=== PATIENT | female | born 1950 | race Caucasian/White ===

== ENCOUNTER → 2018-01-30 12:50 | Outpatient (CLI) | payer MEDICARE, SELFPAY ==
--- NOTE | 2018-02-04 18:29 | LEAS ---
Arterial Study - Arterial Study Arterial Study: This is a 67-year-old female with history of diabetes mellitus and hyperlipidemia. Suspecting the presence of atherosclerotic peripheral arterial occlusive disease, the patient was brought to the noninvasive vascular laboratory at this time for the purpose of bilateral noninvasive lower extremity arterial assessment. Doppler signal assessment was used to evaluate the pulses at ankle level bilaterally. The posterior tibial and dorsalis pedis pulses were triphasic bilaterally. Segmental limb pressures were obtained bilaterally. The right ankle pressure, as determined by posterior tibial pulse, was measured at 150 mmHg. The right ankle pressure, as determined by dorsalis pedis pulse, was measured at 137 mmHg. The right digital pressure was measured at 118 mmHg. The left ankle pressure, as determined by posterior tibial pulse, was measured at 173 mmHg. The left ankle pressure, as determined by dorsalis pedis pulse, was measured at 245 mmHg. The left digital pressure was measured at 106 mmHg. Pulse-volume recordings were obtained bilaterally and segmentally. Waveform amplitudes appeared to be satisfactory at all levels bilaterally, including low thigh, calf, ankle, and digital levels. Resting ankle-brachial indices were calculated bilaterally. The resting right ankle-brachial index was calculated to be 1.11. The resting left ankle-brachial index was calculated to be 1.81. Digital-brachial indices were calculated bilaterally. The right digital-brachial index was calculated to be 0.87. The left digital-brachial index was calculated to be 0.79. Impression: Based upon the findings of this resting noninvasive lower extremity arterial study, there is no evidence of significant atherosclerotic peripheral arterial occlusive disease in the lower extremities bilaterally. Triphasic waveforms were noted at ankle level bilaterally. The resting right ankle-brachial index was normal. The resting left ankle-brachial index was supra-normal. This may be related to arterial calcification in the left lower extremity, for which clinical correlation is advised. Digital-brachial indices were bilaterally normal.
== END ==
PROVIDERS: Family Provider Family Medicine; PCP Family Medicine; Visit Provider Podiatrist
DX: I73.9 Peripheral vascular disease, unspecified (principal); I87.2 Venous insufficiency (chronic) (peripheral); R60.0 Localized edema
CPT/HCPCS: 93923; 93970

== ENCOUNTER 2020-04-25 11:32 | Inpatient (IN) | payer MEDICARE, SELFPAY ==
[2020-04-25] VITALS (10 sets, daily range): BP systolic 98–134; BP diastolic 44–82; PULSE 93–106; RESP 13–22; TEMP 36.8–37.7; O2SAT 95–99; BMI 43.9; BMI 38.2; BMI 38.3
--- NOTE | 2020-04-25 11:55 | CT_ITS ---
STUDY: CT BRAIN WITHOUT CONTRAST REASON FOR EXAM: Female, 69 years old. FALL-HAS BEEN LAYING ON FLOOR X 2 DAYS, IK=116 RADIATION DOSAGE (If Supplied By Facility): CTDIvol = ( 44.99 ) mGy, DLP = ( 779.24 ) mGycm TECHNIQUE: Transaxial CT imaging of the brain was performed without administration of intravenous contrast material. Individualized dose optimization techniques were used for this CT. COMPARISON: No relevant priors. FINDINGS: Normal soft tissue structures. Normal calvarium. There is mild cerebral atrophy with widening of the extra-axial spaces and ventricular dilatation. There are areas of decreased attenuation within the white matter tracts of the supratentorial brain, consistent with microvascular disease changes. Normal basal ganglia and thalami. Normal brainstem. Normal cerebellum. There is no intracranial hemorrhage. There are no findings of an acute ischemic infarction. Normal visualized paranasal sinuses. CT/Brain/Head without Contrast IMPRESSION: Chronic involutional changes of the brain. Electronically Signed: Benitez Sanchez DO at 12:53 EST Tel , Service support ,
--- NOTE | 2020-04-25 11:56 | EKG12_ITS ---
Test Reason : FALL Blood Pressure : / mmHG Vent. Rate : 104 BPM Atrial Rate : 104 BPM P-R Int : 136 ms QRS Dur : 074 ms QT Int : 386 ms P-R-T Axes : 053 017 -07 degrees QTc Int : 507 ms Sinus tachycardia Possible Left atrial enlargement Borderline ECG Confirmed by ANETTE QUIJANO, LLOYD ([id number]), art editor RUTHANN GASTON ([id number]) on 04/28/2020 10:34:47 AM Referred By: VERONIKA Confirmed By:LLOYD CHEEMA MD
--- NOTE | 2020-04-25 11:57 | RAD_ITS ---
STUDY: X-RAY - PELVIS AND LEFT HIP REASON FOR EXAM: Female, 69 years old. PT FELL, POSSIBLY BEEN LAYING ON THE FLOOR FOR A COUPLE OF DAYS. LT HIP PAIN. FRIENDS THAT FOUND HER HAVE NOT SEEN HER IN A COUPLE OF WEEKS AND TOLD EMS THAT HER SPEECH DOES NOT NORMALLY SOUND SLURRED. BGL 302 TECHNIQUE: 3 views of the pelvis and hip. COMPARISON: None. FINDINGS: There is a non-specific bowel gas pattern. Normal visualized soft tissue structures. Normal bilateral iliac wings, sacroiliac joints and visualized sacrum. Normal bilateral superior and inferior pubic rami. Normal pubic symphysis. Normal bilateral ischial tuberosities. There are osteoarthritic changes of the femoral head with marginal osteophyte formation. Normal acetabulum. There is mild articular joint space narrowing of the hip. RAD/HIP, UNI W/ Pelvis 2-3 Views IMPRESSION: No acute traumatic findings Electronically Signed: Benitez Sanchez DO at 12:54 EST Tel , Service support ,
--- NOTE | 2020-04-25 12:11 | ED.DCSUM_ITS ---
- ER Visit Summary Date of Service: 04/25/20 Chief Complaint: Fall History of Present Illness: The patient is a 69 F who presents after a fall that occurred yesterday. Patient states she fell and was unable to get up. Friends found the patient laying on the floor today. Patient states she was unable to g et up and laid on the floor since yesterday. Patient states she has pain in her left hip. Patient states this is worse with any movement. Patient describes as a dull soreness. Patient denies any head injury or loss of consciousness. Patient states her left upper extremity has some mild soreness but she thinks that is because she laid on that arm. Physical Examination: Vital signs are stable except for mild tachycardia of 106. Patient is afebrile. Patient is in no acute distress. Oral mucosa is pink and dry. Neck is supple. Trachea is midline. There is no JVD. Heart was regular and tachycardic. Lungs are clear and equal bilaterally. Abdomen is soft. Bowel sounds are normal. There is no tenderness. Extremities are intact. There is tenderness over the left hip area. There is pain with internal and external rotation. There is no shortening noted. Cranial nerves II through XII are intact. Strength is 5/5 bilateral in the upper and lower extremities. There are no sensory deficits. Test Results: EKG was obtained. On my interpretation it showed sinus tachycardia with a rate of 104. There are no acute ST or T wave changes. CBC shows a leukocytosis of 17.6. Comprehensive metabolic profile shows slightly elevated glucose of 262 but was otherwise within normal limits. PT with INR and PTT were normal. Total CK was elevated at 1894. Troponin was slightly elevated at 0.161. CT scan of the brain was obtained. There is no acute intracranial abnormality. This was interpreted by the radiologist and reviewed by myself. X-rays of the left hip were obtained and were 3 views. There is no acute fracture or dislocation on my interpretation. Radiologist also interpreted the x-rays and agrees. Portable 1 view chest x-ray was obtained. On my interpretation, lung triana are clear. There is normal cardiac silhouette. Bony thorax is normal. There is no acute process noted. Radiologist also interpreted the x-ray and agrees. Emergency Department Course and Treatment: Patient was given 2 L of normal saline initially. Patient was started on bicarb drip. Case was discussed with the hospitalist. He will admit the patient to his service. Patient understood and was agreeable with the plan. All questions were answered. Disposition: Admit to hospital Impression: 1. Rhabdomyolysis 2. Elevated troponin This note was generated with [employer] dictation software. It may contain incorrect words, spelling, and punctuation that were not noted in review of the chart prior to signing ED Disposition - Plan for ED Patient: Disposition: Acute Care Hospital [facility] Diagnosis: Rhabdomyolysis, Elevated troponin Referrals: Geoffrey Garber DO [Primary Care Provider] -
[2020-04-25] MEDS: 0.9% Normal Saline 1,000 ML 1000 ML IV (12:21)
[2020-04-25 12:22] LABS: Absolute Lymphocyte Count 0.85 X10^3/uL (0.83-4.51); Absolute Neutrophil Count 15.3 X10^3/uL (2.0-7.7); Basophil# 0.06 X10^3/uL; Basophil% 0.3 % (0-1); Eosinophil# 0.02 X10^3/uL; Eosinophils% 0.1 % (0-5); Hematocrit 43.6 % (37-47); Hemoglobin 14.6 g/dL (12.0-15.0); Lymphocyte # 0.85 X10^3/ul (4.0); Lymphocyte % 4.8 % (19-41); Mean Corp Hgb Conc 33.5 g/dL (32-36); Mean Corpuscular Hgb 28.9 pg (27.0-32.0); Mean Corpuscular Volume 86.2 fL (81-99); Mean Platelet Vol. 9.8 fl (6.2-12.0); Monocyte# 1.27 X10^3/uL; Monocyte% 7.2 % (0-10); NRBC Flagged by Analyzer 0 % (0-5); Neutrophil # 15.33 X10^3/uL (2.7-7.7); Neutrophil % 87.1 % (47-70); Platelet Count 311 K/mm3 (150-450); RBC Distribution Width CV 13.2 % (11.6-14.6); RBC Distribution Width SD 41.6 fl (35.1-43.9); Red Blood Count 5.06 M/mm3 (4.2-5.4); White Blood Count 17.6 K/mm3 (4.4-11.0)
--- NOTE | 2020-04-25 12:30 | RAD_ITS ---
STUDY: X-RAY CHEST REASON FOR EXAM: Female, 69 years old. PT FELL, POSSIBLY BEEN LAYING ON THE FLOOR FOR A COUPLE OF DAYS. LT HIP PAIN. FRIENDS THAT FOUND HER HAVE NOT SEEN HER IN A COUPLE OF WEEKS AND TOLD EMS THAT HER SPEECH DOES NOT NORMALLY SOUND SLURRED. BGL 302 TECHNIQUE: Single AP portable view of the chest. COMPARISON: None. FINDINGS: The lungs are clear and expanded. There is no demonstrated pleural abnormality. Normal size heart. Normal mediastinum and nas. Normal visualized pulmonary arteries. Normal visualized aortic arch and descending thoracic aorta. Normal visualized thoracic spine. Normal visualized ribs, clavicles, and shoulders. There is no demonstrated abnormality of the visualized soft tissue structures of the upper abdomen. RAD/Chest 1 View (Portable) IMPRESSION: Normal x-ray examination of the chest. Electronically Signed: Benitez Sanchez DO at 12:54 EST Tel , Service support ,
[2020-04-25 12:36] LABS: ALB/GLOB Ratio 0.9 RATIO (0.9-2.4); AST(SGOT) 75 U/L (15-37); Alanine Aminotransfer ALT/SGPT 25 U/L (13-56); Albumin, Serum 3.3 g/dL (3.2-5.0); Alkaline Phosphatase 86 U/L (45-117); Anion Gap 9 (5-15); BUN 16 mg/dL (7-18); Calcium,Total 8.9 mg/dL (8.5-10.1); Chloride 104 mmol/L (98-107); EST Glomerular Filtration Rate 58 mL/min (>60); Est Glom Filt Rate - Afr Amer 70 mL/min (>60); Estimated Creatinine Clearance 40.81 ml/min; Globulin 3.7 g/dL (2.2-4.2); Glucose 262 mg/dL (74-106); Potassium 4.2 mmol/L (3.5-5.1); Sodium Level 138 mmol/L (136-145)
[2020-04-25 12:38] LABS: Lactic Acid 1.9 mmol/L (0.4-1.9)
[2020-04-25 13:05] LABS: International Normalized Ratio 1.1; Prothrombin Time (Protime)PT. 13.3 SECONDS (11.7-14.9)
[2020-04-25 13:06] LABS: Partial Thromboplast Time 29.4 Seconds (24.1-36.2)
[2020-04-25 13:26] LABS: Bacteria 0 SEEN /hpf (None Seen); Mucous, Urine 0 SEEN /hpf (<or=2+); Red Blood Cells-Urine 0 SEEN /hpf (0-5); Squamous Epithelial Cells - UA 0 SEEN /hpf (5-10)
[2020-04-25 13:29] LABS: CPK Total, Creatine Kinase 1891 U/L (26-192)
[2020-04-25 13:29] LABS: Color, Urine Yellow (Yellow); Glucose, Dipstick 1000 mg/dl (Normal); Ketone-Dipstick 50 mg/dl (Negative); Leukocyte Esterase-Dipstick 100 /ul (Negative); Nitrite-Dipstick Negative (Negative); Occult Blood-Urine 10 /ul (Negative); Protein-Dipstick 30 mg/dl (Negative); Urine Bilirubin Dipstick Negative (Negative); Urine Clarity Clear (Clear); Urine Urobilinogen Normal (Normal)
[2020-04-25 13:36] LABS: Bedside Glucose 266 mg/dL (70-110)
[2020-04-25 13:53] LABS: White Blood Cells 0-5 SEEN /hpf (0-5)
[2020-04-25] MEDS: 0.9% Normal Saline 1,000 ML 999 ML IV (13:54)
--- NOTE | 2020-04-25 14:22 | RAD_ITS ---
STUDY: X-RAY - LEFT SHOULDER REASON FOR EXAM: Female, 69 years old. FALL, PAIN TECHNIQUE: 3 view(s) of the shoulder. COMPARISON: None. FINDINGS: Normal glenohumeral articulation. There is hypertrophic osteoarthrosis of the acromioclavicular joint with inferior osseous spur formation. Normal acromion. Normal humeral head and visualized proximal humerus. The soft tissue structures are unremarkable. Normal visualized pulmonary apex. RAD/Shoulder min 2 Views IMPRESSION: Degenerative changes. No fracture or malalignment. Electronically Signed: Mello Mendes MD ([place]) at 14:46 EST , Service support ,
--- NOTE | 2020-04-25 14:35 | PCM.HP.STD ---
Problem List (1) Acute rhabdomyolysis Status: Acute (2) Hypertension Status: Chronic (3) Diabetes mellitus type 2 in obese Status: Chronic (4) Fall Status: Acute (5) Elevated troponin Status: Acute History of Present Illness Date of Admission: 04/25/20 Chief Complaint: Fall with laying on the floor. The patient is a 69 year old F with history of hypertension, diabetes mellitus type 2 was brought by EMS for laying on the floor for about 1 day. As per the patient, she fell down on Sunday evening or night while she was trying to go to bathroom. She felt her knees gave out. As per EMS, blood sugar was 302. Her speech was mild slow, slurring and difficult to understand but was attributed to dry mouth and probably anxious. She complained of left knee pain. In ED, vital signs shows mild tachycardia, heart rate 106, blood pressure was 98/82 which responded well to the IV fluid normal saline. No hypoxia. Mild leukocytosis. CK 1891. Glucose 262 in BMP. She denies dysuria, increased frequency or urgency. UA LE 100 but negative nitrite or WBC. RBC 0. Twelve-lead EKG shows sinus tachycardia at 104 bpm. QTC 507 ms. First troponin elevated 0.161. Patient denies any chest pain or history of coronary artery disease/MA or cardiac stent. Patient was given D5 with bicarb in ED. Past Medical History Past Medical History (Chronic Problems): Chronic Problems Hypertension (Chronic) Diabetes mellitus type 2 in obese (Chronic) Allergies No Known Allergies Allergy (Verified 04/25/20 11:34) Home Medications: Ambulatory Orders Medication Instructions Recorded NK 04/25/20 Smoking Status: Former smoker - Quit about 20 years ago. Started in teenage Tobacco Use: Cigarettes Alcohol: None Drugs: None - *Family History Maternal History Items: Stroke Review of Systems Constitutional: Denies: Chills, Fever, Weight Change HEENT: Denies: Head Aches, Sinus Congestion, Sinus Drainage Cardiovascular: Denies: Chest Pain, Palpitations Respiratory: Denies: Cough, Shortness of breath at rest, Sputum production Gastrointestinal: Denies: Abdominal Pain, Nausea, Vomiting Genitourinary: Denies: Dysuria Musculoskeletal: Reports: Joint Pain - Left knee pain, Joint stiffness, Shoulder Pain - Left shoulder. Denies: Joint Tenderness Skin: Denies: Rash, Wounds Neurological: Reports: Balance problems, Incoordination. Denies: Focal weakness, Numbness, Tingling Psychiatric: Reports: Anxiety. Denies: Depression, Homicidal Ideations, Suicidal Ideations Hematologic/ Lymphatic: Denies: Easy Bruising, Easy Bleeding VTE Information - Inpt Only VTE Present on Admission: No VTE Mechan Device Prophylaxis: None VTE Pharm Prophylaxis ordered?: Yes Patient Problems: Active and Suspected Problems Elevated troponin (Acute) - Physical Exam Vitals/I&O's: Vital Signs Temp Pulse Resp BP Pulse Ox 98.2 F 103 H 13 124/56 H 99 04/25/20 14:22 04/25/20 14:22 04/25/20 14:22 04/25/20 14:22 04/25/20 14:22 Oxygen Delivery Method Room Air Weight: 240 lb 4.862 oz Body Mass Index (BMI) 43.9 Intake and Output for Last 24 Hours 04/23/20 04/24/20 04/25/20 23:59 23:59 23:59 Intake Total 1000 / 1000 Balance 1000 / 1000 General: Alert, Oriented x3, Cooperative HEENT: Atraumatic, PERRLA, EOMI, Normocephalic Oral: Dry Mucosa, - - Mucosal growth, firm to hard on palpation, nonbleeding lesion found on the hard palate Neck: Supple, No JVD, Negative Carotid Bruits Lungs: No rhonchi, No wheeze, No rales, Diminished - Air entry diminished bilaterally Cardiovascular: Regular rate, Regular Rhythm, Normal S1, Normal S2, No murmurs Abdomen: Bowel Sounds Present, Soft, Non Tender, Non-Distended Extremities: Capillary Refill Less than 3 Seconds, Edema - Mild bilateral ankle edema Skin: No rashes, No breakdown Musculoskeletal: Arthritic Changes, Tenderness - Mild tenderness in left knee. Mild tenderness in left shoulder joint. Neurological: Cranial nerves II-XII grossly intact, Deep Tendon Reflexes 2+/4 and Symmetrical, Neuro grossly intact, - - Mild weakness at the left knee joint, chronic possible secondary to DJD Resting strength 5/5 at major joints Psych/Mental Status: Normal Affect, Appropriate Laboratory Results 04/25/20 12:00: WBC 17.6 H, RBC 5.06, Hgb 14.6, Hct 43.6, MCV 86.2, MCH 28.9, MCHC 33.5, RDW Std Deviation 41.6, RDW Coeff of Venancio 13.2, Plt Count 311, MPV 9.8, Immature Gran % (Auto) 0.500, Neut % (Auto) 87.1 H, Lymph % (Auto) 4.8 L, Hickman % (Auto) 7.2, Eos % (Auto) 0.1, Baso % (Auto) 0.3, Absolute Neuts (auto) 15.3 H, Absolute Lymphs (auto) 0.85, Nucleated RBC % 0 04/25/20 12:00: Sodium 138, Potassium 4.2, Chloride 104, Carbon Dioxide 25.0, Anion Gap 9, BUN 16, Creatinine 1.00, Estim Creat Clear Calc 40.81, Est GFR (MDRD) Af Amer 70, Est GFR (MDRD) Non-Af 58 L, BUN/Creatinine Ratio 16.0, Glucose 262 H, Calcium 8.9, Total Bilirubin 0.90, AST 75 H, ALT 25, Alkaline Phosphatase 86, Troponin I 0.161 H, Total Protein 7.0, Albumin 3.3, Globulin 3.7, Albumin/Globulin Ratio 0.9 04/25/20 12:00: Lactic Acid 1.9 04/25/20 12:00: Total Creatine Kinase 1891 H 04/25/20 12:47: PT 13.3, INR 1.1, APTT 29.4 04/25/20 13:00: POC Glucose 266 H 04/25/20 13:20: Urine Color Yellow, Urine Clarity Clear, Urine pH 5.0, Ur Specific [place] 1.020, Urine Protein 30 H, Urine Glucose (UA) 1000 H, Urine Ketones 50 H, Urine Occult Blood 10 H, Urine Nitrite Negative, Urine Bilirubin Negative, Urine Urobilinogen Normal, Ur Leukocyte Esterase 100 H, Urine RBC 0 SEEN, Urine WBC 0-5 SEEN, Ur Squamous Epith Cells 0 SEEN, Urine Bacteria 0 SEEN, Urine Mucus 0 SEEN Current Medications Sodium Bicarbonate 100 meq/ (Dextrose) 1,100 mls @ 150 mls/hr IV .[id number] [facility] Last Admin: 04/25/20 14:14 Dose: 150 mls/hr Documented by: Assessment/Plan All Active Problems Elevated troponin (Acute) Acute rhabdomyolysis (Acute) Fall (Acute) The patient is a 69 year old F with history of hypertension, diabetes mellitus type 2 was brought by EMS for laying on the floor for about 1 day and level elevations show CK elevated consistent with acute rhabdomyolysis after fall. 1. Fall with consequent rhabdomyolysis, fall most likely secondary to degenerative joint disease: Patient denies head injury or loss of consciousness. Left hip x-ray shows degenerative changes at the hip joint. No acute fracture or dislocation. Patient being admitted in PCU. Serum magnesium. IV fluid normal saline at 150 mill per hour. Monitor intake and output, serum electrolytes and kidney function. BUN/creatinine [address] head does not show acute change. Chest x-ray reported normal. Arterial vascular study in February 2018 right JARVIS 1.11, left JARVIS 1.81, triphasic pulse. Lower extremity arterial study shows no evidence of significant atherosclerotic peripheral arterial occlusive disease in the lower extremities bilaterally. Triphasic waves forms noted at ankle level. Left JARVIS supranormal possible arterial calcification. Toe brachial indices normal bilaterally. Venous Doppler was also negative for DVT at that time PT and OT ordered. 2. Mildly elevated troponin probably secondary to rhabdomyolysis: Repeat troponin. Twelve-lead EKG shows QTC 507 ms with sinus tachycardia. Serum magnesium ordered. 3. Diabetes mellitus type 2: Uncontrolled: Decreasing this, with Humalog sliding scale. A1c tomorrow a.m. 4. Hypertension: Blood pressure was low in ED. Within normal with IV fluid. 5. 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 It is nonbleeding and patient is not aware. VTE prophylaxis: On Lovenox 40 mg subcu daily. Clinical Impression(s) from Imaging Studies Brain CT 04/25/20 11:55 IMPRESSION: Chronic involutional changes of the brain. Electronically Signed: Benitez Sanchez DO at 12:53 EST Tel , Service support , Hip/Pelvis X-Ray 04/25/20 11:57 IMPRESSION: No acute traumatic findings Electronically Signed: Benitez Sanchez DO at 12:54 EST Tel , Service support , Chest X-Ray 04/25/20 12:30 IMPRESSION: Normal x-ray examination of the chest. Electronically Signed: Benitez Sanchez DO at 12:54 EST Tel , Service support , Inpatient E&M: [id number] In Hosp L3
[2020-04-25 15:23] LABS: Magnesium 1.8 mg/dL (1.6-2.6)
[2020-04-25] MEDS: 0.9% Normal Saline 1,000 ML 150 ML IV ×2 (16:08→22:31)
[2020-04-25] MEDS: Aspirin 300 MG Suppository RECTAL (17:34)
[2020-04-25] MEDS: Enoxaparin 40 MG/0.4 ML Syringe SC (17:40)
[2020-04-25 17:51] LABS: Bedside Glucose 248 mg/dL (70-110)
[2020-04-26] VITALS (15 sets, daily range): BP systolic 136–151; BP diastolic 42–62; PULSE 86–110; RESP 18–32; TEMP 36.7–38.2; O2SAT 92–97; BMI 38.2
[2020-04-26 05:33] LABS: Absolute Lymphocyte Count 1.18 X10^3/uL (0.83-4.51); Absolute Neutrophil Count 10.7 X10^3/uL (2.0-7.7); Basophil# 0.07 X10^3/uL; Basophil% 0.5 % (0-1); Eosinophil# 0.11 X10^3/uL; Eosinophils% 0.8 % (0-5); Hematocrit 39.7 % (37-47); Hemoglobin 12.6 g/dL (12.0-15.0); Lymphocyte # 1.18 X10^3/ul (4.0); Mean Corp Hgb Conc 31.7 g/dL (32-36); Mean Corpuscular Hgb 28.3 pg (27.0-32.0); Mean Platelet Vol. 9.9 fl (6.2-12.0); Monocyte# 1.08 X10^3/uL; Monocyte% 8.2 % (0-10); NRBC Flagged by Analyzer 0 % (0-5); Neutrophil # 10.65 X10^3/uL (2.7-7.7); Neutrophil % 81.1 % (47-70); Platelet Count 264 K/mm3 (150-450); RBC Distribution Width CV 13.4 % (11.6-14.6); RBC Distribution Width SD 43.9 fl (35.1-43.9); Red Blood Count 4.46 M/mm3 (4.2-5.4); White Blood Count 13.1 K/mm3 (4.4-11.0)
[2020-04-26 05:54] LABS: Anion Gap 6 (5-15); BUN 12 mg/dL (7-18); BUN/Creat Ratio 15.6 RATIO (10-20); Calcium,Total 8.2 mg/dL (8.5-10.1); Chloride 108 mmol/L (98-107); Cholesterol 134 mg/dL (200); Creatinine, Serum 0.77 mg/dL (0.55-1.02); EST Glomerular Filtration Rate 79 mL/min (>60); Est Glom Filt Rate - Afr Amer 95 mL/min (>60); Estimated Creatinine Clearance 38.94 ml/min; Glucose 189 mg/dL (74-106); High Density Lipoprotein 53 mg/dL; Magnesium 1.8 mg/dL (1.6-2.6); Potassium 3.5 mmol/L (3.5-5.1); Sodium Level 138 mmol/L (136-145); Triglycerides 118 mg/dL; Very Low Density Lipoprotein 24 mg/dL (5-40)
[2020-04-26 06:30] LABS: Bedside Glucose 185 mg/dL (70-110)
[2020-04-26 07:16] LABS: Bedside Glucose 220 mg/dL (70-110)
[2020-04-26 07:48] LABS: Hemoglobin A1c 6.3 % (3.8-5.6)
--- NOTE | 2020-04-26 07:48 | ECHOCS_ITS ---
Reason For Study: TIA/CVA Procedure This was a 2D Doppler, Color Flow transthoracic echocardiogram. Exam performed portable in patient room. Left Ventricle Normal LV size. Left ventricular systolic function is normal. The estimated ejection fraction is 65 %. No regional wall motion abnormalities noted. Right Ventricle Normal RV size. Normal systolic function. Atria The left atrium is mildly enlarged. Normal right atrium. Mitral Valve There is moderate to severe mitral annular calcification. Mild (1+) eccentric mitral valve insufficiency. Tricuspid Valve Normal tricuspid valve. Mild to moderate (1-2+) tricuspid valve insufficiency. Pulmonary artery systolic pressure is 46 mmHg. Aortic Valve Trisinus/trileaflet aortic valve. Mild focal aortic valve calcification. Mild (1+) aortic valve insufficiency. Pulmonic Valve Normal pulmonic valve. Great Vessels Normal aortic root. The pulmonary artery is normal size. Normal inferior vena cava. Pericardium/Pleural No pericardial effusion. Medication Performed a rapid injection of agitated mix of 9 cc saline and 1cc air to assess for atrial septal defect. Diluted definity 3ml given slow IV push to enhance endocardial definition. MMode/2D Measurements & Calculations LVIDd: 4.0 cm IVSd: 1.0 cm LVOT diam: 2.0 cm LVIDs: 2.7 cm LVPWd: 0.98 cm RVDd: 3.7 cm FS: 31.2 % LVOT area: 3.1 cm2 Ao root diam: 3.0 cm LAV(MOD-bp): 53.0 ml LVAd ap4: 24.5 cm2 LAV(MOD-bp) Indexed: 27.4 ml/m2 EDV(MOD-sp4): 70.2 ml LAV(MOD-sp2): 43.6 ml EDV(sp4-el): 73.9 ml LAV(MOD-sp4): 59.3 ml LVAs ap4: 13.1 cm2 ESV(MOD-sp4): 24.5 ml ESV(sp4-el): 25.6 ml EF(MOD-sp4): 65.1 % EF(sp4-el): 65.3 % SV(MOD-sp4): 45.7 ml SV(sp4-el): 48.3 ml LA A4 area: 21.5 cm2 LA dimension(2D): 3.5 cm RA A4 area: 18.4 cm2 Time Measurements MV dec time: 0.33 sec Doppler Measurements & Calculations MV E max mark anthony: 116.7 cm/sec Lat Peak E' [place]: 6.2 cm/sec Med Peak E' [place]: 6.2 cm/sec MV A max mark anthony: 194.1 cm/sec E/E' lat: 18.7 E/E' med: 18.7 MV E/A: 0.60 MV V2 max: 220.2 cm/sec MV P1/2t max mark anthony: 178.4 cm/sec Ao V2 max: 352.1 cm/sec MV max P.4 mmHg MV P1/2t: 90.1 msec Ao max P.6 mmHg MV V2 mean: 129.3 cm/sec MV dec slope: 580.1 cm/sec2 Ao V2 mean: 264.0 cm/sec MV mean P.6 mmHg MVA(P1/2t): 2.4 cm2 Ao mean P.7 mmHg MV V2 VTI: 46.4 cm Ao V2 VTI: 69.5 cm MVA(VTI): 1.9 cm2 GORDY(I,D): 1.2 cm2 GORDY(V,D): 1.2 cm2 AI max mark anthony: 374.7 cm/sec LV V1 max: 137.9 cm/sec SV(LVOT): 86.2 ml AI max P.2 mmHg LV V1 max P.6 mmHg LV V1 mean P.9 mmHg AI dec slope: 308.5 cm/sec2 LV V1 mean: 91.0 cm/sec AI P1/2t: 355.8 msec LV V1 VTI: 27.7 cm PA V2 max: 132.4 cm/sec TR max mark anthony: 325.5 cm/sec MV P1/2t-pr_phl: 83.3 msec TR max P.4 mmHg Interpretation Summary Pulmonary artery systolic pressure is 46 mmHg. Normal LV size. Left ventricular systolic function is normal. The estimated ejection fraction is 65 %. There is moderate to severe mitral annular calcification. Mild (1+) eccentric mitral valve insufficiency. Mild focal aortic valve calcification. Contrast injection was performed. Ordering Physician: Mikhail Mcdonald Referring Physician: CHLOÉ PERDOMO Performed By: Desire So RDCS
--- NOTE | 2020-04-26 09:00 | MRI_ITS ---
STUDY: MRA NECK WITHOUT CONTRAST REASON FOR EXAM: Female, 69 years old. cva, recent fall, lt sided weakness TECHNIQUE: Source images were obtained, MIPs were performed. The study was performed unenhanced. COMPARISON: Recent MRI of the head obtained on 04/26/2020 and MRA of the head obtained on 04/26/2020 FINDINGS: RIGHT CAROTID ARTERIES: Normal right common carotid artery (CCA). Normal right common carotid bulb. Normal origin of the right internal carotid (ICA) artery without a hemodynamically significant stenosis. Normal visualized cervical portion of the right internal carotid artery. Normal origin of the right external carotid artery (ECA). LEFT CAROTID ARTERIES: Normal left common carotid artery (CCA). Normal left common carotid bulb. Normal origin of the left internal carotid (ICA) artery without a hemodynamically significant stenosis. Normal visualized cervical portion of the left internal carotid artery. Normal origin of the left external carotid artery (ECA). VERTEBRAL ARTERIES: The right vertebral artery appears to be normal. 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 MRI/MRA Neck without Contrast IMPRESSION: Normal bilateral cervical carotid and right vertebral artery. 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 Electronically Signed: Brock Peng, at 12:11 EST Tel , Service support ,
--- NOTE | 2020-04-26 09:00 | MRI_ITS ---
STUDY: MRI BRAIN WITHOUT CONTRAST REASON FOR EXAM: Female, 69 years old. cva, slurred speech, recent fall TECHNIQUE: Standardized multiplanar fat and water weighted pulse sequences were obtained. COMPARISON: Previous CT scan obtained on 04/25/2020 TECHNIQUE: An MRI was performed utilizing axial diffusion and ADC map images followed by axial T2 and FLAIR and gradient echo images followed by sagittal and axial T1 weighted images. Coronal T2-weighted images were also obtained. FINDINGS: The diffusion weighted axial images and ADC map images of the head show a large area restricted diffusion involving the right temporal lobe extending up to the inferior right frontal lobe. The tess, medulla and midbrain and cerebellum appear to be normal. The ventricles and sulci are normal in size and shape. The cerebral hemispheres show an acute infarct involving the right temporal/frontal lobes.The basal ganglia appear to be normal. No enhancing masses or lesions are seen. The gradient echo axial images are normal. No evidence of a Chiari I malformation is identified. The V4 segments of the vertebral artery, the basilar artery, the posterior cerebral arteries, the cavernous and supraclinoid carotid arteries, and the M1 segments of the middle cerebral arteries are all normal The orbits including the optic nerves and optic chiasm appear normal. The pituitary and pituitary infundibulum appear to be normal. fThe inner and outer tables of the skull are normal The frontal, ethmoid, maxillary, and sphenoid sinuses are normal. The mastoid air cells are normal. 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
--- NOTE | 2020-04-26 09:00 | MRI_ITS ---
STUDY: MRA OF THE HEAD WITHOUT CONTRAST REASON FOR EXAM: Female, 69 years old. cva, slurred speech, recent fall TECHNIQUE: 3-D [id number] (TOF) imaging was performed with MIPs. The study was performed unenhanced. FINDINGS: EXAM DESCRIPTION: MRA of the head CLINICAL HISTORY: 69 years Female, cva, slurred speech, recent fall COMPARISON: Recent MRI of the head obtained on 04/26/2020 FINDINGS: Posterior cerebral circulation: The V4 segments of the right vertebral artery is normal. The V4 segment of the left vertebral artery is occluded.. The basilar artery is normal. The origin of the anterior inferior cerebellar artery is seen and appears to be normal. The anterior superior cerebellar arteries are seen at their origins bilaterally. The P1 and P2 segments of left posterior cerebral artery is visualized and appears to be normal. The origin of the right posterior cerebral artery is not visualized but the V2 V3 segments of this artery are seen presumably due to a origin to the right posterior cerebral artery which is a normal vascular variation. Anterior cerebral circulation: The petrous, cavernous, and supraclinoid portions of the internal carotid arteries appear to be normal. The A1 segments of the anterior cerebral arteries and the pericallosal arteries appear to be normal. The anterior communicating artery is normal. The M1 segments of the middle cerebral arteries appear to be normal. The bifurcation of the left middle cerebral artery is normal. There appears to be total occlusion of the temporal branch of the right middle cerebral artery. This corresponds to the acute ischemic CVA noted on the most recent MRI. No abnormal areas of spasm or peripheral dilatation of peripheral arteries is seen. No rodriguez aneurysms are identified. MRI/MRA Head ONLY without Contrast IMPRESSION: 1. 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 2. Total occlusion of a temporal branch of the right middle cerebral artery accounting for the patient''s acute CVA. Electronically Signed: Brock Peng, at 11:59 EST Tel , Service support ,
--- NOTE | 2020-04-26 09:23 | NURSING ---
PT TOLERATING MRI WELL. REMAINING STILL WITHOUT COMPLAINTS.
--- NOTE | 2020-04-26 10:58 | TELEMED_ITS ---
[facility] Telemed has confirmed receipt of a request for visit. This document confirms receipt of the order initiating the consult. To find the results of the consultation, please view the patient's reports for the scanned Telemed Consult.
[2020-04-26] MEDS: Menthol/Lanolin/Calamine/Znox 113 GM Tube 1 APPLIC TOPICAL ×2 (11:21→20:36)
[2020-04-26] MEDS: Enoxaparin 40 MG/0.4 ML Syringe SC (11:26)
[2020-04-26 11:30] LABS: Bedside Glucose 203 mg/dL (70-110)
[2020-04-26 11:35] LABS: CPK Total, Creatine Kinase 1299 U/L (26-192); LDH 225 U/L (84-246)
--- NOTE | 2020-04-26 11:35 | CASEMGMT ---
[facility] See reports to currently have an open case with patient and is requesting for update on patient disposition. Social Work to continue to follow. Win CLARKE, BETTY
[2020-04-26] MEDS: Aspirin 300 MG Suppository RECTAL (11:53)
--- NOTE | 2020-04-26 13:06 | CASEMGMT ---
Assessment- SW met with patient. She was lying in bed with her eyes closed. SW asked her if it is ok if SW asks her some questions. She was fine with this. Patient kept her eyes closed the whole time. Per RN patient has done the same with her. She is hard to understand as she mumbles. Living situation- Patient lives alone in a 1 story apartment. She said there are a couple of entry steps. PCP: Dr Garber. However, patient said she tried to call and get an appt and she said they told her she is no longer a patient. Specialists: None Pharmacy: [facility] DME: cane ADL's/IADL's: Patient does not bathe in the shower as she is afraid she will fall. She uses her cane to get around. She dresses, bathes, and toilets herself. She manages her own medications and bills. She drives. Past SNF/rehab: None Past HH: None LW: No POA: Not anymore. SW could not understand her completely, but it sounded like she said not anymore since her brother ? Plan: SW asked patient if she would be open to going to a SNF if this is recommended. She said yes. SW asked if she wanted to list anyone on her demographics as we have no contacts for her. She said she has no one. She would probably list her landlord. She asked for her purse and SW gave it to her. However, she could only use one hand and did not open her eyes. SW told her SW will come back another time for this information. SW told her SW will follow along and help her with a d/c plan. Yumiko PETIT MSW
--- NOTE | 2020-04-26 13:18 | CASEMGMT ---
SW attempted to do a PHQ 9 with patient as she had a Stroke. However, she mumbles and SW could not understand her. SW will try again later. Yumiko PETIT MSW
--- NOTE | 2020-04-26 14:10 | CASEMGMT ---
GENNA called See at [facility]. She is not familiar with patient yet. She said she recently received a referral as patient's home is a mess. She had bowel movements and urine in tupperware containers and she won't let anyone into her apartment. She said per her landlord patient has no one. The landlord's name is Christina Carlisle [phone]. GENNA told her SW will let her know about a d/c plan when SW has one. SW did let her know patient said she would go to a longterm if this is recommended. Yumiko PETIT KEYBOARD INSTRUMENT TUNER
--- NOTE | 2020-04-26 16:13 | PCM.PN.HOSP ---
Patient Problems: Active and Suspected Problems Elevated troponin (Acute) Acute rhabdomyolysis (Acute) Fall (Acute) Rhabdomyolysis (Acute) Objective: Seen and examined. Patient still very drowsy and lethargic but mental status and speech better than yesterday. She has low-volume speech, slurring and able to read sentences therefore mild to moderate language deficit/aphasia. Difficulty in swallowing therefore n.p.o. MRI brain was done. Left-sided weakness quality assurance monitor chassis shows 6 beats of NSVT sinus tachycardia at last night 116 bpm. Currently sinus rhythm with PVCs. She also has remote history of smoking probably 3 to 5 years and quit 30 years ago. Mild wheezing. Physical exam General: Oriented x3, Cooperative but dull and lethargic HEENT: Atraumatic, PERRLA, EOMI, Normocephalic Oral: Firm to hard lesion on the hard palate, chronic in nature. Nonbleeding. Neck: Supple, No JVD, Negative Carotid Bruits Lungs: Air entry diminished in bilateral lung bases. Mild bilateral wheezing. No hypoxia. Cardiovascular: sinus rhythm with n PVCs ormal S1, Normal S2, No murmurs Abdomen: Bowel Sounds Present, Soft, Non Tender, Non-Distended : No renal angle tenderness. No suprapubic tenderness. Extremities: Mild bilateral ankle edema, Capillary Refill Less than 3 Seconds Skin: No rashes, No breakdown Musculoskeletal: No Tenderness to Palpation of Joints or Extremities Neurological: Left-sided flaccid weakness. Mild drooping of face on left side. No visual loss of field. No extraocular muscles palsy. Mild to moderate with slurring WITH dysarthria. Dysphagia. Calculated NIH stroke scale 16. Psych/Mental Status: Lethargic. Vitals/I&O's: Vital Signs Temp Pulse Resp BP Pulse Ox 98.1 F 89 18 136/44 H 97 04/26/20 14:55 04/26/20 14:55 04/26/20 14:55 04/26/20 14:55 04/26/20 14:55 Oxygen Delivery Method Room Air Weight: 212 lb 4.882 oz Body Mass Index (BMI) 38.2 Intake and Output for Last 24 Hours 04/24/20 04/25/20 04/26/20 23:59 23:59 23:59 Intake Total 3225.0 / 3225.0 1000 / 1000 Output Total 250 / 675 900 / 900 Balance 2975.0 / 2550.0 100 / 100 Laboratory Results 04/25/20 16:07: Troponin I 0.144 H 04/25/20 17:46: POC Glucose 248 H 04/25/20 19:33: Troponin I 0.137 H, TSH 3.30 04/25/20 23:26: POC Glucose 220 H 04/26/20 04:45: WBC 13.1 H, RBC 4.46, Hgb 12.6, Hct 39.7, MCV 89.0, MCH 28.3, MCHC 31.7 L D, RDW Std Deviation 43.9, RDW Coeff of Venancio 13.4, Plt Count 264, MPV 9.9, Immature Gran % (Auto) 0.400, Neut % (Auto) 81.1 H, Lymph % (Auto) 9.0 L, [place] % (Auto) 8.2, Eos % (Auto) 0.8, Baso % (Auto) 0.5, Absolute Neuts (auto) 10.7 H, Absolute Lymphs (auto) 1.18, Nucleated RBC % 0 04/26/20 04:45: Sodium 138, Potassium 3.5, Chloride 108 H, Carbon Dioxide 24.0, Anion Gap 6, BUN 12, Creatinine 0.77, Estim Creat Clear Calc 38.94, Est GFR (MDRD) Af Amer 95, Est GFR (MDRD) Non-Af 79, BUN/Creatinine Ratio 15.6, Glucose 189 H, Calcium 8.2 L, Magnesium 1.8, Triglycerides 118, Cholesterol 134, LDL Cholesterol 57, VLDL Cholesterol 24, HDL Cholesterol 53 04/26/20 04:45: Hemoglobin A1c 6.3 H 04/26/20 04:45: Lactate Dehydrogenase 225, Total Creatine Kinase 1299 H 04/26/20 05:56: POC Glucose 185 H 04/26/20 11:18: POC Glucose 203 H Current Medications Acetaminophen (Acetaminophen 325 Mg Tablet) 650 mg PO Q6H PRN PRN PRN Reason: Pain Score 1-10/Temp > 100.7 F Aspirin (Aspirin E.C. 325 Mg Tablet) 325 mg PO DAILY@0800 [facility] Atorvastatin Calcium (Atorvastatin Calcium 40 Mg Tablet) 40 mg PO QHS [facility] Calamine/Phenol (Menthol/Lanolin/Calamine/Znox 113 Gm Tube) 1 applic TOPICAL BID [facility]; Protocol Last Admin: 04/26/20 11:21 Dose: 1 applic Documented by: Clopidogrel Bisulfate (Clopidogrel Bisulfate 75 Mg Tablet) 75 mg PO DAILY [facility] Last Admin: 04/26/20 11:23 Dose: Not Given Documented by: Enoxaparin Sodium (Enoxaparin 40 Mg/0.4 Ml Syringe) 40 mg SC DAILY [facility] Last Admin: 04/26/20 11:26 Dose: 40 mg Documented by: Famotidine (Famotidine 20 Mg Tablet) 20 mg PO BID [facility] Last Admin: 04/26/20 11:23 Dose: Not Given Documented by: Hydralazine HCl (Hydralazine 20 Mg/Ml Vial) 5 mg IV Q30M PRN PRN Reason: to maintain BP goals Labetalol HCl (Labetalol (Prefilled) 20 Mg/4 Ml) 10 - 20 mg IV Q10M PRN PRN PRN Reason: to Maintain BP Goals Morphine Sulfate (Morphine 2 Mg/Ml Syringe) 2 mg IV Q3H PRN PRN PRN Reason: Pain Score 6-10 Oxycodone HCl (Oxycodone 5 Mg Tablet) 5 mg PO Q4H PRN PRN PRN Reason: Pain Score 4-5 Prochlorperazine Edisylate (Prochlorperazine 10 Mg/2 Ml Vial) 5 mg IV Q4H PRN PRN PRN Reason: Breakthrough Nausea/Vomiting Psyllium Hydrophilic Mucilloid (Psyllium 1 Packet) 1 packet PO DAILY [facility] Last Admin: 04/26/20 11:23 Dose: Not Given Documented by: Senna/Docusate Sodium (Senna/Docusate Sodium 1 Tablet) 2 tablet PO BID PRN PRN PRN Reason: Constipation Sodium Chloride (0.9% Saline Lock 10 Ml Syringe) 10 - 40 ml IV UD PRN PRN Reason: SALINE FLUSH STROKE Vital Signs/Narrative: Vital Signs Temp Pulse Resp BP Pulse Ox 04/26/20 14:55 98.1 F 89 18 136/44 H 97 Medical Necessity - Tobacco Use Smoking Status: Former smoker Tobacco Use: Cigarettes Assessment/Plan All Active Problems Elevated troponin (Acute) Acute rhabdomyolysis (Acute) Fall (Acute) Rhabdomyolysis (Acute) The patient is a 69 year old F with history of hypertension, diabetes mellitus type 2 was brought by EMS for laying on the floor for about 1 day and level elevations show CK elevated consistent with acute rhabdomyolysis after fall. 1. 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 MRI head shows total occlusion of left V4 segment and total occlusion of temporal branch of right MCA accounting for acute ischemic infarct. Neck MRA shows normal bilateral cervical carotid and right vertebral artery with total occlusion of distal left vertebral artery. Discussed with the neurologist Dr. Peterson. He thinks that she is not a candidate for neurovascular intervention at this point of time. Patient has extinction of left side because of infarct. N.p.o. until swallow screen. BP and glucose as per stroke guidelines. 2D echo He also suggested KYLIE as it seems embolic stroke in MRI brain. This was discussed with Dr. Vu and he will follow it but patient is lethargic and not stable for any procedure KYLIE. Start Plavix and statin when patient passes swallow screen. PT OT speech and swallow evaluation. Fasting profile LDL 57, HDL 53. TSH 3.3. 2. Fall with consequent rhabdomyolysis, fall most likely secondary to degenerative joint disease: Patient denies head injury or loss of consciousness. Left hip x-ray shows degenerative changes at the hip joint. No acute fracture or dislocation. BUN/creatinine [address] head does not show acute change. Chest x-ray reported normal. Arterial vascular study in February 2018 right JARVIS 1.11, left JARVIS 1.81, triphasic pulse. Lower extremity arterial study shows no evidence of significant atherosclerotic peripheral arterial occlusive disease in the lower extremities bilaterally. Triphasic waves forms noted at ankle level. Left JARVIS supranormal possible arterial calcification. Toe brachial indices normal bilaterally. Venous Doppler was also negative for DVT at that time 04/26: Continue IV fluid normal saline with 40 M EQ KCl at 100 mL/h. K3.5. A1c 6.3 magnesium 1.8. 2. Mildly elevated troponin probably secondary to rhabdomyolysis: Repeat troponin. Twelve-lead EKG shows QTC 507 ms with sinus tachycardia. Serum magnesium normal. Serial troponin mildly elevated 0.16, 0144 and 0.137. 3. Diabetes mellitus type 2: Uncontrolled: Decreasing this, with Humalog sliding scale. A1c 6.3. 4. Hypertension: Blood pressure was low in ED. Within normal with IV fluid. 5. 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 It is nonbleeding and patient is not aware. VTE prophylaxis: On Lovenox 40 mg subcu daily. Total time of the visit including total time spent in counseling or coordination of care, (more than 50% of the total time, spent in obtaining medical information from nurses and other ancillary care providers,explaining to the patient about labs, imaging, diagnosis and management), discussion with the neurologist and the peoplesoft hcm developer, review of labs and imaging is 35 minutes. Clinical Impression(s) from Imaging Studies Brain CT 04/25/20 11:55 IMPRESSION: Chronic involutional changes of the brain. Electronically Signed: Benitez Sanchez DO at 12:53 EST Tel , Service support , Hip/Pelvis X-Ray 04/25/20 11:57 IMPRESSION: No acute traumatic findings Electronically Signed: Benitez Sanchez DO at 12:54 EST Tel , Service support , Chest X-Ray 04/25/20 12:30 IMPRESSION: Normal x-ray examination of the chest. Electronically Signed: Benitez Sanchez DO at 12:54 EST Tel , Service support , Shoulder X-Ray 04/25/20 14:22 IMPRESSION: Degenerative changes. No fracture or malalignment. Electronically Signed: Mello Mendes MD ([place]) at 14:46 EST , Service support , Brain MRI 04/26/20 09:00 IMPRESSION: Acute ischemic infarct involving the right temporal and frontal lobes Electronically Signed: Brock Peng at 10:33 EST Tel , Service support , Head MRA 04/26/20 09:00 IMPRESSION: 1. 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 2. Total occlusion of a temporal branch of the right middle cerebral artery accounting for the patient''s acute CVA. Electronically Signed: Brock Peng, at 11:59 EST Tel , Service support , Neck MRA 04/26/20 09:00 IMPRESSION: Normal bilateral cervical carotid and right vertebral artery. 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 Electronically Signed: Brock Peng, at 12:11 EST Tel , Service support , Inpatient E&M: [id number] [facility] Hosp L3
[2020-04-26 16:56] LABS: Bedside Glucose 186 mg/dL (70-110)
[2020-04-26] MEDS: Potassium Chloride 40 MEQ in 0.9% Normal Saline 1,000 ML 100 MEQ IV (18:07)
[2020-04-26] MEDS: Morphine 2 MG/ML Syringe IV (20:36)
[2020-04-26] MEDS: 0.9% Saline Lock 10 ML Syringe IV (20:37)
--- NOTE | 2020-04-26 23:00 | RAD_ITS ---
STUDY: X-RAY CHEST REASON FOR EXAM: Female, 69 years old. POSSIBLE INFECTION TECHNIQUE: Single AP portable view of the chest. COMPARISON: 04/25/2020 FINDINGS: Lungs are mildly hypoinflated. Subtle patchy airspace disease bilaterally could represent infection. There appears to be a right PICC with its tip in the right axillary region. No pneumothorax. Normal size heart. Normal mediastinum and nas. Normal visualized pulmonary arteries. Normal visualized aortic arch and descending thoracic aorta. Normal visualized thoracic spine. Normal visualized ribs, clavicles, and shoulders. There is no demonstrated abnormality of the visualized soft tissue structures of the upper abdomen. RAD/Chest 1 View IMPRESSION: Subtle patchy airspace disease bilaterally. Right PICC with the tip in the right axillary region. Electronically Signed: Benitez Sanchez DO at 0:18 EST Tel , Service support ,
[2020-04-26] MEDS: Acetaminophen 650 MG Suppository RECTAL (23:02)
[2020-04-27] VITALS (15 sets, daily range): BP systolic 133–155; BP diastolic 57–81; PULSE 87–101; RESP 18–29; TEMP 36.6–37.9; O2SAT 94–98
[2020-04-27] MEDS: Insulin Lispro 100 UNIT/ML INSULN.PEN SC ×5 (00:14→23:18)
[2020-04-27] MEDS: Morphine 2 MG/ML Syringe IV ×4 (00:28→22:45)
[2020-04-27] MEDS: 0.9% Saline Lock 10 ML Syringe IV ×5 (00:29→22:45)
[2020-04-27 01:30] LABS: Bedside Glucose 195 mg/dL (70-110)
[2020-04-27 01:42] LABS: Mucous, Urine 0 SEEN /hpf (<or=2+); Squamous Epithelial Cells - UA 0 SEEN /hpf (5-10)
[2020-04-27 01:44] LABS: Color, Urine Yellow (Yellow); Glucose, Dipstick 250 mg/dl (Normal); Leukocyte Esterase-Dipstick 25 /ul (Negative); Nitrite-Dipstick Positive (Negative); Occult Blood-Urine 25 /ul (Negative); Protein-Dipstick 15 mg/dl (Negative); Urine Bilirubin Dipstick Negative (Negative); Urine Clarity Clear (Clear); Urine Urobilinogen Normal (Normal)
[2020-04-27 01:45] LABS: Ketone-Dipstick 150 mg/dl (Negative)
[2020-04-27 01:49] LABS: Bacteria 1+ /hpf (None Seen); Red Blood Cells-Urine 0-5 SEEN /hpf (0-5); White Blood Cells 0-5 SEEN /hpf (0-5)
--- NOTE | 2020-04-27 02:21 | PCM.PN.BLA ---
Progress Note Probable bacterial pneumonia/UTI. Patient with temperature of 100.7F resolved with Tylenol. Comprehensive respiratory pathogen panel and Covid negative. Chest x-ray with subtle bilateral infiltrates. Urinalysis abnormal. Blood cultures were ordered; results are pending. Start patient on ceftriaxone and azithromycin. Check MRSA nasal swab. STROKE Vital Signs/Narrative: Vital Signs Temp Pulse Resp BP Pulse Ox 04/27/20 02:00 98.3 F 101 H 29 H 136/80 H 95 04/27/20 00:00 100.3 F H 99 28 H 151/57 H 94 04/26/20 23:00 105 H
[2020-04-27] MEDS: Ceftriaxone 1 GM/50 ML BAG IV (03:08)
[2020-04-27] MEDS: Potassium Chloride 40 MEQ in 0.9% Normal Saline 1,000 ML 100 MEQ IV ×2 (04:18→14:33)
[2020-04-27 05:22] LABS: M R Staph aureus DNA By PCR Negative (Negative); Probe Check PASS; Specimen Processing Control PASS
[2020-04-27 06:25] LABS: Bedside Glucose 199 mg/dL (70-110)
[2020-04-27] MEDS: Enoxaparin 40 MG/0.4 ML Syringe SC (08:15)
[2020-04-27] MEDS: Menthol/Lanolin/Calamine/Znox 113 GM Tube 1 APPLIC TOPICAL ×2 (08:15→21:20)
[2020-04-27 08:49] LABS: Absolute Lymphocyte Count 0.79 X10^3/uL (0.83-4.51); Absolute Neutrophil Count 10.8 X10^3/uL (2.0-7.7); Basophil# 0.06 X10^3/uL; Basophil% 0.5 % (0-1); Eosinophil# 0.08 X10^3/uL; Eosinophils% 0.6 % (0-5); Hematocrit 38.2 % (37-47); Hemoglobin 12.6 g/dL (12.0-15.0); Lymphocyte # 0.79 X10^3/ul (4.0); Lymphocyte % 6.1 % (19-41); Mean Corpuscular Hgb 29.4 pg (27.0-32.0); Mean Corpuscular Volume 89.3 fL (81-99); Mean Platelet Vol. 9.8 fl (6.2-12.0); Monocyte# 1.09 X10^3/uL; Monocyte% 8.5 % (0-10); NRBC Flagged by Analyzer 0 % (0-5); Neutrophil # 10.75 X10^3/uL (2.7-7.7); Neutrophil % 83.6 % (47-70); Platelet Count 241 K/mm3 (150-450); RBC Distribution Width CV 13.4 % (11.6-14.6); RBC Distribution Width SD 43.6 fl (35.1-43.9); Red Blood Count 4.28 M/mm3 (4.2-5.4); White Blood Count 12.9 K/mm3 (4.4-11.0)
[2020-04-27 09:29] LABS: ALB/GLOB Ratio 0.6 RATIO (0.9-2.4); AST(SGOT) 36 U/L (15-37); Alanine Aminotransfer ALT/SGPT 20 U/L (13-56); Albumin, Serum 2.5 g/dL (3.2-5.0); Alkaline Phosphatase 71 U/L (45-117); Anion Gap 5 (5-15); BUN 9 mg/dL (7-18); BUN/Creat Ratio 13.1 RATIO (10-20); CPK Total, Creatine Kinase 538 U/L (26-192); Calcium,Total 8.4 mg/dL (8.5-10.1); Chloride 108 mmol/L (98-107); Creatinine, Serum 0.69 mg/dL (0.55-1.02); EST Glomerular Filtration Rate 89 mL/min (>60); Est Glom Filt Rate - Afr Amer 108 mL/min (>60); Estimated Creatinine Clearance 40.81 ml/min; Globulin 3.9 g/dL (2.2-4.2); Glucose 200 mg/dL (74-106); Potassium 4.1 mmol/L (3.5-5.1); Protein, Total 6.4 g/dL (6.4-8.2); Sodium Level 138 mmol/L (136-145)
--- NOTE | 2020-04-27 10:10 | PCM.PN.HOSP ---
Patient Problems: Active and Suspected Problems Elevated troponin (Acute) Acute rhabdomyolysis (Acute) Fall (Acute) Rhabdomyolysis (Acute) Reason for Visit: Follow-up for right temporal and frontal ischemic stroke Objective: Patient still drowsy and lethargic. Her neck is turned left side and states she has pain on the neck. Patient was evaluated by speech therapist and currently not following command and kept n.p.o. Blood pressure in permissive hypertension range. Physical exam General: Oriented x3, Cooperative BUT lethargic HEENT: Atraumatic, PERRLA, EOMI, Normocephalic Oral: Firm to hard lesion on the hard palate, chronic in nature. Nonbleeding. Neck: Supple, No JVD, Negative Carotid Bruits. Mild tenderness on right side of neck muscle. Her head is turned on left side Lungs: Air entry diminished in bilateral lung bases. No hypoxia. Cardiovascular: sinus rhythm with n PVCs ormal S1, Normal S2, No murmurs Abdomen: Bowel Sounds Present, Soft, Non Tender, Non-Distended : No renal angle tenderness. No suprapubic tenderness. Extremities: Mild bilateral ankle edema, Capillary Refill Less than 3 Seconds Skin: No rashes, No breakdown Musculoskeletal: No Tenderness to Palpation of Joints or Extremities Neurological: Left-sided flaccid weakness. Mild drooping of face on left side. No visual loss of field. No extraocular muscles palsy. Slurring of his speech. Dysphagia. Psych/Mental Status: Lethargic. Vitals/I&O's: Vital Signs Temp Pulse Resp BP Pulse Ox 99 F 97 18 142/61 H 98 04/27/20 08:05 04/27/20 08:05 04/27/20 08:05 04/27/20 08:05 04/27/20 08:05 Oxygen Delivery Method Room Air Weight: 212 lb 4.882 oz Body Mass Index (BMI) 38.2 Intake and Output for Last 24 Hours 04/25/20 04/26/20 04/27/20 23:59 23:59 23:59 Intake Total 3225.0 / 3225.0 1000 / 1000 1323.33 / 1323.33 Output Total 250 / 675 900 / 900 Balance 2975.0 / 2550.0 100 / 100 1323.33 / 1323.33 Microbiology Past 72 Hours 04/26/20 23:38 Mucosa - Nose Respiratory Panel (PCR) - Final 04/27/20 00:25 Mucosa - Nose SARS-CoV-2 Antigen (Rapid) - Final Laboratory Results 04/26/20 04:45: Lactate Dehydrogenase 225, Total Creatine Kinase 1299 H 04/26/20 11:18: POC Glucose 203 H 04/26/20 16:50: POC Glucose 186 H 04/27/20 00:06: POC Glucose 195 H 04/27/20 01:35: Urine Color Yellow, Urine Clarity Clear, Urine pH 5.0, Ur Specific [place] 1.020, Urine Protein 15 H, Urine Glucose (UA) 250 H, Urine Ketones 150 H, Urine Occult Blood 25 H, Urine Nitrite Positive H, Urine Bilirubin Negative, Urine Urobilinogen Normal, Ur Leukocyte Esterase 25 H, Urine RBC 0-5 SEEN, Urine WBC 0-5 SEEN, Ur Squamous Epith Cells 0 SEEN, Urine Bacteria 1+, Urine Mucus 0 SEEN 04/27/20 03:45: MRSA (PCR) Negative 04/27/20 05:54: POC Glucose 199 H 04/27/20 08:38: WBC 12.9 H, RBC 4.28, Hgb 12.6, Hct 38.2, MCV 89.3, MCH 29.4, MCHC 33.0, RDW Std Deviation 43.6, RDW Coeff of Venancio 13.4, Plt Count 241, MPV 9.8, Immature Gran % (Auto) 0.700, Neut % (Auto) 83.6 H, Lymph % (Auto) 6.1 L, [place] % (Auto) 8.5, Eos % (Auto) 0.6, Baso % (Auto) 0.5, Absolute Neuts (auto) 10.8 H, Absolute Lymphs (auto) 0.79 L, Nucleated RBC % 0 04/27/20 08:38: Sodium 138, Potassium 4.1, Chloride 108 H, Carbon Dioxide 25.0, Anion Gap 5, BUN 9, Creatinine 0.69, Estim Creat Clear Calc 40.81, Est GFR (MDRD) Af Amer 108, Est GFR (MDRD) Non-Af 89, BUN/Creatinine Ratio 13.1, Glucose 200 H, Calcium 8.4 L, Total Bilirubin 0.50, AST 36, ALT 20, Alkaline Phosphatase 71, Total Creatine Kinase 538 H, Total Protein 6.4, Albumin 2.5 L, Globulin 3.9, Albumin/Globulin Ratio 0.6 L Current Medications Acetaminophen (Acetaminophen 325 Mg Tablet) 650 mg PO Q6H PRN PRN PRN Reason: Pain Score 1-10/Temp > 100.7 F Acetaminophen (Acetaminophen 650 Mg Suppository) 650 mg RECTAL Q6H PRN PRN PRN Reason: Temp > 100.4 Last Admin: 04/26/20 23:02 Dose: 650 mg Documented by: Aspirin (Aspirin E.C. 325 Mg Tablet) 325 mg PO DAILY@0800 [facility], [facility]1983 Atorvastatin Calcium (Atorvastatin Calcium 40 Mg Tablet) 40 mg PO QHS [facility], [facility]1983 Last Admin: 04/26/20 20:27 Dose: Not Given Documented by: Calamine/Phenol (Menthol/Lanolin/Calamine/Znox 113 Gm Tube) 1 applic TOPICAL BID [facility], [facility]–1983; Protocol Last Admin: 04/27/20 08:15 Dose: 1 applic Documented by: Clopidogrel Bisulfate (Clopidogrel Bisulfate 75 Mg Tablet) 75 mg PO DAILY [facility]1983 Last Admin: 04/26/20 11:23 Dose: Not Given Documented by: Dextrose (Dextrose 50%-Water 25 Gm/50 Ml Disp.Syrin) 0 gm IV X1 PRN; Protocol PRN Reason: Hypoglycemia Enoxaparin Sodium (Enoxaparin 40 Mg/0.4 Ml Syringe) 40 mg SC DAILY [facility], [facility]1983 Last Admin: 04/27/20 08:15 Dose: 40 mg Documented by: Famotidine (Famotidine 20 Mg Tablet) 20 mg PO BID [facility]1983 Last Admin: 04/26/20 20:27 Dose: Not Given Documented by: Glucagon (Glucagon 1 Mg/Ml Syringe) 1 mg IM .X1 PRN PRN Reason: Hypoglycemia Hydralazine HCl (Hydralazine 20 Mg/Ml Vial) 5 mg IV Q30M PRN PRN Reason: to maintain BP goals Potassium Chloride 40 meq/ (Sodium Chloride) 1,020 mls @ 100 mls/hr IV .[id number] [facility] Last Admin: 04/27/20 04:18 Dose: 100 mls/hr Documented by: Azithromycin 500 mg/ Dextrose 255 mls @ 250 mls/hr IV QHS [facility] Last Infusion: 04/27/20 05:20 Dose: Infused Documented by: Ceftriaxone Sodium (Rocephin) 1 gm in 50 mls @ 100 mls/hr IV QHS [facility] Last Infusion: 04/27/20 03:41 Dose: Infused Documented by: Insulin Human Lispro (Insulin Lispro 100 Unit/Ml Insuln.Pen) 0 unit SC Q6 [facility]; Protocol Last Admin: 04/27/20 06:04 Dose: 2 units Documented by: Labetalol HCl (Labetalol (Prefilled) 20 Mg/4 Ml) 10 - 20 mg IV Q10M PRN PRN PRN Reason: to Maintain BP Goals Morphine Sulfate (Morphine 2 Mg/Ml Syringe) 2 mg IV Q3H PRN PRN PRN Reason: Pain Score 6-10 Last Admin: 04/27/20 08:19 Dose: 2 mg Documented by: Oxycodone HCl (Oxycodone 5 Mg Tablet) 5 mg PO Q4H PRN PRN PRN Reason: Pain Score 4-5 Prochlorperazine Edisylate (Prochlorperazine 10 Mg/2 Ml Vial) 5 mg IV Q4H PRN PRN PRN Reason: Breakthrough Nausea/Vomiting Psyllium Hydrophilic Mucilloid (Psyllium 1 Packet) 1 packet PO DAILY [facility]1983 Last Admin: 04/26/20 11:23 Dose: Not Given Documented by: Senna/Docusate Sodium (Senna/Docusate Sodium 1 Tablet) 2 tablet PO BID PRN PRN PRN Reason: Constipation Sodium Chloride (0.9% Saline Lock 10 Ml Syringe) 10 - 40 ml IV UD PRN PRN Reason: SALINE FLUSH Last Admin: 04/27/20 08:18 Dose: 10 ml Documented by: STROKE Vital Signs/Narrative: Vital Signs Temp Pulse Resp BP Pulse Ox 04/27/20 08:05 99 F 97 18 142/61 H 98 04/27/20 07:21 96 04/27/20 07:04 88 Medical Necessity - Tobacco Use Smoking Status: Former smoker Tobacco Use: Cigarettes Assessment/Plan All Active Problems Elevated troponin (Acute) Acute rhabdomyolysis (Acute) Fall (Acute) Rhabdomyolysis (Acute) The patient is a 69 year old F with history of hypertension, diabetes mellitus type 2 was brought by EMS for laying on the floor for about 1 day and level elevations show CK elevated consistent with acute rhabdomyolysis after fall. 1. 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 MRI head shows total occlusion of left V4 segment and total occlusion of temporal branch of right MCA accounting for acute ischemic infarct. Neck MRA shows normal bilateral cervical carotid and right vertebral artery with total occlusion of distal left vertebral artery. Discussed with the neurologist Dr. Peterson. He thinks that she is not a candidate for neurovascular intervention at this point of time. Patient has extinction of left side because of infarct. N.p.o. until swallow screen. BP and glucose as per stroke guidelines. 2D echo He also suggested KYLIE as it seems embolic stroke in MRI brain. This was discussed with Dr. Vu and he will follow it but patient is lethargic and not stable for any procedure KYLIE. Start Plavix and statin when patient passes swallow screen. PT OT speech and swallow evaluation. Fasting profile LDL 57, HDL 53. TSH 3.3. 04/27: Blood pressure is controlled has been hold for SBP less than 120 mmHg. 2D echo reported as LA mildly enlarged. EF 65%. Mild eccentric MR. PT and OT speech swallow evaluation. I called patient's for central notify, Christina [phone] and clinical update were given regarding the stroke, MRI and MRA findings. She wanted to notify for clinical decision and discharged to SNF. 2. Fall with consequent rhabdomyolysis, fall most likely secondary to degenerative joint disease: Patient denies head injury or loss of consciousness. Left hip x-ray shows degenerative changes at the hip joint. No acute fracture or dislocation. BUN/creatinine [address] head does not show acute change. Chest x-ray reported normal. Arterial vascular study in February 2018 right JARVIS 1.11, left JARVIS 1.81, triphasic pulse. Lower extremity arterial study shows no evidence of significant atherosclerotic peripheral arterial occlusive disease in the lower extremities bilaterally. Triphasic waves forms noted at ankle level. Left JARVIS supranormal possible arterial calcification. Toe brachial indices normal bilaterally. Venous Doppler was also negative for DVT at that time 04/26: Continue IV fluid normal saline with 40 M EQ KCl at 100 mL/h. K3.5. A1c 6.3 magnesium 1.8. 04/27: Blood sugar controlled. Total CK 538. 3. Possible bacterial pneumonia/UTI: Patient had temperature 100.7 ?F. COVID-19 PCR negative. Chest x-ray shows subtle bilateral infiltrates. Patient was started on Rocephin and Zithromax and nighttime hospitalist. Cultures x2 and urine culture pending. Respiratory panel negative. Mildly elevated troponin probably secondary to rhabdomyolysis: Repeat troponin. Twelve-lead EKG shows QTC 507 ms with sinus tachycardia. Serum magnesium normal. Serial troponin mildly elevated 0.16, 0144 and 0.137. 3. Diabetes mellitus type 2: Uncontrolled: Decreasing this, with Humalog sliding scale. A1c 6.3. 4. Hypertension: Blood pressure was low in ED. Within normal with IV fluid. 5. 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 It is nonbleeding and patient is not aware. VTE prophylaxis: On Lovenox 40 mg subcu daily. Total time of the visit including total time spent in counseling or coordination of care, (more than 50% of the total time, spent in obtaining medical information from nurses and other ancillary care providers,explaining to the patient about labs, imaging, diagnosis and management), discussion with the neurologist and the social media director, review of labs and imaging is 35 minutes. Interpretation Summary Pulmonary artery systolic pressure is 46 mmHg. Normal LV size. Left ventricular systolic function is normal. The estimated ejection fraction is 65 %. There is moderate to severe mitral annular calcification. Mild (1+) eccentric mitral valve insufficiency. Mild focal aortic valve calcification. Contrast injection was performed. Clinical Impression(s) from Imaging Studies Brain CT 04/25/20 11:55 IMPRESSION: Chronic involutional changes of the brain. Electronically Signed: Benitez Sanchez DO at 12:53 EST Tel , Service support , Hip/Pelvis X-Ray 04/25/20 11:57 IMPRESSION: No acute traumatic findings Electronically Signed: Benitez Sanchez DO at 12:54 EST Tel , Service support , Chest X-Ray 04/25/20 12:30 IMPRESSION: Normal x-ray examination of the chest. Electronically Signed: Benitez Sanchez DO at 12:54 EST Tel , Service support , Shoulder X-Ray 04/25/20 14:22 IMPRESSION: Degenerative changes. No fracture or malalignment. Electronically Signed: Mello Mendes MD (Brooks) at 14:46 EST , Service support , Brain MRI 04/26/20 09:00 IMPRESSION: Acute ischemic infarct involving the right temporal and frontal lobes Electronically Signed: Brock Peng at 10:33 EST Tel , Service support , Head MRA 04/26/20 09:00 IMPRESSION: 1. 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 2. Total occlusion of a temporal branch of the right middle cerebral artery accounting for the patient''s acute CVA. Electronically Signed: Brock Peng at 11:59 EST Tel , Service support , Neck MRA 04/26/20 09:00 IMPRESSION: Normal bilateral cervical carotid and right vertebral artery. 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 Electronically Signed: Brock Peng at 12:11 EST Tel , Service support , Inpatient E&M: 16252 Subs Hosp L2
[2020-04-27 12:00] LABS: Bedside Glucose 177 mg/dL (70-110)
--- NOTE | 2020-04-27 15:10 | CASEMGMT ---
Per RN patient's landlord said she would be willing to be patient's Healthcare POA as she has helped care for her for 4 years. SW went to patient's room. She was sleeping, but SW did get her to respond. SW asked her if she would be willing to do a Healthcare Power of [employer] so she can name someone to make medical decisions for her if she could not. She said she would be willing to do this. GENNA asked her if she would want her landlord, Tosin Carlisle, to be her POA. She said yes as she doesn't have anyone else. GENNA told her SW will talk with her tomorrow. Yumiko PETIT MSW
[2020-04-27 18:35] LABS: Bedside Glucose 198 mg/dL (70-110)
[2020-04-27] MEDS: Aspirin 300 MG Suppository RECTAL (21:03)
[2020-04-27] MEDS: Lactated Ringers 1,000 ML 75 ML IV (22:40)
[2020-04-27 23:31] LABS: Bedside Glucose 187 mg/dL (70-110)
[2020-04-28] VITALS (12 sets, daily range): BP systolic 111–190; BP diastolic 42–93; PULSE 87–98; RESP 18; TEMP 37.2–37.9; O2SAT 93–97
[2020-04-28 05:34] LABS: Absolute Lymphocyte Count 0.89 X10^3/uL (0.83-4.51); Absolute Neutrophil Count 10.5 X10^3/uL (2.0-7.7); Basophil# 0.06 X10^3/uL; Basophil% 0.5 % (0-1); Eosinophil# 0.18 X10^3/uL; Eosinophils% 1.4 % (0-5); Hematocrit 38.2 % (37-47); Hemoglobin 12.3 g/dL (12.0-15.0); Lymphocyte # 0.89 X10^3/ul (4.0); Mean Corp Hgb Conc 32.2 g/dL (32-36); Mean Corpuscular Hgb 28.7 pg (27.0-32.0); Mean Corpuscular Volume 89.3 fL (81-99); Mean Platelet Vol. 9.9 fl (6.2-12.0); Monocyte# 1.04 X10^3/uL; Monocyte% 8.1 % (0-10); NRBC Flagged by Analyzer 0 % (0-5); Neutrophil # 10.54 X10^3/uL (2.7-7.7); Neutrophil % 82.5 % (47-70); Platelet Count 260 K/mm3 (150-450); RBC Distribution Width SD 42.5 fl (35.1-43.9); Red Blood Count 4.28 M/mm3 (4.2-5.4); White Blood Count 12.8 K/mm3 (4.4-11.0)
[2020-04-28] MEDS: Insulin Lispro 100 UNIT/ML INSULN.PEN SC ×4 (05:35→23:30)
[2020-04-28 05:51] LABS: Bedside Glucose 165 mg/dL (70-110)
[2020-04-28 05:55] LABS: ALB/GLOB Ratio 0.6 RATIO (0.9-2.4); AST(SGOT) 20 U/L (15-37); Alanine Aminotransfer ALT/SGPT 19 U/L (13-56); Albumin, Serum 2.3 g/dL (3.2-5.0); Alkaline Phosphatase 66 U/L (45-117); Anion Gap 7 (5-15); BUN 9 mg/dL (7-18); BUN/Creat Ratio 14.8 RATIO (10-20); CPK Total, Creatine Kinase 198 U/L (26-192); Calcium,Total 8.4 mg/dL (8.5-10.1); Chloride 105 mmol/L (98-107); Creatinine, Serum 0.61 mg/dL (0.55-1.02); EST Glomerular Filtration Rate 103 mL/min (>60); Est Glom Filt Rate - Afr Amer 124 mL/min (>60); Estimated Creatinine Clearance 40.81 ml/min; Globulin 3.9 g/dL (2.2-4.2); Glucose 160 mg/dL (74-106); Potassium 3.9 mmol/L (3.5-5.1); Protein, Total 6.2 g/dL (6.4-8.2); Sodium Level 136 mmol/L (136-145)
--- NOTE | 2020-04-28 09:16 | CT_ITS ---
INDICATION: Right temporofrontal ischemic stroke, neck pain, drowsy and lethargic, diabetic, hypertension. EXAMINATION: CT BRAIN - CT Head or Brain W/O Contrast Injection TECHNIQUE: Multiple axial images were obtained of the head without intravenous contrast. A radiation dose optimization technique was used for this scan. IV Contrast dosage and agent: None. COMPARISON: Previous CT scan obtained on 04/25/2020 FINDINGS: The tess medulla and cerebellum appear to be normal. In the cerebral hemispheres there is a large acute ischemic infarct involving the posterior right chung radiata extending up into the right frontal lobe and right temporal lobe. This acute infarct has evolved since the previous CT scan obtained on 04/25/2020 and was seen on the previous MRI of the head obtained on 04/25/2020. Now noted is some mild edema surrounding this ischemic infarct which is compressing the right lateral ventricle and a less extent the right lateral aspect of the third ventricle. At this time very minimal dilatation of the lateral ventricles is seen. No midline shift is identified. Bone scanning windows through the inner and outer tables of the skull show no evidence of fracture. CT/Brain/Head without Contrast IMPRESSION: Acute ischemic infarct involving the posterior right chung radiata with extension into the right frontal and temporal lobes. This acute infarct is unchanged in size when compared with the previous MRI but there is some mild surrounding edema, as described above. Electronically Signed: Brock Peng, at 17:08 EST Tel , Service support ,
--- NOTE | 2020-04-28 09:16 | CT_ITS ---
STUDY: CT CERVICAL SPINE WITHOUT CONTRAST REASON FOR EXAM: Female, 69 years old. Right temporofrontal ischemic stroke, neck pain, drowsy and lethargic, diabetic, hypertension. RADIATION DOSAGE (If Supplied By Facility): CTDIvol = ( 27.03 ) mGy, DLP = ( 484.23 ) mGycm TECHNIQUE: High resolution transaxial imaging was performed without contrast material. Sagittal and coronal images were reconstructed. Individualized dose optimization techniques were used for this CT. COMPARISON: None FINDINGS: Normal craniovertebral junction. Normal anterior atlantoaxial articulation. Normal odontoid process. Normal cervical lordosis. Normal vertebral bodies and posterior osseous elements. C2-3: Normal endplates. Normal disc height and morphology. Normal central canal and intervertebral neuroforamina. C3-4: Grade 1 spondylolisthesis. Normal endplates. Normal disc height and morphology. Normal central canal and intervertebral neuroforamina. C4-5: Normal endplates. Normal disc height and morphology. Normal central canal. Mild to moderate right neuroforaminal stenosis secondary to bony hypertrophy C5-6: Narrowed disc space and endplate spurring. Mild narrowing of the central canal. Moderate left neuroforaminal stenosis and severe narrowing on the right secondary to bony hypertrophy. C6-7: Mild endplate spurring.. Normal disc height and morphology. Normal central canal and intervertebral neuroforamina. C7-T1: Normal endplates. Normal disc height and morphology. Normal central canal and intervertebral neuroforamina. Normal visualized soft tissue structures. CT/Spine Cervical without Contras IMPRESSION: No evidence for acute fracture or subluxation. Mild spondylosis most severe at C4-5 and C5-6 Electronically Signed: Vish Adame MD at 18:39 EST , Service support ,
--- NOTE | 2020-04-28 10:17 | CASEMGMT ---
GENNA met with patient today. SW asked her if she would like to do her Healthcare Power of Clinical Laboratory Medical Director. She confirmed she would try. GENNA had patient's RN Brock in the room to witness her sign. GENNA confirmed she wants Tosin Carlisle her landlord to make medical decisions for her and she said yes as she is all she has. Patient attempted to sign, however it was too difficult with her current condition. She did not open her eyes and she cannot move her head towards the paper. SW did not push her to sign as she was having too much difficulty. At this time patient has verbally said she would like her landlord Tosin Carlisle to be her Healthcare Power of Clinical Laboratory Medical Director. Patient is physically not able to sign paper right now. Yumiko PETIT MSW
--- NOTE | 2020-04-28 10:22 | CASEMGMT ---
SW has not completed a PHQ 9 with patient as she is not able to communicate answers clearly enough due to her slurred, quiet, and mumbled speech. Yumiko PETIT CELL STRIPPER FINAL
[2020-04-28] MEDS: Morphine 2 MG/ML Syringe IV ×3 (10:34→23:30)
[2020-04-28] MEDS: Aspirin 300 MG Suppository RECTAL (10:43)
[2020-04-28] MEDS: Menthol/Lanolin/Calamine/Znox 113 GM Tube 1 APPLIC TOPICAL ×2 (10:49→21:53)
[2020-04-28] MEDS: Enoxaparin 40 MG/0.4 ML Syringe SC (10:59)
[2020-04-28 12:25] LABS: Bedside Glucose 175 mg/dL (70-110)
--- NOTE | 2020-04-28 14:01 | RAD_ITS ---
STUDY: X-RAY CHEST REASON FOR EXAM: Female, 69 years old. Shortness of breath. TECHNIQUE: AP portable chest. COMPARISON: April 26, 2020. April 25, 2020. FINDINGS: Right PICC line has been removed. Minimal subsegmental atelectasis right lung base. No focal infiltrates or effusions. No pneumothorax. Normal size heart. Normal mediastinum and nas. Normal visualized pulmonary arteries. Normal visualized aortic arch and descending thoracic aorta. Normal visualized thoracic spine. Normal visualized ribs, clavicles, and shoulders. There is no demonstrated abnormality of the visualized soft tissue structures of the upper abdomen. RAD/Chest 1 View IMPRESSION: No acute cardiopulmonary disease. Electronically Signed: Prasad Stevens MD at 23:05 EST , Service support ,
--- NOTE | 2020-04-28 14:01 | RAD_ITS ---
STUDY: X-RAY - RIGHT SHOULDER REASON FOR EXAM: Female, 69 years old. Shoulder pain and tenderness. TECHNIQUE: 2 view(s) of the shoulder at 2:05 PM. COMPARISON: Chest x-ray April 28, 2020 2:03 PM. FINDINGS: Normal glenohumeral articulation. Normal acromioclavicular joint. Normal acromion. Mild degenerative changes of the humeral head. The soft tissue structures are unremarkable. Probable skinfold right hemithorax and not a pneumothorax. RAD/Shoulder min 2 Views IMPRESSION: Mild degenerative changes of the right shoulder. Electronically Signed: Prasad Stevens MD at 23:17 EST , Service support ,
--- NOTE | 2020-04-28 14:23 | PCM.PN.HOSP ---
Patient Problems: Active and Suspected Problems Elevated troponin (Acute) Acute rhabdomyolysis (Acute) Fall (Acute) Rhabdomyolysis (Acute) Reason for Visit: Follow-up for large frontal and temporal acute ischemic infarct. Objective: Patient was seen and examined in the morning and in noontime. Seen and examined. The patient is awake but is still lethargic. Her speech is low volume and difficult to understand. Patient still has neglect of the left side. Complain of pain over the right neck and right shoulder. Low-grade temperature 99.5. On IV Rocephin. Still cannot swallow and n.p.o. Repeat CT head, C-spine, chest x-ray and right shoulder x-ray are ordered. Patient is still n.p.o. Physical exam General: Oriented x3, Cooperative BUT lethargic with neglect to the left side HEENT: Atraumatic, PERRLA, EOMI, Normocephalic Oral: Firm to hard lesion on the hard palate, chronic in nature. Nonbleeding. Neck: Supple, No JVD, Negative Carotid Bruits. Mild tenderness on right side of neck muscle. head is turned on left side Lungs: Air entry diminished in bilateral lung bases. No hypoxia. Cardiovascular: sinus rhythm with n PVCs ormal S1, Normal S2, No murmurs Abdomen: Bowel Sounds Present, Soft, Non Tender, Non-Distended : No renal angle tenderness. No suprapubic tenderness. Extremities: Mild tenderness over right shoulder. Mild bilateral ankle edema, Capillary Refill Less than 3 Seconds Skin: No rashes, No breakdown Musculoskeletal: No Tenderness to Palpation of Joints or Extremities Neurological: GCS 13-15. Left-sided flaccid weakness. Mild drooping of face on left side. No visual loss of field. No extraocular muscles palsy. Slurring of his speech. Dysphagia. Psych/Mental Status: Lethargic. Vitals/I&O's: Vital Signs Temp Pulse Resp BP Pulse Ox 99.0 F 98 18 171/78 H 93 04/28/20 09:30 04/28/20 09:30 04/28/20 09:30 04/28/20 09:30 04/28/20 09:30 Oxygen Delivery Method Room Air Weight: 212 lb 4.882 oz Body Mass Index (BMI) 38.2 Intake and Output for Last 24 Hours 04/26/20 04/27/2004/28/20 23:59 23:59 23:59 Intake Total 1000 / 1000 3083.33 / 3083.33 642 / 642 Output Total 900 / 900 850 / 850 225 / 225 Balance 100 / 100 2233.33 / 2233.33 417 / 417 Microbiology Past 72 Hours 04/26/20 23:38 Mucosa - Nose Respiratory Panel (PCR) - Final 04/27/20 00:25 Mucosa - Nose SARS-CoV-2 Antigen (Rapid) - Final Laboratory Results 04/27/20 11:56: POC Glucose 177 H 04/27/20 18:23: POC Glucose 198 H 04/27/20 23:16: POC Glucose 187 H 04/28/20 05:20: WBC 12.8 H, RBC 4.28, Hgb 12.3, Hct 38.2, MCV 89.3, MCH 28.7, MCHC 32.2, RDW Std Deviation 42.5, RDW Coeff of Venancio 13.0, Plt Count 260, MPV 9.9, Immature Gran % (Auto) 0.500, Neut % (Auto) 82.5 H, Lymph % (Auto) 7.0 L, [place] % (Auto) 8.1, Eos % (Auto) 1.4, Baso % (Auto) 0.5, Absolute Neuts (auto) 10.5 H, Absolute Lymphs (auto) 0.89, Nucleated RBC % 0 04/28/20 05:20: Sodium 136, Potassium 3.9, Chloride 105, Carbon Dioxide 24.0, Anion Gap 7, BUN 9, Creatinine 0.61, Estim Creat Clear Calc 40.81, Est GFR (MDRD) Af Amer 124, Est GFR (MDRD) Non-Af 103, BUN/Creatinine Ratio 14.8, Glucose 160 H, Calcium 8.4 L, Total Bilirubin 0.60, AST 20, ALT 19, Alkaline Phosphatase 66, Total Creatine Kinase 198 H, Total Protein 6.2 L, Albumin 2.3 L, Globulin 3.9, Albumin/Globulin Ratio 0.6 L 04/28/20 05:34: POC Glucose 165 H Current Medications Acetaminophen (Acetaminophen 325 Mg Tablet) 650 mg PO Q6H PRN PRN PRN Reason: Pain Score 1-10/Temp > 100.7 F Acetaminophen (Acetaminophen 650 Mg Suppository) 650 mg RECTAL Q6H PRN PRN PRN Reason: Temp > 100.4 Last Admin: 04/26/20 23:02 Dose: 650 mg Documented by: Aspirin (Aspirin 300 Mg Suppository) 300 mg RECTAL DAILY [facility] Last Admin: 04/28/20 10:43 Dose: 300 mg Documented by: Atorvastatin Calcium (Atorvastatin Calcium 40 Mg Tablet) 40 mg PO QHS [facility] Last Admin: 04/27/20 21:20 Dose: Not Given Documented by: Calamine/Phenol (Menthol/Lanolin/Calamine/Znox 113 Gm Tube) 1 applic TOPICAL BID [facility]; Protocol Last Admin: 04/28/20 10:49 Dose: 1 applic Documented by: Clopidogrel Bisulfate (Clopidogrel Bisulfate 75 Mg Tablet) 75 mg PO DAILY [facility] Last Admin: 04/27/20 11:43 Dose: Not Given Documented by: Dextrose (Dextrose 50%-Water 25 Gm/50 Ml Disp.Syrin) 0 gm IV X1 PRN; Protocol PRN Reason: Hypoglycemia Enoxaparin Sodium (Enoxaparin 40 Mg/0.4 Ml Syringe) 40 mg SC DAILY [facility] Last Admin: 04/28/20 10:59 Dose: 40 mg Documented by: Famotidine (Famotidine 20 Mg Tablet) 20 mg PO BID [facility] Last Admin: 04/27/20 21:20 Dose: Not Given Documented by: Glucagon (Glucagon 1 Mg/Ml Syringe) 1 mg IM .X1 PRN PRN Reason: Hypoglycemia Hydralazine HCl (Hydralazine 20 Mg/Ml Vial) 5 mg IV Q30M PRN PRN Reason: to maintain BP goals Ampicillin Sodium/Sulbactam (Sodium 3 gm/ Sodium Chloride) 112 mls @ 150 mls/hr IV Q8 [facility] Last Infusion: 04/28/20 06:12 Dose: Infused Documented by: Lactated Ringer's () 1,000 mls @ 75 mls/hr IV .[id number] [facility] Last Infusion: 04/28/20 06:12 Dose: 75 mls/hr Documented by: Insulin Human Lispro (Insulin Lispro 100 Unit/Ml Insuln.Pen) 0 unit SC Q6 [facility]; Protocol Last Admin: 04/28/20 05:35 Dose: 2 units Documented by: Labetalol HCl (Labetalol (Prefilled) 20 Mg/4 Ml) 10 - 20 mg IV Q10M PRN PRN PRN Reason: to Maintain BP Goals Morphine Sulfate (Morphine 2 Mg/Ml Syringe) 2 mg IV Q3H PRN PRN PRN Reason: Pain Score 6-10 Last Admin: 04/28/20 10:34 Dose: 2 mg Documented by: Oxycodone HCl (Oxycodone 5 Mg Tablet) 5 mg PO Q4H PRN PRN PRN Reason: Pain Score 4-5 Prochlorperazine Edisylate (Prochlorperazine 10 Mg/2 Ml Vial) 5 mg IV Q4H PRN PRN PRN Reason: Breakthrough Nausea/Vomiting Psyllium Hydrophilic Mucilloid (Psyllium 1 Packet) 1 packet PO DAILY [facility] Last Admin: 04/27/20 10:35 Dose: Not Given Documented by: Senna/Docusate Sodium (Senna/Docusate Sodium 1 Tablet) 2 tablet PO BID PRN PRN PRN Reason: Constipation Sodium Chloride (0.9% Saline Lock 10 Ml Syringe) 10 - 40 ml IV UD PRN PRN Reason: SALINE FLUSH Last Admin: 04/27/20 22:45 Dose: 10 ml Documented by: STROKE Vital Signs/Narrative: Vital Signs Temp Pulse Resp BP Pulse Ox 04/28/20 09:30 99.0 F 98 18 171/78 H 93 Medical Necessity - Tobacco Use Smoking Status: Former smoker Tobacco Use: Cigarettes Assessment/Plan All Active Problems Elevated troponin (Acute) Acute rhabdomyolysis (Acute) Fall (Acute) Rhabdomyolysis (Acute) The patient is a 69 year old F with history of hypertension, diabetes mellitus type 2 was brought by EMS for laying on the floor for about 1 day and level elevations show CK elevated consistent with acute rhabdomyolysis after fall. 1. 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 MRI head shows total occlusion of left V4 segment and total occlusion of temporal branch of right MCA accounting for acute ischemic infarct. Neck MRA shows normal bilateral cervical carotid and right vertebral artery with total occlusion of distal left vertebral artery. Discussed with the neurologist Dr. Peterson. He thinks that she is not a candidate for neurovascular intervention at this point of time. Patient has extinction of left side because of infarct. N.p.o. until swallow screen. BP and glucose as per stroke guidelines. 2D echo He also suggested KYLIE as it seems embolic stroke in MRI brain. This was discussed with Dr. Vu and he will follow it but patient is lethargic and not stable for any procedure KYLIE. Start Plavix and statin when patient passes swallow screen. PT OT speech and swallow evaluation. Fasting profile LDL 57, HDL 53. TSH 3.3. 2D echo EF 65% with LA mildly enlarged. 04/28: Blood pressure is in permissive hypertensive range. Repeat CT head and C-spine ordered and then follow-up [facility] neurologist consult. Seen by speech therapist and recommended dysphagia diet on supervision. I talked to the SOC neurologist Dr. Clarence Lei. He saw the patient exam was consistent with temporal lobe stroke. He said an MRI of C-spine looking for infection as patient has low-grade fever is low yield in presence of possible UTI with presumptive E. coli more than 100,000 colonies in urine culture and chest x-ray subtle bilateral infiltrates. I called patient's next of kin friend, Tosin [phone], 2 times to give clinical update and address CODE STATUS and left a message to call back. I confirmed with the patient that Tosin Mendez is the decision maker on behalf of the patient in the presence of nurse, Brock. IV fluid D5 half NS at 50 mill per hour for nutritional purposes. 2. Fall with consequent rhabdomyolysis, fall most likely secondary to degenerative joint disease: Patient denies head injury or loss of consciousness. Left hip x-ray shows degenerative changes at the hip joint. No acute fracture or dislocation. BUN/creatinine [address] head does not show acute change. Chest x-ray reported normal. Arterial vascular study in February 2018 right JARVIS 1.11, left JARVIS 1.81, triphasic pulse. Lower extremity arterial study shows no evidence of significant atherosclerotic peripheral arterial occlusive disease in the lower extremities bilaterally. Triphasic waves forms noted at ankle level. Left JARVIS supranormal possible arterial calcification. Toe brachial indices normal bilaterally. Venous Doppler was also negative for DVT at that time. K3.5. A1c 6.3 magnesium 1.8. CK subsequently decreased from 538-198. IV fluid Ringer lactate discontinued. 3. Possible bacterial pneumonia/UTI: Patient had temperature 100.7 ?F. COVID-19 PCR negative. Chest x-ray shows subtle bilateral infiltrates. Patient was started on Rocephin and Zithromax and nighttime hospitalist. Cultures x2 and urine culture pending. Respiratory panel negative. 04/28: Repeat chest x-ray shows poor inspiratory effort with bibasilar and subtle bilateral upper lobe infiltrates. Patient is more awake, deep incentive spirometry. Mildly elevated troponin probably secondary to rhabdomyolysis: Repeat troponin. Twelve-lead EKG shows QTC 507 ms with sinus tachycardia. Serum magnesium normal. Serial troponin mildly elevated 0.16, 0144 and 0.137. 3. Diabetes mellitus type 2: Uncontrolled: Decreasing this, with Humalog sliding scale. A1c 6.3. 4. Hypertension: Blood pressure was low in ED. Within normal with IV fluid. 5. 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 It is nonbleeding and patient is not aware. VTE prophylaxis: On Lovenox 40 mg subcu daily. Total time of the visit including total time spent in counseling or coordination of care, (more than 50% of the total time, spent in obtaining medical information from nurses and other ancillary care providers,explaining to the patient about labs, imaging, diagnosis and management), discussion with the neurologist and the mop machine operator, case management social worker and dialysis social worker review of labs and imaging is 35 minutes. Interpretation Summary Pulmonary artery systolic pressure is 46 mmHg. Normal LV size. Left ventricular systolic function is normal. The estimated ejection fraction is 65 %. There is moderate to severe mitral annular calcification. Mild (1+) eccentric mitral valve insufficiency. Mild focal aortic valve calcification. Contrast injection was performed. Clinical Impression(s) from Imaging Studies Brain CT 04/25/20 11:55 IMPRESSION: Chronic involutional changes of the brain. Electronically Signed: Benitez Sanchez DO at 12:53 EST Tel , Service support , Hip/Pelvis X-Ray 04/25/20 11:57 IMPRESSION: No acute traumatic findings Electronically Signed: Benitez Sanchez DO at 12:54 EST Tel , Service support , Chest X-Ray 04/25/20 12:30 IMPRESSION: Normal x-ray examination of the chest. Electronically Signed: Benitez Sanchez DO at 12:54 EST Tel , Service support , Shoulder X-Ray 04/25/20 14:22 IMPRESSION: Degenerative changes. No fracture or malalignment. Electronically Signed: Mello Mendes MD (Brooks) at 14:46 EST , Service support , Brain MRI 04/26/20 09:00 IMPRESSION: Acute ischemic infarct involving the right temporal and frontal lobes Electronically Signed: Borck Peng at 10:33 EST Tel , Service support , Head MRA 04/26/20 09:00 IMPRESSION: 1. 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 2. Total occlusion of a temporal branch of the right middle cerebral artery accounting for the patient''s acute CVA. Electronically Signed: Brock Peng at 11:59 EST Tel , Service support , Neck MRA 04/26/20 09:00 IMPRESSION: Normal bilateral cervical carotid and right vertebral artery. 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 Electronically Signed: Brock Peng at 12:11 EST Tel , Service support , Inpatient E&M: [id number] Subs Hosp L3
--- NOTE | 2020-04-28 14:29 | CASEMGMT ---
GENNA went back into patient's room as she was asking someone when her landlord was coming in to sign papers. GENNA told patient that she has to sign the Healthcare [employer] papers and not her friend. Her eyes were open so SW asked her if she would like to try signing again. She said she would like to try. GENNA had discharge specialist, Iris accompany SW to room. She put patient's bed up so patient was more upright and asked patient to open her eyes. She did and did the best she could with signing the paper. GENNA made copies and gave them to patient along with originals and a copy was also placed in her chart. GENNA then talked with patient about her d/c plan. She said she wants to stay local. She said she wants to stay at [facility]. GENNA told her SW will put her name on the TCU list. GENNA called Fabi on [facility] post acute referral line and she put patient's name on the list. Yumiko PETIT MSW
[2020-04-28 17:26] LABS: Bedside Glucose 193 mg/dL (70-110)
[2020-04-28] MEDS: 0.9% Saline Lock 10 ML Syringe IV (23:30)
[2020-04-28 23:40] LABS: Bedside Glucose 269 mg/dL (70-110)
[2020-04-29] VITALS (10 sets, daily range): BP systolic 144–159; BP diastolic 51–80; PULSE 80–102; RESP 14–18; TEMP 37–37.8; O2SAT 93–97
[2020-04-29] MEDS: Insulin Lispro 100 UNIT/ML INSULN.PEN SC ×4 (05:28→23:42)
[2020-04-29 05:36] LABS: Bedside Glucose 233 mg/dL (70-110)
[2020-04-29 05:38] LABS: Absolute Lymphocyte Count 1.03 X10^3/uL (0.83-4.51); Absolute Neutrophil Count 10.7 X10^3/uL (2.0-7.7); Basophil# 0.04 X10^3/uL; Basophil% 0.3 % (0-1); Eosinophil# 0.13 X10^3/uL; Hematocrit 39.1 % (37-47); Hemoglobin 13.2 g/dL (12.0-15.0); Lymphocyte # 1.03 X10^3/ul (4.0); Lymphocyte % 7.6 % (19-41); Mean Corp Hgb Conc 33.8 g/dL (32-36); Mean Corpuscular Hgb 29.6 pg (27.0-32.0); Mean Corpuscular Volume 87.7 fL (81-99); Mean Platelet Vol. 10.2 fl (6.2-12.0); Monocyte% 11.1 % (0-10); NRBC Flagged by Analyzer 0 % (0-5); Neutrophil # 10.65 X10^3/uL (2.7-7.7); Platelet Count 320 K/mm3 (150-450); RBC Distribution Width CV 12.9 % (11.6-14.6); RBC Distribution Width SD 40.9 fl (35.1-43.9); Red Blood Count 4.46 M/mm3 (4.2-5.4); White Blood Count 13.5 K/mm3 (4.4-11.0)
[2020-04-29 06:01] LABS: Anion Gap 8 (5-15); BUN 11 mg/dL (7-18); BUN/Creat Ratio 14.8 RATIO (10-20); Calcium,Total 8.6 mg/dL (8.5-10.1); Chloride 101 mmol/L (98-107); Creatinine, Serum 0.74 mg/dL (0.55-1.02); EST Glomerular Filtration Rate 82 mL/min (>60); Est Glom Filt Rate - Afr Amer 99 mL/min (>60); Estimated Creatinine Clearance 40.81 ml/min; Glucose 233 mg/dL (74-106); Potassium 3.8 mmol/L (3.5-5.1); Sodium Level 134 mmol/L (136-145)
[2020-04-29] MEDS: Morphine 2 MG/ML Syringe IV ×3 (09:12→23:34)
[2020-04-29] MEDS: Enoxaparin 40 MG/0.4 ML Syringe SC (09:17)
[2020-04-29] MEDS: Menthol/Lanolin/Calamine/Znox 113 GM Tube 1 APPLIC TOPICAL ×2 (09:18→21:46)
[2020-04-29] MEDS: Aspirin 300 MG Suppository RECTAL (09:52)
[2020-04-29 12:00] LABS: Bedside Glucose 251 mg/dL (70-110)
[2020-04-29] MEDS: Clopidogrel Bisulfate 75 MG Tablet PO (12:44)
--- NOTE | 2020-04-29 13:19 | PCM.PN.HOSP ---
Patient Problems: Active and Suspected Problems Elevated troponin (Acute) Acute rhabdomyolysis (Acute) Fall (Acute) Rhabdomyolysis (Acute) Subjective: Patient seen and examined. She was weak and frail, and complained of pain on the right side of her neck. She denied any nausea, vomiting, sore throat, diarrhea or vomiting. She is lethargic. She remains febrile, with temperature of 100F today. wbc is up to 13.5. Vitals/I&O's: Vital Signs Temp Pulse Resp BP Pulse Ox 100.0 F H 93 14 156/75 H 94 04/29/20 09:21 04/29/20 09:21 04/29/20 09:21 04/29/20 09:21 04/29/20 09:21 Oxygen Delivery Method Room Air Weight: 212 lb 4.882 oz Body Mass Index (BMI) 38.2 Intake and Output for Last 24 Hours 04/27/20 04/28/20 04/29/20 23:59 23:59 23:59 Intake Total 3083.33 / 3083.33 1761.83 / 1761.83 658.67 / 658.67 Output Total 850 / 850 925 / 1705 1180 / 1180 Balance 2233.33 / 2233.33 836.83 / 56.83 -521.33 / -521.33 General: Alert, Lethargic, - - moaning in pain HEENT: Atraumatic, PERRLA, EOMI, Normocephalic Oral: Dry Mucosa Neck: - - marked tenderness with palpation over right side of her neck. No palpable swelling; has tenderness with any attempted movement of her neck Lungs: Clear to auscultation, Normal air movement, No rhonchi, No wheeze Cardiovascular: Regular rate, Regular Rhythm, Normal S1, Normal S2, No murmurs Abdomen: Bowel Sounds Present, Soft, Non Tender, Non-Distended, No Hepato-splenomegaly Extremities: No clubbing, No cyanosis, No edema, Capillary Refill Less than 3 Seconds Skin: No rashes, No breakdown Musculoskeletal: - - tenderness over right side of her neck. Neurological: Cranial nerves II-XII grossly intact, - - right sided paralysis from stroke Psych/Mental Status: Anxious Microbiology Past 72 Hours 04/27/20 01:35 Interface Orders Urine Culture - Final Presumptive E. coli 04/27/20 08:38 Blood Culture (Wb) - Right Hand Blood Culture - Preliminary No growth in 48 hours. 04/26/20 23:36 Blood Culture (Wb) - Right Wrist Blood Culture - Preliminary No growth in 48 hours. 04/28/20 12:00 Urine, Random Streptococcus pneumoniae Antigen (M - Final 04/28/20 12:00 Urine, Random Legionella Antigen - Final 04/26/20 23:38 Mucosa - Nose Respiratory Panel (PCR) - Final 04/27/20 00:25 Mucosa - Nose SARS-CoV-2 Antigen (Rapid) - Final Laboratory Results 04/28/20 17:01: POC Glucose 193 H 04/28/20 23:28: POC Glucose 269 H 04/29/20 04:38: Sodium 134 L, Potassium 3.8, Chloride 101, Carbon Dioxide 25.0, Anion Gap 8, BUN 11, Creatinine 0.74, Estim Creat Clear Calc 40.81, Est GFR (MDRD) Af Amer 99, Est GFR (MDRD) Non-Af 82, BUN/Creatinine Ratio 14.8, Glucose 233 H, Calcium 8.6 04/29/20 04:38: WBC 13.5 H, RBC 4.46, Hgb 13.2, Hct 39.1, MCV 87.7, MCH 29.6, MCHC 33.8, RDW Std Deviation 40.9, RDW Coeff of Venancio 12.9, Plt Count 320, MPV 10.2, Immature Gran % (Auto) 1.000 H, Neut % (Auto) 79.0 H, Lymph % (Auto) 7.6 L, [place] % (Auto) 11.1 H, Eos % (Auto) 1.0, Baso % (Auto) 0.3, Absolute Neuts (auto) 10.7 H, Absolute Lymphs (auto) 1.03, Nucleated RBC % 0 04/29/20 05:27: POC Glucose 233 H 04/29/20 11:53: POC Glucose 251 H Diagnostic Data Hip/Pelvis X-Ray 04/25/20 11:57 IMPRESSION: No acute traumatic findings Electronically Signed: Benitez Sanchez DO at 12:54 EST Tel , Service support , Brain MRI 04/26/20 09:00 IMPRESSION: Acute ischemic infarct involving the right temporal and frontal lobes Electronically Signed: Brock Peng at 10:33 EST Tel , Service support , Head MRA 04/26/20 09:00 IMPRESSION: 1. 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 2. Total occlusion of a temporal branch of the right middle cerebral artery accounting for the patient''s acute CVA. Electronically Signed: Brock Peng at 11:59 EST Tel , Service support , Neck MRA 04/26/20 09:00 IMPRESSION: Normal bilateral cervical carotid and right vertebral artery. 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 Electronically Signed: Brock Peng at 12:11 EST Tel , Service support , Brain CT 04/28/20 09:16 IMPRESSION: Acute ischemic infarct involving the posterior right chung radiata with extension into the right frontal and temporal lobes. This acute infarct is unchanged in size when compared with the previous MRI but there is some mild surrounding edema, as described above. Electronically Signed: Brock Danish at 17:08 EST Tel , Service support , Cervical Spine CT 04/28/20 09:16 IMPRESSION: No evidence for acute fracture or subluxation. Mild spondylosis most severe at C4-5 and C5-6 Electronically Signed: Vish Adame MD at 18:39 EST , Service support , Chest X-Ray 04/28/20 14:01 IMPRESSION: No acute cardiopulmonary disease. Electronically Signed: Prasad Stevens MD at 23:05 EST , Service support , Shoulder X-Ray 04/28/20 14:01 IMPRESSION: Mild degenerative changes of the right shoulder. Electronically Signed: Prasad Stevens MD at 23:17 EST , Service support , Current Medications Acetaminophen (Acetaminophen 325 Mg Tablet) 650 mg PO Q6H PRN PRN PRN Reason: Pain Score 1-10/Temp > 100.7 F Acetaminophen (Acetaminophen 650 Mg Suppository) 650 mg RECTAL Q6H PRN PRN PRN Reason: Temp > 100.4 Last Admin: 04/26/20 23:02 Dose: 650 mg Documented by: Aspirin (Aspirin 300 Mg Suppository) 300 mg RECTAL DAILY [facility] Last Admin: 04/29/20 09:52 Dose: 300 mg Documented by: Atorvastatin Calcium (Atorvastatin Calcium 40 Mg Tablet) 40 mg PO QHS [facility] Last Admin: 04/28/20 21:53 Dose: Not Given Documented by: Calamine/Phenol (Menthol/Lanolin/Calamine/Znox 113 Gm Tube) 1 applic TOPICAL BID [facility]; Protocol Last Admin: 04/29/20 09:18 Dose: 1 applic Documented by: Clopidogrel Bisulfate (Clopidogrel Bisulfate 75 Mg Tablet) 75 mg PO DAILY [facility] Last Admin: 04/29/20 12:44 Dose: 75 mg Documented by: Dextrose (Dextrose 50%-Water 25 Gm/50 Ml Disp.Syrin) 0 gm IV X1 PRN; Protocol PRN Reason: Hypoglycemia Enoxaparin Sodium (Enoxaparin 40 Mg/0.4 Ml Syringe) 40 mg SC DAILY [facility] Last Admin: 04/29/20 09:17 Dose: 40 mg Documented by: Famotidine (Famotidine 20 Mg Tablet) 20 mg PO BID [facility] Last Admin: 04/29/20 09:16 Dose: Not Given Documented by: Glucagon (Glucagon 1 Mg/Ml Syringe) 1 mg IM .X1 PRN PRN Reason: Hypoglycemia Hydralazine HCl (Hydralazine 20 Mg/Ml Vial) 5 mg IV Q30M PRN PRN Reason: to maintain BP goals Ampicillin Sodium/Sulbactam (Sodium 3 gm/ Sodium Chloride) 112 mls @ 150 mls/hr IV Q8 [facility] Last Admin: 04/29/20 12:48 Dose: 150 mls/hr Documented by: Insulin Human Lispro (Insulin Lispro 100 Unit/Ml Insuln.Pen) 0 unit SC Q6 [facility]; Protocol Last Admin: 04/29/20 11:56 Dose: 4 units Documented by: Labetalol HCl (Labetalol (Prefilled) 20 Mg/4 Ml) 10 - 20 mg IV Q10M PRN PRN PRN Reason: to Maintain BP Goals Morphine Sulfate (Morphine 2 Mg/Ml Syringe) 2 mg IV Q3H PRN PRN PRN Reason: Pain Score 6-10 Last Admin: 04/29/20 09:12 Dose: 2 mg Documented by: Oxycodone HCl (Oxycodone 5 Mg Tablet) 5 mg PO Q4H PRN PRN PRN Reason: Pain Score 4-5 Prochlorperazine Edisylate (Prochlorperazine 10 Mg/2 Ml Vial) 5 mg IV Q4H PRN PRN PRN Reason: Breakthrough Nausea/Vomiting Psyllium Hydrophilic Mucilloid (Psyllium 1 Packet) 1 packet PO DAILY [facility] Last Admin: 04/29/20 09:16 Dose: Not Given Documented by: Senna/Docusate Sodium (Senna/Docusate Sodium 1 Tablet) 2 tablet PO BID PRN PRN PRN Reason: Constipation Sodium Chloride (0.9% Saline Lock 10 Ml Syringe) 10 - 40 ml IV UD PRN PRN Reason: SALINE FLUSH Last Admin: 04/28/20 23:30 Dose: 10 ml Documented by: STROKE Vital Signs/Narrative: Vital Signs Temp Pulse Resp BP Pulse Ox 04/29/20 09:21 100.0 F H 93 14 156/75 H 94 Medical Necessity - Tobacco Use Smoking Status: Former smoker Tobacco Use: Cigarettes Assessment/Plan All Active Problems Elevated troponin (Acute) Acute rhabdomyolysis (Acute) Fall (Acute) Rhabdomyolysis (Acute) # Acute ischemic infarct of the right temporal and frontal lobes has marked left sided weakness and hemineglect on aspirin rectal. due to concerns about aspiration, patient not started yet on plavix and statin 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 speech therapy on board 2D echo: EF of 65%, with normal LV systolic function,a nd PA systolic pressure of 46mmhg and moderate to severe mitral annular calcification KYLIE requested as it seems this is an embolic stroke. Patient still very lethargic, and not a candidate for KYLIE yet; to have it when she's more stable. Pt/OT on board # Right neck pain patient complains of persistent right sided neck pain, and has severe tenderness with movement of the neck, mainly on the right side of the neck CT of the cervical spine done yesterday shoed degenerative changes patient remains febrile. will get soft tissue CT of the neck. continue IV unasyn. rectal tylenol prn #Mechanical fall with rhabdomyolysis: degenerative changes seen on left hip xray. PT/OT on board. CPK has trended down. # UTi: #Pneumonia; CXR done shwoed subtle bilateral infiltrates. Now on IV Unasyn. Covid test was negative. Patient however still remains febrile so CT soft tissue neck been obtained to evaluate for neck pain to see if it is of infectious pathology. continue IV unasyn. #Hypertension: Controlled. Blood pressure is 156/75. Patient currently n.p.o. so cannot give any oral medication. IV hydralazine as needed. #Indeterminate troponin: 2D echo as above. Initial troponin was 0.16 but trended down to 0.137. Stable. DVT prophylaxis: lovenox. Inpatient E&M: [id number] [facility] Hosp L3
--- NOTE | 2020-04-29 13:21 | CT_ITS ---
STUDY: CT SOFT TISSUE NECK WITH CONTRAST REASON FOR EXAM: Female, 69 years old. Right neck pain, recent ischemic stroke, diabetes, hypertension. RADIATION DOSAGE (If Supplied By Facility): CTDIvol = ( 26.74 ) mGy, DLP = ( 821.23 ) mGycm TECHNIQUE: The patient was scanned in a multi-detector CT scanner. High resolution transaxial imaging was performed following intravenous administration of IV 75mL Isovue-300. Sagittal and coronal images were reconstructed. Individualized dose optimization techniques were used for this CT. COMPARISON: None. FINDINGS: Normal bilateral parotid glands. Normal bilateral filling winder spaces. Normal bilateral parapharyngeal spaces. Normal bilateral carotid spaces. Normal bilateral sublingual and submandibular glands and spaces. Normal visualized nasopharynx. Normal retropharyngeal space. Normal perivertebral space. Normal visualized bilateral faucial tonsils. The visualized tongue, tongue base and oropharynx are normal. The visualized cervical lymph nodes (levels I-) are within normal size limits, and maintain normal morphology. There is no demonstrated solid or cystic mass lesion. There is no abnormal contrast enhancement. Normal epiglottis, bilateral vallecula and hypopharynx. The pre-epiglottic and paraglottic adipose spaces are normal. Normal visualized bilateral piriform sinuses, aryepiglottic folds, vocal cords, and arytenoid-cricoid articulations. Normal subglottic trachea. Normal bilateral lobes of the thyroid gland. Normal visualized pulmonary apices. Normal visualized paranasal sinuses. There is multilevel degenerative changes of the cervical spine were obtained atherosclerotic calcifications of the carotid arteries.. CT/Soft Tissue Neck WITH Contrast IMPRESSION: No abnormality is seen. Study somewhat limited examination due to patient''s positioning. Electronically Signed: Raymundo Jaime MD at 14:19 EST Tel , Service support ,
[2020-04-29 17:20] LABS: Bedside Glucose 222 mg/dL (70-110)
[2020-04-29] MEDS: Famotidine 20 MG Tablet PO (21:42)
[2020-04-29] MEDS: 0.9% Saline Lock 10 ML Syringe IV (23:34)
[2020-04-30] VITALS (9 sets, daily range): BP systolic 123–162; BP diastolic 52–69; PULSE 77–103; RESP 16–18; TEMP 36.8–37.7; O2SAT 93–96
[2020-04-30 00:06] LABS: Bedside Glucose 192 mg/dL (70-110)
[2020-04-30] MEDS: Morphine 2 MG/ML Syringe IV (02:42)
[2020-04-30] MEDS: 0.9% Saline Lock 10 ML Syringe IV ×2 (02:42→05:52)
[2020-04-30] MEDS: Insulin Lispro 100 UNIT/ML INSULN.PEN SC ×4 (05:57→23:52)
[2020-04-30 06:16] LABS: Absolute Lymphocyte Count 0.93 X10^3/uL (0.83-4.51); Absolute Neutrophil Count 12.8 X10^3/uL (2.0-7.7); Basophil# 0.08 X10^3/uL; Basophil% 0.5 % (0-1); Eosinophil# 0.14 X10^3/uL; Eosinophils% 0.9 % (0-5); Hematocrit 40.8 % (37-47); Hemoglobin 13.6 g/dL (12.0-15.0); Lymphocyte # 0.93 X10^3/ul (4.0); Lymphocyte % 5.9 % (19-41); Mean Corp Hgb Conc 33.3 g/dL (32-36); Mean Corpuscular Hgb 29.2 pg (27.0-32.0); Mean Corpuscular Volume 87.6 fL (81-99); Mean Platelet Vol. 9.7 fl (6.2-12.0); Monocyte# 1.52 X10^3/uL; Monocyte% 9.7 % (0-10); NRBC Flagged by Analyzer 0 % (0-5); Neutrophil # 12.83 X10^3/uL (2.7-7.7); POSITIVE DIFFERENTIAL YES; Platelet Count 352 K/mm3 (150-450); RBC Distribution Width CV 12.9 % (11.6-14.6); RBC Distribution Width SD 41.1 fl (35.1-43.9); Red Blood Count 4.66 M/mm3 (4.2-5.4); White Blood Count 15.7 K/mm3 (4.4-11.0)
[2020-04-30 06:20] LABS: Differential Indicated SCAN CRITERIA MET
[2020-04-30 06:26] LABS: Bedside Glucose 208 mg/dL (70-110)
[2020-04-30 06:36] LABS: Anion Gap 7 (5-15); BUN 12 mg/dL (7-18); BUN/Creat Ratio 16.7 RATIO (10-20); Calcium,Total 8.8 mg/dL (8.5-10.1); Chloride 101 mmol/L (98-107); Creatinine, Serum 0.72 mg/dL (0.55-1.02); EST Glomerular Filtration Rate 85 mL/min (>60); Est Glom Filt Rate - Afr Amer 103 mL/min (>60); Estimated Creatinine Clearance 40.81 ml/min; Glucose 194 mg/dL (74-106); Sodium Level 134 mmol/L (136-145)
[2020-04-30 06:49] LABS: Differential Comment SCANNED
--- NOTE | 2020-04-30 07:56 | PN_ITS ---
Patient Problems: Active and Suspected Problems Elevated troponin (Acute) Acute rhabdomyolysis (Acute) Fall (Acute) Rhabdomyolysis (Acute) Subjective: Patient seen and examined today. Still remains mildly febrile with temperature of 99.8 Fahrenheit. She remains lethargic. WBC has trended up somewhat to 15.7. She has remained hemodynamically stable otherwise. Vitals/I&O's: Vital Signs Temp Pulse Resp BP Pulse Ox 99.8 F H 96 18 162/69 H 93 04/30/20 06:05 04/30/20 07:00 04/30/20 06:05 04/30/20 06:05 04/30/20 06:05 Oxygen Delivery Method Room Air Weight: 212 lb 4.882 oz Body Mass Index (BMI) 38.2 Intake and Output for Last 24 Hours 04/28/20 04/29/20 04/30/20 23:59 23:59 23:59 Intake Total 1761.83 / 1761.83 882.67 / 882.67 112 / 112 Output Total 925 / 1705 1530 / 2230 800 / 800 Balance 836.83 / 56.83 -647.33 / -1347.33 -688 / -688 General: Alert, Lethargic, - - moaning in pain HEENT: Atraumatic, PERRLA, EOMI, Normocephalic Oral: Dry Mucosa Neck: - - marked tenderness with palpation over right side of her neck. No palpable swelling; has tenderness with any attempted movement of her neck Lungs: Clear to auscultation, Normal air movement, No rhonchi, No wheeze Cardiovascular: Regular rate, Regular Rhythm, Normal S1, Normal S2, No murmurs Abdomen: Bowel Sounds Present, Soft, Non Tender, Non-Distended, No Hepato- splenomegaly Extremities: No clubbing, No cyanosis, No edema, Capillary Refill Less than 3 Seconds Skin: No rashes, No breakdown Musculoskeletal: - - tenderness over right side of her neck. Neurological: Cranial nerves II-XII grossly intact, - - right sided paralysis from stroke Psych/Mental Status: Anxious Microbiology Past 72 Hours 04/27/20 01:35 Interface Orders Urine Culture - Final Presumptive E. coli 04/27/20 08:38 Blood Culture (Wb) - Right Hand Blood Culture - Preliminary No growth in 48 hours. 04/26/20 23:36 Blood Culture (Wb) - Right Wrist Blood Culture - Preliminary No growth in 48 hours. 04/28/20 12:00 Urine, Random Streptococcus pneumoniae Antigen (M - Final 04/28/20 12:00 Urine, Random Legionella Antigen - Final Laboratory Results 04/29/20 11:53: POC Glucose 251 H 04/29/20 17:12: POC Glucose 222 H 04/29/20 23:41: POC Glucose 192 H 04/30/20 05:50: WBC 15.7 H, RBC 4.66, Hgb 13.6, Hct 40.8, MCV 87.6, MCH 29.2, MCHC 33.3, RDW Std Deviation 41.1, RDW Coeff of Venancio 12.9, Plt Count 352, MPV 9.7, Immature Gran % (Auto) 1.000 H, Neut % (Auto) 82.0 H, Lymph % (Auto) 5.9 L, Long % (Auto) 9.7, Eos % (Auto) 0.9, Baso % (Auto) 0.5, Absolute Neuts (auto) 12.8 H, Absolute Lymphs (auto) 0.93, Nucleated RBC % 0, Differential Comment SCANNED, Diff Path Review October foll 04/30/20 05:50: Sodium 134 L, Potassium 4.0, Chloride 101, Carbon Dioxide 26.0, Anion Gap 7, BUN 12, Creatinine 0.72, Estim Creat Clear Calc 40.81, Est GFR (MDRD) Af Amer 103, Est GFR (MDRD) Non-Af 85, BUN/Creatinine Ratio 16.7, Glucose 194 H, Calcium 8.8 04/30/20 05:56: POC Glucose 208 H Current Medications Acetaminophen (Acetaminophen 325 Mg Tablet) 650 mg PO Q6H PRN PRN PRN Reason: Pain Score 1-10/Temp > 100.7 F Acetaminophen (Acetaminophen 650 Mg Suppository) 650 mg RECTAL Q6H PRN PRN PRN Reason: Temp > 100.4 Last Admin: 04/26/20 23:02 Dose: 650 mg Documented by: Aspirin (Aspirin 300 Mg Suppository) 300 mg RECTAL DAILY [facility] Last Admin: 04/29/20 09:52 Dose: 300 mg Documented by: Atorvastatin Calcium (Atorvastatin Calcium 40 Mg Tablet) 40 mg PO QHS [facility] Last Admin: 04/29/20 21:42 Dose: Not Given Documented by: Calamine/Phenol (Menthol/Lanolin/Calamine/Znox 113 Gm Tube) 1 applic TOPICAL BID [facility]; Protocol Last Admin: 04/29/20 21:46 Dose: 1 applic Documented by: Clopidogrel Bisulfate (Clopidogrel Bisulfate 75 Mg Tablet) 75 mg PO DAILY [facility] Last Admin: 04/29/20 12:44 Dose: 75 mg Documented by: Dextrose (Dextrose 50%-Water 25 Gm/50 Ml Disp.Syrin) 0 gm IV X1 PRN; Protocol PRN Reason: Hypoglycemia Enoxaparin Sodium (Enoxaparin 40 Mg/0.4 Ml Syringe) 40 mg SC DAILY [facility] Last Admin: 04/29/20 09:17 Dose: 40 mg Documented by: Famotidine (Famotidine 20 Mg Tablet) 20 mg PO BID [facility] Last Admin: 04/29/20 21:42 Dose: 20 mg Documented by: Glucagon (Glucagon 1 Mg/Ml Syringe) 1 mg IM .X1 PRN PRN Reason: Hypoglycemia Hydralazine HCl (Hydralazine 20 Mg/Ml Vial) 5 mg IV Q30M PRN PRN Reason: to maintain BP goals Ampicillin Sodium/Sulbactam (Sodium 3 gm/ Sodium Chloride) 112 mls @ 150 mls/hr IV Q8 [facility] Last Infusion: 04/30/20 06:40 Dose: Infused Documented by: Insulin Human Lispro (Insulin Lispro 100 Unit/Ml Insuln.Pen) 0 unit SC Q6 [facility]; Protocol Last Admin: 04/30/20 05:57 Dose: 4 units Documented by: Labetalol HCl (Labetalol (Prefilled) 20 Mg/4 Ml) 10 - 20 mg IV Q10M PRN PRN PRN Reason: to Maintain BP Goals Morphine Sulfate (Morphine 2 Mg/Ml Syringe) 2 mg IV Q3H PRN PRN PRN Reason: Pain Score 6-10 Last Admin: 04/30/20 02:42 Dose: 2 mg Documented by: Oxycodone HCl (Oxycodone 5 Mg Tablet) 5 mg PO Q4H PRN PRN PRN Reason: Pain Score 4-5 Prochlorperazine Edisylate (Prochlorperazine 10 Mg/2 Ml Vial) 5 mg IV Q4H PRN PRN PRN Reason: Breakthrough Nausea/Vomiting Psyllium Hydrophilic Mucilloid (Psyllium 1 Packet) 1 packet PO DAILY [facility] Last Admin: 04/29/20 09:16 Dose: Not Given Documented by: Senna/Docusate Sodium (Senna/Docusate Sodium 1 Tablet) 2 tablet PO BID PRN PRN PRN Reason: Constipation Sodium Chloride (0.9% Saline Lock 10 Ml Syringe) 10 - 40 ml IV UD PRN PRN Reason: SALINE FLUSH Last Admin: 04/30/20 05:52 Dose: 10 ml Documented by: STROKE Vital Signs/Narrative: Vital Signs Temp Pulse Resp BP Pulse Ox 04/30/20 07:00 96 04/30/20 06:05 99.8 F H 102 H 18 162/69 H 93 Medical Necessity - Tobacco Use Smoking Status: Former smoker Tobacco Use: Cigarettes Assessment/Plan All Active Problems Elevated troponin (Acute) Acute rhabdomyolysis (Acute) Fall (Acute) Rhabdomyolysis (Acute) # 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 * speech therapy on board * 2D echo: EF of 65%, with normal LV systolic function,a nd PA systolic pressure of 46mmhg and moderate to severe mitral annular calcification * KYLIE requested as it seems this is an embolic stroke. * Patient still very lethargic, and not a candidate for KYLIE yet; to have it when she's more stable. * Pt/OT on board * # Right neck pain * CT of the cervical spine done showed degenerative changes * CT soft tissue neck showed no evidence of abscess or swelling. * wbc trended upwards today * continue IV unasyn. * rectal tylenol prn * will consult ID * #Mechanical fall with rhabdomyolysis: degenerative changes seen on left hip xray. PT/OT on board. CPK has trended down. # UTi: on IV unasyn. #Pneumonia; * CXR done shwoed subtle bilateral infiltrates. * Now on IV Unasyn. Covid test was negative. soft tissue neck was negative. * continue IV unasyn. * #Hypertension: remains elevated. . Patient currently n.p.o. so cannot give any oral medication. IV hydralazine as needed. #Indeterminate troponin: 2D echo as above. Initial troponin was 0.16 but trended down to 0.137. Stable. DVT prophylaxis: lovenox. Inpatient E&M: [id number] [facility] L[facility]
[2020-04-30] MEDS: oxyCODONE 5 MG Tablet PO ×2 (09:35→20:44)
[2020-04-30] MEDS: Famotidine 20 MG Tablet PO ×2 (09:35→20:45)
[2020-04-30] MEDS: Clopidogrel Bisulfate 75 MG Tablet PO (09:35)
[2020-04-30] MEDS: Menthol/Lanolin/Calamine/Znox 113 GM Tube 1 APPLIC TOPICAL ×2 (09:40→20:51)
[2020-04-30] MEDS: Enoxaparin 40 MG/0.4 ML Syringe SC (09:40)
[2020-04-30] MEDS: Aspirin 300 MG Suppository RECTAL (10:30)
[2020-04-30] MEDS: Acetaminophen 650 MG Suppository RECTAL (10:32)
--- NOTE | 2020-04-30 10:41 | CASEMGMT ---
Addendum entered by Denise De La Cruz 04/30/20 13:57: SW called [facility], spoke w/Misa. She states will review this pt's information next and will let SW know if she is approved. BETTY Deluca Original Note: As per physician, pt may be ready for discharge on the weekend. SW confirmed [facility]CU has a bed. SW called [facility], they are open today. SW faxed information for precert to be attained to TCU. BETTY Deluca
[2020-04-30 11:51] LABS: Bedside Glucose 215 mg/dL (70-110)
[2020-04-30 14:30] LABS: Pathologist Review Reviewed
--- NOTE | 2020-04-30 14:55 | CASEMGMT ---
SW spoke w/Misa from [facility]([phone]), pt is authorized to go to [facility]CU if ready on the weekend. SW let Fabi in TCU know. SW attempted to let pt know, she is sleeping. SW did call pt's SHANTHI Leahy and let her know that pt will be able to go to [facility]CU when ready. Green sheet is on the chart in anticipation of weekend discharge. BETTY Deluca
--- NOTE | 2020-04-30 14:58 | PCM.HP.ID ---
Problem List (1) Fall Status: Acute Reason for Consult: fever Consulted by: Dr. Nevarez History of Present Illness: The patient is a 69 year old F presented after fall at home, found to have acute stroke, admitted on azithro/ceftriaxone, changed to unasyn for aspiration and uti coverage. Having neck pain, CT c-spine and neck have been done. Fever improving. Wbc remains elevated. Per nursing, have been holding pain medicines, but mental status much worse this afternoon. Due to mental status changes, pt unable to provide history or ROS. - Medical History Past Medical History (Chronic Problems): Chronic Problems Hypertension (Chronic) Diabetes mellitus type 2 in obese (Chronic) Allergies/Adverse Reactions: Allergies No Known Allergies Allergy (Verified 04/25/20 11:34) Home Medications: Ambulatory Orders Medication Instructions Recorded NK 04/25/20 - Social History SMOKING STATUS:: Former smoker Vital Signs Temp Pulse Resp BP Pulse Ox 98.8 F 103 H 18 150/58 H 96 04/30/20 09:32 04/30/20 09:32 04/30/20 09:32 04/30/20 09:32 04/30/20 09:32 Oxygen Delivery Method Room Air Weight: 96.3 kg Body Mass Index (BMI) 38.2 Microbiology Past 72 Hours 04/27/20 01:35 Urine Culture - Final Interface Orders Presumptive E. coli 04/27/20 08:38 Blood Culture - Preliminary Blood Culture (Wb) - Right Hand No growth in 48 hours. 04/26/20 23:36 Blood Culture - Preliminary Blood Culture (Wb) - Right Wrist No growth in 48 hours. 04/28/20 12:00 Streptococcus pneumoniae Antigen (M - Final Urine, Random 04/28/20 12:00 Legionella Antigen - Final Urine, Random Laboratory Tests Past 24 Hrs 04/30/20 04/30/20 05:50 05:50 WBC 15.7 H RBC 4.66 Hgb 13.6 Hct 40.8 MCV 87.6 MCH 29.2 MCHC 33.3 RDW Std Deviation 41.1 RDW Coeff of Venancio 12.9 Plt Count 352 MPV 9.7 Immature Gran % (Auto) 1.000 H Neut % (Auto) 82.0 H Lymph % (Auto) 5.9 L Kershaw % (Auto) 9.7 Eos % (Auto) 0.9 Baso % (Auto) 0.5 Absolute Neuts (auto) 12.8 H Absolute Lymphs (auto) 0.93 Nucleated RBC % 0 Differential Comment SCANNED Diff Path Review Reviewed Sodium 134 L Potassium 4.0 Chloride 101 Carbon Dioxide 26.0 Anion Gap 7 BUN 12 Creatinine 0.72 Estim Creat Clear Calc 40.81 Est GFR (MDRD) Af Amer 103 Est GFR (MDRD) Non-Af 85 BUN/Creatinine Ratio 16.7 Glucose 194 H Calcium 8.8 - Other Studies Radiology: [] reviewed Other Studies: [] Route of nutrition/ use of supplements: [] Nutritional Intake: [] IV Site: [] Rayo Catheter: [] - Physical Exam General: Confused, Lethargic, Non-Cooperative HEENT: Atraumatic, PERRLA, EOMI Neck: No Nodes, - - Significant pain with palpation/movement. Lungs: Clear to auscultation, Normal air movement, Diminished Cardiovascular: Regular rate, Regular Rhythm Abdomen: Soft, Non Tender, Non-Distended Extremities: No edema Skin: No rashes IV Site: Peripheral Musculoskeletal: No Tenderness to Palpation of Joints or Extremities Neurological: Cranial nerves II-XII grossly intact - Assessment/Plan Antibiotics: [] Assessment/Plan: [] Active and Suspected Problems Elevated troponin (Acute) Acute rhabdomyolysis (Acute) Fall (Acute) Rhabdomyolysis (Acute) Presented with stroke, rhabdo, neck pain, low grade fever and leukocytosis. CXR clear 04/28, so low suspicion for pneumonia. Fever curve improving, still some leukocytosis. UA without any wbc seen, but ucx with desouza-S ecoli. On unasyn. Covid Ag neg, will check inhouse PCR. CTs of neck only showed some degenerative disease. With worsening mental status and significant neck pain with movement, recommend LP, ordered fluid studies, will change unasyn to empiric vanc/ceftriaxone/amp/acyclovir. Will follow, thank you. D/w radiology and nursing.
--- NOTE | 2020-04-30 17:00 | PCM.RX.CS ---
Consult Pharmacy has been consulted to manage selected antiobiotic: Vancomycin Type of Consult: New start Suspected Infection: Meningitis Labs: Sodium 134 mmol/L (136-145) L 04/30/20 05:50 Potassium 4.0 mmol/L (3.5-5.1) 04/30/20 05:50 Chloride 101 mmol/L (98-107) 04/30/20 05:50 Carbon Dioxide 26.0 mmol/L (21.0-32.0) 04/30/20 05:50 Anion Gap 7 (5-15) 04/30/20 05:50 BUN 12 mg/dL (7-18) 04/30/20 05:50 Creatinine 0.72 mg/dL (0.55-1.02) 04/30/20 05:50 Est GFR (MDRD) Af Amer 103 mL/min (>60) 04/30/20 05:50 Est GFR (MDRD) Non-Af 85 mL/min (>60) 04/30/20 05:50 BUN/Creatinine Ratio 16.7 RATIO (10-20) 04/30/20 05:50 Glucose 194 mg/dL (74-106) H 04/30/20 05:50 Microbiology: Microbiology 04/27/20 01:35 Interface Orders Urine Culture - Final Presumptive E. coli 04/27/20 08:38 Blood Culture (Wb) - Right Hand Blood Culture - Preliminary No growth in 48 hours. 04/26/20 23:36 Blood Culture (Wb) - Right Wrist Blood Culture - Preliminary No growth in 48 hours. 04/28/20 12:00 Urine, Random Streptococcus pneumoniae Antigen (M - Final 04/28/20 12:00 Urine, Random Legionella Antigen - Final 04/26/20 23:38 Mucosa - Nose Respiratory Panel (PCR) - Final 04/27/20 00:25 Mucosa - Nose SARS-CoV-2 Antigen (Rapid) - Final Goal Trough: 15-20 mcg/mL Pharmacy Plan for Drug Dosing: NEW START IV VANCOMYCIN Consulting Physician: MASHA Indication: POSSIBLE MENINGITIS Goal Trough: 15-20 MG/DL SrCr: 0.72 CrCl: 77.6 ML/MIN (USING ADJ BW OF 68.6 KG) Comments: LOADING DOSE OF 2000MG GIVEN 04/30 @ 1644 Vancomycin Dose: 1500MG Q12H STARTING 05/01 @ 0500 Pharmacy Service will continue to monitor and adjust dosing as required. Labs to be done on [date and time ordered]: 05/02 @ 8708
[2020-04-30 17:56] LABS: Bedside Glucose 165 mg/dL (70-110)
[2020-04-30] MEDS: Atorvastatin Calcium 40 MG Tablet PO (20:44)
[2020-05-01] VITALS (11 sets, daily range): BP systolic 141–152; BP diastolic 60–84; PULSE 84–104; RESP 15–18; TEMP 36.9–37.2; O2SAT 94–97
[2020-05-01 00:05] LABS: Bedside Glucose 276 mg/dL (70-110)
[2020-05-01] MEDS: Morphine 2 MG/ML Syringe IV ×3 (00:05→23:58)
[2020-05-01] MEDS: 0.9% Saline Lock 10 ML Syringe IV ×2 (00:05→06:19)
[2020-05-01] MEDS: Insulin Lispro 100 UNIT/ML INSULN.PEN SC ×3 (06:26→17:53)
[2020-05-01 06:40] LABS: Bedside Glucose 218 mg/dL (70-110)
[2020-05-01 08:50] LABS: Absolute Lymphocyte Count 0.85 X10^3/uL (0.83-4.51); Basophil# 0.02 X10^3/uL; Basophil% 0.2 % (0-1); Eosinophil# 0.01 X10^3/uL; Eosinophils% 0.1 % (0-5); Hematocrit 30.7 % (37-47); Lymphocyte # 0.85 X10^3/ul (4.0); Lymphocyte % 7.8 % (19-41); Mean Corp Hgb Conc 29.3 g/dL (32-36); Mean Corpuscular Hgb 23.6 pg (27.0-32.0); Mean Corpuscular Volume 80.6 fL (81-99); Mean Platelet Vol. 9.9 fl (6.2-12.0); Monocyte# 0.97 X10^3/uL; Monocyte% 8.9 % (0-10); NRBC Flagged by Analyzer 0.5 % (0-5); Neutrophil # 8.97 X10^3/uL (2.7-7.7); Neutrophil % 82.6 % (47-70); POSITIVE MORPHOLOGY YES; Platelet Count 278 K/mm3 (150-450); RBC Distribution Width CV 24.3 % (11.6-14.6); RBC Distribution Width SD 70.6 fl (35.1-43.9); Red Blood Count 3.81 M/mm3 (4.2-5.4); White Blood Count 10.9 K/mm3 (4.4-11.0)
[2020-05-01] MEDS: Famotidine 20 MG Tablet PO ×2 (08:58→20:01)
[2020-05-01] MEDS: Enoxaparin 40 MG/0.4 ML Syringe SC (09:01)
[2020-05-01] MEDS: Aspirin 300 MG Suppository RECTAL (09:08)
[2020-05-01] MEDS: Menthol/Lanolin/Calamine/Znox 113 GM Tube 1 APPLIC TOPICAL ×2 (09:08→20:01)
[2020-05-01] MEDS: oxyCODONE 5 MG Tablet PO (09:09)
[2020-05-01 09:50] LABS: Anion Gap 6 (5-15); BUN 6 mg/dL (7-18); BUN/Creat Ratio 14.4 RATIO (10-20); Calcium,Total 7.5 mg/dL (8.5-10.1); Chloride 117 mmol/L (98-107); Creatinine, Serum 0.42 mg/dL (0.55-1.02); EST Glomerular Filtration Rate 159 mL/min (>60); Est Glom Filt Rate - Afr Amer 192 mL/min (>60); Estimated Creatinine Clearance 40.81 ml/min; Glucose 78 mg/dL (74-106); Potassium 3.2 mmol/L (3.5-5.1); Sodium Level 145 mmol/L (136-145)
[2020-05-01 10:38] LABS: Anisocytosis 1+; Differential Indicated SCAN CRITERIA MET; Hypochromasia 2+; Platelet Estimate ADEQUATE (ADEQ)
[2020-05-01 12:05] LABS: Bedside Glucose 212 mg/dL (70-110)
--- NOTE | 2020-05-01 12:38 | PCM.PN.HOSP ---
Patient Problems: Active and Suspected Problems Elevated troponin (Acute) Acute rhabdomyolysis (Acute) Fall (Acute) Rhabdomyolysis (Acute) Subjective: Patient seen and examined. She is much more alert today. She said neck pain is much better. She is now able to tolerate oral diet. Her aspirin 300mg rectal was accidentally in her vagina this morning. Review of systems was otherwise negative. She has remained hemodynamically stable. Vitals/I&O's: Vital Signs Temp Pulse Resp BP Pulse Ox 98.4 F 84 18 150/84 H 96 05/01/20 08:43 05/01/20 11:25 05/01/20 08:43 05/01/20 08:43 05/01/20 08:43 Oxygen Delivery Method Room Air Weight: 212 lb 4.882 oz Body Mass Index (BMI) 38.2 Intake and Output for Last 24 Hours 04/29/20 04/30/20 05/01/20 23:59 23:59 23:59 Intake Total 882.67 / 882.67 1504.75 / 1504.75 1342 / 1342 Output Total 1530 / 2230 1050 / 1400 1250 / 1250 Balance -647.33 / -1347.33 454.75 / 104.75 92 / 92 General: Alert, and oriented, much less lethargic today HEENT: Atraumatic, PERRLA, EOMI, Normocephalic Oral: Dry Mucosa Neck: - - minimal tenderness today with palpation on the right side of her neck. Torticollis towards the left side of her neck Lungs: Clear to auscultation, Normal air movement, No rhonchi, No wheeze Cardiovascular: Regular rate, Regular Rhythm, Normal S1, Normal S2, No murmurs Abdomen: Bowel Sounds Present, Soft, Non Tender, Non-Distended, No Hepato-splenomegaly Extremities: No clubbing, No cyanosis, No edema, Capillary Refill Less than 3 Seconds Skin: No rashes, No breakdown Musculoskeletal: -no tenderness Neurological: Cranial nerves II-XII grossly intact, - - right sided paralysis from stroke Psych/Mental Status: normal affect Microbiology Past 72 Hours 04/27/20 01:35 Interface Orders Urine Culture - Final Presumptive E. coli 04/27/20 08:38 Blood Culture (Wb) - Right Hand Blood Culture - Preliminary No growth in 48 hours. 04/26/20 23:36 Blood Culture (Wb) - Right Wrist Blood Culture - Preliminary No growth in 48 hours. 04/28/20 12:00 Urine, Random Streptococcus pneumoniae Antigen (M - Final 04/28/20 12:00 Urine, Random Legionella Antigen - Final Laboratory Results 04/30/20 05:50: Diff Path Review Reviewed 04/30/20 17:48: POC Glucose 165 H 04/30/20 23:50: POC Glucose 276 H 04/30/20 : COVID-19 (ARNAUD) Negative 05/01/20 06:25: POC Glucose 218 H 05/01/20 08:09: WBC 10.9, RBC 3.81 L, Hgb 9.0 L, Hct 30.7 L, MCV 80.6 L D, MCH 23.6 L, MCHC 29.3 L D, RDW Std Deviation 70.6 H, RDW Coeff of Venancio 24.3 H, Plt Count 278, MPV 9.9, Immature Gran % (Auto) 0.400, Neut % (Auto) 82.6 H, Lymph % (Auto) 7.8 L, [place] % (Auto) 8.9, Eos % (Auto) 0.1, Baso % (Auto) 0.2, Absolute Neuts (auto) 9.0 H, Absolute Lymphs (auto) 0.85, Nucleated RBC % 0.5, Platelet Estimate ADEQUATE, Hypochromasia 2+, Anisocytosis 1+ 05/01/20 08:09: Sodium 145, Potassium 3.2 L, Chloride 117 H, Carbon Dioxide 22.0, Anion Gap 6, BUN 6 L, Creatinine 0.42 L, Estim Creat Clear Calc 40.81, Est GFR (MDRD) Af Amer 192, Est GFR (MDRD) Non-Af 159, BUN/Creatinine Ratio 14.4, Glucose 78, Calcium 7.5 L 05/01/20 11:49: POC Glucose 212 H Diagnostic Data Hip/Pelvis X-Ray 04/25/20 11:57 IMPRESSION: No acute traumatic findings Electronically Signed: Benitez Sanchez DO at 12:54 EST Tel , Service support , Brain MRI 04/26/20 09:00 IMPRESSION: Acute ischemic infarct involving the right temporal and frontal lobes Electronically Signed: Brock Peng at 10:33 EST Tel , Service support , Head MRA 04/26/20 09:00 IMPRESSION: 1. 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 2. Total occlusion of a temporal branch of the right middle cerebral artery accounting for the patient''s acute CVA. Electronically Signed: Brock Peng at 11:59 EST Tel , Service support , Neck MRA 04/26/20 09:00 IMPRESSION: Normal bilateral cervical carotid and right vertebral artery. 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 Electronically Signed: Brock Peng at 12:11 EST Tel , Service support , Brain CT 04/28/20 09:16 IMPRESSION: Acute ischemic infarct involving the posterior right chung radiata with extension into the right frontal and temporal lobes. This acute infarct is unchanged in size when compared with the previous MRI but there is some mild surrounding edema, as described above. Electronically Signed: Brock Peng at 17:08 EST Tel , Service support , Cervical Spine CT 04/28/20 09:16 IMPRESSION: No evidence for acute fracture or subluxation. Mild spondylosis most severe at C4-5 and C5-6 Electronically Signed: Vish Adame MD at 18:39 EST , Service support , Chest X-Ray 04/28/20 14:01 IMPRESSION: No acute cardiopulmonary disease. Electronically Signed: Prasad Stevens MD at 23:05 EST , Service support , Shoulder X-Ray 04/28/20 14:01 IMPRESSION: Mild degenerative changes of the right shoulder. Electronically Signed: Prasad Stevens MD at 23:17 EST , Service support , Soft Tissue Neck CT 04/29/20 13:21 IMPRESSION: No abnormality is seen. Study somewhat limited examination due to patient''s positioning. Electronically Signed: Raymundo Jaime MD at 14:19 EST Tel , Service support , Current Medications Acetaminophen (Acetaminophen 325 Mg Tablet) 650 mg PO Q6H PRN PRN PRN Reason: Pain Score 1-10/Temp > 100.7 F Acetaminophen (Acetaminophen 650 Mg Suppository) 650 mg RECTAL Q6H PRN PRN PRN Reason: Temp > 100.4 Last Admin: 04/30/20 10:32 Dose: 650 mg Documented by: Aspirin (Aspirin 325 Mg Tablet) 325 mg PO DAILY@0800 [facility] Atorvastatin Calcium (Atorvastatin Calcium 40 Mg Tablet) 40 mg PO QHS [facility] Last Admin: 04/30/20 20:44 Dose: 40 mg Documented by: Calamine/Phenol (Menthol/Lanolin/Calamine/Znox 113 Gm Tube) 1 applic TOPICAL BID [facility]; Protocol Last Admin: 05/01/20 09:08 Dose: 1 applic Documented by: Clopidogrel Bisulfate (Clopidogrel Bisulfate 75 Mg Tablet) 75 mg PO DAILY [facility] Last Admin: 04/30/20 09:35 Dose: 75 mg Documented by: Dextrose (Dextrose 50%-Water 25 Gm/50 Ml Disp.Syrin) 0 gm IV X1 PRN; Protocol PRN Reason: Hypoglycemia Enoxaparin Sodium (Enoxaparin 40 Mg/0.4 Ml Syringe) 40 mg SC DAILY [facility] Last Admin: 05/01/20 09:01 Dose: 40 mg Documented by: Famotidine (Famotidine 20 Mg Tablet) 20 mg PO BID [facility] Last Admin: 05/01/20 08:58 Dose: 20 mg Documented by: Glucagon (Glucagon 1 Mg/Ml Syringe) 1 mg IM .X1 PRN PRN Reason: Hypoglycemia Hydralazine HCl (Hydralazine 20 Mg/Ml Vial) 5 mg IV Q30M PRN PRN Reason: to maintain BP goals Vancomycin IV Pharmacy to Dose (1 ea/ Sodium Chloride) 500 mls @ 250 mls/hr IV X1 PRN; Protocol PRN Reason: Rx to Dose Acyclovir Sodium 500 mg/ (Dextrose) 260 mls @ 260 mls/hr IV Q8 [facility] Last Infusion: 05/01/20 07:55 Dose: Infused Documented by: Ceftriaxone Sodium 2 gm/ (Sodium Chloride) 50 mls @ 100 mls/hr IV Q12 [facility] Last Infusion: 05/01/20 09:40 Dose: Infused Documented by: Ampicillin Sodium 2 gm/ Sodium (Chloride) 100 mls @ 200 mls/hr IV Q4 [facility] Last Infusion: 05/01/20 11:20 Dose: Infused Documented by: Sodium Chloride () 250 mls @ 15 mls/hr IV .[id number] PRN PRN Reason: Saline Flush Last Infusion: 04/30/20 16:43 Dose: 0 mls/hr Documented by: Sodium Chloride () 250 mls @ 15 mls/hr IV .[id number] PRN PRN Reason: Additional IVPB Infusion Vancomycin HCl 1,500 mg/ (Sodium Chloride) 530 mls @ 250 mls/hr IV Q12H [facility] Last Infusion: 05/01/20 06:54 Dose: Infused Documented by: Insulin Human Lispro (Insulin Lispro 100 Unit/Ml Insuln.Pen) 0 unit SC Q6 [facility]; Protocol Last Admin: 05/01/20 11:52 Dose: 4 units Documented by: Labetalol HCl (Labetalol (Prefilled) 20 Mg/4 Ml) 10 - 20 mg IV Q10M PRN PRN PRN Reason: to Maintain BP Goals Morphine Sulfate (Morphine 2 Mg/Ml Syringe) 2 mg IV Q3H PRN PRN PRN Reason: Pain Score 6-10 Last Admin: 05/01/20 06:19 Dose: 2 mg Documented by: Oxycodone HCl (Oxycodone 5 Mg Tablet) 5 mg PO Q4H PRN PRN PRN Reason: Pain Score 4-5 Last Admin: 05/01/20 09:09 Dose: 5 mg Documented by: Prochlorperazine Edisylate (Prochlorperazine 10 Mg/2 Ml Vial) 5 mg IV Q4H PRN PRN PRN Reason: Breakthrough Nausea/Vomiting Psyllium Hydrophilic Mucilloid (Psyllium 1 Packet) 1 packet PO DAILY [facility] Last Admin: 05/01/20 08:57 Dose: Not Given Documented by: Senna/Docusate Sodium (Senna/Docusate Sodium 1 Tablet) 2 tablet PO BID PRN PRN PRN Reason: Constipation Sodium Chloride (0.9% Saline Lock 10 Ml Syringe) 10 - 40 ml IV UD PRN PRN Reason: SALINE FLUSH Last Admin: 05/01/20 06:19 Dose: 10 ml Documented by: STROKE Vital Signs/Narrative: Vital Signs Temp Pulse Resp BP Pulse Ox 05/01/20 11:25 84 05/01/20 08:43 98.4 F 104 H 18 150/84 H 96 Medical Necessity - Tobacco Use Smoking Status: Former smoker Tobacco Use: Cigarettes Assessment/Plan All Active Problems Elevated troponin (Acute) Acute rhabdomyolysis (Acute) Fall (Acute) Rhabdomyolysis (Acute) # Acute ischemic infarct of the right temporal and frontal lobes still has marked left sided weakness and hemineglect patient now tolerating an oral diet, so will switch rectal aspirin to PO aspirin 325mg daily and plavix 75mg daily 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 speech therapy on board 2D echo: EF of 65%, with normal LV systolic function,a nd PA systolic pressure of 46mmhg and moderate to severe mitral annular calcification KYLIE requested as it seems this is an embolic stroke. will discuss with cardiology about when she can have the KYLIE Pt/OT on board # Right neck pain CT of the cervical spine done showed degenerative changes CT soft tissue neck showed no evidence of abscess or swelling. wbc is now down to 10/9 today. rectal tylenol prn ID wanted to do LP yesterday, but it couldnt be done o/a of her being on plavix. Per ID request, plavix held. ID to decide when she will have the LP. Per ID, antibiotics chaged to empiric vancomycin, ceftriaxone, ampicillin and acyclovir. #Mechanical fall with rhabdomyolysis: degenerative changes seen on left hip xray. PT/OT on board. CPK has trended down. # UTi: urine cultured E. coli. antibiotics broadened as above. #Pneumonia; CXR done showed subtle bilateral infiltrates. Now on IV Unasyn. Covid test was negative. soft tissue neck was negative. antibiotics broadened as mentioned above due to concerns about possible meningitis. Hypokalemia: potassium is 3.2. Will replace and monitor #Hypertension: remains elevated. will start patient on oral meds as she is now on oral meds. #Indeterminate troponin: 2D echo as above. Initial troponin was 0.16 but trended down to 0.137. Stable. DVT prophylaxis: lovenox. Inpatient E&M: [id number] [facility] L3
[2020-05-01 18:00] LABS: Bedside Glucose 201 mg/dL (70-110)
[2020-05-01] MEDS: Atorvastatin Calcium 40 MG Tablet PO (20:01)
[2020-05-01] MEDS: amLODIPine 10 MG Tablet PO (20:20)
[2020-05-01] MEDS: NYSTATIN 500,000 UNIT/5 ML UDC 500000 UNIT PO (22:18)
[2020-05-02] VITALS (13 sets, daily range): BP systolic 136–147; BP diastolic 57–66; PULSE 83–109; RESP 15–18; TEMP 36.8–37.7; O2SAT 94–100; BMI 38.2
[2020-05-02] MEDS: Insulin Lispro 100 UNIT/ML INSULN.PEN SC ×4 (00:51→17:51)
[2020-05-02 01:01] LABS: Bedside Glucose 202 mg/dL (70-110)
[2020-05-02 05:14] LABS: Vancomycin, Trough Level 18.5 ug/mL (5.0-15.0)
--- NOTE | 2020-05-02 05:25 | PCM.RX.CS ---
Consult Pharmacy has been consulted to manage selected antiobiotic: Vancomycin Type of Consult: Follow-up Suspected Infection: Meningitis Prior Doses of Antibiotics Received/Current Regimen: Medications Vancomycin HCl 1,500 mg/ (Sodium Chloride) 530 mls @ 250 mls/hr IV Q12H [facility] Last Admin: 05/01/20 18:15 Dose: Infused Labs: Sodium 145 mmol/L (136-145) 05/01/20 08:09 Potassium 3.2 mmol/L (3.5-5.1) L 05/01/20 08:09 Chloride 117 mmol/L (98-107) H 05/01/20 08:09 Carbon Dioxide 22.0 mmol/L (21.0-32.0) 05/01/20 08:09 Anion Gap 6 (5-15) 05/01/20 08:09 BUN 6 mg/dL (7-18) L 05/01/20 08:09 Creatinine 0.42 mg/dL (0.55-1.02) L 05/01/20 08:09 Est GFR (MDRD) Af Amer 192 mL/min (>60) 05/01/20 08:09 Est GFR (MDRD) Non-Af 159 mL/min (>60) 05/01/20 08:09 BUN/Creatinine Ratio 14.4 RATIO (10-20) 05/01/20 08:09 Glucose 78 mg/dL (74-106) 05/01/20 08:09 Vancomycin Trough 18.5 ug/mL (5.0-15.0) H 05/02/20 04:47 Microbiology: Microbiology 04/27/20 01:35 Interface Orders Urine Culture - Final Presumptive E. coli 04/27/20 08:38 Blood Culture (Wb) - Right Hand Blood Culture - Preliminary No growth in 48 hours. 04/26/20 23:36 Blood Culture (Wb) - Right Wrist Blood Culture - Preliminary No growth in 48 hours. 04/28/20 12:00 Urine, Random Streptococcus pneumoniae Antigen (M - Final 04/28/20 12:00 Urine, Random Legionella Antigen - Final 04/26/20 23:38 Mucosa - Nose Respiratory Panel (PCR) - Final 04/27/20 00:25 Mucosa - Nose SARS-CoV-2 Antigen (Rapid) - Final Weight used for dosin.3 kg Estimated Creatinine Clearance: 41 Goal Trough: 15-20 mcg/mL Pharmacy Plan for Drug Dosing: Vancomycin trough level of 18.5 was within target range of 15-20. Will continue current dosing and re-draw level 05/05/20. Pharmacy Service will continue to monitor and adjust dosing as required. Follow-Up Labs: Trough Vancomycin Labs to be done on [date and time ordered]: 05/05/20 @0175
[2020-05-02 07:26] LABS: Bedside Glucose 247 mg/dL (70-110)
[2020-05-02 07:34] LABS: Absolute Lymphocyte Count 0.85 X10^3/uL (0.83-4.51); Absolute Neutrophil Count 12.5 X10^3/uL (2.0-7.7); Basophil# 0.14 X10^3/uL; Basophil% 0.9 % (0-1); Eosinophil# 0.61 X10^3/uL; Eosinophils% 3.9 % (0-5); Hematocrit 38.4 % (37-47); Hemoglobin 12.9 g/dL (12.0-15.0); Lymphocyte # 0.85 X10^3/ul (4.0); Lymphocyte % 5.4 % (19-41); Mean Corp Hgb Conc 33.6 g/dL (32-36); Mean Corpuscular Hgb 29.3 pg (27.0-32.0); Mean Corpuscular Volume 87.1 fL (81-99); Monocyte% 9.5 % (0-10); NRBC Flagged by Analyzer 0 % (0-5); Neutrophil # 12.47 X10^3/uL (2.7-7.7); Platelet Count 448 K/mm3 (150-450); RBC Distribution Width CV 12.8 % (11.6-14.6); Red Blood Count 4.41 M/mm3 (4.2-5.4); White Blood Count 15.8 K/mm3 (4.4-11.0)
[2020-05-02 07:45] LABS: Anion Gap 7 (5-15); BUN 10 mg/dL (7-18); BUN/Creat Ratio 13.9 RATIO (10-20); Calcium,Total 8.6 mg/dL (8.5-10.1); Chloride 100 mmol/L (98-107); Creatinine, Serum 0.72 mg/dL (0.55-1.02); EST Glomerular Filtration Rate 85 mL/min (>60); Est Glom Filt Rate - Afr Amer 103 mL/min (>60); Estimated Creatinine Clearance 40.81 ml/min; Glucose 198 mg/dL (74-106); Potassium 3.6 mmol/L (3.5-5.1); Sodium Level 133 mmol/L (136-145)
[2020-05-02] MEDS: Menthol/Lanolin/Calamine/Znox 113 GM Tube 1 APPLIC TOPICAL ×2 (09:28→23:51)
[2020-05-02] MEDS: Aspirin 325 MG Tablet PO (09:28)
[2020-05-02] MEDS: Enoxaparin 40 MG/0.4 ML Syringe SC (09:28)
[2020-05-02] MEDS: amLODIPine 10 MG Tablet PO (09:29)
[2020-05-02] MEDS: Psyllium 1 PACKET PO (09:29)
[2020-05-02] MEDS: NYSTATIN 500,000 UNIT/5 ML UDC 500000 UNIT PO ×4 (09:29→23:52)
[2020-05-02] MEDS: Famotidine 20 MG Tablet PO ×2 (09:29→23:53)
[2020-05-02] MEDS: oxyCODONE 5 MG Tablet PO ×2 (09:32→18:50)
[2020-05-02 13:11] LABS: Bedside Glucose 258 mg/dL (70-110)
--- NOTE | 2020-05-02 14:05 | PN_ITS ---
Patient Problems: Active and Suspected Problems Elevated troponin (Acute) Acute rhabdomyolysis (Acute) Fall (Acute) Rhabdomyolysis (Acute) Subjective: Patient seen and examined. She was lethargic but arousable today. She complained of pain, mainly in her elbows and knees, all over due to her lying in bed for so long. She has been tolerating an oral diet. Review of systems is otherwise negative. She still has a low grade fever.wbc is up to 15.8 today. Vitals/I&O's: Vital Signs Temp Pulse Resp BP Pulse Ox 99.2 F H 104 H 18 139/58 H 94 05/02/20 08:57 05/02/20 08:57 05/02/20 08:57 05/02/20 08:57 05/02/20 08:57 Oxygen Delivery Method Room Air Weight: 212 lb 4.882 oz Body Mass Index (BMI) 38.2 Intake and Output for Last 24 Hours 04/30/20 05/01/20 05/02/20 23:59 23:59 23:59 Intake Total 1504.75 / 1504.75 2382 / 2382 1570 / 1570 Output Total 1050 / 1400 1450 / 1450 850 / 850 Balance 454.75 / 104.75 932 / 932 720 / 720 General: Alert, and oriented, lethargic HEENT: Atraumatic, PERRLA, EOMI, Normocephalic Oral: Dry Mucosa Neck: - - minimal tenderness today with palpation on the right side of her neck. Torticollis towards the left side of her neck Lungs: Clear to auscultation, Normal air movement, No rhonchi, No wheeze Cardiovascular: Regular rate, Regular Rhythm, Normal S1, Normal S2, No murmurs Abdomen: Bowel Sounds Present, Soft, Non Tender, Non-Distended, No Hepato- splenomegaly Extremities: No clubbing, No cyanosis, No edema, Capillary Refill Less than 3 Seconds Skin: No rashes, No breakdown Musculoskeletal: -no tenderness Neurological: Cranial nerves II-XII grossly intact, - - right sided paralysis from stroke Psych/Mental Status: lethargic Microbiology Past 72 Hours 04/27/20 08:38 Blood Culture (Wb) - Right Hand Blood Culture - Final No growth in 5 days. 04/26/20 23:36 Blood Culture (Wb) - Right Wrist Blood Culture - Final No growth in 5 days. 04/27/20 01:35 Interface Orders Urine Culture - Final Presumptive E. coli Laboratory Results 05/01/20 17:50: POC Glucose 201 H 05/02/20 00:50: POC Glucose 202 H 05/02/20 04:42: CSF VZV DNA (PCR) Pending, HSV I DNA PCR Pending, HSV II DNA PCR Pending 05/02/20 04:47: Vancomycin Trough 18.5 H 05/02/20 04:47: WBC 15.8 H, RBC 4.41, Hgb 12.9, Hct 38.4, MCV 87.1 D, MCH 29.3, MCHC 33.6 D, RDW Std Deviation 41.0, RDW Coeff of Venancio 12.8, Plt Count 448, MPV 10.0, Immature Gran % (Auto) 1.300 H, Neut % (Auto) 79.0 H, Lymph % (Auto) 5.4 L , [place] % (Auto) 9.5, Eos % (Auto) 3.9, Baso % (Auto) 0.9, Absolute Neuts (auto) 12.5 H, Absolute Lymphs (auto) 0.85, Nucleated RBC % 0 05/02/20 04:47: Sodium 133 L, Potassium 3.6, Chloride 100, Carbon Dioxide 26.0, Anion Gap 7, BUN 10, Creatinine 0.72, Estim Creat Clear Calc 40.81, Est GFR (MDRD) Af Amer 103, Est GFR (MDRD) Non-Af 85, BUN/Creatinine Ratio 13.9, Glucose 198 H, Calcium 8.6 05/02/20 06:59: POC Glucose 247 H 05/02/20 11:46: POC Glucose 258 H Current Medications Acetaminophen (Acetaminophen 325 Mg Tablet) 650 mg PO Q6H PRN PRN PRN Reason: Pain Score 1-10/Temp > 100.7 F Acetaminophen (Acetaminophen 650 Mg Suppository) 650 mg RECTAL Q6H PRN PRN PRN Reason: Temp > 100.4 Last Admin: 04/30/20 10:32 Dose: 650 mg Documented by: Amlodipine Besylate (Amlodipine 10 Mg Tablet) 10 mg PO DAILY [facility] Last Admin: 05/02/20 09:29 Dose: 10 mg Documented by: Aspirin (Aspirin 325 Mg Tablet) 325 mg PO DAILY@0800 [facility] Last Admin: 05/02/20 09:28 Dose: 325 mg Documented by: Atorvastatin Calcium (Atorvastatin Calcium 40 Mg Tablet) 40 mg PO QHS [facility] Last Admin: 05/01/20 20:01 Dose: 40 mg Documented by: Calamine/Phenol (Menthol/Lanolin/Calamine/Znox 113 Gm Tube) 1 applic TOPICAL BID [facility]; Protocol Last Admin: 05/02/20 09:28 Dose: 1 applic Documented by: Clopidogrel Bisulfate (Clopidogrel Bisulfate 75 Mg Tablet) 75 mg PO DAILY [facility] Last Admin: 04/30/20 09:35 Dose: 75 mg Documented by: Dextrose (Dextrose 50%-Water 25 Gm/50 Ml Disp.Syrin) 0 gm IV X1 PRN; Protocol PRN Reason: Hypoglycemia Enoxaparin Sodium (Enoxaparin 40 Mg/0.4 Ml Syringe) 40 mg SC DAILY [facility] Last Admin: 05/02/20 09:28 Dose: 40 mg Documented by: Famotidine (Famotidine 20 Mg Tablet) 20 mg PO BID [facility] Last Admin: 05/02/20 09:29 Dose: 20 mg Documented by: Glucagon (Glucagon 1 Mg/Ml Syringe) 1 mg IM .X1 PRN PRN Reason: Hypoglycemia Hydralazine HCl (Hydralazine 20 Mg/Ml Vial) 5 mg IV Q30M PRN PRN Reason: to maintain BP goals Vancomycin IV Pharmacy to Dose (1 ea/ Sodium Chloride) 500 mls @ 250 mls/hr IV X1 PRN; Protocol PRN Reason: Rx to Dose Acyclovir Sodium 500 mg/ (Dextrose) 260 mls @ 260 mls/hr IV Q8 [facility] Last Infusion: 05/02/20 07:20 Dose: Infused Documented by: Ceftriaxone Sodium 2 gm/ (Sodium Chloride) 50 mls @ 100 mls/hr IV Q12 [facility] Last Admin: 05/02/20 13:13 Dose: 100 mls/hr Documented by: Ampicillin Sodium 2 gm/ Sodium (Chloride) 100 mls @ 200 mls/hr IV Q4 [facility] Last Infusion: 05/02/20 12:15 Dose: Infused Documented by: Sodium Chloride () 250 mls @ 15 mls/hr IV .[id number] PRN PRN Reason: Saline Flush Last Infusion: 04/30/20 16:43 Dose: 0 mls/hr Documented by: Sodium Chloride () 250 mls @ 15 mls/hr IV .[id number] PRN PRN Reason: Additional IVPB Infusion Vancomycin HCl 1,500 mg/ (Sodium Chloride) 530 mls @ 250 mls/hr IV Q12H [facility] Last Infusion: 05/02/20 10:00 Dose: Infused Documented by: Insulin Human Lispro (Insulin Lispro 100 Unit/Ml Insuln.Pen) 0 unit SC Q6 [facility]; Protocol Last Admin: 05/02/20 11:47 Dose: 4 units Documented by: Labetalol HCl (Labetalol (Prefilled) 20 Mg/4 Ml) 10 - 20 mg IV Q10M PRN PRN PRN Reason: to Maintain BP Goals Morphine Sulfate (Morphine 2 Mg/Ml Syringe) 2 mg IV Q3H PRN PRN PRN Reason: Pain Score 6-10 Last Admin: 05/01/20 23:58 Dose: 2 mg Documented by: Nystatin (Nystatin 500,000 Unit/5 Ml Udc) 500,000 unit PO 4X/DAY [facility] Last Admin: 05/02/20 09:29 Dose: 500,000 unit Documented by: Oxycodone HCl (Oxycodone 5 Mg Tablet) 5 mg PO Q4H PRN PRN PRN Reason: Pain Score 4-5 Last Admin: 05/02/20 09:32 Dose: 5 mg Documented by: Prochlorperazine Edisylate (Prochlorperazine 10 Mg/2 Ml Vial) 5 mg IV Q4H PRN PRN PRN Reason: Breakthrough Nausea/Vomiting Psyllium Hydrophilic Mucilloid (Psyllium 1 Packet) 1 packet PO DAILY [facility] Last Admin: 05/02/20 09:29 Dose: 1 packet Documented by: Senna/Docusate Sodium (Senna/Docusate Sodium 1 Tablet) 2 tablet PO BID PRN PRN PRN Reason: Constipation Sodium Chloride (0.9% Saline Lock 10 Ml Syringe) 10 - 40 ml IV UD PRN PRN Reason: SALINE FLUSH Last Admin: 05/01/20 06:19 Dose: 10 ml Documented by: Medical Necessity - Tobacco Use Smoking Status: Former smoker Tobacco Use: Cigarettes Assessment/Plan All Active Problems Elevated troponin (Acute) Acute rhabdomyolysis (Acute) Fall (Acute) Rhabdomyolysis (Acute) # Acute ischemic infarct of the right temporal and frontal lobes * on Po aspirin 325mg daily and plavix 75mg daily. * 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 * speech therapy on board * 2D echo: EF of 65%, with normal LV systolic function, and PA systolic pressure of 46mmhg and moderate to severe mitral annular calcification * KYLIE requested as it seems this is an embolic stroke. will discuss with cardiology about when she can have the KYLIE * PT/OT on board * on high intensity statin. * # Right neck pain * CT of the cervical spine done showed degenerative changes * CT soft tissue neck showed no evidence of abscess or swelling. * wbc is up to 15.8 today; she still has a low grade fever * rectal tylenol prn * plavix on hold. * on IV vancomycin, ceftriaxone, ampicillin and acyclovir for empiric treatment of possible meningitis. * For LP tomorrow * #Mechanical fall with rhabdomyolysis: * degenerative changes seen on left hip xray. PT/OT on board. * rhabdomyolysis has resolved * # UTi: urine cultured E. coli. antibiotics broadened as above. #Pneumonia; * CXR done showed subtle bilateral infiltrates. * Covid test was negative. soft tissue neck was negative. * antibiotics broadened as mentioned above due to concerns about possible meningitis. * Hypokalemia: resolved. #Hypertension: on PO amlodipine. #Indeterminate troponin: 2D echo as above. Initial troponin was 0.16 but trended down to 0.137. Stable. DVT prophylaxis: hold lovenox today in preparation for possible LP tomorrow. Inpatient E&M: [id number] [facility] L3
[2020-05-02 18:31] LABS: Bedside Glucose 291 mg/dL (70-110)
--- NOTE | 2020-05-02 20:08 | NURSING ---
IV Vanc, IV Ampicillin and Oxy IR meds verified and signed off by this RN d/t Lacey France RN inability to sign of meds under her name.
[2020-05-02] MEDS: Atorvastatin Calcium 40 MG Tablet PO (23:52)
[2020-05-03] VITALS (12 sets, daily range): BP systolic 119–139; BP diastolic 43–66; PULSE 57–129; RESP 16–22; TEMP 36.4–37.4; O2SAT 93–97; BMI 38.8
[2020-05-03] MEDS: Insulin Lispro 100 UNIT/ML INSULN.PEN SC ×5 (00:02→23:35)
[2020-05-03 00:11] LABS: Bedside Glucose 279 mg/dL (70-110)
[2020-05-03 06:01] LABS: Absolute Lymphocyte Count 0.97 X10^3/uL (0.83-4.51); Absolute Neutrophil Count 11.4 X10^3/uL (2.0-7.7); Basophil# 0.08 X10^3/uL; Basophil% 0.6 % (0-1); Eosinophil# 0.44 X10^3/uL; Hematocrit 35.7 % (37-47); Lymphocyte # 0.97 X10^3/ul (4.0); Lymphocyte % 6.7 % (19-41); Mean Corp Hgb Conc 33.6 g/dL (32-36); Mean Corpuscular Hgb 29.1 pg (27.0-32.0); Mean Corpuscular Volume 86.7 fL (81-99); Mean Platelet Vol. 9.7 fl (6.2-12.0); Monocyte# 1.48 X10^3/uL; Monocyte% 10.2 % (0-10); NRBC Flagged by Analyzer 0 % (0-5); Neutrophil # 11.38 X10^3/uL (2.7-7.7); Neutrophil % 78.2 % (47-70); Platelet Count 438 K/mm3 (150-450); RBC Distribution Width CV 12.7 % (11.6-14.6); RBC Distribution Width SD 40.5 fl (35.1-43.9); Red Blood Count 4.12 M/mm3 (4.2-5.4); White Blood Count 14.5 K/mm3 (4.4-11.0)
[2020-05-03 06:37] LABS: Anion Gap 9 (5-15); BUN 12 mg/dL (7-18); BUN/Creat Ratio 15.4 RATIO (10-20); Calcium,Total 8.5 mg/dL (8.5-10.1); Chloride 102 mmol/L (98-107); Creatinine, Serum 0.78 mg/dL (0.55-1.02); EST Glomerular Filtration Rate 77 mL/min (>60); Est Glom Filt Rate - Afr Amer 93 mL/min (>60); Estimated Creatinine Clearance 40.81 ml/min; Glucose 216 mg/dL (74-106); Potassium 3.4 mmol/L (3.5-5.1); Sodium Level 136 mmol/L (136-145)
[2020-05-03 06:55] LABS: Bedside Glucose 222 mg/dL (70-110)
--- NOTE | 2020-05-03 07:58 | PCM.PN.HOSP ---
Patient Problems: Active and Suspected Problems Elevated troponin (Acute) Acute rhabdomyolysis (Acute) Fall (Acute) Rhabdomyolysis (Acute) Subjective: Patient seen and examined. She remains lethargic. She is for LP today. No active events overnight. Still has a low-grade fever with temperature of 99.4. WBc is 14.5. Vitals/I&O's: Vital Signs Temp Pulse Resp BP Pulse Ox 99.4 F H 108 H 16 139/56 H 97 05/03/20 05:49 05/03/20 07:15 05/03/20 05:49 05/03/20 05:49 05/03/20 05:49 Oxygen Delivery Method Room Air Weight: 212 lb 4.882 oz Body Mass Index (BMI) 38.8 Intake and Output for Last 24 Hours 05/01/20 05/02/20 05/03/20 23:59 23:59 23:59 Intake Total 2382 / 2382 2995 / 2995 1090 / 1090 Output Total 1450 / 1450 1250 / 1250 450 / 450 Balance 932 / 932 1745 / 1745 640 / 640 General: Alert, and oriented, much less lethargic today HEENT: Atraumatic, PERRLA, EOMI, Normocephalic Oral: Dry Mucosa Neck: - - minimal tenderness today with palpation on the right side of her neck. Torticollis towards the left side of her neck Lungs: Clear to auscultation, Normal air movement, No rhonchi, No wheeze Cardiovascular: Regular rate, Regular Rhythm, Normal S1, Normal S2, No murmurs Abdomen: Bowel Sounds Present, Soft, Non Tender, Non-Distended, No Hepato-splenomegaly Extremities: No clubbing, No cyanosis, No edema, Capillary Refill Less than 3 Seconds Skin: No rashes, No breakdown Musculoskeletal: -no tenderness Neurological: Cranial nerves II-XII grossly intact, - - right sided paralysis from stroke Psych/Mental Status: normal affect Microbiology Past 72 Hours 04/27/20 08:38 Blood Culture (Wb) - Right Hand Blood Culture - Final No growth in 5 days. 04/26/20 23:36 Blood Culture (Wb) - Right Wrist Blood Culture - Final No growth in 5 days. Laboratory Results 05/02/20 04:42: CSF VZV DNA (PCR) Pending, HSV I DNA PCR Pending, HSV II DNA PCR Pending 05/02/20 11:46: POC Glucose 258 H 05/02/20 17:50: POC Glucose 291 H 05/02/20 23:57: POC Glucose 279 H 05/03/20 05:21: WBC 14.5 H, RBC 4.12 L, Hgb 12.0, Hct 35.7 L, MCV 86.7, MCH 29.1, MCHC 33.6, RDW Std Deviation 40.5, RDW Coeff of Venancio 12.7, Plt Count 438, MPV 9.7, Immature Gran % (Auto) 1.300 H, Neut % (Auto) 78.2 H, Lymph % (Auto) 6.7 L, [place] % (Auto) 10.2 H, Eos % (Auto) 3.0, Baso % (Auto) 0.6, Absolute Neuts (auto) 11.4 H, Absolute Lymphs (auto) 0.97, Nucleated RBC % 0 05/03/20 05:21: Sodium 136, Potassium 3.4 L, Chloride 102, Carbon Dioxide 25.0, Anion Gap 9, BUN 12, Creatinine 0.78, Estim Creat Clear Calc 40.81, Est GFR (MDRD) Af Amer 93, Est GFR (MDRD) Non-Af 77, BUN/Creatinine Ratio 15.4, Glucose 216 H, Calcium 8.5 05/03/20 06:43: POC Glucose 222 H Diagnostic Data Hip/Pelvis X-Ray 04/25/20 11:57 IMPRESSION: No acute traumatic findings Electronically Signed: Benitez Sanchez DO at 12:54 EST Tel , Service support , Brain MRI 04/26/20 09:00 IMPRESSION: Acute ischemic infarct involving the right temporal and frontal lobes Electronically Signed: Brock Peng at 10:33 EST Tel , Service support , Head MRA 04/26/20 09:00 IMPRESSION: 1. 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 2. Total occlusion of a temporal branch of the right middle cerebral artery accounting for the patient''s acute CVA. Electronically Signed: Brock Peng, at 11:59 EST Tel , Service support , Neck MRA 04/26/20 09:00 IMPRESSION: Normal bilateral cervical carotid and right vertebral artery. 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 Electronically Signed: Brock Peng, at 12:11 EST Tel , Service support , Brain CT 04/28/20 09:16 IMPRESSION: Acute ischemic infarct involving the posterior right chung radiata with extension into the right frontal and temporal lobes. This acute infarct is unchanged in size when compared with the previous MRI but there is some mild surrounding edema, as described above. Electronically Signed: Brock Peng, at 17:08 EST Tel , Service support , Cervical Spine CT 04/28/20 09:16 IMPRESSION: No evidence for acute fracture or subluxation. Mild spondylosis most severe at C4-5 and C5-6 Electronically Signed: Vish Adame MD at 18:39 EST , Service support , Chest X-Ray 04/28/20 14:01 IMPRESSION: No acute cardiopulmonary disease. Electronically Signed: Prasad Stevens MD at 23:05 EST , Service support , Shoulder X-Ray 04/28/20 14:01 IMPRESSION: Mild degenerative changes of the right shoulder. Electronically Signed: Prasad Stevens MD at 23:17 EST , Service support , Soft Tissue Neck CT 04/29/20 13:21 IMPRESSION: No abnormality is seen. Study somewhat limited examination due to patient''s positioning. Electronically Signed: Raymundo Jaime MD at 14:19 EST Tel , Service support , Current Medications Acetaminophen (Acetaminophen 325 Mg Tablet) 650 mg PO Q6H PRN PRN PRN Reason: Pain Score 1-10/Temp > 100.7 F Acetaminophen (Acetaminophen 650 Mg Suppository) 650 mg RECTAL Q6H PRN PRN PRN Reason: Temp > 100.4 Last Admin: 04/30/20 10:32 Dose: 650 mg Documented by: Amlodipine Besylate (Amlodipine 10 Mg Tablet) 10 mg PO DAILY [facility] Last Admin: 05/02/20 09:29 Dose: 10 mg Documented by: Aspirin (Aspirin 325 Mg Tablet) 325 mg PO DAILY@0800 [facility] Last Admin: 05/02/20 09:28 Dose: 325 mg Documented by: Atorvastatin Calcium (Atorvastatin Calcium 40 Mg Tablet) 40 mg PO QHS [facility] Last Admin: 05/02/20 23:52 Dose: 40 mg Documented by: Calamine/Phenol (Menthol/Lanolin/Calamine/Znox 113 Gm Tube) 1 applic TOPICAL BID [facility]; Protocol Last Admin: 05/02/20 23:51 Dose: 1 applic Documented by: Clopidogrel Bisulfate (Clopidogrel Bisulfate 75 Mg Tablet) 75 mg PO DAILY [facility] Last Admin: 04/30/20 09:35 Dose: 75 mg Documented by: Dextrose (Dextrose 50%-Water 25 Gm/50 Ml Disp.Syrin) 0 gm IV X1 PRN; Protocol PRN Reason: Hypoglycemia Enoxaparin Sodium (Enoxaparin 40 Mg/0.4 Ml Syringe) 40 mg SC DAILY [facility] Last Admin: 05/02/20 09:28 Dose: 40 mg Documented by: Famotidine (Famotidine 20 Mg Tablet) 20 mg PO BID [facility] Last Admin: 05/02/20 23:53 Dose: 20 mg Documented by: Glucagon (Glucagon 1 Mg/Ml Syringe) 1 mg IM .X1 PRN PRN Reason: Hypoglycemia Hydralazine HCl (Hydralazine 20 Mg/Ml Vial) 5 mg IV Q30M PRN PRN Reason: to maintain BP goals Vancomycin IV Pharmacy to Dose (1 ea/ Sodium Chloride) 500 mls @ 250 mls/hr IV X1 PRN; Protocol PRN Reason: Rx to Dose Acyclovir Sodium 500 mg/ (Dextrose) 260 mls @ 260 mls/hr IV Q8 [facility] Last Infusion: 05/03/20 07:55 Dose: Infused Documented by: Ceftriaxone Sodium 2 gm/ (Sodium Chloride) 50 mls @ 100 mls/hr IV Q12 [facility] Last Infusion: 05/02/20 23:53 Dose: Infused Documented by: Ampicillin Sodium 2 gm/ Sodium (Chloride) 100 mls @ 200 mls/hr IV Q4 [facility] Last Infusion: 05/03/20 06:40 Dose: Infused Documented by: Sodium Chloride () 250 mls @ 15 mls/hr IV .[id number] PRN PRN Reason: Saline Flush Last Infusion: 05/03/20 06:40 Dose: 15 mls/hr Documented by: Sodium Chloride () 250 mls @ 15 mls/hr IV .[id number] PRN PRN Reason: Additional IVPB Infusion Last Admin: 05/03/20 07:55 Dose: 15 mls/hr Documented by: Vancomycin HCl 1,500 mg/ (Sodium Chloride) 530 mls @ 250 mls/hr IV Q12H [facility] Last Infusion: 05/03/20 06:08 Dose: Infused Documented by: Insulin Human Lispro (Insulin Lispro 100 Unit/Ml Insuln.Pen) 0 unit SC Q6 [facility]; Protocol Last Admin: 05/03/20 06:44 Dose: 4 units Documented by: Labetalol HCl (Labetalol (Prefilled) 20 Mg/4 Ml) 10 - 20 mg IV Q10M PRN PRN PRN Reason: to Maintain BP Goals Morphine Sulfate (Morphine 2 Mg/Ml Syringe) 2 mg IV Q3H PRN PRN PRN Reason: Pain Score 6-10 Last Admin: 05/01/20 23:58 Dose: 2 mg Documented by: Nystatin (Nystatin 500,000 Unit/5 Ml Udc) 500,000 unit PO 4X/DAY [facility] Last Admin: 05/02/20 23:52 Dose: 500,000 unit Documented by: Oxycodone HCl (Oxycodone 5 Mg Tablet) 5 mg PO Q4H PRN PRN PRN Reason: Pain Score 4-5 Last Admin: 05/02/20 18:50 Dose: 5 mg Documented by: Prochlorperazine Edisylate (Prochlorperazine 10 Mg/2 Ml Vial) 5 mg IV Q4H PRN PRN PRN Reason: Breakthrough Nausea/Vomiting Psyllium Hydrophilic Mucilloid (Psyllium 1 Packet) 1 packet PO DAILY [facility] Last Admin: 05/02/20 09:29 Dose: 1 packet Documented by: Senna/Docusate Sodium (Senna/Docusate Sodium 1 Tablet) 2 tablet PO BID PRN PRN PRN Reason: Constipation Sodium Chloride (0.9% Saline Lock 10 Ml Syringe) 10 - 40 ml IV UD PRN PRN Reason: SALINE FLUSH Last Admin: 05/01/20 06:19 Dose: 10 ml Documented by: STROKE Vital Signs/Narrative: Vital Signs Temp Pulse Resp BP Pulse Ox 05/03/20 07:15 108 H 05/03/20 05:49 99.4 F H 93 16 139/56 H 97 05/03/20 04:39 92 Medical Necessity - Tobacco Use Smoking Status: Former smoker Tobacco Use: Cigarettes Assessment/Plan All Active Problems Elevated troponin (Acute) Acute rhabdomyolysis (Acute) Fall (Acute) Rhabdomyolysis (Acute) # Acute ischemic infarct of the right temporal and frontal lobes on Po aspirin 325mg daily and plavix 75mg daily; these are on hold today for LP 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 speech therapy on board 2D echo: EF of 65%, with normal LV systolic function, and PA systolic pressure of 46mmhg and moderate to severe mitral annular calcification KYLIE requested as it seems this is an embolic stroke. cardiology to review her TTE and determine if patient will benefit from KYLIE PT/OT on board on high intensity statin. # Right neck pain CT of the cervical spine done showed degenerative changes CT soft tissue neck showed no evidence of abscess or swelling. wbc still elevated, with a low grade fever rectal tylenol prn plavix on hold. on IV vancomycin, ceftriaxone, ampicillin and acyclovir for empiric treatment of possible meningitis. For LP today- per radiology, she has to be off plavix for 5 days, so LP will be done Sunday #Mechanical fall with rhabdomyolysis: degenerative changes seen on left hip xray. PT/OT on board. rhabdomyolysis has resolved # UTi: urine cultured E. coli. antibiotics broadened as above. #Pneumonia; CXR done showed subtle bilateral infiltrates. Covid test was negative. soft tissue neck was negative. antibiotics broadened as mentioned above due to concerns about possible meningitis. Hypokalemia: resolved. #Hypertension: on PO amlodipine. #Indeterminate troponin: 2D echo as above. Initial troponin was 0.16 but trended down to 0.137. Stable. DVT prophylaxis: lovenox on hold, for LP Inpatient E&M: [id number] Subs Hosp L3
[2020-05-03] MEDS: NYSTATIN 500,000 UNIT/5 ML UDC 500000 UNIT PO ×4 (09:38→21:46)
[2020-05-03] MEDS: amLODIPine 10 MG Tablet PO (09:38)
[2020-05-03] MEDS: Psyllium 1 PACKET PO (09:38)
[2020-05-03] MEDS: Famotidine 20 MG Tablet PO ×2 (09:38→21:29)
[2020-05-03] MEDS: Menthol/Lanolin/Calamine/Znox 113 GM Tube 1 APPLIC TOPICAL ×2 (09:38→21:28)
--- NOTE | 2020-05-03 10:19 | CASEMGMT ---
GENNA called Misa with [employer] and let her know patient did not go to TCU over the weekend. She just asked that GENNA send updated PT/OT notes and progress notes when it is closer to d/c. Plan: [facility] TCU pending patient being medically ready. Yumiko PETIT MSW
[2020-05-03 11:55] LABS: Bedside Glucose 268 mg/dL (70-110)
[2020-05-03] MEDS: Aspirin 325 MG Tablet PO (13:12)
[2020-05-03] MEDS: Acetaminophen 325 MG Tablet 650 MG PO (13:12)
--- NOTE | 2020-05-03 14:02 | PN.ID_ITS ---
Patient Problems: Active and Suspected Problems Elevated troponin (Acute) Acute rhabdomyolysis (Acute) Fall (Acute) Rhabdomyolysis (Acute) Subjective: C/o having a lot of pain in neck and R knee. Reports chronic R knee pain as it is bone on bone. No fever. - Physical Exam Vitals/I&O's: Vital Signs Temp Pulse Resp BP Pulse Ox 98.7 F 102 H 18 126/66 H 93 05/03/20 09:30 05/03/20 09:30 05/03/20 09:30 05/03/20 09:30 05/03/20 10:22 Oxygen Flow Rate (L/min) 91 Oxygen Delivery Method Nasal Cannula Weight: 96.3 kg Body Mass Index (BMI) 38.8 Intake and Output for Last 24 Hours 05/01/20 05/02/20 05/03/20 23:59 23:59 23:59 Intake Total 2382 / 2382 2995 / 2995 1418.75 / 1418.75 Output Total 1450 / 1450 1250 / 1250 1150 / 1150 Balance 932 / 932 1745 / 1745 268.75 / 268.75 General: Alert, Cooperative Neck: - - tender with movement Lungs: Clear to auscultation, Normal air movement Cardiovascular: Regular rate, Regular Rhythm Abdomen: Soft, Non Tender, Non-Distended Skin: No rashes Musculoskeletal: - - R knee very tender to touch, no redness. Some swelling. Microbiology Past 72 Hours 04/27/20 08:38 Blood Culture (Wb) - Right Hand Blood Culture - Final No growth in 5 days. 04/26/20 23:36 Blood Culture (Wb) - Right Wrist Blood Culture - Final No growth in 5 days. Laboratory Results 05/02/20 17:50: POC Glucose 291 H 05/02/20 23:57: POC Glucose 279 H 05/03/20 05:21: WBC 14.5 H, RBC 4.12 L, Hgb 12.0, Hct 35.7 L, MCV 86.7, MCH 29.1, MCHC 33.6, RDW Std Deviation 40.5, RDW Coeff of Venancio 12.7, Plt Count 438, MPV 9.7, Immature Gran % (Auto) 1.300 H, Neut % (Auto) 78.2 H, Lymph % (Auto) 6.7 L, [place] % (Auto) 10.2 H, Eos % (Auto) 3.0, Baso % (Auto) 0.6, Absolute Neuts (auto) 11.4 H, Absolute Lymphs (auto) 0.97, Nucleated RBC % 0 05/03/20 05:21: Sodium 136, Potassium 3.4 L, Chloride 102, Carbon Dioxide 25.0, Anion Gap 9, BUN 12, Creatinine 0.78, Estim Creat Clear Calc 40.81, Est GFR (MDRD) Af Amer 93, Est GFR (MDRD) Non-Af 77, BUN/Creatinine Ratio 15.4, Glucose 216 H, Calcium 8.5 05/03/20 06:43: POC Glucose 222 H 05/03/20 11:47: POC Glucose 268 H Current Medications Acetaminophen (Acetaminophen 325 Mg Tablet) 650 mg PO Q6H PRN PRN PRN Reason: Pain Score 1-10/Temp > 100.7 F Last Admin: 05/03/20 13:12 Dose: 650 mg Documented by: Acetaminophen (Acetaminophen 650 Mg Suppository) 650 mg RECTAL Q6H PRN PRN PRN Reason: Temp > 100.4 Last Admin: 04/30/20 10:32 Dose: 650 mg Documented by: Amlodipine Besylate (Amlodipine 10 Mg Tablet) 10 mg PO DAILY [facility] Last Admin: 05/03/20 09:38 Dose: 10 mg Documented by: Aspirin (Aspirin 325 Mg Tablet) 325 mg PO DAILY@0800 [facility] [place] Last Admin: 05/03/20 13:12 Dose: 325 mg Documented by: Atorvastatin Calcium (Atorvastatin Calcium 40 Mg Tablet) 40 mg PO QHS [facility] [place] Last Admin: 05/02/20 23:52 Dose: 40 mg Documented by: Calamine/Phenol (Menthol/Lanolin/Calamine/Znox 113 Gm Tube) 1 applic TOPICAL BID [facility]; Protocol Last Admin: 05/03/20 09:38 Dose: 1 applic Documented by: Clopidogrel Bisulfate (Clopidogrel Bisulfate 75 Mg Tablet) 75 mg PO DAILY [facility] Last Admin: 04/30/20 09:35 Dose: 75 mg Documented by: Dextrose (Dextrose 50%-Water 25 Gm/50 Ml Disp.Syrin) 0 gm IV X1 PRN; Protocol PRN Reason: Hypoglycemia Enoxaparin Sodium (Enoxaparin 40 Mg/0.4 Ml Syringe) 40 mg SC DAILY [facility] [place] Last Admin: 05/02/20 09:28 Dose: 40 mg Documented by: Famotidine (Famotidine 20 Mg Tablet) 20 mg PO BID [facility] Last Admin: 05/03/20 09:38 Dose: 20 mg Documented by: Glucagon (Glucagon 1 Mg/Ml Syringe) 1 mg IM .X1 PRN PRN Reason: Hypoglycemia Hydralazine HCl (Hydralazine 20 Mg/Ml Vial) 5 mg IV Q30M PRN PRN Reason: to maintain BP goals Vancomycin IV Pharmacy to Dose (1 ea/ Sodium Chloride) 500 mls @ 250 mls/hr IV X1 PRN; Protocol PRN Reason: Rx to Dose Acyclovir Sodium 500 mg/ (Dextrose) 260 mls @ 260 mls/hr IV Q8 [facility] [place] Last Admin: 05/03/20 13:12 Dose: 260 mls/hr Documented by: Ceftriaxone Sodium 2 gm/ (Sodium Chloride) 50 mls @ 100 mls/hr IV Q12 [facility] [place] Last Infusion: 05/03/20 11:01 Dose: Infused Documented by: Ampicillin Sodium 2 gm/ Sodium (Chloride) 100 mls @ 200 mls/hr IV Q4 [facility] Last Admin: 05/03/20 13:12 Dose: 200 mls/hr Documented by: Sodium Chloride () 250 mls @ 15 mls/hr IV .[id number] PRN PRN Reason: Saline Flush Last Infusion: 05/03/20 13:13 Dose: 0 mls/hr Documented by: Sodium Chloride () 250 mls @ 15 mls/hr IV .[id number] PRN PRN Reason: Additional IVPB Infusion Last Infusion: 05/03/20 13:13 Dose: 0 mls/hr Documented by: Vancomycin HCl 1,500 mg/ (Sodium Chloride) 530 mls @ 250 mls/hr IV Q12H [facility] Last Infusion: 05/03/20 06:08 Dose: Infused Documented by: Insulin Human Lispro (Insulin Lispro 100 Unit/Ml Insuln.Pen) 0 unit SC Q6 [facility]; Protocol Last Admin: 05/03/20 11:49 Dose: 6 units Documented by: Labetalol HCl (Labetalol (Prefilled) 20 Mg/4 Ml) 10 - 20 mg IV Q10M PRN PRN PRN Reason: to Maintain BP Goals Morphine Sulfate (Morphine 2 Mg/Ml Syringe) 2 mg IV Q3H PRN PRN PRN Reason: Pain Score 6-10 Last Admin: 05/01/20 23:58 Dose: 2 mg Documented by: Nystatin (Nystatin 500,000 Unit/5 Ml Udc) 500,000 unit PO 4X/DAY [facility] [place] Last Admin: 05/03/20 13:13 Dose: 500,000 unit Documented by: Oxycodone HCl (Oxycodone 5 Mg Tablet) 5 mg PO Q4H PRN PRN PRN Reason: Pain Score 4-5 Last Admin: 05/02/20 18:50 Dose: 5 mg Documented by: Prochlorperazine Edisylate (Prochlorperazine 10 Mg/2 Ml Vial) 5 mg IV Q4H PRN PRN PRN Reason: Breakthrough Nausea/Vomiting Psyllium Hydrophilic Mucilloid (Psyllium 1 Packet) 1 packet PO DAILY [facility] [place] Last Admin: 05/03/20 09:38 Dose: 1 packet Documented by: Senna/Docusate Sodium (Senna/Docusate Sodium 1 Tablet) 2 tablet PO BID PRN PRN PRN Reason: Constipation Sodium Chloride (0.9% Saline Lock 10 Ml Syringe) 10 - 40 ml IV UD PRN PRN Reason: SALINE FLUSH Last Admin: 05/01/20 06:19 Dose: 10 ml Documented by: Medical Necessity - Tobacco Use Smoking Status: Former smoker Tobacco Use: Cigarettes Route of nutrition/ use of supplements: [] Nutritional Intake: [] IV Site: [] Rayo Catheter: [] - Assessment/Plan Antibiotics: [] Assessment/Plan: [] Active and Suspected Problems Elevated troponin (Acute) Acute rhabdomyolysis (Acute) Fall (Acute) Rhabdomyolysis (Acute) Presented with stroke, rhabdo, neck pain, low grade fever and leukocytosis. CXR clear 04/28, so low suspicion for pneumonia. Fever curve improving, still some leukocytosis. UA without any wbc seen, but ucx with desouza-S ecoli. Covid Ag and PCR neg. CTs of neck only showed some degenerative disease. With worsening mental status and significant neck pain with movement, on 04/30 ordered LP, fluid studies, changed unasyn to empiric vanc/ceftriaxone/amp/acyclovir. Mental status much improved particularly when off narcotics. LP on hold until 05/05 due to plavix. She is having severe pain in R knee, may need ortho eval. Will follow, nursing.
[2020-05-03 18:10] LABS: Bedside Glucose 342 mg/dL (70-110)
[2020-05-03] MEDS: Atorvastatin Calcium 40 MG Tablet PO (21:29)
[2020-05-04] VITALS (9 sets, daily range): BP systolic 126–164; BP diastolic 53–61; PULSE 68–109; RESP 16–19; TEMP 36.5–37.1; O2SAT 93–98; BMI 38.8
[2020-05-04 01:46] LABS: Bedside Glucose 298 mg/dL (70-110)
[2020-05-04] MEDS: Insulin Lispro 100 UNIT/ML INSULN.PEN SC ×3 (05:45→17:17)
[2020-05-04 06:35] LABS: Bedside Glucose 237 mg/dL (70-110)
--- NOTE | 2020-05-04 07:43 | PCM.PN.HOSP ---
Patient Problems: Active and Suspected Problems Elevated troponin (Acute) Acute rhabdomyolysis (Acute) Fall (Acute) Rhabdomyolysis (Acute) Subjective: Patient seen and examined. SHe still complains of pain in her knees and elbows. SHe is for LP tomorrow. She has remained hemodynamically stable. Vitals/I&O's: Vital Signs Temp Pulse Resp BP Pulse Ox 98.8 F 109 H 16 154/57 H 98 05/04/20 03:17 05/04/20 07:01 05/04/20 03:17 05/04/20 03:17 05/04/20 03:17 Oxygen Flow Rate (L/min) 2 Oxygen Delivery Method Room Air Weight: 212 lb 4.882 oz Body Mass Index (BMI) 38.8 Intake and Output for Last 24 Hours 05/02/20 05/03/20 05/04/20 23:59 23:59 23:59 Intake Total 2995 / 2995 2943.75 / 2943.75 693 / 693 Output Total 1250 / 1250 2715 / 2715 660 / 660 Balance 1745 / 1745 228.75 / 228.75 33 / 33 General: Alert, and oriented, much less lethargic today HEENT: Atraumatic, PERRLA, EOMI, Normocephalic Oral: Dry Mucosa Neck: - -no tenderness with neck palpation Lungs: Clear to auscultation, Normal air movement, No rhonchi, No wheeze Cardiovascular: Regular rate, Regular Rhythm, Normal S1, Normal S2, No murmurs Abdomen: Bowel Sounds Present, Soft, Non Tender, Non-Distended, No Hepato-splenomegaly Extremities: No clubbing, No cyanosis, No edema, Capillary Refill Less than 3 Seconds Skin: No rashes, No breakdown Musculoskeletal: -no tenderness Neurological: Cranial nerves II-XII grossly intact, - - right sided paralysis from stroke Psych/Mental Status: normal affect Microbiology Past 72 Hours 04/27/20 08:38 Blood Culture (Wb) - Right Hand Blood Culture - Final No growth in 5 days. 04/26/20 23:36 Blood Culture (Wb) - Right Wrist Blood Culture - Final No growth in 5 days. Laboratory Results 05/03/20 11:47: POC Glucose 268 H 05/03/20 18:05: POC Glucose 342 H 05/03/20 23:33: POC Glucose 298 H 05/04/20 05:43: POC Glucose 237 H Current Medications Acetaminophen (Acetaminophen 325 Mg Tablet) 650 mg PO Q6H PRN PRN PRN Reason: Pain Score 1-10/Temp > 100.7 F Last Admin: 05/03/20 13:12 Dose: 650 mg Documented by: Acetaminophen (Acetaminophen 650 Mg Suppository) 650 mg RECTAL Q6H PRN PRN PRN Reason: Temp > 100.4 Last Admin: 04/30/20 10:32 Dose: 650 mg Documented by: Amlodipine Besylate (Amlodipine 10 Mg Tablet) 10 mg PO DAILY [facility] Last Admin: 05/03/20 09:38 Dose: 10 mg Documented by: Atorvastatin Calcium (Atorvastatin Calcium 40 Mg Tablet) 40 mg PO QHS [facility] Last Admin: 05/03/20 21:29 Dose: 40 mg Documented by: Calamine/Phenol (Menthol/Lanolin/Calamine/Znox 113 Gm Tube) 1 applic TOPICAL BID [facility]; Protocol Last Admin: 05/03/20 21:28 Dose: 1 applic Documented by: Clopidogrel Bisulfate (Clopidogrel Bisulfate 75 Mg Tablet) 75 mg PO DAILY [facility] Last Admin: 04/30/20 09:35 Dose: 75 mg Documented by: Dextrose (Dextrose 50%-Water 25 Gm/50 Ml Disp.Syrin) 0 gm IV X1 PRN; Protocol PRN Reason: Hypoglycemia Enoxaparin Sodium (Enoxaparin 40 Mg/0.4 Ml Syringe) 40 mg SC DAILY [facility] Last Admin: 05/02/20 09:28 Dose: 40 mg Documented by: Famotidine (Famotidine 20 Mg Tablet) 20 mg PO BID [facility] Last Admin: 05/03/20 21:29 Dose: 20 mg Documented by: Glucagon (Glucagon 1 Mg/Ml Syringe) 1 mg IM .X1 PRN PRN Reason: Hypoglycemia Hydralazine HCl (Hydralazine 20 Mg/Ml Vial) 5 mg IV Q30M PRN PRN Reason: to maintain BP goals Vancomycin IV Pharmacy to Dose (1 ea/ Sodium Chloride) 500 mls @ 250 mls/hr IV X1 PRN; Protocol PRN Reason: Rx to Dose Acyclovir Sodium 500 mg/ (Dextrose) 260 mls @ 260 mls/hr IV Q8 [facility] Last Admin: 05/04/20 06:38 Dose: 260 mls/hr Documented by: Ceftriaxone Sodium 2 gm/ (Sodium Chloride) 50 mls @ 100 mls/hr IV Q12 [facility] Last Infusion: 05/03/20 21:24 Dose: Infused Documented by: Ampicillin Sodium 2 gm/ Sodium (Chloride) 100 mls @ 200 mls/hr IV Q4 [facility] Last Admin: 05/04/20 06:58 Dose: 200 mls/hr Documented by: Sodium Chloride () 250 mls @ 15 mls/hr IV .[id number] PRN PRN Reason: Saline Flush Last Infusion: 05/04/20 07:00 Dose: 0 mls/hr Documented by: Sodium Chloride () 250 mls @ 15 mls/hr IV .[id number] PRN PRN Reason: Additional IVPB Infusion Last Infusion: 05/03/20 16:05 Dose: 0 mls/hr Documented by: Vancomycin HCl 1,500 mg/ (Sodium Chloride) 530 mls @ 250 mls/hr IV Q12H [facility] Last Infusion: 05/04/20 06:26 Dose: Infused Documented by: Insulin Human Lispro (Insulin Lispro 100 Unit/Ml Insuln.Pen) 0 unit SC Q6 [facility]; Protocol Last Admin: 05/04/20 05:45 Dose: 4 units Documented by: Labetalol HCl (Labetalol (Prefilled) 20 Mg/4 Ml) 10 - 20 mg IV Q10M PRN PRN PRN Reason: to Maintain BP Goals Morphine Sulfate (Morphine 2 Mg/Ml Syringe) 2 mg IV Q3H PRN PRN PRN Reason: Pain Score 6-10 Last Admin: 05/01/20 23:58 Dose: 2 mg Documented by: Nystatin (Nystatin 500,000 Unit/5 Ml Udc) 500,000 unit PO 4X/DAY [facility] Last Admin: 05/03/20 21:46 Dose: 500,000 unit Documented by: Oxycodone HCl (Oxycodone 5 Mg Tablet) 5 mg PO Q4H PRN PRN PRN Reason: Pain Score 4-5 Last Admin: 05/02/20 18:50 Dose: 5 mg Documented by: Prochlorperazine Edisylate (Prochlorperazine 10 Mg/2 Ml Vial) 5 mg IV Q4H PRN PRN PRN Reason: Breakthrough Nausea/Vomiting Psyllium Hydrophilic Mucilloid (Psyllium 1 Packet) 1 packet PO DAILY [facility] Last Admin: 05/03/20 09:38 Dose: 1 packet Documented by: Senna/Docusate Sodium (Senna/Docusate Sodium 1 Tablet) 2 tablet PO BID PRN PRN PRN Reason: Constipation Sodium Chloride (0.9% Saline Lock 10 Ml Syringe) 10 - 40 ml IV UD PRN PRN Reason: SALINE FLUSH Last Admin: 05/01/20 06:19 Dose: 10 ml Documented by: STROKE Vital Signs/Narrative: Vital Signs Pulse 05/04/20 07:01 109 H Medical Necessity - Tobacco Use Smoking Status: Former smoker Tobacco Use: Cigarettes Assessment/Plan All Active Problems Elevated troponin (Acute) Acute rhabdomyolysis (Acute) Fall (Acute) Rhabdomyolysis (Acute) # 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 speech therapy on board 2D echo: EF of 65%, with normal LV systolic function, and PA systolic pressure of 46mmhg and moderate to severe mitral annular calcification KYLIE requested as it seems this is an embolic stroke. cardiology to review her TTE and determine if patient will benefit from KYLIE PT/OT on board on high intensity statin. # Right neck pain CT of the cervical spine done showed degenerative changes CT soft tissue neck showed no evidence of abscess or swelling. wbc still elevated, with a low grade fever rectal tylenol prn plavix on hold. on IV vancomycin, ceftriaxone, ampicillin and acyclovir for empiric treatment of possible meningitis. For LP tomorrow #Mechanical fall with rhabdomyolysis: degenerative changes seen on left hip xray. PT/OT on board. rhabdomyolysis has resolved # UTi: urine cultured E. coli. antibiotics broadened as above. #Pneumonia; CXR done showed subtle bilateral infiltrates. Covid test was negative. soft tissue neck was negative. antibiotics broadened as mentioned above due to concerns about possible meningitis. Hypokalemia: resolved. #Hypertension: on PO amlodipine. #Indeterminate troponin: 2D echo as above. Initial troponin was 0.16 but trended down to 0.137. Stable. DVT prophylaxis: lovenox on hold, for LP tomorrow. [facility] [id number] Subs Hosp L2
[2020-05-04 08:07] LABS: Absolute Lymphocyte Count 0.99 X10^3/uL (0.83-4.51); Absolute Neutrophil Count 12.2 X10^3/uL (2.0-7.7); Basophil# 0.09 X10^3/uL; Basophil% 0.6 % (0-1); Eosinophil# 0.38 X10^3/uL; Eosinophils% 2.5 % (0-5); Hematocrit 37.2 % (37-47); Hemoglobin 12.4 g/dL (12.0-15.0); Lymphocyte # 0.99 X10^3/ul (4.0); Lymphocyte % 6.6 % (19-41); Mean Corp Hgb Conc 33.3 g/dL (32-36); Mean Corpuscular Hgb 28.5 pg (27.0-32.0); Mean Corpuscular Volume 85.5 fL (81-99); Mean Platelet Vol. 9.2 fl (6.2-12.0); Monocyte# 1.22 X10^3/uL; Monocyte% 8.1 % (0-10); NRBC Flagged by Analyzer 0 % (0-5); Neutrophil # 12.18 X10^3/uL (2.7-7.7); Neutrophil % 80.5 % (47-70); Platelet Count 513 K/mm3 (150-450); RBC Distribution Width CV 12.7 % (11.6-14.6); Red Blood Count 4.35 M/mm3 (4.2-5.4); White Blood Count 15.1 K/mm3 (4.4-11.0)
[2020-05-04 08:32] LABS: Anion Gap 7 (5-15); BUN 8 mg/dL (7-18); BUN/Creat Ratio 10.5 RATIO (10-20); Calcium,Total 8.5 mg/dL (8.5-10.1); Chloride 106 mmol/L (98-107); Creatinine, Serum 0.76 mg/dL (0.55-1.02); EST Glomerular Filtration Rate 79 mL/min (>60); Est Glom Filt Rate - Afr Amer 96 mL/min (>60); Estimated Creatinine Clearance 40.81 ml/min; Glucose 249 mg/dL (74-106); Potassium 3.2 mmol/L (3.5-5.1); Sodium Level 137 mmol/L (136-145)
[2020-05-04] MEDS: Ketorolac 15 MG/ML Vial IV (08:59)
[2020-05-04] MEDS: Senna/Docusate Sodium 1 Tablet 2 TABLET PO (09:00)
[2020-05-04] MEDS: Acetaminophen 325 MG Tablet 650 MG PO (09:00)
[2020-05-04] MEDS: Famotidine 20 MG Tablet PO ×2 (09:01→21:11)
[2020-05-04] MEDS: NYSTATIN 500,000 UNIT/5 ML UDC 500000 UNIT PO ×3 (09:01→21:13)
[2020-05-04] MEDS: amLODIPine 10 MG Tablet PO (09:01)
[2020-05-04] MEDS: Psyllium 1 PACKET PO (09:01)
[2020-05-04] MEDS: Menthol/Lanolin/Calamine/Znox 113 GM Tube 1 APPLIC TOPICAL (09:10)
[2020-05-04 12:06] LABS: Bedside Glucose 233 mg/dL (70-110)
--- NOTE | 2020-05-04 12:36 | PCM.PN.ID ---
Patient Problems: Active and Suspected Problems Elevated troponin (Acute) Acute rhabdomyolysis (Acute) Fall (Acute) Rhabdomyolysis (Acute) Subjective: Sleeping this AM, no fever - Physical Exam Vitals/I&O's: Vital Signs Temp Pulse Resp BP Pulse Ox 98.8 F 100 18 164/61 H 96 05/04/20 09:00 05/04/20 09:00 05/04/20 09:00 05/04/20 09:00 05/04/20 09:00 Oxygen Flow Rate (L/min) 2 Oxygen Delivery Method Room Air Weight: 96.3 kg Body Mass Index (BMI) 38.8 Intake and Output for Last 24 Hours 05/02/20 05/03/20 05/04/20 23:59 23:59 23:59 Intake Total 2995 / 2995 2943.75 / 2943.75 1305.5 / 1305.5 Output Total 1250 / 1250 2715 / 2715 1360 / 1360 Balance 1745 / 1745 228.75 / 228.75 -54.5 / -54.5 General: No apparent distress Lungs: Clear to auscultation, Normal air movement Cardiovascular: Regular rate, Regular Rhythm Abdomen: Soft, Non Tender, Non-Distended Skin: No rashes Microbiology Past 72 Hours 04/27/20 08:38 Blood Culture (Wb) - Right Hand Blood Culture - Final No growth in 5 days. 04/26/20 23:36 Blood Culture (Wb) - Right Wrist Blood Culture - Final No growth in 5 days. Laboratory Results 05/03/20 18:05: POC Glucose 342 H 05/03/20 23:33: POC Glucose 298 H 05/04/20 05:43: POC Glucose 237 H 05/04/20 07:30: WBC 15.1 H, RBC 4.35, Hgb 12.4, Hct 37.2, MCV 85.5, MCH 28.5, MCHC 33.3, RDW Std Deviation 40.0, RDW Coeff of Venancio 12.7, Plt Count 513 H, MPV 9.2, Immature Gran % (Auto) 1.700 H, Neut % (Auto) 80.5 H, Lymph % (Auto) 6.6 L, Ford % (Auto) 8.1, Eos % (Auto) 2.5, Baso % (Auto) 0.6, Absolute Neuts (auto) 12.2 H, Absolute Lymphs (auto) 0.99, Nucleated RBC % 0 05/04/20 07:30: Sodium 137, Potassium 3.2 L, Chloride 106, Carbon Dioxide 24.0, Anion Gap 7, BUN 8, Creatinine 0.76, Estim Creat Clear Calc 40.81, Est GFR (MDRD) Af Amer 96, Est GFR (MDRD) Non-Af 79, BUN/Creatinine Ratio 10.5, Glucose 249 H, Calcium 8.5 05/04/20 11:49: POC Glucose 233 H Current Medications Acetaminophen (Acetaminophen 325 Mg Tablet) 650 mg PO Q6H PRN PRN PRN Reason: Pain Score 1-10/Temp > 100.7 F Last Admin: 05/04/20 09:00 Dose: 650 mg Documented by: Acetaminophen (Acetaminophen 650 Mg Suppository) 650 mg RECTAL Q6H PRN PRN PRN Reason: Temp > 100.4 Last Admin: 04/30/20 10:32 Dose: 650 mg Documented by: Amlodipine Besylate (Amlodipine 10 Mg Tablet) 10 mg PO DAILY [facility] Last Admin: 05/04/20 09:01 Dose: 10 mg Documented by: Atorvastatin Calcium (Atorvastatin Calcium 40 Mg Tablet) 40 mg PO QHS [facility] Last Admin: 05/03/20 21:29 Dose: 40 mg Documented by: Calamine/Phenol (Menthol/Lanolin/Calamine/Znox 113 Gm Tube) 1 applic TOPICAL BID [facility]; Protocol Last Admin: 05/04/20 09:10 Dose: 1 applic Documented by: Clopidogrel Bisulfate (Clopidogrel Bisulfate 75 Mg Tablet) 75 mg PO DAILY [facility] Last Admin: 04/30/20 09:35 Dose: 75 mg Documented by: Dextrose (Dextrose 50%-Water 25 Gm/50 Ml Disp.Syrin) 0 gm IV X1 PRN; Protocol PRN Reason: Hypoglycemia Enoxaparin Sodium (Enoxaparin 40 Mg/0.4 Ml Syringe) 40 mg SC DAILY [facility] Last Admin: 05/02/20 09:28 Dose: 40 mg Documented by: Famotidine (Famotidine 20 Mg Tablet) 20 mg PO BID [facility] Last Admin: 05/04/20 09:01 Dose: 20 mg Documented by: Glucagon (Glucagon 1 Mg/Ml Syringe) 1 mg IM .X1 PRN PRN Reason: Hypoglycemia Hydralazine HCl (Hydralazine 20 Mg/Ml Vial) 5 mg IV Q30M PRN PRN Reason: to maintain BP goals Vancomycin IV Pharmacy to Dose (1 ea/ Sodium Chloride) 500 mls @ 250 mls/hr IV X1 PRN; Protocol PRN Reason: Rx to Dose Acyclovir Sodium 500 mg/ (Dextrose) 260 mls @ 260 mls/hr IV Q8 [facility] Last Infusion: 05/04/20 07:38 Dose: Infused Documented by: Ceftriaxone Sodium 2 gm/ (Sodium Chloride) 50 mls @ 100 mls/hr IV Q12 [facility] Last Infusion: 05/04/20 09:38 Dose: Infused Documented by: Ampicillin Sodium 2 gm/ Sodium (Chloride) 100 mls @ 200 mls/hr IV Q4 [facility] Last Infusion: 05/04/20 10:17 Dose: Infused Documented by: Sodium Chloride () 250 mls @ 15 mls/hr IV .[id number] PRN PRN Reason: Saline Flush Last Infusion: 05/04/20 08:58 Dose: 0 mls/hr Documented by: Sodium Chloride () 250 mls @ 15 mls/hr IV .[id number] PRN PRN Reason: Additional IVPB Infusion Last Infusion: 05/04/20 08:58 Dose: 0 mls/hr Documented by: Vancomycin HCl 1,500 mg/ (Sodium Chloride) 530 mls @ 250 mls/hr IV Q12H [facility] Last Infusion: 05/04/20 06:26 Dose: Infused Documented by: Insulin Human Lispro (Insulin Lispro 100 Unit/Ml Insuln.Pen) 0 unit SC Q6 [facility]; Protocol Last Admin: 05/04/20 11:50 Dose: 4 units Documented by: Ketorolac Tromethamine (Ketorolac 15 Mg/Ml Vial) 15 mg IV Q6H PRN PRN PRN Reason: Pain Score 1-5 Stop: 05/09/20 10:15 Labetalol HCl (Labetalol (Prefilled) 20 Mg/4 Ml) 10 - 20 mg IV Q10M PRN PRN PRN Reason: to Maintain BP Goals Morphine Sulfate (Morphine 2 Mg/Ml Syringe) 2 mg IV Q3H PRN PRN PRN Reason: Pain Score 6-10 Last Admin: 05/01/20 23:58 Dose: 2 mg Documented by: Nystatin (Nystatin 500,000 Unit/5 Ml Udc) 500,000 unit PO 4X/DAY [facility] Last Admin: 05/04/20 09:01 Dose: 500,000 unit Documented by: Oxycodone HCl (Oxycodone 5 Mg Tablet) 5 mg PO Q4H PRN PRN PRN Reason: Pain Score 4-5 Last Admin: 05/02/20 18:50 Dose: 5 mg Documented by: Prochlorperazine Edisylate (Prochlorperazine 10 Mg/2 Ml Vial) 5 mg IV Q4H PRN PRN PRN Reason: Breakthrough Nausea/Vomiting Psyllium Hydrophilic Mucilloid (Psyllium 1 Packet) 1 packet PO DAILY [facility] Last Admin: 05/04/20 09:01 Dose: 1 packet Documented by: Senna/Docusate Sodium (Senna/Docusate Sodium 1 Tablet) 2 tablet PO BID PRN PRN PRN Reason: Constipation Last Admin: 05/04/20 09:00 Dose: 2 tablet Documented by: Sodium Chloride (0.9% Saline Lock 10 Ml Syringe) 10 - 40 ml IV UD PRN PRN Reason: SALINE FLUSH Last Admin: 05/01/20 06:19 Dose: 10 ml Documented by: Medical Necessity - Tobacco Use Smoking Status: Former smoker Tobacco Use: Cigarettes Route of nutrition/ use of supplements: [] Nutritional Intake: [] IV Site: [] Rayo Catheter: [] - Assessment/Plan Antibiotics: [] Assessment/Plan: [] Active and Suspected Problems Elevated troponin (Acute) Acute rhabdomyolysis (Acute) Fall (Acute) Rhabdomyolysis (Acute) Presented with stroke, rhabdo, neck pain, low grade fever and leukocytosis. CXR clear 04/28, so low suspicion for pneumonia. Fever curve improving, still some leukocytosis. UA without any wbc seen, but ucx with desouza-S ecoli. Covid Ag and PCR neg. CTs of neck only showed some degenerative disease. With worsening mental status and significant neck pain with movement, on 04/30 ordered LP, fluid studies, changed unasyn to empiric vanc/ceftriaxone/amp/acyclovir. Mental status much improved, particularly when off narcotics. LP on hold until 05/05 due to plavix. She is having severe pain in R knee, may need ortho eval if persists. Will follow
[2020-05-04] MEDS: 0.9% Saline Lock 10 ML Syringe IV (13:03)
--- NOTE | 2020-05-04 13:31 | CASEMGMT ---
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 SW will talk with patient and her POA. Yumiko PETIT MSW
--- NOTE | 2020-05-04 14:30 | CASEMGMT ---
SW spoke with patient. GENNA explained to patient that [facility] TCU is short term and she is going to take a long time to recover. SW explained she would be in TCU for 20 days and then have to go to another facility to continue her rehab. Patient lives by [facility] so SW asked if she would like to check with them to see if they can take her. She said yes. GENNA faxed referral and also called [facility] with referral. Yumiko PETIT MSW
[2020-05-04 17:25] LABS: Bedside Glucose 186 mg/dL (70-110)
[2020-05-04] MEDS: Atorvastatin Calcium 40 MG Tablet PO (21:11)
[2020-05-05] VITALS (9 sets, daily range): BP systolic 142–149; BP diastolic 47–53; PULSE 73–94; RESP 16–20; TEMP 36.7–37.3; O2SAT 95–98; BMI 38.8
[2020-05-05] MEDS: Insulin Lispro 100 UNIT/ML INSULN.PEN SC ×5 (00:58→22:12)
[2020-05-05] MEDS: Acetaminophen 325 MG Tablet 650 MG PO ×3 (01:09→17:19)
[2020-05-05 01:56] LABS: Bedside Glucose 212 mg/dL (70-110)
[2020-05-05] MEDS: Sodium Chloride 0.65% 1 SPRAY SPRAY.BTL 2 SPRAY NASAL ×2 (04:30→13:21)
[2020-05-05 07:05] LABS: Absolute Lymphocyte Count 1.38 X10^3/uL (0.83-4.51); Absolute Neutrophil Count 9.5 X10^3/uL (2.0-7.7); Basophil# 0.09 X10^3/uL; Basophil% 0.7 % (0-1); Eosinophil# 0.68 X10^3/uL; Eosinophils% 5.3 % (0-5); Hematocrit 35.8 % (37-47); Hemoglobin 11.7 g/dL (12.0-15.0); Lymphocyte # 1.38 X10^3/ul (4.0); Lymphocyte % 10.7 % (19-41); Mean Corp Hgb Conc 32.7 g/dL (32-36); Mean Corpuscular Hgb 28.2 pg (27.0-32.0); Mean Corpuscular Volume 86.3 fL (81-99); Mean Platelet Vol. 9.3 fl (6.2-12.0); Monocyte# 1.08 X10^3/uL; Monocyte% 8.4 % (0-10); NRBC Flagged by Analyzer 0 % (0-5); Neutrophil # 9.49 X10^3/uL (2.7-7.7); Neutrophil % 73.4 % (47-70); Platelet Count 496 K/mm3 (150-450); Red Blood Count 4.15 M/mm3 (4.2-5.4); White Blood Count 12.9 K/mm3 (4.4-11.0)
[2020-05-05 07:27] LABS: Anion Gap 7 (5-15); BUN 8 mg/dL (7-18); BUN/Creat Ratio 12.2 RATIO (10-20); Calcium,Total 8.6 mg/dL (8.5-10.1); Chloride 109 mmol/L (98-107); Creatinine, Serum 0.66 mg/dL (0.55-1.02); EST Glomerular Filtration Rate 94 mL/min (>60); Est Glom Filt Rate - Afr Amer 114 mL/min (>60); Estimated Creatinine Clearance 40.81 ml/min; Glucose 145 mg/dL (74-106); Potassium 3.1 mmol/L (3.5-5.1); Sodium Level 140 mmol/L (136-145)
--- NOTE | 2020-05-05 09:05 | RAD_ITS ---
PROCEDURE: Fluoroscopic guided Lumbar Puncture. DATE: 05/05/2020 CLINICAL INDICATION: Fever, encephalopathy and confusion. PHYSICIAN: Riley Putnam M.D. MEDICATIONS: 1% lidocaine administered subcutaneously for local anesthesia. ACCESS SITE: Lower posterior back. NEEDLE: 22-gauge spinal needle. SPECIMEN: Approximately 11 mL blood-tinged]CSF fluid. FLUOROSCOPY TIME (if supplied): (2:55) minutes/seconds COMPLICATIONS: None immediate. The risks, benefits, and alternatives to the procedure were explained to the patient. The specific risks of bleeding, infection, and neurovascular injury were detailed and accepted. Witnessed informed consent was obtained. The patient was placed on the fluoroscopic table in the prone position. The level for needle entry was determined and marked. The overlying skin was cleaned and prepped in the usual sterile fashion. 2% lidocaine was administered subcutaneously for local anesthesia. Under fluoroscopic guidance a 22-gauge spinal needle was advanced. The thecal sac was entered at the L3- L4 vertebral level. The inner stylet was removed. There was spontaneous flow of clear CSF fluid. Opening pressure was 10 mm. The patient was placed in a reversed Trendelenburg position. Approximately 11 mL of cerebrospinal fluid was collected using gravity. The specimen was collected and submitted to the laboratory for further evaluation. The needle was withdrawn,. Hemostasis was achieved and a sterile dressing placed. The patient tolerated the procedure well without any immediate complications. The patient was placed supine with head elevated and returned to the floor in stable condition. RAD/Fluoro Guided Lumbar Puncture IMPRESSION: Successful fluoroscopic-guided lumbar puncture. Electronically Signed: Riley Putnam, at 10:17 EST , Service support ,
[2020-05-05 10:22] LABS: Body Fluid Mononuclear WBC # 0.009 10^3/uL; Body Fluid Polynuclear WBC # 0.016 10^3/uL; Total Cell Count CSF 0.025 10^3/uL; White Count, CSF 0.025 10^3/uL (0.000-0.005)
[2020-05-05] MEDS: amLODIPine 10 MG Tablet PO (10:30)
[2020-05-05] MEDS: Famotidine 20 MG Tablet PO ×2 (10:30→21:18)
[2020-05-05] MEDS: Menthol/Lanolin/Calamine/Znox 113 GM Tube 1 APPLIC TOPICAL ×2 (10:31→21:07)
[2020-05-05 10:32] LABS: Auto B Fluid Analyzer BKGD Ct COUNTS W/IN LIMITS (W/IN LIMITS)
[2020-05-05] MEDS: NYSTATIN 500,000 UNIT/5 ML UDC 500000 UNIT PO ×3 (10:32→21:42)
[2020-05-05 10:33] LABS: Appearance CSF (character) SL CLDY (Clear); CSF Color PINK (Colorless)
[2020-05-05 10:43] LABS: Glucose Spinal Fluid 92 mg/dL (40-75)
[2020-05-05 11:30] LABS: Tested Tube # 3
[2020-05-05 11:51] LABS: Bedside Glucose 164 mg/dL (70-110)
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
[2020-05-05 13:29] LABS: Body Fluid QC Type(s) BF4Q
--- NOTE | 2020-05-05 14:27 | PN_ITS ---
Patient Problems: Active and Suspected Problems Elevated troponin (Acute) Acute rhabdomyolysis (Acute) Fall (Acute) Rhabdomyolysis (Acute) Subjective: Patient seen and examined. She has no active events overnight. She is for LP today. Fever is resolving. Vitals/I&O's: Vital Signs Temp Pulse Resp BP Pulse Ox 98.1 F 73 16 142/53 H 98 05/05/20 09:00 05/05/20 09:00 05/05/20 09:00 05/05/20 09:00 05/05/20 09:00 Oxygen Flow Rate (L/min) 2 Oxygen Delivery Method Room Air Weight: 212 lb 4.882 oz Body Mass Index (BMI) 38.8 Intake and Output for Last 24 Hours 05/03/20 05/04/20 05/05/20 23:59 23:59 23:59 Intake Total 2943.75 / 2943.75 2780.75 / 2780.75 1499.0 / 1499.0 Output Total 2715 / 2715 2710 / 2710 1000 / 1000 Balance 228.75 / 228.75 70.75 / 70.75 499.0 / 499.0 General: Alert, and oriented, much less lethargic today HEENT: Atraumatic, PERRLA, EOMI, Normocephalic Oral: Dry Mucosa Neck: - -no tenderness with neck palpation Lungs: Clear to auscultation, Normal air movement, No rhonchi, No wheeze Cardiovascular: Regular rate, Regular Rhythm, Normal S1, Normal S2, No murmurs Abdomen: Bowel Sounds Present, Soft, Non Tender, Non-Distended, No Hepato- splenomegaly Extremities: No clubbing, No cyanosis, No edema, Capillary Refill Less than 3 Seconds Skin: No rashes, No breakdown Musculoskeletal: -no tenderness Neurological: Cranial nerves II-XII grossly intact, - - right sided paralysis from stroke Psych/Mental Status: normal affect Microbiology Past 72 Hours 05/05/20 09:36 Csf, Spinal Fluid Gram Stain - Final Laboratory Results 05/04/20 17:16: POC Glucose 186 H 05/05/20 00:57: POC Glucose 212 H 05/05/20 05:50: WBC 12.9 H, RBC 4.15 L, Hgb 11.7 L, Hct 35.8 L, MCV 86.3, MCH 28.2, MCHC 32.7, RDW Std Deviation 41.0, RDW Coeff of Venancio 13.0, Plt Count 496 H, MPV 9.3, Immature Gran % (Auto) 1.500 H, Neut % (Auto) 73.4 H, Lymph % (Auto) 10.7 L, [place] % (Auto) 8.4, Eos % (Auto) 5.3 H, Baso % (Auto) 0.7, Absolute Neuts (auto) 9.5 H, Absolute Lymphs (auto) 1.38, Nucleated RBC % 0 05/05/20 05:50: Sodium 140, Potassium 3.1 L, Chloride 109 H, Carbon Dioxide 24.0, Anion Gap 7, BUN 8, Creatinine 0.66, Estim Creat Clear Calc 40.81, Est GFR (MDRD) Af Amer 114, Est GFR (MDRD) Non-Af 94, BUN/Creatinine Ratio 12.2, Glucose 145 H, Calcium 8.6 05/05/20 06:35: POC Glucose 164 H 05/05/20 09:36: CSF Glucose 92 H 05/05/20 09:36: CSF Total Protein 51.0 H 05/05/20 09:36: Fld Polynuclear WBCs # 0.016, Fld Polynuclear WBCs % 64.0, Fluid Mononuclear WBCs 0.009, Fld Mononuclear WBCs % 36.0, CSF Appearance SL CLDY H, CSF Color PINK H, CSF WBC 0.025 H, CSF RBC 0.72313 H, CSF Cell Count Tube # 3, CSF Total Cell Counted 0.025, CSF Comment May follow Current Medications Acetaminophen (Acetaminophen 325 Mg Tablet) 650 mg PO Q6H PRN PRN PRN Reason: Pain Score 1-10/Temp > 100.7 F Last Admin: 05/05/20 10:30 Dose: 650 mg Documented by: Acetaminophen (Acetaminophen 650 Mg Suppository) 650 mg RECTAL Q6H PRN PRN PRN Reason: Temp > 100.4 Last Admin: 04/30/20 10:32 Dose: 650 mg Documented by: Amlodipine Besylate (Amlodipine 10 Mg Tablet) 10 mg PO DAILY [facility] Last Admin: 05/05/20 10:30 Dose: 10 mg Documented by: Atorvastatin Calcium (Atorvastatin Calcium 40 Mg Tablet) 40 mg PO QHS [facility] Last Admin: 05/04/20 21:11 Dose: 40 mg Documented by: Calamine/Phenol (Menthol/Lanolin/Calamine/Znox 113 Gm Tube) 1 applic TOPICAL BID [facility]; Protocol Last Admin: 05/05/20 10:31 Dose: 1 applic Documented by: Clopidogrel Bisulfate (Clopidogrel Bisulfate 75 Mg Tablet) 75 mg PO DAILY [facility] Last Admin: 04/30/20 09:35 Dose: 75 mg Documented by: Dextrose (Dextrose 50%-Water 25 Gm/50 Ml Disp.Syrin) 0 gm IV X1 PRN; Protocol PRN Reason: Hypoglycemia Enoxaparin Sodium (Enoxaparin 40 Mg/0.4 Ml Syringe) 40 mg SC DAILY [facility] Last Admin: 05/02/20 09:28 Dose: 40 mg Documented by: Famotidine (Famotidine 20 Mg Tablet) 20 mg PO BID [facility] Last Admin: 05/05/20 10:30 Dose: 20 mg Documented by: Glucagon (Glucagon 1 Mg/Ml Syringe) 1 mg IM .X1 PRN PRN Reason: Hypoglycemia Hydralazine HCl (Hydralazine 20 Mg/Ml Vial) 5 mg IV Q30M PRN PRN Reason: to maintain BP goals Acyclovir Sodium 500 mg/ (Dextrose) 260 mls @ 260 mls/hr IV Q8 [facility] Last Admin: 05/05/20 14:08 Dose: 260 mls/hr Documented by: Ceftriaxone Sodium 2 gm/ (Sodium Chloride) 50 mls @ 100 mls/hr IV Q12 [facility] Last Infusion: 05/05/20 11:58 Dose: Infused Documented by: Sodium Chloride () 250 mls @ 15 mls/hr IV .[id number] PRN PRN Reason: Saline Flush Last Infusion: 05/05/20 04:23 Dose: 0 mls/hr Documented by: Sodium Chloride () 250 mls @ 15 mls/hr IV .[id number] PRN PRN Reason: Additional IVPB Infusion Last Infusion: 05/05/20 06:26 Dose: 0 mls/hr Documented by: Insulin Human Lispro (Insulin Lispro 100 Unit/Ml Insuln.Pen) 0 unit SC ACHS [facility]; Protocol Last Admin: 05/05/20 11:35 Dose: 4 units Documented by: Ketorolac Tromethamine (Ketorolac 15 Mg/Ml Vial) 15 mg IV Q6H PRN PRN PRN Reason: Pain Score 1-5 Stop: 05/09/20 10:15 Labetalol HCl (Labetalol (Prefilled) 20 Mg/4 Ml) 10 - 20 mg IV Q10M PRN PRN PRN Reason: to Maintain BP Goals Morphine Sulfate (Morphine 2 Mg/Ml Syringe) 2 mg IV Q3H PRN PRN PRN Reason: Pain Score 6-10 Last Admin: 05/01/20 23:58 Dose: 2 mg Documented by: Nystatin (Nystatin 500,000 Unit/5 Ml Udc) 500,000 unit PO 4X/DAY [facility] Last Admin: 05/05/20 14:08 Dose: Not Given Documented by: Oxycodone HCl (Oxycodone 5 Mg Tablet) 5 mg PO Q4H PRN PRN PRN Reason: Pain Score 4-5 Last Admin: 05/02/20 18:50 Dose: 5 mg Documented by: Prochlorperazine Edisylate (Prochlorperazine 10 Mg/2 Ml Vial) 5 mg IV Q4H PRN PRN PRN Reason: Breakthrough Nausea/Vomiting Psyllium Hydrophilic Mucilloid (Psyllium 1 Packet) 1 packet PO DAILY [facility] Last Admin: 05/05/20 10:43 Dose: Not Given Documented by: Senna/Docusate Sodium (Senna/Docusate Sodium 1 Tablet) 2 tablet PO BID PRN PRN PRN Reason: Constipation Last Admin: 05/04/20 09:00 Dose: 2 tablet Documented by: Sodium Chloride (0.9% Saline Lock 10 Ml Syringe) 10 - 40 ml IV UD PRN PRN Reason: SALINE FLUSH Last Admin: 05/04/20 13:03 Dose: 10 ml Documented by: Sodium Chloride (Sodium Chloride 0.65% 1 [place] Wilson.Btl) 2 spray NASAL TID PRN PRN PRN Reason: NASAL CONGESTION Last Admin: 05/05/20 13:21 Dose: 2 spray Documented by: Medical Necessity - Tobacco Use Smoking Status: Former smoker Tobacco Use: Cigarettes Assessment/Plan All Active Problems Elevated troponin (Acute) Acute rhabdomyolysis (Acute) Fall (Acute) Rhabdomyolysis (Acute) # 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 * speech therapy on board * 2D echo: EF of 65%, with normal LV systolic function, and PA systolic pressure of 46mmhg and moderate to severe mitral annular calcification * discussed with cardiology; cardiology after reviewing patient;s TTE doesnt think KYLIE is warranted. * PT/OT on board * on high intensity statin. * aspirin and plavix on hold for LP today; will resume after LP * # Right neck pain * CT of the cervical spine done showed degenerative changes * CT soft tissue neck showed no evidence of abscess or swelling. * wbc still elevated, with a low grade fever * rectal tylenol prn * plavix on hold. * on IV vancomycin, ceftriaxone, ampicillin and acyclovir for empiric treatment of possible meningitis. * For LP today * #Mechanical fall with rhabdomyolysis: * degenerative changes seen on left hip xray. PT/OT on board. * rhabdomyolysis has resolved * # UTi: urine cultured E. coli. antibiotics broadened as above. #Pneumonia; * CXR done showed subtle bilateral infiltrates. * Covid test was negative. soft tissue neck was negative. * antibiotics broadened as mentioned above due to concerns about possible meningitis. * Hypokalemia: resolved. #Hypertension: on PO amlodipine. #Indeterminate troponin: 2D echo as above. Initial troponin was 0.16 but trended down to 0.137. Stable. DVT prophylaxis: lovenox on hold, for LP today. SCDs Disposition: for placement once medically stable Inpatient E&M: [id number] [facility] L2
--- NOTE | 2020-05-05 14:27 | CASEMGMT ---
RN told GENNA patient wanted to talk to someone about end of life care. GENNA went to patient's room and asked what she would like to talk about as far as end of life. She told SW her neighbor Samantha would help her. She said Samantha tried to talk with her about it, but she (patient) didn't want to talk about it at the time. GENNA asked what end of life care is to her. She said she is stuck here and then will be stuck at the longterm. She said she lays here thinking about all the bills she is going to have and she can't pay them from here. She wanted to know if Samantha could come in and talk with her about getting bills paid for her. GENNA told her there are no visitors allowed in the hospital right now. She did not want her landlord to know her finances as they will think they should have charged her more for rent. GENNA did verify she still wants Tosin Carlisle to be her Healthcare Power of Plasma Center Technician and she said yes she does still want her as her POA. She said she is normally a very private person and does not want anyone to know her business, but now she knows she needs help. She said she would want Samantha to help her with finances. GENNA told her SW will have to see if there is something that can be done while at [facility]. GENNA also told patient that GENNA will need to come back with another person to witness her give GENNA permission to give her landlord Tosin Carlisle her car keys. She said that is fine. GENNA and hot car charger Charla went to patient's room. She confirmed she is okay with GENNA giving Tosin Carlisle her car keys. She asked for her purse. GENNA gave her, her purse. She only has one had that she can use due to her stroke. She told GENNA which pockets to look in to get the car cooley, her house cooley, and her garage shower doors and panels fabricator. She asked GENNA to give Tosin the garage shower doors and panels fabricator also. She has a big ring of keys that has her house cooley on it and she wanted GENNA to have Samantha take the house cooley. She told GENNA not to give Tosin all of the keys just her house cooley. She said Tosin will know which one is the house cooley. GENNA called Tosin and left her a voice mail to call GENNA back regarding what time she thinks she will be in tomorrow as SW will have to meet her at the main entrance. Yumiko PETIT MSW
[2020-05-05 15:11] LABS: Bedside Glucose 225 mg/dL (70-110)
--- NOTE | 2020-05-05 17:05 | PN.ID_ITS ---
Patient Problems: Active and Suspected Problems Elevated troponin (Acute) Acute rhabdomyolysis (Acute) Fall (Acute) Rhabdomyolysis (Acute) Subjective: Feeling better, neck less sore, no fever - Physical Exam Vitals/I&O's: Vital Signs Temp Pulse Resp BP Pulse Ox 99.2 F H 92 20 H 149/47 H 96 05/05/20 15:00 05/05/20 15:00 05/05/20 15:00 05/05/20 15:00 05/05/20 15:00 Oxygen Flow Rate (L/min) 2 Oxygen Delivery Method Room Air Weight: 96.3 kg Body Mass Index (BMI) 38.8 Intake and Output for Last 24 Hours 05/03/20 05/04/20 05/05/20 23:59 23:59 23:59 Intake Total 2943.75 / 2943.75 2780.75 / 2780.75 1759.0 / 1759.0 Output Total 2715 / 2715 2710 / 2710 1000 / 1000 Balance 228.75 / 228.75 70.75 / 70.75 759.0 / 759.0 General: Alert, Cooperative Neck: - - able to move neck some Lungs: Clear to auscultation, Normal air movement Cardiovascular: Regular rate, Regular Rhythm, Murmur Abdomen: Soft, Non Tender, Non-Distended Skin: No rashes Microbiology Past 72 Hours 05/05/20 09:36 Csf, Spinal Fluid Gram Stain - Final Laboratory Results 05/04/20 17:16: POC Glucose 186 H 05/05/20 00:57: POC Glucose 212 H 05/05/20 05:50: WBC 12.9 H, RBC 4.15 L, Hgb 11.7 L, Hct 35.8 L, MCV 86.3, MCH 28.2, MCHC 32.7, RDW Std Deviation 41.0, RDW Coeff of Venancio 13.0, Plt Count 496 H, MPV 9.3, Immature Gran % (Auto) 1.500 H, Neut % (Auto) 73.4 H, Lymph % (Auto) 10.7 L, [place] % (Auto) 8.4, Eos % (Auto) 5.3 H, Baso % (Auto) 0.7, Absolute Neuts (auto) 9.5 H, Absolute Lymphs (auto) 1.38, Nucleated RBC % 0 05/05/20 05:50: Sodium 140, Potassium 3.1 L, Chloride 109 H, Carbon Dioxide 24.0, Anion Gap 7, BUN 8, Creatinine 0.66, Estim Creat Clear Calc 40.81, Est GFR (MDRD) Af Amer 114, Est GFR (MDRD) Non-Af 94, BUN/Creatinine Ratio 12.2, Glucose 145 H, Calcium 8.6 05/05/20 06:35: POC Glucose 164 H 05/05/20 09:36: CSF Glucose 92 H 05/05/20 09:36: CSF Total Protein 51.0 H 05/05/20 09:36: Fld Polynuclear WBCs # 0.016, Fld Polynuclear WBCs % 64.0, Fluid Mononuclear WBCs 0.009, Fld Mononuclear WBCs % 36.0, CSF Appearance SL CLDY H, CSF Color PINK H, CSF WBC 0.025 H, CSF RBC 0.13464 H, CSF Cell Count Tube # 3, CSF Total Cell Counted 0.025, CSF Comment May follow 05/05/20 11:33: POC Glucose 225 H Current Medications Acetaminophen (Acetaminophen 325 Mg Tablet) 650 mg PO Q6H PRN PRN PRN Reason: Pain Score 1-10/Temp > 100.7 F Last Admin: 05/05/20 10:30 Dose: 650 mg Documented by: Acetaminophen (Acetaminophen 650 Mg Suppository) 650 mg RECTAL Q6H PRN PRN PRN Reason: Temp > 100.4 Last Admin: 04/30/20 10:32 Dose: 650 mg Documented by: Amlodipine Besylate (Amlodipine 10 Mg Tablet) 10 mg PO DAILY [facility] Last Admin: 05/05/20 10:30 Dose: 10 mg Documented by: Atorvastatin Calcium (Atorvastatin Calcium 40 Mg Tablet) 40 mg PO QHS [facility] Last Admin: 05/04/20 21:11 Dose: 40 mg Documented by: Calamine/Phenol (Menthol/Lanolin/Calamine/Znox 113 Gm Tube) 1 applic TOPICAL BID [facility]; Protocol Last Admin: 05/05/20 10:31 Dose: 1 applic Documented by: Clopidogrel Bisulfate (Clopidogrel Bisulfate 75 Mg Tablet) 75 mg PO DAILY [facility] Last Admin: 04/30/20 09:35 Dose: 75 mg Documented by: Dextrose (Dextrose 50%-Water 25 Gm/50 Ml Disp.Syrin) 0 gm IV X1 PRN; Protocol PRN Reason: Hypoglycemia Enoxaparin Sodium (Enoxaparin 40 Mg/0.4 Ml Syringe) 40 mg SC DAILY [facility] Last Admin: 05/02/20 09:28 Dose: 40 mg Documented by: Famotidine (Famotidine 20 Mg Tablet) 20 mg PO BID [facility] Last Admin: 05/05/20 10:30 Dose: 20 mg Documented by: Glucagon (Glucagon 1 Mg/Ml Syringe) 1 mg IM .X1 PRN PRN Reason: Hypoglycemia Hydralazine HCl (Hydralazine 20 Mg/Ml Vial) 5 mg IV Q30M PRN PRN Reason: to maintain BP goals Acyclovir Sodium 500 mg/ (Dextrose) 260 mls @ 260 mls/hr IV Q8 [facility] Last Infusion: 05/05/20 15:55 Dose: Infused Documented by: Ceftriaxone Sodium 2 gm/ (Sodium Chloride) 50 mls @ 100 mls/hr IV Q12 [facility] Last Infusion: 05/05/20 11:58 Dose: Infused Documented by: Sodium Chloride () 250 mls @ 15 mls/hr IV .[id number] PRN PRN Reason: Saline Flush Last Infusion: 05/05/20 04:23 Dose: 0 mls/hr Documented by: Sodium Chloride () 250 mls @ 15 mls/hr IV .[id number] PRN PRN Reason: Additional IVPB Infusion Last Infusion: 05/05/20 06:26 Dose: 0 mls/hr Documented by: Insulin Human Lispro (Insulin Lispro 100 Unit/Ml Insuln.Pen) 0 unit SC ACHS [facility]; Protocol Last Admin: 05/05/20 11:35 Dose: 4 units Documented by: Ketorolac Tromethamine (Ketorolac 15 Mg/Ml Vial) 15 mg IV Q6H PRN PRN PRN Reason: Pain Score 1-5 Stop: 05/09/20 10:15 Labetalol HCl (Labetalol (Prefilled) 20 Mg/4 Ml) 10 - 20 mg IV Q10M PRN PRN PRN Reason: to Maintain BP Goals Morphine Sulfate (Morphine 2 Mg/Ml Syringe) 2 mg IV Q3H PRN PRN PRN Reason: Pain Score 6-10 Last Admin: 05/01/20 23:58 Dose: 2 mg Documented by: Nystatin (Nystatin 500,000 Unit/5 Ml Udc) 500,000 unit PO 4X/DAY [facility] Last Admin: 05/05/20 14:08 Dose: Not Given Documented by: Oxycodone HCl (Oxycodone 5 Mg Tablet) 5 mg PO Q4H PRN PRN PRN Reason: Pain Score 4-5 Last Admin: 05/02/20 18:50 Dose: 5 mg Documented by: Prochlorperazine Edisylate (Prochlorperazine 10 Mg/2 Ml Vial) 5 mg IV Q4H PRN PRN PRN Reason: Breakthrough Nausea/Vomiting Psyllium Hydrophilic Mucilloid (Psyllium 1 Packet) 1 packet PO DAILY [facility] Last Admin: 05/05/20 10:43 Dose: Not Given Documented by: Senna/Docusate Sodium (Senna/Docusate Sodium 1 Tablet) 2 tablet PO BID PRN PRN PRN Reason: Constipation Last Admin: 05/04/20 09:00 Dose: 2 tablet Documented by: Sodium Chloride (0.9% Saline Lock 10 Ml Syringe) 10 - 40 ml IV UD PRN PRN Reason: SALINE FLUSH Last Admin: 05/04/20 13:03 Dose: 10 ml Documented by: Sodium Chloride (Sodium Chloride 0.65% 1 [place].Btl) 2 spray NASAL TID PRN PRN PRN Reason: NASAL CONGESTION Last Admin: 05/05/20 13:21 Dose: 2 spray Documented by: Medical Necessity - Tobacco Use Smoking Status: Former smoker Tobacco Use: Cigarettes Route of nutrition/ use of supplements: [] Nutritional Intake: [] IV Site: [] Rayo Catheter: [] - Assessment/Plan Antibiotics: [] Assessment/Plan: [] Active and Suspected Problems Elevated troponin (Acute) Acute rhabdomyolysis (Acute) Fall (Acute) Rhabdomyolysis (Acute) Presented with stroke, rhabdo, neck pain, low grade fever and leukocytosis. CXR clear 04/28, so low suspicion for pneumonia. Fever curve improving, still some leukocytosis. UA without any wbc seen, but ucx with desouza-S ecoli. Covid Ag and PCR neg. CTs of neck only showed some degenerative disease. With worsening mental status and significant neck pain with movement, on 04/30 ordered LP, fluid studies, changed unasyn to empiric vanc/ceftriaxone/amp/acyclovir. Mental status much improved, particularly when off narcotics. LP 05/05 with wbc 25. Mildly elevated protein and glucose. Low suspicion for bacterial infection at this point, will start to cut back on abx, plan on treating for aseptic meningitis. Will follow
[2020-05-05 17:26] LABS: Bedside Glucose 182 mg/dL (70-110)
[2020-05-05] MEDS: Atorvastatin Calcium 40 MG Tablet PO (21:10)
[2020-05-05] MEDS: Ketorolac 15 MG/ML Vial IV (21:17)
[2020-05-06 00:55] LABS: Bedside Glucose 228 mg/dL (70-110)
[2020-05-06 03:00] VITALS: BP 112/59; PULSE 87; RESP 20; TEMP 36.8; O2SAT 95
[2020-05-06 03:27] VITALS: BMI 38.8
[2020-05-06 06:51] VITALS: PULSE 66
[2020-05-06 06:55] LABS: Absolute Lymphocyte Count 1.75 X10^3/uL (0.83-4.51); Absolute Neutrophil Count 8.4 X10^3/uL (2.0-7.7); Basophil# 0.09 X10^3/uL; Basophil% 0.7 % (0-1); Eosinophil# 0.68 X10^3/uL; Eosinophils% 5.6 % (0-5); Hematocrit 34.3 % (37-47); Hemoglobin 11.3 g/dL (12.0-15.0); Lymphocyte # 1.75 X10^3/ul (4.0); Lymphocyte % 14.4 % (19-41); Mean Corp Hgb Conc 32.9 g/dL (32-36); Mean Corpuscular Hgb 28.8 pg (27.0-32.0); Mean Corpuscular Volume 87.5 fL (81-99); Mean Platelet Vol. 9.2 fl (6.2-12.0); Monocyte# 1.03 X10^3/uL; Monocyte% 8.5 % (0-10); NRBC Flagged by Analyzer 0 % (0-5); Neutrophil # 8.43 X10^3/uL (2.7-7.7); Neutrophil % 69.2 % (47-70); Platelet Count 531 K/mm3 (150-450); RBC Distribution Width CV 13.2 % (11.6-14.6); RBC Distribution Width SD 42.2 fl (35.1-43.9); Red Blood Count 3.92 M/mm3 (4.2-5.4); White Blood Count 12.2 K/mm3 (4.4-11.0)
[2020-05-06] MEDS: Insulin Lispro 100 UNIT/ML INSULN.PEN SC ×3 (07:00→17:05)
[2020-05-06 07:05] LABS: Bedside Glucose 222 mg/dL (70-110)
[2020-05-06 07:23] LABS: Anion Gap 4 (5-15); BUN 9 mg/dL (7-18); BUN/Creat Ratio 11.5 RATIO (10-20); Calcium,Total 7.2 mg/dL (8.5-10.1); Chloride 109 mmol/L (98-107); Creatinine, Serum 0.78 mg/dL (0.55-1.02); EST Glomerular Filtration Rate 77 mL/min (>60); Est Glom Filt Rate - Afr Amer 93 mL/min (>60); Estimated Creatinine Clearance 40.81 ml/min; Glucose 197 mg/dL (74-106); Potassium 3.7 mmol/L (3.5-5.1); Sodium Level 140 mmol/L (136-145)
[2020-05-06] MEDS: Menthol/Lanolin/Calamine/Znox 113 GM Tube 1 APPLIC TOPICAL (09:24)
[2020-05-06] MEDS: Aspirin 325 MG Tablet PO (09:25)
[2020-05-06] MEDS: amLODIPine 10 MG Tablet PO (09:28)
[2020-05-06] MEDS: NYSTATIN 500,000 UNIT/5 ML UDC 500000 UNIT PO (09:28)
[2020-05-06] MEDS: Enoxaparin 40 MG/0.4 ML Syringe SC (09:29)
[2020-05-06] MEDS: Famotidine 20 MG Tablet PO (09:29)
[2020-05-06] MEDS: Clopidogrel Bisulfate 75 MG Tablet PO (09:29)
[2020-05-06 09:33] VITALS: BP 136/66; PULSE 79; RESP 20; TEMP 36.6; O2SAT 97
[2020-05-06 11:49] VITALS: O2SAT 97
[2020-05-06 12:11] LABS: Bedside Glucose 199 mg/dL (70-110)
[2020-05-06 12:21] VITALS: BMI 38.8
--- NOTE | 2020-05-06 12:40 | CASEMGMT ---
GENNA spoke with patient letting her know SW is going to meet with Tosin today at 1p to give her the car cooley and garage door patcher. GENNA met with Tosin Carlisle and her . SW gave them the car cooley, garage door patcher, and copy of Healthcare POA papers. They were not worried about getting the house cooley from patient so SW kept the big ring of keys to give back to patient. They said they are leaving her care in the garage for now. She said they may need to move it so they can get to an access panel to work on the heat. They have all of patient's stuff bagged up and will hang on to it as long as they can. GENNA told him they can work with [facility] [place] on arranging this. They gave SW patient's cell phone, kiln charger, address book, and her Medicare card. SW told them patient will likely be leaving today. SW thanked them for their help. SW gave patient these items and let her know Tosin and her are worried about her and want her to be safe. GENNA told her they are not moving her car anywhere right now. They may have to work on something in the garage and then they would have to move it. She became a little tearful when GENNA told her they were worried about her. She was afraid they would be mad at her due to the condition of the home. GENNA told her SW would let her know if she is leaving today. Yumiko CLARKE
[2020-05-06 13:58] LABS: Pathologist Review Reviewed
--- NOTE | 2020-05-06 14:45 | CASEMGMT ---
Patient was approved to go to [facility]. Physician would like to send her today. SW notified [facility] that she will be coming today. SW also let patient know this information. Await COVID test and orders. SW will call [facility] and put patient on the will call list. Yumiko CLARKE
--- NOTE | 2020-05-06 14:57 | PN.ID_ITS ---
Patient Problems: Active and Suspected Problems Elevated troponin (Acute) Acute rhabdomyolysis (Acute) Fall (Acute) Rhabdomyolysis (Acute) Subjective: Feeling much better, neck pain much improved, no fever - Physical Exam Vitals/I&O's: Vital Signs Temp Pulse Resp BP Pulse Ox 97.9 F 79 20 H 136/66 H 97 05/06/20 09:33 05/06/20 09:33 05/06/20 09:33 05/06/20 09:33 05/06/20 11:49 Oxygen Flow Rate (L/min) 2 Oxygen Delivery Method Room Air Weight: 96.3 kg Body Mass Index (BMI) 38.8 Intake and Output for Last 24 Hours 05/04/20 05/05/20 05/06/20 23:59 23:59 23:59 Intake Total 2780.75 / 2780.75 2009.0 / 2009.0 630 / 630 Output Total 2710 / 2710 1000 / 1300 1400 / 1400 Balance 70.75 / 70.75 1009.0 / 709.0 -770 / -770 General: Alert, Cooperative, No apparent distress Lungs: Clear to auscultation, Normal air movement Cardiovascular: Regular rate, Regular Rhythm Abdomen: Soft, Non Tender, Non-Distended Skin: No rashes Microbiology Past 72 Hours 05/05/20 09:36 Csf, Spinal Fluid Gram Stain - Final 05/05/20 09:36 Csf, Spinal Fluid CSF Culture - Preliminary Culture exhibits no growth. Laboratory Results 05/05/20 09:36: CSF Comment Reviewed 05/05/20 11:33: POC Glucose 225 H 05/05/20 17:07: POC Glucose 182 H 05/05/20 22:09: POC Glucose 228 H 05/06/20 05:40: WBC 12.2 H, RBC 3.92 L, Hgb 11.3 L, Hct 34.3 L, MCV 87.5, MCH 28.8, MCHC 32.9, RDW Std Deviation 42.2, RDW Coeff of Venancio 13.2, Plt Count 531 H, MPV 9.2, Immature Gran % (Auto) 1.600 H, Neut % (Auto) 69.2, Lymph % (Auto) 14.4 L, [place] % (Auto) 8.5, Eos % (Auto) 5.6 H, Baso % (Auto) 0.7, Absolute Neuts (auto) 8.4 H, Absolute Lymphs (auto) 1.75, Nucleated RBC % 0 05/06/20 05:40: Sodium 140, Potassium 3.7, Chloride 109 H, Carbon Dioxide 27.0, Anion Gap 4 L, BUN 9, Creatinine 0.78, Estim Creat Clear Calc 40.81, Est GFR (MDRD) Af Amer 93, Est GFR (MDRD) Non-Af 77, BUN/Creatinine Ratio 11.5, Glucose 197 H, Calcium 7.2 L 05/06/20 06:55: POC Glucose 222 H 05/06/20 11:59: POC Glucose 199 H Current Medications Acetaminophen (Acetaminophen 325 Mg Tablet) 650 mg PO Q6H PRN PRN PRN Reason: Pain Score 1-10/Temp > 100.7 F Last Admin: 05/05/20 17:19 Dose: 650 mg Documented by: Acetaminophen (Acetaminophen 650 Mg Suppository) 650 mg RECTAL Q6H PRN PRN PRN Reason: Temp > 100.4 Last Admin: 04/30/20 10:32 Dose: 650 mg Documented by: Amlodipine Besylate (Amlodipine 10 Mg Tablet) 10 mg PO DAILY [facility] Last Admin: 05/06/20 09:28 Dose: 10 mg Documented by: Aspirin (Aspirin 325 Mg Tablet) 325 mg PO DAILY@0800 [facility] Last Admin: 05/06/20 09:25 Dose: 325 mg Documented by: Atorvastatin Calcium (Atorvastatin Calcium 40 Mg Tablet) 40 mg PO QHS [facility] Last Admin: 05/05/20 21:10 Dose: 40 mg Documented by: Calamine/Phenol (Menthol/Lanolin/Calamine/Znox 113 Gm Tube) 1 applic TOPICAL BID [facility]; Protocol Last Admin: 05/06/20 09:24 Dose: 1 applic Documented by: Clopidogrel Bisulfate (Clopidogrel Bisulfate 75 Mg Tablet) 75 mg PO DAILY [facility] Last Admin: 05/06/20 09:29 Dose: 75 mg Documented by: Dextrose (Dextrose 50%-Water 25 Gm/50 Ml Disp.Syrin) 0 gm IV X1 PRN; Protocol PRN Reason: Hypoglycemia Enoxaparin Sodium (Enoxaparin 40 Mg/0.4 Ml Syringe) 40 mg SC DAILY [facility] Last Admin: 05/06/20 09:29 Dose: 40 mg Documented by: Famotidine (Famotidine 20 Mg Tablet) 20 mg PO BID [facility] Last Admin: 05/06/20 09:29 Dose: 20 mg Documented by: Glucagon (Glucagon 1 Mg/Ml Syringe) 1 mg IM .X1 PRN PRN Reason: Hypoglycemia Hydralazine HCl (Hydralazine 20 Mg/Ml Vial) 5 mg IV Q30M PRN PRN Reason: to maintain BP goals Acyclovir Sodium 500 mg/ (Dextrose) 260 mls @ 260 mls/hr IV Q8 [facility] Last Admin: 05/06/20 14:24 Dose: 260 mls/hr Documented by: Sodium Chloride () 250 mls @ 15 mls/hr IV .[id number] PRN PRN Reason: Saline Flush Last Infusion: 05/06/20 09:30 Dose: 15 mls/hr Documented by: Sodium Chloride () 250 mls @ 15 mls/hr IV .[id number] PRN PRN Reason: Additional IVPB Infusion Last Infusion: 05/06/20 10:34 Dose: Infused Documented by: Insulin Human Lispro (Insulin Lispro 100 Unit/Ml Insuln.Pen) 0 unit SC [facility]; Protocol Last Admin: 05/06/20 12:00 Dose: 2 units Documented by: Labetalol HCl (Labetalol (Prefilled) 20 Mg/4 Ml) 10 - 20 mg IV Q10M PRN PRN PRN Reason: to Maintain BP Goals Morphine Sulfate (Morphine 2 Mg/Ml Syringe) 2 mg IV Q3H PRN PRN PRN Reason: Pain Score 6-10 Last Admin: 05/01/20 23:58 Dose: 2 mg Documented by: Nystatin (Nystatin 500,000 Unit/5 Ml Udc) 500,000 unit PO 4X/DAY [facility] Last Admin: 05/06/20 14:24 Dose: Not Given Documented by: Oxycodone HCl (Oxycodone 5 Mg Tablet) 5 mg PO Q4H PRN PRN PRN Reason: Pain Score 4-5 Last Admin: 05/02/20 18:50 Dose: 5 mg Documented by: Prochlorperazine Edisylate (Prochlorperazine 10 Mg/2 Ml Vial) 5 mg IV Q4H PRN PRN PRN Reason: Breakthrough Nausea/Vomiting Psyllium Hydrophilic Mucilloid (Psyllium 1 Packet) 1 packet PO DAILY [facility] Last Admin: 05/06/20 09:29 Dose: Not Given Documented by: Senna/Docusate Sodium (Senna/Docusate Sodium 1 Tablet) 2 tablet PO BID PRN PRN PRN Reason: Constipation Last Admin: 05/04/20 09:00 Dose: 2 tablet Documented by: Sodium Chloride (0.9% Saline Lock 10 Ml Syringe) 10 - 40 ml IV UD PRN PRN Reason: SALINE FLUSH Last Admin: 05/04/20 13:03 Dose: 10 ml Documented by: Sodium Chloride (Sodium Chloride 0.65% 1 [place].Btl) 2 spray NASAL TID PRN PRN PRN Reason: NASAL CONGESTION Last Admin: 05/05/20 13:21 Dose: 2 spray Documented by: Medical Necessity - Tobacco Use Smoking Status: Former smoker Tobacco Use: Cigarettes Route of nutrition/ use of supplements: [] Nutritional Intake: [] IV Site: [] Rayo Catheter: [] - Assessment/Plan Antibiotics: [] Assessment/Plan: [] Active and Suspected Problems Elevated troponin (Acute) Acute rhabdomyolysis (Acute) Fall (Acute) Rhabdomyolysis (Acute) Presented with stroke, rhabdo, neck pain, low grade fever and leukocytosis. CXR clear 04/28, so low suspicion for pneumonia. Fever curve improving, still some leukocytosis. UA without any wbc seen, but ucx with desouza-S ecoli. Covid Ag and PCR neg. CTs of neck only showed some degenerative disease. With worsening mental status and significant neck pain with movement, on 04/30 ordered LP, fluid studies, changed unasyn to empiric vanc/ceftriaxone/amp/acyclovir. Mental status much improved, particularly when off narcotics. LP 05/05 with wbc 25. Mildly elevated protein and glucose. Low suspicion for bacterial infection at this point, plan on treating for aseptic meningitis. HSV and VZV pcr still pending, ok for d/c to [facility]CF on 8 more days of valtrex. Sx dramatically better today. Will follow, d/w primary team
[2020-05-06 15:03] VITALS: PULSE 87
--- NOTE | 2020-05-06 15:34 | CASEMGMT ---
GENNA called [facility] and put patient on the will call list. GENNA also faxed the negative COVID test to [facility]. GENNA called [facility] and left her a voice mail letting her know patient is leaving today for [facility] today. 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 Yumiko PETIT MSW
--- NOTE | 2020-05-06 16:40 | PCM.DC.SUM ---
Discharge Date and Diagnosis - Problem List Patient Problems: Active and Suspected Problems Elevated troponin (Acute) Acute rhabdomyolysis (Acute) Fall (Acute) Rhabdomyolysis (Acute) Date of Admission: 04/25/20 Date of Discharge: 05/06/20 - Primary Discharge Diagnosis Acute Problems: Active Problems Elevated troponin (Acute) Acute rhabdomyolysis (Acute) Fall (Acute) Rhabdomyolysis (Acute) - Secondary Discharge Diagnosis Chronic Problems: Chronic Problems Hypertension (Chronic) Diabetes mellitus type 2 in obese (Chronic) Hospital Course and Treatment Imaging Results: Diagnostic Data Hip/Pelvis X-Ray 04/25/20 11:57 IMPRESSION: No acute traumatic findings Electronically Signed: Benitez Sanchez DO at 12:54 EST Tel , Service support , Brain MRI 04/26/20 09:00 IMPRESSION: Acute ischemic infarct involving the right temporal and frontal lobes Electronically Signed: Brock Peng at 10:33 EST Tel , Service support , Head MRA 04/26/20 09:00 IMPRESSION: 1. 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 2. Total occlusion of a temporal branch of the right middle cerebral artery accounting for the patient''s acute CVA. Electronically Signed: Brock Peng at 11:59 EST Tel , Service support , Neck MRA 04/26/20 09:00 IMPRESSION: Normal bilateral cervical carotid and right vertebral artery. 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 Electronically Signed: Brock Peng at 12:11 EST Tel , Service support , Brain CT 04/28/20 09:16 IMPRESSION: Acute ischemic infarct involving the posterior right chung radiata with extension into the right frontal and temporal lobes. This acute infarct is unchanged in size when compared with the previous MRI but there is some mild surrounding edema, as described above. Electronically Signed: Brock Peng at 17:08 EST Tel , Service support , Cervical Spine CT 04/28/20 09:16 IMPRESSION: No evidence for acute fracture or subluxation. Mild spondylosis most severe at C4-5 and C5-6 Electronically Signed: Vish Adame MD at 18:39 EST , Service support , Chest X-Ray 04/28/20 14:01 IMPRESSION: No acute cardiopulmonary disease. Electronically Signed: Prasad Stevens MD at 23:05 EST , Service support , Shoulder X-Ray 04/28/20 14:01 IMPRESSION: Mild degenerative changes of the right shoulder. Electronically Signed: Prasad Stevens MD at 23:17 EST , Service support , Soft Tissue Neck CT 04/29/20 13:21 IMPRESSION: No abnormality is seen. Study somewhat limited examination due to patient''s positioning. Electronically Signed: Raymundo Jaime MD at 14:19 EST Tel , Service support , Lumbar Puncture Fluoroscopy 05/05/20 09:05 IMPRESSION: Successful fluoroscopic-guided lumbar puncture. Electronically Signed: Riley Putnam, at 10:17 EST , Service support , Interpretation Summary Pulmonary artery systolic pressure is 46 mmHg. Normal LV size. Left ventricular systolic function is normal. The estimated ejection fraction is 65 %. There is moderate to severe mitral annular calcification. Mild (1+) eccentric mitral valve insufficiency. Mild focal aortic valve calcification. Contrast injection was performed. neurology Infectious Diseases- Dr Zuniga Operations: None Procedures: 2-D Echocardiogram Summary of Care Provided: The patient is a 69 year old F with an extensive past medical history as outlined which includes hypertension and type 2 diabetes mellitus. Patient was admitted to the ED on 04/25/2020 after being found on the floor where she had been lying for about 1 day. Per patient, she fell after her knees gave out. When she was found, his speech was slow and slurring and difficult to understand and she also complained of left knee pain. Her blood sugar was 302. On admission in the ED, heart rate was 106 with blood pressure of 98/82, which responded to IV fluids. She was not hypoxic and creatinine kinase was thousand 891. Urinalysis showed 100 leukocyte esterase but was negative for nitrites or WBC. EKG showed sinus tachycardia initial troponin was elevated at 0.161. Of note, patient also had left-sided weakness and so there was a concern for stroke. She was admitted and managed for acute rhabdomyolysis due to mechanical fall and debility due to mechanical fall as well as probable stroke. CT of the head was negative for any acute intracranial pathology. She was hydrated with IV fluids and placed on sliding scale for diabetes mellitus. MRI of the brain showed acute ischemic infarct of the right temporal lobes and MRA of the head showed total occlusion of the left V4 segment and total occlusion of the temporal branch of the right MCA. MRA of the neck showed normal bilateral cervical carotid and right vertebral arteries with total occlusion of the distal left vertebral artery. Neurology was contacted and neurology did not think patient was a candidate for TPA. 2D echo was ordered. She was started on aspirin and Plavix as well as high intensity statin. CPK trended down with IV fluid hydration. Troponins which were only minimally elevated also trended down and this was likely due to elevated rhabdomyolysis that is why the minimally elevated. 2D echo done showed EF of 65% with mildly enlarged left atrium. Neurology recommended KYLIE as there was concern this may be embolic stroke. This was discussed with cardiology who after reviewing patient's TTE, did not think that would be any benefit for a KYLIE especially also considering patient's frail state. Patient also had a low-grade fever and a CT of the spine done on account of persistent complaints of neck pain showed no evidence of infection. CT soft tissue of the head and neck was also negative for any abscess or any evidence of infection. X-ray done showed subtle bilateral infiltrates and she was started on IV Unasyn. Covid test done was negative. Account of persistently elevated temperature and elevated white cell count, ID was consulted. Due to persistent neck pain, there was a concern for possible meningitis so Unasyn was stopped and patient was started on vancomycin, ceftriaxone and acyclovir as well as penicillin. Plan was to do LP and so Plavix was held for 5 days and aspirin was also held for 24 hours at least prior to her getting the LP. LP done was low suspicion for bacterial meningitis and PID, patient will be treated for aseptic meningitis. Vancomycin, ceftriaxone and ampicillin were therefore discontinued and patient was continued on acyclovir. Patient work with physical therapy as well as speech therapy. Urine also cultured E. coli. Patient was skilled to a fdc and was discharged to [facility] on 05/06/2020. She was discharged a prescription for p.o. aspirin 325 mg daily which she is to take with p.o. Plavix 75 mg daily for 3 months neurology after which she is to continue with only aspirin 81 mg daily. She was also discharged on a high intensity statin and was discharged on Valtrex for 8 more days. Of note, HSV and VZV PCR was still pending but patient significantly improved. She was discharged to [facility] on 05/06/2020. She is to follow-up with her primary care doctor and is to follow-up with neurology on outpatient basis. She was seen and examined prior to discharge. She had no complaints and was resting. Review of systems otherwise negative. Neck pain had improved markedly and knee pain had also gotten better. Home medications reviewed and reconciled. [] O/E: Vital Signs Temp Pulse Resp BP Pulse Ox 97.9 F 87 20 H 136/66 H 97 05/06/20 09:33 05/06/20 15:03 05/06/20 09:33 05/06/20 09:33 05/06/20 11:49 General: Alert, and oriented, much less lethargic today HEENT: Atraumatic, PERRLA, EOMI, Normocephalic Oral: Dry Mucosa Neck: - -no tenderness with neck palpation Lungs: Clear to auscultation, Normal air movement, No rhonchi, No wheeze Cardiovascular: Regular rate, Regular Rhythm, Normal S1, Normal S2, No murmurs Abdomen: Bowel Sounds Present, Soft, Non Tender, Non-Distended, No Hepato-splenomegaly Extremities: No clubbing, No cyanosis, No edema, Capillary Refill Less than 3 Seconds Skin: No rashes, No breakdown Musculoskeletal: -no tenderness Neurological: Cranial nerves II-XII grossly intact, - - left sided paralysis from stroke Psych/Mental Status: normal affect Plan is for [facility]. Patient Problems: Active and Suspected Problems Elevated troponin (Acute) Acute rhabdomyolysis (Acute) Fall (Acute) Rhabdomyolysis (Acute) - Physical Exam Vitals/I&O's: Vital Signs Temp Pulse Resp BP Pulse Ox 97.9 F 87 20 H 136/66 H 97 05/06/20 09:33 05/06/20 15:03 05/06/20 09:33 05/06/20 09:33 05/06/20 11:49 Oxygen Flow Rate (L/min) 2 Oxygen Delivery Method Room Air Weight: 212 lb 4.882 oz Body Mass Index (BMI) 38.8 Intake and Output for Last 24 Hours 05/04/20 05/05/20 05/06/20 23:59 23:59 23:59 Intake Total 2780.75 / 2780.75 2009.0 / 2009.0 987.5 / 987.5 Output Total 2710 / 2710 1000 / 1300 1400 / 1400 Balance 70.75 / 70.75 1009.0 / 709.0 -412.5 / -412.5 Microbiology Past 72 Hours 05/06/20 14:20 Mucosa - Nose SARS-CoV-2 Antigen (Rapid) - Final 05/05/20 09:36 Csf, Spinal Fluid Gram Stain - Final 05/05/20 09:36 Csf, Spinal Fluid CSF Culture - Preliminary Culture exhibits no growth. Laboratory Results 05/05/20 09:36: CSF Comment Reviewed 05/05/20 17:07: POC Glucose 182 H 05/05/20 22:09: POC Glucose 228 H 05/06/20 05:40: WBC 12.2 H, RBC 3.92 L, Hgb 11.3 L, Hct 34.3 L, MCV 87.5, MCH 28.8, MCHC 32.9, RDW Std Deviation 42.2, RDW Coeff of Venancio 13.2, Plt Count 531 H, MPV 9.2, Immature Gran % (Auto) 1.600 H, Neut % (Auto) 69.2, Lymph % (Auto) 14.4 L, [place] % (Auto) 8.5, Eos % (Auto) 5.6 H, Baso % (Auto) 0.7, Absolute Neuts (auto) 8.4 H, Absolute Lymphs (auto) 1.75, Nucleated RBC % 0 05/06/20 05:40: Sodium 140, Potassium 3.7, Chloride 109 H, Carbon Dioxide 27.0, Anion Gap 4 L, BUN 9, Creatinine 0.78, Estim Creat Clear Calc 40.81, Est GFR (MDRD) Af Amer 93, Est GFR (MDRD) Non-Af 77, BUN/Creatinine Ratio 11.5, Glucose 197 H, Calcium 7.2 L 05/06/20 06:55: POC Glucose 222 H 05/06/20 11:59: POC Glucose 199 H Current Medications Acetaminophen (Acetaminophen 325 Mg Tablet) 650 mg PO Q6H PRN PRN PRN Reason: Pain Score 1-10/Temp > 100.7 F Last Admin: 05/05/20 17:19 Dose: 650 mg Documented by: Acetaminophen (Acetaminophen 650 Mg Suppository) 650 mg RECTAL Q6H PRN PRN PRN Reason: Temp > 100.4 Last Admin: 04/30/20 10:32 Dose: 650 mg Documented by: Amlodipine Besylate (Amlodipine 10 Mg Tablet) 10 mg PO DAILY [facility] Last Admin: 05/06/20 09:28 Dose: 10 mg Documented by: Aspirin (Aspirin 325 Mg Tablet) 325 mg PO DAILY@0800 [facility] Last Admin: 05/06/20 09:25 Dose: 325 mg Documented by: Atorvastatin Calcium (Atorvastatin Calcium 40 Mg Tablet) 40 mg PO QHS [facility] Last Admin: 05/05/20 21:10 Dose: 40 mg Documented by: Calamine/Phenol (Menthol/Lanolin/Calamine/Znox 113 Gm Tube) 1 applic TOPICAL BID [facility]; Protocol Last Admin: 05/06/20 09:24 Dose: 1 applic Documented by: Clopidogrel Bisulfate (Clopidogrel Bisulfate 75 Mg Tablet) 75 mg PO DAILY [facility] Last Admin: 05/06/20 09:29 Dose: 75 mg Documented by: Dextrose (Dextrose 50%-Water 25 Gm/50 Ml Disp.Syrin) 0 gm IV X1 PRN; Protocol PRN Reason: Hypoglycemia Enoxaparin Sodium (Enoxaparin 40 Mg/0.4 Ml Syringe) 40 mg SC DAILY [facility] Last Admin: 05/06/20 09:29 Dose: 40 mg Documented by: Famotidine (Famotidine 20 Mg Tablet) 20 mg PO BID [facility] Last Admin: 05/06/20 09:29 Dose: 20 mg Documented by: Glucagon (Glucagon 1 Mg/Ml Syringe) 1 mg IM .X1 PRN PRN Reason: Hypoglycemia Hydralazine HCl (Hydralazine 20 Mg/Ml Vial) 5 mg IV Q30M PRN PRN Reason: to maintain BP goals Acyclovir Sodium 500 mg/ (Dextrose) 260 mls @ 260 mls/hr IV Q8 [facility] Last Infusion: 05/06/20 16:00 Dose: Infused Documented by: Sodium Chloride () 250 mls @ 15 mls/hr IV .[id number] PRN PRN Reason: Saline Flush Last Infusion: 05/06/20 16:00 Dose: Infused Documented by: Sodium Chloride () 250 mls @ 15 mls/hr IV .[id number] PRN PRN Reason: Additional IVPB Infusion Last Infusion: 05/06/20 10:34 Dose: Infused Documented by: Insulin Human Lispro (Insulin Lispro 100 Unit/Ml Insuln.Pen) 0 unit SC [facility]; Protocol Last Admin: 05/06/20 12:00 Dose: 2 units Documented by: Labetalol HCl (Labetalol (Prefilled) 20 Mg/4 Ml) 10 - 20 mg IV Q10M PRN PRN PRN Reason: to Maintain BP Goals Morphine Sulfate (Morphine 2 Mg/Ml Syringe) 2 mg IV Q3H PRN PRN PRN Reason: Pain Score 6-10 Last Admin: 05/01/20 23:58 Dose: 2 mg Documented by: Nystatin (Nystatin 500,000 Unit/5 Ml Udc) 500,000 unit PO 4X/DAY [facility] Last Admin: 05/06/20 14:24 Dose: Not Given Documented by: Oxycodone HCl (Oxycodone 5 Mg Tablet) 5 mg PO Q4H PRN PRN PRN Reason: Pain Score 4-5 Last Admin: 05/02/20 18:50 Dose: 5 mg Documented by: Prochlorperazine Edisylate (Prochlorperazine 10 Mg/2 Ml Vial) 5 mg IV Q4H PRN PRN PRN Reason: Breakthrough Nausea/Vomiting Psyllium Hydrophilic Mucilloid (Psyllium 1 Packet) 1 packet PO DAILY [facility] Last Admin: 05/06/20 09:29 Dose: Not Given Documented by: Senna/Docusate Sodium (Senna/Docusate Sodium 1 Tablet) 2 tablet PO BID PRN PRN PRN Reason: Constipation Last Admin: 05/04/20 09:00 Dose: 2 tablet Documented by: Sodium Chloride (0.9% Saline Lock 10 Ml Syringe) 10 - 40 ml IV UD PRN PRN Reason: SALINE FLUSH Last Admin: 05/04/20 13:03 Dose: 10 ml Documented by: Sodium Chloride (Sodium Chloride 0.65% 1 [place].Btl) 2 spray NASAL TID PRN PRN PRN Reason: NASAL CONGESTION Last Admin: 05/05/20 13:21 Dose: 2 spray Documented by: Discharge Diet: - - pureed nectar thick diet Home Medications: Medications to take at Discharge Amlodipine [Norvasc] 10 mg PO DAILY #30 tab 05/06/20 Aspirin 325 mg PO DAILY@0800 #30 tab 05/06/20 Atorvastatin Calcium [Lipitor] 40 mg PO QHS #30 tab 05/06/20 Clopidogrel Bisulfate [Plavix] 75 mg PO DAILY #30 tab 05/06/20 Valacyclovir HCl [Valtrex] 1,000 mg PO TID #24 tab 05/06/20 Following Prescriptions Were Given to Patient: Aspirin 325 mg PO DAILY@0800 #30 tab Prescription Printed Atorvastatin Calcium [Lipitor] 40 mg PO QHS #30 tab Prescription Printed Amlodipine [Norvasc] 10 mg PO DAILY #30 tab Prescription Printed Clopidogrel Bisulfate [Plavix] 75 mg PO DAILY #30 tab Prescription Printed Valacyclovir HCl [Valtrex] 1,000 mg PO TID #24 tab Primary Care Physician: Geoffrey Garber DO [Primary Care Provider] - Please follow up with your Primary Care Physician in: 1-2 weeks Please Follow Up With: Keith Sanches MD When: 2-3 weeks for neurology outpatient follow up Disposition: [facility] facility Minutes spent on discharge:: 50 Patient Condition:: Poor Medical Necessity - Tobacco Use Smoking Status: Former smoker Tobacco Use: Cigarettes Meaningful Use Info Meaningful Use Diagnoses (Choose all that apply): Ischemic CVA - CVA Therapy Assessed for PT,OT and/or ST?: Yes - Ischemic Stroke Antithrombotic order at d/c?: Yes Dx of Atrial fib/flutter?: No Anticoagulant at discharge?: No Reason anticoagulant not ordered: Treatment not Indicated Statins at discharge?: Yes Primary Dx Acute Ischemic CVA?: Yes IV tPA ordered during stay?: No Reason IV t-PA not ordered: Treatment not Indicated Inpatient E&M: 59564 Disch Hosp
--- NOTE | 2020-05-06 16:49 | PCM.TXEXTCAR ---
- Diet 04/28/20 11:51 Diet: Carbohydrate Controlled Food consistency:: Pureed Liquid Consistency:: [place]/Mildly Thick Is pt able to select menu?: No Diet Comments: Total feed when awake/alert, HOB 90 degrees, small bites/sip via tsp only - Routine Orders/Code Status Enema Type: Fleetz Enema Frequency: Daily PRN Suppository Type: Dulcolax 10mg Suppository Frequency: Daily PRN O2 Frequency: PRN Keep PO Greater than or Equal to (%): 90 - Wound(s) Lower back Wound Type: Puncture - Therapies Weight Bearing: Weight bearing as tolerated Physical Therapy: Eval and Treat Occupational Therapy: Eval and Treat Speech Therapy: Eval and Treat - Allergies/Procedures Done in Hospital Allergies/Adverse Reactions: Allergies No Known Allergies Allergy (Verified 04/25/20 11:34) Procedures: 2-D Echocardiogram - Type of Care/Length of Stay Estimated LOS: More Than 30 Days Type of Care Needed: Skilled Rehab Potential: Fair Prognosis: Fair - Additional Orders/Day of Discharge Day of Discharge: 05/06/20 - Dietary and Speech Recommendations Dietitian Recommendations/Changes: Reweigh as able. Continue carbohydrate-controlled diet with texture/consistency as per BEATER BOSS; will liberalize therapeutic diet order as needed. Currently pureed with nectar-thick liquids. Pt is a total feed at meals and has been refusing meals---suggest TF support for nutrition if PO refusal continues. Speech Linguistic Eval Summary: Patient lives alone, reports that she manages her own medications and finances independently. Informal cognitive linguistic evaluation completed at bedside. Evaluation limited by patient's lethargy. Auditory comprehension is grossly intact. Answered simple yes/no questions w/ 1005 accuracy, complex/comparison yes/no ?s w/ 75% accuracy. Convergent naming 100%. Divergent naming - 8 items named w/in 15 seconds before failing to name additional items d/t falling asleep. Verbal expression is marked by poor breath support, reduced vocal intensity and harsh quiality. Moderate to severe dysarthria w/ minimal pitch variation and reduced articulatory precision w/ left labial droop. Speech is intelligible ~50% of the time on first attempt. Pt was tearful over current dx and anticipated loss of independence. Provided support and encouragement. Located landlord phone number in pateint's purse and provided to GENNA at patient's request. Will follow for ongoing assessment/treatment of cognitive/linguistic function/swallow function and speech production. Pt educated re: findings and plan of care - well received. - Follow Up Care Primary Care Physician: Geoffrey Garber DO [Primary Care Provider] - Please follow up with your Primary Care Physician in: 2-3 weeks Please Follow Up With: Keith Sanches MD When: 1-2 weeks; call office to set up neurology appointment
[2020-05-06 16:59] VITALS: BP 146/55; PULSE 98; RESP 20; TEMP 36.6; O2SAT 98
[2020-05-06] MEDS: Acetaminophen 325 MG Tablet 650 MG PO (17:05)
[2020-05-06 17:16] LABS: Bedside Glucose 223 mg/dL (70-110)
--- NOTE | 2020-05-06 17:57 | NURSING ---
called report to [facility], report given to Georgina. Transport to be here @ [phone].
[2020-05-07 12:07] LABS: HSV 1 By PCR Negative (Negative)
[2020-05-10 09:07] LABS: HSV 2 By PCR Negative (Negative)
== END 2020-05-06 19:15 | disposition skilled nursing facility (03) | DRG 64 ==
LOC: ED 14:11 → PCU 14:38
PROVIDERS: Hospitalist; Internal Medicine Infectious Disease; Admitting Provider Internal Medicine; Emergency Provider Emergency Medicine; PCP Family Medicine; Visit Provider Student in an Organized Health Care Education/Training Program
DX: I63.511 Cerebral infarction due to unspecified occlusion or stenosis of right middle cerebral artery (principal); J15.9 Unspecified bacterial pneumonia; G03.0 Nonpyogenic meningitis; M62.82 Rhabdomyolysis; Z68.41 Body mass index [BMI] 40.0-44.9, adult; N39.0 Urinary tract infection, site not specified; R41.4 Neurologic neglect syndrome; G81.94 Hemiplegia, unspecified affecting left nondominant side; I10 Essential (primary) hypertension; E87.6 Hypokalemia; E66.9 Obesity, unspecified; E11.65 Type 2 diabetes mellitus with hyperglycemia; I65.02 Occlusion and stenosis of left vertebral artery; W18.30XA Fall on same level, unspecified, initial encounter; I34.0 Nonrheumatic mitral (valve) insufficiency; B96.20 Unspecified Escherichia coli [E. coli] as the cause of diseases classified elsewhere; M19.90 Unspecified osteoarthritis, unspecified site; M25.561 Pain in right knee; I63.40 Cerebral infarction due to embolism of unspecified cerebral artery; M54.2 Cervicalgia; Z23 Encounter for immunization; Z79.02 Long term (current) use of antithrombotics/antiplatelets; Z79.82 Long term (current) use of aspirin; Z82.3 Family history of stroke; Y92.009 Unspecified place in unspecified non-institutional (private) residence as the place of occurrence of the external cause; Y99.8 Other external cause status; Z87.891 Personal history of nicotine dependence
CPT/HCPCS: 36415; 51702; 62270; 70450; 70491; 70544; 70547; 70551; 71045; 72125; 73030; 73502; 77003; 80048; 80053; 80061; 80202; 81001; 82550; 82945; 82962; 83036; 83605; 83615; 83735; 84157; 84443; 84484; 85025; 85610; 85730; 87040; 87070; 87086; 87088; 87186; 87205; 87426; 87449; 87529; 87633; 87635; 87641; 87798; 89050; 89051; 92523; 92526; 92610; 93005; 93306; 94762; 97110; 97162; 97166; 97530; 97535; 97802; 99285; G0008; J7030; J7040; J7050; J7120; Q9957; Q9967; 90686; A4216; C8929; J0295; J0696; U0002

== ENCOUNTER 2020-07-13 09:55 | Day surgery (SDC) | payer MEDICARE, SELFPAY ==
[2020-07-05 10:04] VITALS: BMI 37.3
--- NOTE | 2020-07-13 09:30 | GASB_PTH ---
PATIENT: MAXWELL FLOREZ LOC: EN U#:[id number] AGE/SX: 70/F ROOM: RE07/13/[address]: Dr. Min Joseph MD : 1950 BED: DIS: 07/13/2020 SPEC #: [id number] RECD: 07/13/20 11:49 STATUS: ELDON MÁRQUEZ #: [id number] LUIGI: 07/13/20 09:[address]: Min Joseph DEPT: SURGICAL PATHOLOGY RECD BY: Kailey De León ENTERED: 07/13/20 12:50 SP TYPE: Gastric Bx OTHR DR: Dr. Giovanny Porras MD Tissues: Gastric mucous membrane Procedures: Surgery Specimen Level IV HEADER OPERATION: Colonoscopy, EGD ([facility] [place]) PRE-OP DIAGNOSIS: Occult blood positive stool TISSUE SUBMITTED: Antral biopsy for H. pylori MICROSCOPIC DIAGNOSIS Gastric antrum, biopsy: Chronic gastritis. See comment. AM:gabbi 07/14/2020 COMMENT The results of immunohistochemistry for Helicobacter pylori will be reported separately ([id number]). MICROSCOPIC DESCRIPTION Slides are reviewed. GROSS DESCRIPTION Received in fixative is one container labeled with the patient's name and designated antrum biopsy. The specimen consists of one irregular fragment of light bronson soft tissue that measures 0.5 x 0.2 x 0.1 cm. The specimen is totally submitted in one cassette. / SJ:rg 07/13/20 TC:3 CPT: 15148
--- NOTE | 2020-07-13 09:30 | IMM_PTH ---
PATIENT: MAXWELL FLOREZ LOC: EN U#:[id number] AGE/SX: 70/F ROOM: RE07/13/[address]: Dr. Min Joseph MD : 1950 BED: DIS: 07/13/2020 SPEC #: [id number] RECD: 07/13/20 14:48 STATUS: ELDON REQ #: [id number] LUIGI: 07/13/20 09:[address]: Min Joseph DEPT: IMMUNOHISTOCHEMISTRY RECD BY: Ashley Perez ENTERED: 07/13/20 14:48 SP TYPE: IMMUNO OTHR DR: Dr. Giovanny Porras MD Tissues: Stomach, NOS Procedures: H Pylori (initial) PHYSICIAN & INSTITUTION [place] [id number] SPECIMEN INFORMATION: Tissue Source: Antral biopsy Clinical Info: Occult blood positive stool Specimen Number: [id number] CPT code: 62001 METHODOLOGY: Deparaffinized sections of prefer/formalin-fixed tissue or PAP/DQ stained slides are incubated with monoclonal/polyclonal antibodies/oligonucleotide probes. Localization is made via biotin free immunoperoxidase method. Appropriate controls are performed and reacted as expected. Results on target cell population are indicated in the following table: RESULTS: ANTIBODY / CLONE RESULT H Pylori (polyclonal) negative These tests were developed and their performance characteristics determined by [facility]. They may not have been cleared or approved by the U.S. Food and Drug Administration. The FDA has determined that such clearance or approval is not necessary. INTERPRETATION: Antral biopsy: Negative for Helicobacter pylori organisms. AM:gabbi 07/15/2020
--- NOTE | 2020-07-13 10:11 | HP.PCM_ITS ---
History and Physical Date of Admission: 07/13/20 Intake Vital Signs 07/05/20 Height 5 ft 2 in 07/05/20 Weight: 204 lb 07/05/20 BMI 37.3 07/05/20 BP 115/67 07/05/20 Blood Pressure Location Rt brachial 07/05/20 Position Sitting 07/05/20 Respiration 16 07/05/20 Pulse 90 07/05/20 Pulse Source Monitor 07/05/20 Temp 97.5 F L 07/05/20 Temp Source Temporal 07/05/20 Pulse Oximetry (%) 93 07/05/20 Oxygen Delivery Method room air Intake Visit Reasons: CSCOPE/ ANEMIA Chief Complaint: cscope Presser Hand Required: No Accompanied by: Caregiver Is patient in pain?: No Allergies No Known Allergies Allergy (Verified 07/05/20 10:05) Medications Valacyclovir HCl [Valtrex] 1,000 mg PO TID #24 tab 05/06/20 [Rx Confirmed 07/05/20] Lactobacillus rhamnosus GG 10 billion cell capsule 1 cap PO DAILY 07/05/20 [Hi story Confirmed 07/05/20] acetaminophen 500 mg capsule 1,000 mg PO Q6H PRN cap 07/05/20 [History Confirmed 07/05/20] ammonium lactate 10 %-emu oil topical cream 1 applic TOPICAL DAILY ml 07/05/20 [History] ascorbic acid (vitamin C) 500 mg capsule 500 mg PO QDAY cap 07/05/20 [History Confirmed 07/05/20] bisacodyl 10 mg rectal suppository 10 mg RC DAILY PRN 07/05/20 [History Confirmed 07/05/20] bisacodyl 10 mg/30 mL enema 10 mg RC DAILY PRN 07/05/20 [History] ciprofloxacin HCl 500 mg tablet 500 mg PO BID 07/05/20 [History Confirmed 07/05/20] citalopram 10 mg tablet 10 mg PO DAILY 07/05/20 [History Confirmed 07/05/20] dextrose 40 % oral gel 10 g PO Q15M PRN 07/05/20 [History Confirmed 07/05/20] guaifenesin 100 mg/5 mL oral liquid 200 mg PO Q4H PRN 07/05/20 [History Confirmed 07/05/20] insulin lispro 100 unit/mL subcutaneous solution 1 sliding scale dose SC USEASDIRECTD 07/05/20 [History Confirmed 07/05/20] magnesium hydroxide 400 mg/5 mL oral suspension 15 ml PO DAILY PRN 07/05/20 [His tory Confirmed 07/05/20] methyl salicylate 15 %-menthol 10 % topical cream 1 applic TOPICAL DAILY PRN 07/05/20 [History Confirmed 07/05/20] multivitamin,tx-minerals 1 tab PO DAILY 07/05/20 [History Confirmed 07/05/20] nystatin 100,000 unit/gram topical powder 1 applic TOPICAL DAILY 07/05/20 [History Confirmed 07/05/20] sodium chloride 0.65 % nasal spray aerosol 2 spray INTRANASAL Q4H 07/05/20 [His tory Confirmed 07/05/20] PFSH Medical History Occult blood positive stool (Acute) Anxiety (Acute) Depression (Acute) Fatigue (Acute) Diarrhea (Acute) Muscle weakness (generalized) (Acute) Hemiplegia and hemiparesis following cerebral infarction affecting left non- dominant side (Acute) Cerebral infarction, unspecified (Acute) Nonpyogenic meningitis (Acute) Pain in right knee (Acute) Hyperlipidemia, unspecified (Acute) Need for assistance with personal care (Acute) Other abnormalities of gait and mobility (Acute) Elevated troponin (Acute) Hypertension (Chronic) Diabetes mellitus type 2 in obese (Chronic) Fall (Acute) Rhabdomyolysis (Acute) Rhabdomyolysis (Acute) Surgical History Hx of foot surgery (Acute) Social History (Updated 07/06/20 @ 13:[address] Min Joseph MD) Smoking Status: Former smoker second hand exposure: No alcohol intake: never substance use type: does not use caffeine: Yes HPI HPI HPI: MAXWELL FLOREZ, is a 70 F who presents to the office today for HPI HPI Surgical H&P: Yes HPI: MAXWELL FLOREZ, is a 70 F who presents to the office today for positive fecal occult blood test. The patient has been becoming more anemic. Her hemoglobin dropped from 12 to 11-10 recently over the last 2 months. She has not noticed any gross blood in her stool. She had a positive fecal occult blood test at her detention. She has not complained of any abdominal pain or nausea or vomiting. ROS General General: Yes fatigue; no weight change, appetite, colon cancer, breast cancer or weakness HEENT HEENT: No difficulty swallowing, eye injury, eye surgery, swollen glands or hoarseness Endo Endocrine: Yes diabetes mellitus; no thyroid disease, thyroid cancer, Hair loss, heat intolerance or cold intolerance Skin Skin: No rash or changing moles Musc Musculoskeletal: Yes back problems and arthritis; no rheumatoid arthritis, gout or joint pain Cardio Cardiovascular: Yes high blood pressure; no murmur, pacemaker, heart disease, atrial fibrillation, heart attack, heart stent, palpitations, shortness of breat with exertion or chest pain Psych Psychiatric: Yes depression and anxiety; no hearing voices Resp Respiratory: Yes shortness of breath, No sleep apnea, No cough, No COPD, No asthma, No emphysema, No wheezing Gastro Gastrointestinal: No abdominal pain, No nausea or vomiting, Yes diarrhea, No constipation, Yes blood in stool, No acid reflux, No hemorrhoids, No ulcers, No gallbladder problem, No black,tarry stools Guillermo Hematologic: Yes blood thinners, No blood disorders, No bleeding, No anemia, No blood clots Neuro Neurologic: No system reviewed and no additional complaints, except as docu, No as per HPI, No abnormal walking, No abnormal hearing, No abnormal movements, No abnormal speech, No behavioral changes, No burning sensations, No confusion, No seizure-like activity, No unsteadiness, No dizziness, No localized weakness, No frequent falls, No headache(s), No lack of coordination, No loss of vision, No memory loss, No numbness, No other visual disturbances, No radiating pain, No restless legs, No sensory deficit, No fainting, No tingling, No tremor(s), No weakness, No other Exam Const General: cooperative Nutritional Appearance: overweight Orientation: alert, oriented x3 Other: Patient has drooping of the left side of the face and is wheelchair-bound due to recent CVA Resp Effort & Inspection: normal respiratory effort Auscultation: clear to auscultation bilaterally Cardio Rate: regular rate Rhythm: regular rhythm Heart Sounds: no murmurs GI Inspection: non-distended Palpation: soft, nontender Assessment & Plan Problems 1. Occult blood positive stool R19.5 Plan The patient had a recent CVA and was started on Eliquis and aspirin. It appears by her chart that these have been stopped and she is now on a baby aspirin. The patient has been becoming more anemic and had a positive fecal occult blood test. She presents today for EGD and colonoscopy. I discussed this with her and she agrees to proceed. Will plan for EGD and colonoscopy. I explained endoscopy in detail to the patient. I explained the risks including but not limited to stroke or heart attack with anesthesia, perforation of the GI tract, bleeding, infection. I explained that any of these could necessitate further emergency surgery. The patient understands and all questions were answered sufficiently. The patient wishes to proceed with procedure. We discussed the current risks associated with COVID-19. While it is understood that there is a community spread of COVID-19, the risk of yoselin COVID-19 while at [facility] ([facility]) is very low; however, the risk cannot be completely mitigated because of the community spread of the disease. We discussed in detail the risk of exposure to and/or potential harm posed by the COVID-19 virus with having a surgery/procedure at this time versus the risk of delaying the surgery/procedure. It is not possible to know either the risk of delaying the surgery or procedure or chance of getting an infection with perfect accuracy, but a joint decision was made to proceed at this time with the scheduled surgery/procedure as indicated on the consent form. Patient was notified that we will need to comply with any screening or testing [facility] wishes to perform or that surgery may be delayed for any positive results. Min Joseph MD Pager: [facility] [address] [place] [address], [address] [place] [address] Office: I have re-examined the patient. There are no clinical changes since date of exam.
[2020-07-13 10:32] VITALS: BP 132/52; PULSE 87; RESP 18; TEMP 36.6; O2SAT 100
--- NOTE | 2020-07-13 10:55 | SUR.PREOP ---
1055 PT NOTED TO HAVE 4 OPEN ULCERS TO BUTTOCKS NEAR RECTAL AREA. TAP WATER ENEMA GIVEN. BROWN STOOL RETURNED. PT ONLY TOLERATED APPROX 200ML OF ENEMA. DR WINSTON AWARE.
[2020-07-13 11:00] LABS: Bedside Glucose 138 mg/dL (70-110)
--- NOTE | 2020-07-13 11:26 | OP.EGD_ITS ---
Patient Name: Nidia Garibay Procedure Date: 07/13/2020 10:15 AM Date of : 1950 Age: 70 Procedure: Upper GI endoscopy Indications: Occult blood in stool Providers: Min Joseph MD Referring MD: Giovanny Porras MD Medicines: Monitored Anesthesia Care Patient Profile: This is a 70 year old female. Refer to note in patient chart for documentation of history and physical. Complications: No immediate complications. Estimated blood loss: Minimal. Procedure: Pre-Anesthesia Assessment: - Prior to the procedure, a History and Physical was performed, and patient medications and allergies were reviewed. The patient's tolerance of previous anesthesia was also reviewed. The risks and benefits of the procedure and the sedation options and risks were discussed with the patient. All questions were answered, and informed consent was obtained. Prior Anticoagulants: The patient has taken no previous anticoagulant or antiplatelet agents. After reviewing the risks and benefits, the patient was deemed in satisfactory condition to undergo the procedure. After obtaining informed consent, the endoscope was passed under direct vision. Throughout the procedure, the patient's blood pressure, pulse, and oxygen saturations were monitored continuously. The gastroscope was introduced through the mouth, and advanced to the second part of duodenum. The upper GI endoscopy was accomplished without difficulty. The patient tolerated the procedure well. Scope In: 11:01:57 AM Scope Out: 11:04:10 AM Total Procedure Duration Time 0 hours 2 minutes 13 seconds Findings: Scattered moderate inflammation with hemorrhage characterized by adherent blood was found in the stomach. Biopsies were taken with a cold forceps for Helicobacter pylori testing. The examined duodenum was normal. The esophagus was normal. Impression: - Gastritis with hemorrhage. Biopsied. - Normal examined duodenum. - Normal esophagus. Recommendation: - Discharge patient to a retirement (ambulatory). - Resume previous diet. - Continue present medications. - Use Prilosec (omeprazole) 40 mg PO daily. Procedure Code(s): --- Professional --- 03588, Esophagogastroduodenoscopy, flexible, transoral; with biopsy, single or multiple Diagnosis Code(s): --- Professional --- K29.71, Gastritis, unspecified, with bleeding R19.5, Other fecal abnormalities CPT copyright 2017 [employer]. All rights reserved. The codes documented in this report are preliminary and upon invoice coder review may be revised to meet current compliance requirements. Min Joseph MD 07/13/2020 11:26:03 AM This report has been signed electronically. Number of Addenda: 0 Note Initiated On: 07/13/2020 10:15 AM
--- NOTE | 2020-07-13 11:26 | OP.CCLET_ITS ---
07/13/2020 Giovanny Porras MD [address] [place] [address] Re : Upper GI endoscopy procedure for Nidia Garibay Dear Dr. Porras This procedure was performed on Monday, July 13, 2020. My impressions and recommendations are as follows: Impressions : - Gastritis with hemorrhage. Biopsied. - Normal examined duodenum. - Normal esophagus. Recommendations : - Discharge patient to a penitentiary (ambulatory). - Resume previous diet. - Continue present medications. - Use Prilosec (omeprazole) 40 mg PO daily. My findings are described in the full procedure note, which is enclosed. If I can be of further assistance, please feel free to contact me at Doctor phone number(s): , Work: . Sincerely, Min Joseph MD 07/13/2020 11:26:03 AM This report has been signed electronically.
--- NOTE | 2020-07-13 11:29 | OP.COLON_ITS ---
Patient Name: Nidia Garibay Procedure Date: 07/13/2020 11:05 AM Date of : 1950 Age: 70 Procedure: Colonoscopy Indications: Gastrointestinal occult blood loss Providers: Min Joseph MD Referring MD: Giovanny Porras MD Medicines: Monitored Anesthesia Care Patient Profile: This is a 70 year old female. Refer to note in patient chart for documentation of history and physical. Last Colonoscopy: more than 3 years ago. Complications: No immediate complications. Procedure: Pre-Anesthesia Assessment: - Prior to the procedure, a History and Physical was performed, and patient medications and allergies were reviewed. The patient's tolerance of previous anesthesia was also reviewed. The risks and benefits of the procedure and the sedation options and risks were discussed with the patient. All questions were answered, and informed consent was obtained. Prior Anticoagulants: The patient has taken no previous anticoagulant or antiplatelet agents. After reviewing the risks and benefits, the patient was deemed in satisfactory condition to undergo the procedure. After I obtained informed consent, the scope was passed under direct vision. Throughout the procedure, the patient's blood pressure, pulse, and oxygen saturations were monitored continuously. The Colonoscope was introduced through the anus and advanced to the cecum, identified by appendiceal orifice and ileocecal valve. The colonoscopy was performed without difficulty. The patient tolerated the procedure well. The quality of the bowel preparation was fair. Scope In: 11:06:24 AM Scope Withdrawal Time 0 hours 7 minutes 8 seconds Scope Out: 11:22:02 AM Total Procedure Duration Time 0 hours 15 minutes 38 seconds Findings: The entire examined colon appeared normal on direct and retroflexion views. Impression: - Preparation of the colon was fair. - The entire examined colon is normal on direct and retroflexion views. - No specimens collected. Recommendation: - Discharge patient to a penitentiary (via wheelchair). - Resume previous diet. - Continue present medications. - Repeat colonoscopy is not recommended due to current age (66 years or older) for screening purposes. Procedure Code(s): --- Professional --- 21901, Colonoscopy, flexible; diagnostic, including collection of specimen(s) by brushing or washing, when performed (separate procedure) Diagnosis Code(s): --- Professional --- R19.5, Other fecal abnormalities CPT copyright 2017 [place] [employer]. All rights reserved. The codes documented in this report are preliminary and upon certified dental assistant review may be revised to meet current compliance requirements. Min Joseph MD 07/13/2020 11:28:55 AM This report has been signed electronically. Number of Addenda: 0 Note Initiated On: 07/13/2020 11:05 AM
--- NOTE | 2020-07-13 11:29 | OP.CCLET_ITS ---
07/13/2020 Giovanny Porras MD [address] [place] [id number] Re : Colonoscopy procedure for Nidia Garibay Dear Dr. Porras This procedure was performed on Monday, July 13, 2020. My impressions and recommendations are as follows: Impressions : - Preparation of the colon was fair. - The entire examined colon is normal on direct and retroflexion views. - No specimens collected. Recommendations : - Discharge patient to a senior care (via wheelchair). - Resume previous diet. - Continue present medications. - Repeat colonoscopy is not recommended due to current age (66 years or older) for screening purposes. My findings are described in the full procedure note, which is enclosed. If I can be of further assistance, please feel free to contact me at Doctor phone number(s): , Work: . Sincerely, Min Joseph MD 07/13/2020 11:28:55 AM This report has been signed electronically.
[2020-07-13 11:30] VITALS: BP 132/52; BP 132/63; PULSE 69; RESP 18; TEMP 36.7; O2SAT 99
[2020-07-13 11:35] VITALS: BP 132/52; BP 134/59; PULSE 67; RESP 18; O2SAT 100
[2020-07-13 11:40] VITALS: BP 113/79; BP 132/52; PULSE 71; RESP 18; O2SAT 100
[2020-07-13 11:45] VITALS: BP 127/84; BP 132/52; PULSE 65; RESP 18; TEMP 37; O2SAT 100
[2020-07-13 12:32] VITALS: BP 132/52
== END 2020-07-13 13:00 ==
LOC: EN 09:57 → AC 09:57
PROVIDERS: PCP Family Medicine; Referring Provider Family Medicine; Visit Provider Surgery
PROC: 0DJD8ZZ Inspection of Lower Intestinal Tract, Via Natural or Artificial Opening Endoscopic (ICD-10-PCS; CPT 45378; principal; 2020-07-13 09:25)
DX: K29.50 Unspecified chronic gastritis without bleeding (principal); R19.5 Other fecal abnormalities; E11.9 Type 2 diabetes mellitus without complications; E66.9 Obesity, unspecified; Z79.01 Long term (current) use of anticoagulants; Z79.4 Long term (current) use of insulin; Z87.891 Personal history of nicotine dependence; I10 Essential (primary) hypertension
CPT/HCPCS: 43239; 45378; 82962; 88305; 88342; J7120; J2405

== ENCOUNTER 2020-09-05 22:45 | Inpatient (IN) | payer MEDICARE, SELFPAY ==
[2020-07-05 10:04] VITALS: BMI 37.3
[2020-09-05 23:04] VITALS: BP 122/56; PULSE 112; RESP 26; TEMP 37; O2SAT 100; BMI 33.2
--- NOTE | 2020-09-05 23:13 | CT_ITS ---
STUDY: CT ABDOMEN AND PELVIS WITHOUT CONTRAST REASON FOR EXAM: Female, 70 years old. Pain RADIATION DOSAGE (If Supplied By Facility): CTDIvol = ( 21.54 ) mGy, DLP = ( 1119.27 ) mGycm TECHNIQUE: Transaxial images were obtained from the dome of the diaphragm to the symphysis pubis without oral contrast, and without intravenous contrast. Sagittal and coronal images were reconstructed. Individualized dose optimization techniques were used for this CT. COMPARISON: None. FINDINGS: Bilateral basilar atelectatic changes are present. The visualized portions of the heart are within normal limits. Normal liver. Normal gallbladder and extrahepatic biliary system. Normal spleen. There is diffuse atrophy of the pancreas. Normal bilateral adrenal glands. Bilateral moderate renal hydronephrosis and ureteral dilatation is present with no evidence of underlying nephrolithiasis or ureteral stone. Normal visualized stomach. Normal small intestine. Normal colon. The appendix is visualized and appears normal. Normal abdominal aorta. Normal inferior vena cava. Normal retroperitoneum. Urinary bladder is dilated with mild haziness of the urinary bladder wall concerning for underlying inflammatory process. There is appearance of hyperdense debris layering with JOHNSON catheter in place and iatrogenic dependent layering air. Normal abdominal wall. Normal osseous structures. CT/Abdomen/Pelvis without Cont IMPRESSION: 1. Dilated bladder lumen with question of peripheral bladder wall inflammatory stranding and layering debris concerning for underlying cystitis with secondary mild to moderate ureteral dilatation and hydronephrosis, clinically correlate. Electronically Signed: Kwame Mcadams DO at 0:16 EDT , Service support ,
--- NOTE | 2020-09-05 23:17 | ED.VIS.GI ---
History of Present Illness Chief Complaint: Abd Pain Narrative: Patient presenting for evaluation secondary to abdominal pain. Patient lives in a detention, has a history of a hemiparetic stroke. Patient apparently over the course of about the last 3 days has had decreased p.o. intake, intermittent vomiting, no bowel movements, and increasing abdominal pain. Patient is also noted to have a mass on the left side of her abdomen that has apparently been growing in size. Patient denies to me that she has any history of abdominal surgeries. No urinary complaints, patient has a chronic Rayo catheter. No reports of fevers. Patient states that she is known about this abdominal mass, but is unsure of how long. She is unable to tell me what it is or characterize it. Past Medical History - Allergies and Home Meds Allergies/Adverse Reactions: Allergies No Known Allergies Allergy (Verified 07/13/20 10:31) Primary Care Physician: Giovanny Porras MD [Primary Care Provider] - Prior records reviewed: Yes Past Medical History: - - Hemiplegia, diabetes, hypertension, hyperlipidemia Lives: Shelter Smoking Status: Never smoker Alcohol: None Drugs: None - Family History Maternal Family History: Reports: Stroke Review of Systems All systems negative except as indicated General: Denies: Chills, Fever, Sweats Eyes: Denies: Visual changes - bilaterally, Diplopia ENT: Denies: Rhinorrhea, Sore throat Cardiovascular: Denies: Chest pain, Palpitations Respiratory: Denies: Dyspnea, Cough, Dyspnea on exertion Gastrointestinal: Reports: Abdominal pain, Nausea, Vomiting, Constipation Genitourinary: Denies: Dysuria, Hematuria, Frequency Musculoskeletal: Denies: Back pain, Extremity Pain Skin: Denies: Rash, Wounds Neurological: Denies: Headache, Weakness, Numbness Physical Exam Vital Signs/Narrative: Vital Signs Temp Pulse Resp BP Pulse Ox 09/05/20 23:04 98.6 F 112 H 26 H 122/56 H 100 Inital Vital Signs reviewed: Yes General: - - Chronically ill-appearing female laying in bed not acutely distressed Head: Normocephalic, Atraumatic Eyes: Negative for: Pale conjunctiva, Scleral icterus ENT: Dry mucous membranes Neck: Supple, Nontender Cardiovascular: Regular rhythm, Tachycardia, - - 3 out of 6 systolic murmur noted, 2+ radial pulses bilaterally symmetric Respiratory: No distress, CTA bilaterally, - - Minimal tachypnea Abdomen: - - Abdomen is diffusely tender with a palpable mass noted in the left mid abdomen that is also tender to palpation no overlying skin changes are noted. There is some guarding, no rebound tenderness is noted. Abdomen is not significantly tympanic. Extremities: Edema, - - Bilateral edema is noted left being worse than right secondary to the patient's history of hemiparesis Skin: Normal color, No rash Neurological: - - Left-sided hemiparesis is noted which is at the patient's baseline Diagnostic/Tx/Re-eval Clinical Impression(s) from Imaging Studies Abdomen/Pelvis CT 09/05/20 23:13 IMPRESSION: 1. Dilated bladder lumen with question of peripheral bladder wall inflammatory stranding and layering debris concerning for underlying cystitis with secondary mild to moderate ureteral dilatation and hydronephrosis, clinically correlate. Electronically Signed: Kwame Mcadams DO at 0:16 EDT , Service support , Laboratory Data 09/05/20 09/05/20 09/05/20 23:44 23:44 23:49 WBC 14.4 H RBC 4.49 Hgb 12.9 Hct 41.0 MCV 91.3 MCH 28.7 MCHC 31.5 L RDW Std Deviation 51.9 H RDW Coeff of Venancio 15.5 H Plt Count 330 MPV 10.0 Immature Gran % (Auto) 0.300 Neut % (Auto) 89.4 H Lymph % (Auto) 2.8 L [place] % (Auto) 3.8 Eos % (Auto) 3.1 Baso % (Auto) 0.6 Absolute Neuts (auto) 12.9 H Absolute Lymphs (auto) 0.40 L Nucleated RBC % 0 Specimen Type SIMONA VBG pH 7.41 VBG pO2 45 H VBG HCO3 23 VBG Total CO2 24 VBG O2 Sat (Calc) 82 H VBG Base Excess -2 L POC Mix VBG pCO2 Pt Tmp 35.6 L Liter Flow 2.0 Sodium 140 Potassium 3.9 Chloride 107 Carbon Dioxide 24.0 Anion Gap 9 BUN 52 H Creatinine 2.10 H Estim Creat Clear Calc 19.15 Est GFR (MDRD) Af Amer 30 L Est GFR (MDRD) Non-Af 25 L BUN/Creatinine Ratio 24.8 H Glucose 251 H Calcium 9.3 Total Bilirubin 0.30 AST 10 L ALT 13 Alkaline Phosphatase 73 Total Protein 6.1 L Albumin 2.1 L Globulin 4.0 Albumin/Globulin Ratio 0.5 L Lipase 42 L - Medical Decision Making Patient presented with complaints of abdominal pain. She was noted to be dry and tachycardic upon arrival, IV fluid resuscitation was started she was given morphine and Zofran. Laboratory work-up demonstrates patient did have a leukocytosis of 14,000. She has acute kidney injury with a creatinine of 2.1 with a baseline of 0.7, no significant electrolyte derangements are noted and the patient has a normal anion gap. Patient's venous blood gas shows a pH of 7.4 with a mildly low CO2 of 35.6 and a bicarb of 22.7. CT abdomen and pelvis on the patient shows dilation of the patient's bladder with some changes consistent with cystitis as well as some hydronephrosis. I went back and reevaluated the patient, and it would seem that her Rayo catheter that is in place is not currently draining. Nursing staff was requested to change this. Due to the changes consistent with cystitis on her CT scan I do have some concern for the possibility of sepsis the patient's urine is cultured, patient be given a dose of Rocephin. Patient will be admitted for further treatment. ED Disposition - Plan for ED Patient: Disposition: Acute Care [facility] Diagnosis: Urinary retention, Extrarenal azotemia, Cystitis, Malfunction of Rayo catheter, Sepsis
[2020-09-05 23:28] VITALS: BP 117/57; PULSE 115; RESP 26; TEMP 37.1; O2SAT 99
[2020-09-05 23:54] LABS: Absolute Neutrophil Count 12.9 X10^3/uL (2.0-7.7); Basophil# 0.08 X10^3/uL; Basophil% 0.6 % (0-1); Eosinophil# 0.45 X10^3/uL; Eosinophils% 3.1 % (0-5); Hemoglobin 12.9 g/dL (12.0-15.0); Lymphocyte % 2.8 % (19-41); Mean Corp Hgb Conc 31.5 g/dL (32-36); Mean Corpuscular Hgb 28.7 pg (27.0-32.0); Mean Corpuscular Volume 91.3 fL (81-99); Monocyte# 0.55 X10^3/uL; Monocyte% 3.8 % (0-10); NRBC Flagged by Analyzer 0 % (0-5); Neutrophil # 12.87 X10^3/uL (2.7-7.7); Neutrophil % 89.4 % (47-70); POSITIVE COUNT YES; POSITIVE DIFFERENTIAL YES; POSITIVE MORPHOLOGY YES; Platelet Count 330 K/mm3 (150-450); RBC Distribution Width CV 15.5 % (11.6-14.6); RBC Distribution Width SD 51.9 fl (35.1-43.9); Red Blood Count 4.49 M/mm3 (4.2-5.4); White Blood Count 14.4 K/mm3 (4.4-11.0)
[2020-09-05] MEDS: 0.9% Normal Saline 1,000 ML 1000 ML IV (23:54)
[2020-09-05] MEDS: Ondansetron 4 MG/2 ML Vial IV (23:54)
[2020-09-05 23:55] LABS: Differential Indicated SCAN CRITERIA MET
[2020-09-05] MEDS: Morphine 4 MG/ML Syringe IV (23:55)
[2020-09-05 23:56] LABS: Blood Gas Specimen Type VEN; VBG BASE EXCESS -2 mmol/L (-1.0-3.5); VBG Bicarbonate 23 mmol/L (22-26); VBG PO2 45 mmHg (25-40); VBG SO2 82 % (50-70); VBG TCO2 24 mmol/L (23-33); VBG pCO2 35.6 mmHg (41-51); VBG pH 7.41 (7.32-7.42)
[2020-09-06] VITALS (18 sets, daily range): BP systolic 94–135; BP diastolic 44–89; PULSE 99–116; RESP 16–23; TEMP 36.4–37.2; O2SAT 89–100; BMI 31.4
[2020-09-06 00:15] LABS: ALB/GLOB Ratio 0.5 RATIO (0.9-2.4); AST(SGOT) 10 U/L (15-37); Alanine Aminotransfer ALT/SGPT 13 U/L (13-56); Albumin, Serum 2.1 g/dL (3.2-5.0); Alkaline Phosphatase 73 U/L (45-117); Anion Gap 9 (5-15); BUN 52 mg/dL (7-18); BUN/Creat Ratio 24.8 RATIO (10-20); Calcium,Total 9.3 mg/dL (8.5-10.1); Chloride 107 mmol/L (98-107); EST Glomerular Filtration Rate 25 mL/min (>60); Est Glom Filt Rate - Afr Amer 30 mL/min (>60); Estimated Creatinine Clearance 19.15 ml/min; Glucose 251 mg/dL (74-106); Lipase 42 U/L (73-393); Potassium 3.9 mmol/L (3.5-5.1); Protein, Total 6.1 g/dL (6.4-8.2); Sodium Level 140 mmol/L (136-145)
--- NOTE | 2020-09-06 00:58 | PCM.HP.STD ---
Problem List (1) Urinary retention Status: Acute (2) Extrarenal azotemia Status: Acute (3) Cystitis Status: Acute (4) Malfunction of Rayo catheter Status: Acute (5) Sepsis Status: Acute (6) Occult blood positive stool Status: Inactive (7) Hx of foot surgery Status: Chronic (8) Anxiety Status: Chronic (9) Depression Status: Chronic (10) Fatigue Status: Inactive (11) Diarrhea Status: Inactive (12) Muscle weakness (generalized) Status: Chronic (13) Hemiplegia and hemiparesis following cerebral infarction affecting left non-dominant side Status: Chronic (14) Cerebral infarction, unspecified Status: Chronic (15) Nonpyogenic meningitis Status: Inactive (16) Pain in right knee Status: Inactive (17) Hyperlipidemia, unspecified Status: Chronic (18) Need for assistance with personal care Status: Chronic (19) Other abnormalities of gait and mobility Status: Chronic (20) Elevated troponin Status: Inactive (21) Hypertension Status: Chronic (22) Diabetes mellitus type 2 in obese Status: Chronic (23) Fall Status: Inactive (24) Rhabdomyolysis Status: Inactive History of Present Illness Date of Admission: 09/06/20 Chief Complaint: Abdominal pain The patient is a 70 year old F with a significant history of CVA with left hemiplegia; hypertension; diabetes mellitus and a chronic Rayo who presents emergency department from the group home secondary to abdominal pain. Patient is very less talkative and does not describe her abdominal pain any further. Associated with her symptoms is poor oral intake; constipation; nausea and vomiting. She stated her symptoms has been going on for few days without specifying the number of days. At emergency department her chronic indwelling Rayo catheter had only small dirty urine in the bag. Past Medical History Past Medical History (Chronic Problems): Chronic Problems (Last Reviewed 09/06/20 @ 01:[address] Timbo Gutiérrez MD) Hx of foot surgery (Chronic) Anxiety (Chronic) Depression (Chronic) Muscle weakness (generalized) (Chronic) Hemiplegia and hemiparesis following cerebral infarction affecting left non-dominant side (Chronic) Cerebral infarction, unspecified (Chronic) Hyperlipidemia, unspecified (Chronic) Need for assistance with personal care (Chronic) Other abnormalities of gait and mobility (Chronic) Hypertension (Chronic) Diabetes mellitus type 2 in obese (Chronic) Medical History: Medical History (Last Reviewed 09/06/20 @ 05:[address] Timbo Gutiérrez MD) Occult blood positive stool (Acute) R19.5 Anxiety (Acute) F41.9 Depression (Acute) F32.9 Fatigue (Acute) R53.83 Diarrhea (Acute) R19.7 Muscle weakness (generalized) (Acute) M62.81 Hemiplegia and hemiparesis following cerebral infarction affecting left non-dominant side (Acute) I69.354 Cerebral infarction, unspecified (Acute) I63.9 Nonpyogenic meningitis (Acute) G03.0 Pain in right knee (Acute) M25.561 Hyperlipidemia, unspecified (Acute) E78.5 Need for assistance with personal care (Acute) Z74.1 Other abnormalities of gait and mobility (Acute) R26.89 Elevated troponin (Acute) R77.8 Hypertension (Chronic) I10 Diabetes mellitus type 2 in obese (Chronic) E11.69, E66.9 Fall (Acute) W19.XXXA Rhabdomyolysis (Acute) M62.82 Rhabdomyolysis M62.82 Allergies No Known Allergies Allergy (Verified 07/13/20 10:31) Home Medications: Ambulatory Orders Medication Instructions Recorded acetaminophen 500 mg capsule 1,000 mg PO TID PRN cap 07/05/20 ammonium lactate 10 %-emu oil 1 applic TOPICAL DAILY ml 07/05/20 topical cream bisacodyl 10 mg rectal suppository 10 mg RC DAILY PRN 07/05/20 citalopram 10 mg tablet 10 mg PO DAILY 07/05/20 dextrose 40 % oral gel 10 g PO Q15M PRN 07/05/20 guaifenesin 100 mg/5 mL oral liquid 10 ml PO Q4H PRN 07/05/20 insulin lispro 100 unit/mL 1 sliding scale dose SC 07/05/20 subcutaneous solution USEASDIRECTD magnesium hydroxide 400 mg/5 mL 30 ml PO DAILY PRN 07/05/20 oral suspension methyl salicylate 15 %-menthol 10 1 applic TOPICAL Q4H PRN 07/05/20 % topical cream multivitamin,tx-minerals 1 tab PO DAILY 07/05/20 nystatin 100,000 unit/gram topical 1 applic TOPICAL DAILY 07/05/20 powder sodium chloride 0.65 % nasal spray 2 spray INTRANASAL BID 07/05/20 aerosol Aspirin [Aspirin EC] 81 mg PO DAILY 07/09/20 Omeprazole 20 mg PO DAILY #60 tablet. 07/13/20 Insulin Glargine,Hum.rec.anlog 10 unit SC DAILY 09/06/20 [Lantus Solostar] Ondansetron HCl [Zofran] 4 mg PO Q4H PRN 09/06/20 Surgical History: Surgical History (Last Reviewed 09/06/20 @ 01:[address] Timbo Gutiérrez MD) Hx of foot surgery (Acute) Z98.890 Lives: [facility]dc Smoking Status: Never smoker Alcohol: None Drugs: None - *Family History Maternal History Items: Stroke Paternal History Items: Stroke Review of Systems Constitutional: Reports: Anorexia. Denies: Chills, Fever, Weight Change HEENT: Denies: Head Aches, Sinus Congestion, Sinus Drainage Cardiovascular: Denies: Chest Pain, Palpitations Respiratory: Denies: Cough, Shortness of breath at rest, Sputum production Gastrointestinal: Reports: Abdominal Pain, Nausea, Vomiting Genitourinary: Denies: Dysuria Musculoskeletal: Denies: Joint Pain, Joint Tenderness Skin: Reports: Wounds. Denies: Rash Neurological: Denies: Numbness, Tingling, Focal weakness Psychiatric: Denies: Anxiety, Depression, Homicidal Ideations, Suicidal Ideations Hematologic/ Lymphatic: Denies: Easy Bruising, Easy Bleeding VTE Information - Inpt Only VTE Present on Admission: No VTE Mechan Device Prophylaxis: None VTE Pharm Prophylaxis ordered?: Yes Patient Problems: Active and Suspected Problems (Last Reviewed 09/06/20 @ 01:[address] Timbo Gutiérrez MD) Urinary retention (Acute) Extrarenal azotemia (Acute) Cystitis (Acute) Malfunction of Rayo catheter (Acute) Sepsis (Acute) - Physical Exam Vitals/I&O's: Vital Signs Temp Pulse Resp BP Pulse Ox 98.4 F 108 H 23 H 97/49 L 98 09/06/20 00:12 09/06/20 00:12 09/06/20 00:12 09/06/20 00:12 09/06/20 00:12 Oxygen Flow Rate (L/min) 2 Oxygen Delivery Method Room Air Weight: 82.3 kg Body Mass Index (BMI) 33.2 General: Alert, Oriented x3, Cooperative HEENT: Atraumatic, PERRLA, EOMI, Normocephalic Neck: Supple, No JVD, Negative Carotid Bruits Lungs: Clear to auscultation, Normal air movement Cardiovascular: Regular rate, Murmur - reports chronic Abdomen: Bowel Sounds Present, Soft, Non Tender Extremities: No edema, Capillary Refill Less than 3 Seconds Skin: Excoriated - Sacrococcygeal area and lateral side of right foot, - Musculoskeletal: No Tenderness to Palpation of Joints or Extremities Neurological: Cranial nerves II-XII grossly intact, - - Flaccid left upper and left lower extremity. Right upper extremity strength 3 out of 5. Right lower extremity strength 4 out of 5 Psych/Mental Status: Normal Affect, Appropriate Laboratory Results 09/05/20 23:44: WBC 14.4 H, RBC 4.49, Hgb 12.9, Hct 41.0, MCV 91.3, MCH 28.7, MCHC 31.5 L, RDW Std Deviation 51.9 H, RDW Coeff of Venancio 15.5 H, Plt Count 330, MPV 10.0, Immature Gran % (Auto) 0.300, Neut % (Auto) 89.4 H, Lymph % (Auto) 2.8 L, [place] % (Auto) 3.8, Eos % (Auto) 3.1, Baso % (Auto) 0.6, Absolute Neuts (auto) 12.9 H, Absolute Lymphs (auto) 0.40 L, Nucleated RBC % 0 09/05/20 23:44: Sodium 140, Potassium 3.9, Chloride 107, Carbon Dioxide 24.0, Anion Gap 9, BUN 52 H, Creatinine 2.10 H, Estim Creat Clear Calc 19.15, Est GFR (MDRD) Af Amer 30 L, Est GFR (MDRD) Non-Af 25 L, BUN/Creatinine Ratio 24.8 H, Glucose 251 H, Calcium 9.3, Total Bilirubin 0.30, AST 10 L, ALT 13, Alkaline Phosphatase 73, Total Protein 6.1 L, Albumin 2.1 L, Globulin 4.0, Albumin/Globulin Ratio 0.5 L, Lipase 42 L 09/05/20 23:49: Specimen Type SIMONA, VBG pH 7.41, VBG pO2 45 H, VBG HCO3 23, VBG Total CO2 24, VBG O2 Sat (Calc) 82 H, VBG Base Excess -2 L, POC Mix VBG pCO2 Pt Tmp 35.6 L, Liter Flow 2.0 Assessment/Plan All Active Problems (Last Reviewed 09/06/20 @ 01:[address] Timbo Gutiérrez MD) Urinary retention (Acute) Extrarenal azotemia (Acute) Cystitis (Acute) Malfunction of Rayo catheter (Acute) Sepsis (Acute) The patient is a 70 year old F with a significant history of CVA with left hemiplegia; hypertension; diabetes mellitus and a chronic Rayo who presents emergency department from the group home secondary to abdominal pain; nausea; vomiting; poor oral intake and with a clogged Rayo catheter; and with radiographic findings of dilated bladder lumen; moderate urethra dilatation and hydronephrosis Sepsis secondary to acute cystitis with indwelling catheter contributing SIRS criteria: Heart rate in the 110; respiratory rate in the mid 20s. Patient with abnormal urinalysis. Started at the ED on ceftriaxone and continued Urine culture ordered. Blood culture x2 ordered emergency department; follow Trend CBC and BMP VERA on CKD stage III/hydronephrosis VERA on chronic kidney disease stage III CKD Likely from Diabetic nephropathy and hypertensive nephrosclerosis Baseline creatinine of less than 1 Creatinine on admission was 2.10 VERA is likely secondary to post obstruction from clogged Rayo catheter Rayo catheter change at the emergency department with dirty looking urine and with gross hematuria. IV fluid bolus given at emergency department. Will start patient on gentle IV hydration. Urology consult Constipation Senokot-S ordered Pressure ulcer stage II on coccyx/pressure ulcer on right foot Calmoseptine to coccygeal area Foam boot to bilateral legs DVT prophylaxis SCD ordered. Chemical thrombolysis not ordered secondary to gross hematuria. Inpatient E&M: [id number] Init Hosp L3
[2020-09-06] MEDS: 0.9% Normal Saline 1,000 ML 999 ML IV (01:26)
[2020-09-06] MEDS: Ceftriaxone 1 GM/50 ML BAG IV ×2 (01:26→22:10)
[2020-09-06 01:27] LABS: Lactic Acid 1.7 mmol/L (0.4-1.9)
--- NOTE | 2020-09-06 01:43 | ED.RN ---
silverio from [facility] removed, once balloon was deflated foul, purulent red cloudy urine poured out. shirley care given, new silverio 16f inserted, 750 out in the silverio bag.
[2020-09-06] MEDS: 0.9% Normal Saline 1,000 ML 75 ML IV ×2 (02:54→16:30)
[2020-09-06 05:52] LABS: Absolute Lymphocyte Count 0.33 X10^3/uL (0.83-4.51); Absolute Neutrophil Count 12.4 X10^3/uL (2.0-7.7); Basophil# 0.08 X10^3/uL; Basophil% 0.6 % (0-1); Eosinophil# 0.01 X10^3/uL; Eosinophils% 0.1 % (0-5); Hematocrit 37.3 % (37-47); Hemoglobin 11.7 g/dL (12.0-15.0); Lymphocyte # 0.33 X10^3/ul (4.0); Lymphocyte % 2.5 % (19-41); Mean Corp Hgb Conc 31.4 g/dL (32-36); Mean Corpuscular Hgb 29.4 pg (27.0-32.0); Mean Corpuscular Volume 93.7 fL (81-99); Mean Platelet Vol. 9.9 fl (6.2-12.0); Monocyte# 0.34 X10^3/uL; Monocyte% 2.6 % (0-10); NRBC Flagged by Analyzer 0 % (0-5); Neutrophil # 12.37 X10^3/uL (2.7-7.7); Neutrophil % 93.6 % (47-70); POSITIVE DIFFERENTIAL YES; POSITIVE MORPHOLOGY YES; Platelet Count 289 K/mm3 (150-450); RBC Distribution Width CV 15.5 % (11.6-14.6); RBC Distribution Width SD 53.7 fl (35.1-43.9); Red Blood Count 3.98 M/mm3 (4.2-5.4); White Blood Count 13.2 K/mm3 (4.4-11.0)
[2020-09-06 06:12] LABS: Differential Indicated SCAN CRITERIA MET
[2020-09-06 06:19] LABS: Anion Gap 8 (5-15); BUN 46 mg/dL (7-18); BUN/Creat Ratio 29.9 RATIO (10-20); Calcium,Total 9.2 mg/dL (8.5-10.1); Chloride 109 mmol/L (98-107); Creatinine, Serum 1.54 mg/dL (0.55-1.02); EST Glomerular Filtration Rate 35 mL/min (>60); Est Glom Filt Rate - Afr Amer 43 mL/min (>60); Estimated Creatinine Clearance 26.12 ml/min; Glucose 240 mg/dL (74-106); Potassium 3.8 mmol/L (3.5-5.1); Sodium Level 141 mmol/L (136-145)
[2020-09-06] MEDS: Aspirin E.C. 81 MG Tablet PO (08:33)
[2020-09-06] MEDS: Menthol/Lanolin/Calamine/Znox 113 GM Tube 1 APPLIC TOPICAL ×2 (08:34→21:06)
[2020-09-06] MEDS: Glucerna Shake 120 ML LIQUID PO ×2 (08:34→17:04)
[2020-09-06] MEDS: Ammonium Lactate 225 gm Bottle 1 APPLIC TOPICAL (08:35)
[2020-09-06] MEDS: Citalopram 10 MG Tablet PO (08:35)
[2020-09-06] MEDS: Senna/Docusate Sodium 1 Tablet 2 TABLET PO ×2 (08:39→22:09)
[2020-09-06] MEDS: Pantoprazole Sodium 20 MG Tablet PO (08:39)
[2020-09-06] MEDS: Nystatin Powder 15gm Bottle 1 APPLIC TOPICAL (08:39)
--- NOTE | 2020-09-06 09:18 | RAD_ITS ---
STUDY: X-RAY - LEFT WRIST REASON FOR EXAM: Female, 70 years old. redness/swelling TECHNIQUE: 3 view(s) of the wrist were obtained. COMPARISON: None. FINDINGS: Normal visualized distal radius and ulna. Normal radiocarpal articulation. Normal distal radioulnar articulation. Normal carpal bones. Normal carpal articulations. There is degenerative arthrosis of the carpometacarpal articulation of the thumb. Normal second through fifth carpometacarpal articulations. Normal visualized metacarpal bones. The soft tissue structures are unremarkable. There is non-specific soft tissue swelling. There are vascular calcifications. RAD/Wrist min 3 Views IMPRESSION: Nonspecific soft tissue swelling without destructive bony process. Electronically Signed: Mello Mendes MD ([place]) at 10:24 EDT , Service support ,
--- NOTE | 2020-09-06 09:18 | RAD_ITS ---
STUDY: X-RAY - LEFT RADIUS AND ULNA REASON FOR EXAM: Female, 70 years old. Redness and swelling of the left forearm TECHNIQUE: 2 view(s) of the forearm. COMPARISON: None. FINDINGS: There is non-specific soft tissue swelling. Vascular calcifications are present. Normal visualized radius. Normal visualized ulna. RAD/Forearm 2 Views IMPRESSION: Nonspecific soft tissue swelling without destructive/erosive process. Electronically Signed: Mello Mendes MD ([place]) at 10:23 EDT , Service support ,
--- NOTE | 2020-09-06 09:18 | RAD_ITS ---
STUDY: X-RAY - LEFT HAND REASON FOR EXAM: Female, 70 years old. swelling/redness TECHNIQUE: 3 view(s) of the hand. COMPARISON: None. FINDINGS: Normal radiocarpal articulation. Normal distal radioulnar joint. Normal visualized carpal bones. Normal carpal articulations There is degenerative arthrosis of the carpometacarpal (CMC) articulation of the thumb. Normal second through fifth carpometacarpal joints. Normal metacarpi. Normal metacarpophalangeal joint of the thumb. Normal interphalangeal joint of the thumb. Normal proximal and distal phalanges of the thumb. Normal metacarpophalangeal joints of the second through fifth fingers. Normal proximal and distal interphalangeal joints of the second through fifth fingers. Normal phalanges of the second through fifth fingers. Nonspecific soft tissue swelling. Vascular calcifications. RAD/Hand Min 3 Views IMPRESSION: No destructive bony process. Diffuse soft tissue swelling. Electronically Signed: Mello Mendes MD ([place]) at 10:24 EDT , Service support ,
--- NOTE | 2020-09-06 10:03 | CASEMGMT ---
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 SW spoke with Flakita at [facility]. SW faxed updates to [facility]. Plan: d/c back to [facility]. Yumiko PETIT
[2020-09-06 10:36] LABS: Bedside Glucose 228 mg/dL (70-110)
--- NOTE | 2020-09-06 11:25 | PN_ITS ---
Patient Problems: Active and Suspected Problems (Last Reviewed 09/06/20 @ 05:[address] Timbo Gutiérrez MD) Urinary retention (Acute) Extrarenal azotemia (Acute) Cystitis (Acute) Malfunction of Rayo catheter (Acute) Sepsis (Acute) Subjective: Patient seen and examined. She was quite lethargic; she had no active complaints. Nurse informed me she had noticed patient's left hand was swollen and tender. Paitent couldnt tell me much about the left hand, though she had significant pain when the left hand was moved. Review of systems was otherwise negative. She has been hemodynamically stable this morning. Vitals/I&O's: Vital Signs Temp Pulse Resp BP Pulse Ox 97.9 F 100 17 127/72 H 99 09/06/20 07:55 09/06/20 10:34 09/06/20 07:55 09/06/20 07:55 09/06/20 09:17 Oxygen Flow Rate (L/min) 3 Oxygen Delivery Method Nasal Cannula Weight: 171 lb 8.314 oz Body Mass Index (BMI) 31.4 Intake and Output for Last 24 Hours 09/04/20 09/05/20 09/06/20 23:59 23:59 23:59 Intake Total 2049 / 2049 Output Total 300 / 300 Balance 1750 / 1750 General: Alert, Cooperative, Lethargic HEENT: Atraumatic, PERRLA, EOMI, Normocephalic Oral: Dry Mucosa Neck: Supple, No JVD, Negative Carotid Bruits Lungs: Clear to auscultation, Normal air movement, No rhonchi, No wheeze Cardiovascular: Regular rate, Regular Rhythm, Normal S1, Normal S2, No murmurs Abdomen: Bowel Sounds Present, Soft, Non Tender, Non-Distended, No Hepato- splenomegaly Extremities: - - left hand mildly erythematous, up to the mid forearm, swollen, tender to touch. No obvious deformity. mild differential warmth Skin: No rashes, No breakdown Musculoskeletal: No Tenderness to Palpation of Joints or Extremities Lymphatic: No Cervical, Supraclavicular, or Inguinal Adenopathy Neurological: Cranial nerves II-XII grossly intact, Motor Exam 5/5 strength throughout Psych/Mental Status: - - drowsy Microbiology Past 72 Hours 09/06/20 00:49 Blood Culture (Wb) - Left Hand Blood Culture - Preliminary Laboratory Results 09/05/20 23:44: WBC 14.4 H, RBC 4.49, Hgb 12.9, Hct 41.0, MCV 91.3, MCH 28.7, MCHC 31.5 L, RDW Std Deviation 51.9 H, RDW Coeff of Venancio 15.5 H, Plt Count 330, MPV 10.0, Immature Gran % (Auto) 0.300, Neut % (Auto) 89.4 H, Lymph % (Auto) 2.8 L, [place] % (Auto) 3.8, Eos % (Auto) 3.1, Baso % (Auto) 0.6, Absolute Neuts (auto) 12.9 H, Absolute Lymphs (auto) 0.40 L, Nucleated RBC % 0 09/05/20 23:44: Sodium 140, Potassium 3.9, Chloride 107, Carbon Dioxide 24.0, Anion Gap 9, BUN 52 H, Creatinine 2.10 H, Estim Creat Clear Calc 19.15, Est GFR (MDRD) Af Amer 30 L, Est GFR (MDRD) Non-Af 25 L, BUN/Creatinine Ratio 24.8 H, Glucose 251 H, Calcium 9.3, Total Bilirubin 0.30, AST 10 L, ALT 13, Alkaline Phosphatase 73, Total Protein 6.1 L, Albumin 2.1 L, Globulin 4.0, Albumin/Globulin Ratio 0.5 L, Lipase 42 L 09/05/20 23:49: Specimen Type SIMONA, VBG pH 7.41, VBG pO2 45 H, VBG HCO3 23, VBG Total CO2 24, VBG O2 Sat (Calc) 82 H, VBG Base Excess -2 L, POC Mix VBG pCO2 Pt Tmp 35.6 L, Liter Flow 2.0 09/06/20 00:49: Lactic Acid 1.7 09/06/20 05:14: WBC 13.2 H, RBC 3.98 L, Hgb 11.7 L, Hct 37.3, MCV 93.7, MCH 29.4, MCHC 31.4 L, RDW Std Deviation 53.7 H, RDW Coeff of Venancio 15.5 H, Plt Count 289, MPV 9.9, Immature Gran % (Auto) 0.600, Neut % (Auto) 93.6 H, Lymph % (Auto) 2.5 L, [place] % (Auto) 2.6, Eos % (Auto) 0.1, Baso % (Auto) 0.6, Absolute Neuts (auto) 12.4 H, Absolute Lymphs (auto) 0.33 L, Nucleated RBC % 0 09/06/20 05:14: Sodium 141, Potassium 3.8, Chloride 109 H, Carbon Dioxide 24.0, Anion Gap 8, BUN 46 H, Creatinine 1.54 H, Estim Creat Clear Calc 26.12, Est GFR (MDRD) Af Amer 43 L, Est GFR (MDRD) Non-Af 35 L, BUN/Creatinine Ratio 29.9 H, Glucose 240 H, Calcium 9.2 09/06/20 08:26: POC Glucose 228 H Diagnostic Data Abdomen/Pelvis CT 09/05/20 23:13 IMPRESSION: 1. Dilated bladder lumen with question of peripheral bladder wall inflammatory stranding and layering debris concerning for underlying cystitis with secondary mild to moderate ureteral dilatation and hydronephrosis, clinically correlate. Electronically Signed: Kwame Mcadams DO at 0:16 EDT , Service support , Forearm X-Ray 09/06/20 09:18 IMPRESSION: Nonspecific soft tissue swelling without destructive/erosive process. Electronically Signed: Mello Mendes MD ([place]) at 10:23 EDT , Service support , Hand X-Ray 09/06/20 09:18 IMPRESSION: No destructive bony process. Diffuse soft tissue swelling. Electronically Signed: Mello Mendes MD ([place]) at 10:24 EDT , Service support , Wrist X-Ray 09/06/20 09:18 IMPRESSION: Nonspecific soft tissue swelling without destructive bony process. Electronically Signed: Mello Mendes MD ([place]) at 10:24 EDT , Service support , Current Medications Acetaminophen (Acetaminophen 325 Mg Tablet) 650 mg PO Q6H PRN PRN PRN Reason: Pain Score 1-10/Temp > 100.7 F Albuterol Sulfate (Albuterol 2.5 Mg/3 Ml Vial.Neb.) 2.5 mg INHALATION Q2H PRN PRN PRN Reason: SOB/Wheezing Aspirin (Aspirin E.C. 81 Mg Tablet) 81 mg PO DAILYCM [facility] Last Admin: 09/06/20 08:33 Dose: 81 mg Documented by: Calamine/Phenol (Menthol/Lanolin/Calamine/Znox 113 Gm Tube) 1 applic TOPICAL BID [facility]; Protocol Last Admin: 09/06/20 08:34 Dose: 1 applic Documented by: Citalopram Hydrobromide (Citalopram 10 Mg Tablet) 10 mg PO DAILY [facility] Last Admin: 09/06/20 08:35 Dose: 10 mg Documented by: Guaifenesin (Guaifenesin 10 Ml Udc (200mg/10ml)) 10 ml PO Q4H PRN PRN PRN Reason: COUGH Sodium Chloride () 1,000 mls @ 75 mls/hr IV .[id number] [facility] Last Admin: 09/06/20 02:54 Dose: 75 mls/hr Documented by: Ceftriaxone Sodium (Rocephin) 1 gm in 50 mls @ 100 mls/hr IV Q24@2200 STEPHAN Sodium Chloride () 250 mls @ 15 mls/hr IV .[id number] PRN PRN Reason: Saline Flush Sodium Chloride () 250 mls @ 15 mls/hr IV .[id number] PRN PRN Reason: Additional IVPB Infusion Insulin Glargine (Insulin Glargine 100 Units/Ml Pen) 10 units SC DAILY [facility] Last Admin: 09/06/20 08:38 Dose: 10 u Documented by: Lactic Acid (Ammonium Lactate 225 Gm Bottle) 1 applic TOPICAL DAILY [facility] Last Admin: 09/06/20 08:35 Dose: 1 applic Documented by: Nutritional Formula (Lactose Free) (Glucerna Shake 120 Ml Liquid) 120 ml PO TIDCM [facility] Last Admin: 09/06/20 08:34 Dose: 120 ml Documented by: Nystatin (Nystatin Powder 15gm Bottle) 1 applic TOPICAL DAILY [facility]; Protocol Last Admin: 09/06/20 08:39 Dose: 1 applic Documented by: Ondansetron HCl (Ondansetron 4 Mg/2 Ml Vial) 4 mg IV Q8H PRN PRN PRN Reason: NAUSEA/VOMITING Pantoprazole Sodium (Pantoprazole Sodium 20 Mg Tablet) 20 mg PO DAILY [facility] Last Admin: 09/06/20 08:39 Dose: 20 mg Documented by: Senna/Docusate Sodium (Senna/Docusate Sodium 1 Tablet) 2 tablet PO BID [facility] Last Admin: 09/06/20 08:39 Dose: 2 tablet Documented by: Sodium Chloride (0.9% Saline Lock 10 Ml Syringe) 10 - 40 ml IV UD PRN PRN Reason: SALINE FLUSH STROKE Vital Signs/Narrative: Vital Signs Temp Pulse Resp BP Pulse Ox 09/06/20 10:34 100 09/06/20 09:17 99 09/06/20 07:55 97.9 F 109 H 17 127/72 H 99 09/06/20 07:26 106 H Medical Necessity - Tobacco Use Smoking Status: Never smoker Assessment/Plan All Active Problems (Last Reviewed 09/06/20 @ 05:[address] Timbo Gutiérrez MD) Urinary retention (Acute) Extrarenal azotemia (Acute) Cystitis (Acute) Malfunction of Rayo catheter (Acute) Sepsis (Acute) #Sepsis due to UTI * has an indwelling Rayo catheter. Urine in catheter is cloudy and looks dirty and infected * CT of the abdomen and pelvis showed a dilated bladder lumen, moderate urethral dilatation and bilateral hydronephrosis * on IV ceftriaxone * urine cultures pending * #Cellulitis of the LUE * xrays of the left hand, wrist and forearm show diffuse soft tissue swelling, with no evidence of any fracture * on iV ceftriaxone, this should cover cellulitis. * tylenol prn for pain * #VERA on CKD 3 * CT findings as above. * CR is down to 1.54. CR was 2.1 on admission. * continue gentle hydration with IVF. baseline Cr is <1 * might be post renal due to hydronephrosis and urethral dilatation * Rayo catheter changed in ED * urology consulted; await rec;s * continue gentle hydration with IVF * #Diabetes melliuts; on lantus 10 units daily. ISS> Accuchecks ACHS #Stage 2 decubitus ulcer of coccyx and RLE: present on admission. Consult wound care #DVT prophylaxis: SCDs. WIll start lovenox. * Inpatient E&M: 16316 Subs Hosp L3
[2020-09-06 12:51] LABS: Bedside Glucose 295 mg/dL (70-110)
--- NOTE | 2020-09-06 15:17 | NT.THERAPY_ITS ---
Nutrition Therapy Report - History Nutrition Services has been consulted to:: Manage nutrient details of diet order Current diet / nutrition support order:: 1800 calorie/cardiac diet--pureed solids and nectar-thick liquids. 120 ml glucerna shake TID w/ medpass - Anthropometric Measurements Height:: 5 ft 2 in Weight:: 77.8 kg Body Mass Index (BMI):: 31.4 - Relevant Labs Relevant Labs:: WBC 13.2 K/mm3 (4.4-11.0) H 09/06/20 05:14 RBC 3.98 M/mm3 (4.2-5.4) L 09/06/20 05:14 Hgb 11.7 g/dL (12.0-15.0) L 09/06/20 05:14 MCHC 31.4 g/dL (32-36) L 09/06/20 05:14 RDW Std Deviation 53.7 fl (35.1-43.9) H 09/06/20 05:14 RDW Coeff of Venancio 15.5 % (11.6-14.6) H 09/06/20 05:14 Neut % (Auto) 93.6 % (47-70) H 09/06/20 05:14 Lymph % (Auto) 2.5 % (19-41) L 09/06/20 05:14 Absolute Neuts (auto) 12.4 X10^3/uL (2.0-7.7) H 09/06/20 05:14 Absolute Lymphs (auto) 0.33 X10^3/uL (0.83-4.51) L 09/06/20 05:14 Chloride 109 mmol/L (98-107) H 09/06/20 05:14 BUN 46 mg/dL (7-18) H 09/06/20 05:14 Creatinine 1.54 mg/dL (0.55-1.02) H 09/06/20 05:14 Est GFR (MDRD) Af Amer 43 mL/min (>60) L 09/06/20 05:14 Est GFR (MDRD) Non-Af 35 mL/min (>60) L 09/06/20 05:14 BUN/Creatinine Ratio 29.9 RATIO (10-20) H 09/06/20 05:14 Glucose 240 mg/dL (74-106) H 09/06/20 05:14 AST 10 U/L (15-37) L 09/05/20 23:44 Total Protein 6.1 g/dL (6.4-8.2) L 09/05/20 23:44 Albumin 2.1 g/dL (3.2-5.0) L 09/05/20 23:44 Albumin/Globulin Ratio 0.5 RATIO (0.9-2.4) L 09/05/20 23:44 Lipase 42 U/L (73-393) L 09/05/20 23:44 - Assessment Food / Nutrition-Related History:: Pt unable to verbalize adequate history, most information gleaned from EMR. Recent admit wt noted~94 Kg about 4 months ago; calculated~17% wt loss which is significant for malnutrition especially given hx of meal refusal and ongoing need for pureed foods and thickened liquids. PO to be established at meals; pt seems lethargic at this time. Pt has needed pureed foods and thickened liquids over the last several months---appears that poor intake has been ongoing with less than 50% estimated nutrition needs met x past 3-6 months given recent wt loss as well as refusal of meals. - Nutrition Diagnosis Problem / Etiology / Signs & Symptoms (PES):: Severe Pro/Arron malnutrition in the context of chronic disease related to ongoing poor shannan/PO, dysphagia as evidenced by~17% wt loss x past 4 months, refusal of meals and meeting less than 50% estimated nutrition needs x past 3-6 months. [ End ] Evidence of Malnutrition Exists:: Yes Severe PCM:: Chronic Illness - Nutrition Intervention Nutrition Prescription:: Estimated nutrition needs~4799-4025 kcal (25 kcal/Kg) and ~70-95 gm pro (1-1.2 gm pro/Kg) per day. Estimated fluid needs~7199-1759 ml/ day (30 ml/Kg). - Food / Nutrient Delivery Interventions Summary of nutrition intervention:: Will liberalize therapeuric diet to Carbohydrate-Controlled with texture/consistency as per RESEARCH PROGRAM COORDINATOR. Will add ensure pudding BID w/ lunch and dinner. Will continue 120ml glucerna shake TID w/ medpass. Will add Ubaldo BID for wound healing. May need to consider TF support if wt continues to decline and PO remains suboptimal to meet estimated nutrition needs. Nutrition support ordered as / adjusted to:: May need to consider TF support if wt continues to decline and PO remains suboptimal at meals to support estimated nutrition needs. Nutrition education provided?: No - MNT Monitoring Further MNT monitoring and evaluation required?: Yes MNT Follow-up in:: 3-5 days
[2020-09-06] MEDS: Insulin Lispro 100 UNIT/ML INSULN.PEN SC ×2 (17:10→22:07)
--- NOTE | 2020-09-06 17:36 | NURSING ---
Tosin phones and is given update on patient condition.
[2020-09-06 17:56] LABS: Bedside Glucose 233 mg/dL (70-110)
--- NOTE | 2020-09-06 18:00 | NURSING ---
Dr. Calvert at bedside. RN bladder scan patient for 21cc urine.
--- NOTE | 2020-09-06 18:14 | PCM.CONS.GEN ---
Problem List (1) Urinary tract infection Status: Acute (2) Hydronephrosis Status: Acute (3) Urinary retention Status: Acute Reason for Consult Date of Consultation: 09/06/20 Reason for Consultation: chronic silverio with urinary retention, infection and hydronephrosis History of Present Illness: The patient is a 70 year old F from a nursing facility with multiple chronic medical conditions including chronic urinary retention with an indwelling Silverio catheter. She developed abdominal pain with nausea and vomiting and was sent in for further evaluation. On CT scan examination she was found to have a Silverio catheter in a bladder full of debris and urine with mild bilateral hydronephrosis. The patient is unable to answer questions to any degree of detail. She does report that her pain is less now than upon admission. Per nursing staff, the CT scan was done in the emergency department and the Silverio catheter was changed in the emergency department as well. Past Medical History Past Medical History (Chronic Problems): Chronic Problems (Last Reviewed 09/06/20 @ 05:[address] Timbo Gutiérrez MD) Hx of foot surgery (Chronic) Anxiety (Chronic) Depression (Chronic) Muscle weakness (generalized) (Chronic) Hemiplegia and hemiparesis following cerebral infarction affecting left non-dominant side (Chronic) Cerebral infarction, unspecified (Chronic) Hyperlipidemia, unspecified (Chronic) Need for assistance with personal care (Chronic) Other abnormalities of gait and mobility (Chronic) Hypertension (Chronic) Diabetes mellitus type 2 in obese (Chronic) Medical History: Medical History (Last Reviewed 09/06/20 @ 18:[address] 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 Pain in right knee (Inactive) M25.561 Hyperlipidemia, unspecified (Chronic) E78.5 Need for assistance with personal care (Chronic) Z74.1 Other abnormalities of gait and mobility (Chronic) R26.89 Elevated troponin (Inactive) R77.8 Hypertension (Chronic) I10 Diabetes mellitus type 2 in obese (Chronic) E11.69, E66.9 Fall (Inactive) W19.XXXA Rhabdomyolysis (Inactive) M62.82 Rhabdomyolysis M62.82 Allergies No Known Allergies Allergy (Verified 07/13/20 10:31) Home Medications: Ambulatory Orders Medication Instructions Recorded acetaminophen 500 mg capsule 1,000 mg PO TID PRN cap 07/05/20 ammonium lactate 10 %-emu oil 1 applic TOPICAL DAILY ml 07/05/20 topical cream bisacodyl 10 mg rectal suppository 10 mg RC DAILY PRN 07/05/20 citalopram 10 mg tablet 10 mg PO DAILY 07/05/20 dextrose 40 % oral gel 10 g PO Q15M PRN 07/05/20 guaifenesin 100 mg/5 mL oral liquid 10 ml PO Q4H PRN 07/05/20 insulin lispro 100 unit/mL 1 sliding scale dose SC 07/05/20 subcutaneous solution USEASDIRECTD magnesium hydroxide 400 mg/5 mL 30 ml PO DAILY PRN 07/05/20 oral suspension methyl salicylate 15 %-menthol 10 1 applic TOPICAL Q4H PRN 07/05/20 % topical cream multivitamin,tx-minerals 1 tab PO DAILY 07/05/20 nystatin 100,000 unit/gram topical 1 applic TOPICAL DAILY 07/05/20 powder sodium chloride 0.65 % nasal spray 2 spray INTRANASAL BID 07/05/20 aerosol Aspirin [Aspirin EC] 81 mg PO DAILY 07/09/20 Omeprazole 20 mg PO DAILY #60 tablet. 07/13/20 Insulin Glargine,Hum.rec.anlog 10 unit SC DAILY 09/06/20 [Lantus Solostar] Ondansetron HCl [Zofran] 4 mg PO Q4H PRN 09/06/20 Surgical History: Surgical History (Last Reviewed 09/06/20 @ 18:[address] Jelena Calvert MD) Hx of foot surgery (Chronic) Z98.890 Lives: Shelter Smoking Status: Never smoker Alcohol: None Drugs: None - *Family History Maternal History Items: Stroke Paternal History Items: Stroke Review of Systems Constitutional: Reports: Malaise, Weakness Eyes: Denies: Vision Change HEENT: Denies: Visual Changes Cardiovascular: Denies: Chest Pain, Chest Pressure Respiratory: Denies: Cough, Shortness of Breath Gastrointestinal: Reports: Abdominal Pain, Nausea, Vomiting Genitourinary: Reports: Hematuria, Retention, - - Patient does not know the last time the Silverio catheter was changed. Denies: Dysuria, Frequency, Hesitancy, Nocturia, Urgency Gynecological: Denies: Sexual concerns Neurological: Reports: Confusion Patient Problems: Active and Suspected Problems (Last Reviewed 09/06/20 @ 05:[address] Timbo Gutiérrez MD) Urinary retention (Acute) Extrarenal azotemia (Acute) Cystitis (Acute) Malfunction of Silverio catheter (Acute) Sepsis (Acute) - Physical Exam Vitals/I&O's: Vital Signs Temp Pulse Resp BP Pulse Ox 98.7 F 109 H 16 128/58 H 98 09/06/20 14:13 09/06/20 15:52 09/06/20 14:13 09/06/20 14:13 09/06/20 14:13 Oxygen Flow Rate (L/min) 2 Oxygen Delivery Method Nasal Cannula Weight: 77.8 kg Body Mass Index (BMI) 31.4 Intake and Output for Last 24 Hours 09/04/20 09/05/20 09/06/20 23:59 23:59 23:59 Intake Total 3290 / 3290 Output Total 450 / 450 Balance 2840 / 2840 General: Alert, Cooperative, No apparent distress, Confused HEENT: Atraumatic, Normocephalic Oral: Dry Mucosa Neck: Supple, Trachea Midline Lungs: Normal air movement Cardiovascular: Regular rate Abdomen: Soft, Non-Distended, Tender - Suprapubic area especially with bladder scan the scan showed 21 cc at the highest Musculoskeletal: Muscle Wasting Neurological: Cranial nerves II-XII grossly intact Psych/Mental Status: Normal Affect Microbiology Past 72 Hours 09/06/20 00:49 Blood Culture (Wb) - Left Hand Blood Culture - Preliminary Laboratory Results 09/05/20 23:44: WBC 14.4 H, RBC 4.49, Hgb 12.9, Hct 41.0, MCV 91.3, MCH 28.7, MCHC 31.5 L, RDW Std Deviation 51.9 H, RDW Coeff of Venancio 15.5 H, Plt Count 330, MPV 10.0, Immature Gran % (Auto) 0.300, Neut % (Auto) 89.4 H, Lymph % (Auto) 2.8 L, [place] % (Auto) 3.8, Eos % (Auto) 3.1, Baso % (Auto) 0.6, Absolute Neuts (auto) 12.9 H, Absolute Lymphs (auto) 0.40 L, Nucleated RBC % 0 09/05/20 23:44: Sodium 140, Potassium 3.9, Chloride 107, Carbon Dioxide 24.0, Anion Gap 9, BUN 52 H, Creatinine 2.10 H, Estim Creat Clear Calc 19.15, Est GFR (MDRD) Af Amer 30 L, Est GFR (MDRD) Non-Af 25 L, BUN/Creatinine Ratio 24.8 H, Glucose 251 H, Calcium 9.3, Total Bilirubin 0.30, AST 10 L, ALT 13, Alkaline Phosphatase 73, Total Protein 6.1 L, Albumin 2.1 L, Globulin 4.0, Albumin/Globulin Ratio 0.5 L, Lipase 42 L 09/05/20 23:49: Specimen Type SIMONA, VBG pH 7.41, VBG pO2 45 H, VBG HCO3 23, VBG Total CO2 24, VBG O2 Sat (Calc) 82 H, VBG Base Excess -2 L, POC Mix VBG pCO2 Pt Tmp 35.6 L, Liter Flow 2.0 09/06/20 00:49: Lactic Acid 1.7 09/06/20 05:14: WBC 13.2 H, RBC 3.98 L, Hgb 11.7 L, Hct 37.3, MCV 93.7, MCH 29.4, MCHC 31.4 L, RDW Std Deviation 53.7 H, RDW Coeff of Venancio 15.5 H, Plt Count 289, MPV 9.9, Immature Gran % (Auto) 0.600, Neut % (Auto) 93.6 H, Lymph % (Auto) 2.5 L, [place] % (Auto) 2.6, Eos % (Auto) 0.1, Baso % (Auto) 0.6, Absolute Neuts (auto) 12.4 H, Absolute Lymphs (auto) 0.33 L, Nucleated RBC % 0 09/06/20 05:14: Sodium 141, Potassium 3.8, Chloride 109 H, Carbon Dioxide 24.0, Anion Gap 8, BUN 46 H, Creatinine 1.54 H, Estim Creat Clear Calc 26.12, Est GFR (MDRD) Af Amer 43 L, Est GFR (MDRD) Non-Af 35 L, BUN/Creatinine Ratio 29.9 H, Glucose 240 H, Calcium 9.2 09/06/20 08:26: POC Glucose 228 H 09/06/20 11:40: POC Glucose 295 H 09/06/20 17:07: POC Glucose 233 H Current Medications Acetaminophen (Acetaminophen 325 Mg Tablet) 650 mg PO Q6H PRN PRN PRN Reason: Pain Score 1-10/Temp > 100.7 F Albuterol Sulfate (Albuterol 2.5 Mg/3 Ml Vial.Neb.) 2.5 mg INHALATION Q2H PRN PRN PRN Reason: SOB/Wheezing Aspirin (Aspirin E.C. 81 Mg Tablet) 81 mg PO DAILYCM [facility] Last Admin: 09/06/20 08:33 Dose: 81 mg Documented by: Calamine/Phenol (Menthol/Lanolin/Calamine/Znox 113 Gm Tube) 1 applic TOPICAL BID [facility]; Protocol Last Admin: 09/06/20 08:34 Dose: 1 applic Documented by: Citalopram Hydrobromide (Citalopram 10 Mg Tablet) 10 mg PO DAILY [facility] Last Admin: 09/06/20 08:35 Dose: 10 mg Documented by: Guaifenesin (Guaifenesin 10 Ml Udc (200mg/10ml)) 10 ml PO Q4H PRN PRN PRN Reason: COUGH Sodium Chloride () 1,000 mls @ 75 mls/hr IV .[id number] [facility] Last Admin: 09/06/20 16:30 Dose: 75 mls/hr Documented by: Ceftriaxone Sodium (Rocephin) 1 gm in 50 mls @ 100 mls/hr IV Q24@2200 STEPHAN Sodium Chloride () 250 mls @ 15 mls/hr IV .[id number] PRN PRN Reason: Saline Flush Sodium Chloride () 250 mls @ 15 mls/hr IV .[id number] PRN PRN Reason: Additional IVPB Infusion Insulin Glargine (Insulin Glargine 100 Units/Ml Pen) 10 units SC DAILY [facility] Last Admin: 09/06/20 08:38 Dose: 10 u Documented by: Insulin Human Lispro (Insulin Lispro 100 Unit/Ml Insuln.Pen) 0 unit SC ACHS [facility]; Protocol Last Admin: 09/06/20 17:10 Dose: 3 units Documented by: L-Arginine/L-Glutamine/Calcium HMB (Ubaldo (Unflavored) Packet) 1 packet PO BIDCM [facility] Last Admin: 09/06/20 17:05 Dose: Not Given Documented by: Lactic Acid (Ammonium Lactate 225 Gm Bottle) 1 applic TOPICAL DAILY [facility] Last Admin: 09/06/20 08:35 Dose: 1 applic Documented by: Nutritional Formula (Lactose Free) (Glucerna Shake 120 Ml Liquid) 120 ml PO TIDCM [facility] Last Admin: 09/06/20 17:04 Dose: 120 ml Documented by: Nystatin (Nystatin Powder 15gm Bottle) 1 applic TOPICAL DAILY [facility]; Protocol Last Admin: 09/06/20 08:39 Dose: 1 applic Documented by: Ondansetron HCl (Ondansetron 4 Mg/2 Ml Vial) 4 mg IV Q8H PRN PRN PRN Reason: NAUSEA/VOMITING Pantoprazole Sodium (Pantoprazole Sodium 20 Mg Tablet) 20 mg PO DAILY [facility] Last Admin: 09/06/20 08:39 Dose: 20 mg Documented by: Senna/Docusate Sodium (Senna/Docusate Sodium 1 Tablet) 2 tablet PO BID [facility] Last Admin: 09/06/20 08:39 Dose: 2 tablet Documented by: Sodium Chloride (0.9% Saline Lock 10 Ml Syringe) 10 - 40 ml IV UD PRN PRN Reason: SALINE FLUSH Assessment/Plan All Active Problems (Last Reviewed 09/06/20 @ 05:[address] Timbo Gutiérrez MD) Urinary retention (Acute) Extrarenal azotemia (Acute) Cystitis (Acute) Malfunction of Silverio catheter (Acute) Sepsis (Acute) Urinary tract infection (Acute) Hydronephrosis (Acute) Continue urinary drainage Renal ultrasound tomorrow to ensure that the hydronephrosis has resolved with change of Silverio catheter If there is any question of catheter not draining, increased size to 22 [place] Continue antibiotics and supportive care await results urine culture
--- NOTE | 2020-09-06 18:20 | US_ITS ---
STUDY: RENAL ULTRASOUND - COMPLETE REASON FOR EXAM: Female, 70 years old. hydronephrosis -- TECHNIQUE: Ultrasound evaluation of the kidneys was performed with real-time and static zurita-scale imaging. COMPARISON: None. FINDINGS: RIGHT KIDNEY: Normal location of the right kidney, which is normal in size. The right kidney measures 11.6 x 4.6 x 5.9 cm. There is a normal cortex of the right kidney. The renal cortex measures 2.0 cm. There is no right renal mass or cyst. There are no right renal calculi. There is no right hydronephrosis. DISTAL RIGHT URETER: There is non-visualization of the distal right ureter. There is no demonstrated right ureterovesical junction calculus. There is no demonstrated right ureteral jet. LEFT KIDNEY: Normal location of the left kidney, which is normal in size. The left kidney measures 13.2 x 5.4 x 5.2 cm. There is a normal cortex of the left kidney. The renal cortex measures 1.9 cm. There is no left renal mass or cyst. There are no left renal calculi. There is no left hydronephrosis. DISTAL LEFT URETER: There is non-visualization of the distal left ureter. There is no demonstrated left ureterovesical junction calculus. There is no demonstrated left ureteral jet. BLADDER: The urinary bladder is decompressed by JOHNSON catheter. US/Kidney and Bladder IMPRESSION: No hydronephrosis. Electronically Signed: Mello Mendes MD (Brooks) at 6:30 EDT , Service support ,
[2020-09-06 22:46] LABS: Bedside Glucose 222 mg/dL (70-110)
[2020-09-07] VITALS (15 sets, daily range): BP systolic 124–145; BP diastolic 46–74; PULSE 62–100; RESP 18–20; TEMP 36.5–36.9; O2SAT 95–98
[2020-09-07] MEDS: Acetaminophen 325 MG Tablet 650 MG PO ×3 (00:58→19:29)
[2020-09-07] MEDS: 0.9% Normal Saline 1,000 ML 75 ML IV (04:37)
[2020-09-07 06:20] LABS: Absolute Lymphocyte Count 0.34 X10^3/uL (0.83-4.51); Absolute Neutrophil Count 10.9 X10^3/uL (2.0-7.7); Basophil# 0.03 X10^3/uL; Basophil% 0.2 % (0-1); Eosinophil# 0.01 X10^3/uL; Eosinophils% 0.1 % (0-5); Hematocrit 33.9 % (37-47); Hemoglobin 10.5 g/dL (12.0-15.0); Lymphocyte # 0.34 X10^3/ul (4.0); Lymphocyte % 2.8 % (19-41); Mean Corpuscular Hgb 28.5 pg (27.0-32.0); Mean Corpuscular Volume 91.9 fL (81-99); Mean Platelet Vol. 10.1 fl (6.2-12.0); Monocyte# 0.66 X10^3/uL; Monocyte% 5.5 % (0-10); NRBC Flagged by Analyzer 0 % (0-5); Neutrophil # 10.94 X10^3/uL (2.7-7.7); Neutrophil % 90.7 % (47-70); POSITIVE DIFFERENTIAL YES; POSITIVE MORPHOLOGY YES; Platelet Count 264 K/mm3 (150-450); RBC Distribution Width CV 15.7 % (11.6-14.6); RBC Distribution Width SD 52.9 fl (35.1-43.9); Red Blood Count 3.69 M/mm3 (4.2-5.4); White Blood Count 12.1 K/mm3 (4.4-11.0)
[2020-09-07 06:29] LABS: Differential Indicated SCAN CRITERIA MET
[2020-09-07 06:44] LABS: Anion Gap 6 (5-15); BUN 44 mg/dL (7-18); BUN/Creat Ratio 43.6 RATIO (10-20); Calcium,Total 9.1 mg/dL (8.5-10.1); Chloride 117 mmol/L (98-107); Creatinine, Serum 1.01 mg/dL (0.55-1.02); EST Glomerular Filtration Rate 57 mL/min (>60); Est Glom Filt Rate - Afr Amer 69 mL/min (>60); Estimated Creatinine Clearance 39.82 ml/min; Glucose 206 mg/dL (74-106); Potassium 3.2 mmol/L (3.5-5.1); Sodium Level 146 mmol/L (136-145)
[2020-09-07] MEDS: Insulin Lispro 100 UNIT/ML INSULN.PEN SC ×4 (07:03→21:52)
[2020-09-07 07:11] LABS: Bedside Glucose 174 mg/dL (70-110)
[2020-09-07] MEDS: Citalopram 10 MG Tablet PO (08:48)
[2020-09-07] MEDS: Aspirin E.C. 81 MG Tablet PO (08:49)
[2020-09-07] MEDS: Pantoprazole Sodium 20 MG Tablet PO (08:49)
[2020-09-07] MEDS: Senna/Docusate Sodium 1 Tablet 2 TABLET PO ×2 (08:49→21:54)
[2020-09-07] MEDS: Ondansetron 4 MG/2 ML Vial IV ×2 (08:49→16:54)
--- NOTE | 2020-09-07 08:57 | PCM.PROGNOTE ---
Patient Problems: Active and Suspected Problems (Last Reviewed 09/06/20 @ 18:[address] Jelena Calvert MD) Urinary retention (Acute) Extrarenal azotemia (Acute) Cystitis (Acute) Malfunction of Rayo catheter (Acute) Sepsis (Acute) Urinary tract infection (Acute) Hydronephrosis (Acute) Subjective: Patient is taking her medications at the present time. She is awake and reports that she feels better than yesterday but is very nonspecific in describing how she feels. No nausea or vomiting. - Physical Exam Vitals/I&O's: Vital Signs Temp Pulse Resp BP Pulse Ox 98.3 F 62 18 131/46 H 95 09/07/20 04:38 09/07/20 08:24 09/07/20 04:38 09/07/20 04:38 09/07/20 07:38 Oxygen Flow Rate (L/min) 1 Oxygen Delivery Method Nasal Cannula Weight: 77.8 kg Body Mass Index (BMI) 31.4 Intake and Output for Last 24 Hours 09/05/20 09/06/20 09/07/20 23:59 23:59 23:59 Intake Total 3986.25 / 3986.25 646.25 / 646.25 Output Total 1050 / 1050 500 / 500 Balance 2936.25 / 2936.25 146.25 / 146.25 General: Alert, Cooperative, No apparent distress HEENT: Atraumatic, Normocephalic Oral: Moist Mucosa Neck: Supple, Trachea Midline Lungs: Normal air movement Cardiovascular: Regular rate Abdomen: Soft, Non-Distended Neurological: Neuro grossly intact Psych/Mental Status: Normal Affect Comment: Urine is draining clear yellow in the Rayo, significant improvement Microbiology Past 72 Hours Creatinine significantly improved, renal ultrasound shows no hydronephrosis and urine cultures are still pending 09/06/20 00:49 Blood Culture (Wb) - Left Hand Blood Culture - Preliminary Laboratory Results 09/06/20 08:26: POC Glucose 228 H 09/06/20 11:40: POC Glucose 295 H 09/06/20 17:07: POC Glucose 233 H 09/06/20 22:06: POC Glucose 222 H 09/07/20 05:45: WBC 12.1 H, RBC 3.69 L, Hgb 10.5 L, Hct 33.9 L, MCV 91.9, MCH 28.5, MCHC 31.0 L, RDW Std Deviation 52.9 H, RDW Coeff of Venancio 15.7 H, Plt Count 264, MPV 10.1, Immature Gran % (Auto) 0.700, Neut % (Auto) 90.7 H, Lymph % (Auto) 2.8 L, [place] % (Auto) 5.5, Eos % (Auto) 0.1, Baso % (Auto) 0.2, Absolute Neuts (auto) 10.9 H, Absolute Lymphs (auto) 0.34 L, Nucleated RBC % 0 09/07/20 05:45: Sodium 146 H, Potassium 3.2 L, Chloride 117 H, Carbon Dioxide 23.0, Anion Gap 6, BUN 44 H, Creatinine 1.01, Estim Creat Clear Calc 39.82, Est GFR (MDRD) Af Amer 69, Est GFR (MDRD) Non-Af 57 L, BUN/Creatinine Ratio 43.6 H, Glucose 206 H, Calcium 9.1 09/07/20 07:02: POC Glucose 174 H Current Medications Acetaminophen (Acetaminophen 325 Mg Tablet) 650 mg PO Q6H PRN PRN PRN Reason: Pain Score 1-10/Temp > 100.7 F Last Admin: 09/07/20 08:48 Dose: 650 mg Documented by: Albuterol Sulfate (Albuterol 2.5 Mg/3 Ml Vial.Neb.) 2.5 mg INHALATION Q2H PRN PRN PRN Reason: SOB/Wheezing Aspirin (Aspirin E.C. 81 Mg Tablet) [facility] Last Admin: 09/07/20 08:49 Dose: 81 mg Documented by: Calamine/Phenol (Menthol/Lanolin/Calamine/Znox 113 Gm Tube) 1 applic TOPICAL BID [facility]; Protocol Last Admin: 09/06/20 21:06 Dose: 1 applic Documented by: Citalopram Hydrobromide (Citalopram 10 Mg Tablet) 10 mg PO DAILY [facility] Last Admin: 09/07/20 08:48 Dose: 10 mg Documented by: Guaifenesin (Guaifenesin 10 Ml Udc (200mg/10ml)) 10 ml PO Q4H PRN PRN PRN Reason: COUGH Sodium Chloride () 1,000 mls @ 75 mls/hr IV .[id number] [facility] Last Admin: 09/07/20 04:37 Dose: 75 mls/hr Documented by: Ceftriaxone Sodium (Rocephin) 1 gm in 50 mls @ 100 mls/hr IV Q24@2200 [facility] Last Infusion: 09/06/20 22:40 Dose: Infused Documented by: Sodium Chloride () 250 mls @ 15 mls/hr IV .[id number] PRN PRN Reason: Saline Flush Sodium Chloride () 250 mls @ 15 mls/hr IV .[id number] PRN PRN Reason: Additional IVPB Infusion Insulin Glargine (Insulin Glargine 100 Units/Ml Pen) 10 units SC DAILY [facility] Last Admin: 09/06/20 08:38 Dose: 10 u Documented by: Insulin Human Lispro (Insulin Lispro 100 Unit/Ml Insuln.Pen) 0 unit SC ACHS [facility]; Protocol Last Admin: 09/07/20 07:03 Dose: 1 units Documented by: L-Arginine/L-Glutamine/Calcium HMB (Ubaldo (Unflavored) Packet) 1 packet PO BIDCM [facility] Last Admin: 09/06/20 17:05 Dose: Not Given Documented by: Lactic Acid (Ammonium Lactate 225 Gm Bottle) 1 applic TOPICAL DAILY [facility] Last Admin: 09/06/20 08:35 Dose: 1 applic Documented by: Nutritional Formula (Lactose Free) (Glucerna Shake 120 Ml Liquid) 120 ml PO TIDCM [facility] Last Admin: 09/06/20 17:04 Dose: 120 ml Documented by: Nystatin (Nystatin Powder 15gm Bottle) 1 applic TOPICAL DAILY [facility]; Protocol Last Admin: 09/06/20 08:39 Dose: 1 applic Documented by: Ondansetron HCl (Ondansetron 4 Mg/2 Ml Vial) 4 mg IV Q8H PRN PRN PRN Reason: NAUSEA/VOMITING Last Admin: 09/07/20 08:49 Dose: 4 mg Documented by: Pantoprazole Sodium (Pantoprazole Sodium 20 Mg Tablet) 20 mg PO DAILY [facility] Last Admin: 09/07/20 08:49 Dose: 20 mg Documented by: Senna/Docusate Sodium (Senna/Docusate Sodium 1 Tablet) 2 tablet PO BID [facility] Last Admin: 09/07/20 08:49 Dose: 2 tablet Documented by: Sodium Chloride (0.9% Saline Lock 10 Ml Syringe) 10 - 40 ml IV UD PRN PRN Reason: SALINE FLUSH Medical Necessity - Tobacco Use Smoking Status: Never smoker Assessment/Plan All Active Problems (Last Reviewed 09/06/20 @ 18:[address] Jelena Calvert MD) Urinary retention (Acute) Extrarenal azotemia (Acute) Cystitis (Acute) Malfunction of Rayo catheter (Acute) Sepsis (Acute) Urinary tract infection (Acute) Hydronephrosis (Acute) Continue supportive care Await culture results and continue antibiotic coverage Will need to continue regular Rayo catheter changes following discharge Available as needed, no plans for further urologic intervention this admission
[2020-09-07] MEDS: Menthol/Lanolin/Calamine/Znox 113 GM Tube 1 APPLIC TOPICAL ×2 (09:18→21:54)
[2020-09-07] MEDS: Ammonium Lactate 225 gm Bottle 1 APPLIC TOPICAL (09:18)
[2020-09-07] MEDS: Nystatin Powder 15gm Bottle 1 APPLIC TOPICAL (09:19)
--- NOTE | 2020-09-07 10:38 | CASEMGMT ---
GENNA faxed clinicals to [employer] to try and skill patient when she returns to [facility]. Yumiko Petty [employer]
--- NOTE | 2020-09-07 10:55 | PCM.PN.HOSP ---
Patient Problems: Active and Suspected Problems (Last Reviewed 09/06/20 @ 18:[address] Jelena Calvert MD) Urinary retention (Acute) Extrarenal azotemia (Acute) Cystitis (Acute) Malfunction of Rayo catheter (Acute) Sepsis (Acute) Urinary tract infection (Acute) Hydronephrosis (Acute) Subjective: Patient seen and examined. She is still is lethargic. No active events overnight. Pain in her left hand is better. Review of systems otherwise negative. She has remained hemodynamically stable and remains on 2 L of oxygen. Potassium is down to 3.2 today. Urology reviewed patient yesterday on account of her bilateral hydronephrosis. Repeat renal ultrasound done which showed resolution of hydronephrosis. Vitals/I&O's: Vital Signs Temp Pulse Resp BP Pulse Ox 98.3 F 62 18 131/46 H 95 09/07/20 04:38 09/07/20 08:24 09/07/20 04:38 09/07/20 04:38 09/07/20 07:38 Oxygen Flow Rate (L/min) 1 Oxygen Delivery Method Nasal Cannula Weight: 171 lb 8.314 oz Body Mass Index (BMI) 31.4 Intake and Output for Last 24 Hours 09/05/20 09/06/20 09/07/20 23:59 23:59 23:59 Intake Total 3986.25 / 3986.25 646.25 / 646.25 Output Total 1050 / 1050 500 / 500 Balance 2936.25 / 2936.25 146.25 / 146.25 General: Alert, Cooperative, Lethargic HEENT: Atraumatic, PERRLA, EOMI, Normocephalic Oral: Dry Mucosa Neck: Supple, No JVD, Negative Carotid Bruits Lungs: Clear to auscultation, Normal air movement, No rhonchi, No wheeze Cardiovascular: Regular rate, Regular Rhythm, Normal S1, Normal S2, No murmurs Abdomen: Bowel Sounds Present, Soft, Non Tender, Non-Distended, No Hepato-splenomegaly Extremities: - - erythema of left hand has resolved. Still mildly swollen and tender to touch. l Skin: No rashes, No breakdown Musculoskeletal: No Tenderness to Palpation of Joints or Extremities Lymphatic: No Cervical, Supraclavicular, or Inguinal Adenopathy Neurological: Cranial nerves II-XII grossly intact, Motor Exam 5/5 strength throughout Psych/Mental Status: - - lethargic Microbiology Past 72 Hours 09/06/20 01:35 Urine, Catheterized Urine Culture - Preliminary Gram negative sal GNR lactose medical observer 09/06/20 00:49 Blood Culture (Wb) - Left Hand Blood Culture - Preliminary Laboratory Results 09/06/20 11:40: POC Glucose 295 H 09/06/20 17:07: POC Glucose 233 H 09/06/20 22:06: POC Glucose 222 H 09/07/20 05:45: WBC 12.1 H, RBC 3.69 L, Hgb 10.5 L, Hct 33.9 L, MCV 91.9, MCH 28.5, MCHC 31.0 L, RDW Std Deviation 52.9 H, RDW Coeff of Venancio 15.7 H, Plt Count 264, MPV 10.1, Immature Gran % (Auto) 0.700, Neut % (Auto) 90.7 H, Lymph % (Auto) 2.8 L, [place] % (Auto) 5.5, Eos % (Auto) 0.1, Baso % (Auto) 0.2, Absolute Neuts (auto) 10.9 H, Absolute Lymphs (auto) 0.34 L, Nucleated RBC % 0 09/07/20 05:45: Sodium 146 H, Potassium 3.2 L, Chloride 117 H, Carbon Dioxide 23.0, Anion Gap 6, BUN 44 H, Creatinine 1.01, Estim Creat Clear Calc 39.82, Est GFR (MDRD) Af Amer 69, Est GFR (MDRD) Non-Af 57 L, BUN/Creatinine Ratio 43.6 H, Glucose 206 H, Calcium 9.1 09/07/20 07:02: POC Glucose 174 H Current Medications Acetaminophen (Acetaminophen 325 Mg Tablet) 650 mg PO Q6H PRN PRN PRN Reason: Pain Score 1-10/Temp > 100.7 F Last Admin: 09/07/20 08:48 Dose: 650 mg Documented by: Albuterol Sulfate (Albuterol 2.5 Mg/3 Ml Vial.Neb.) 2.5 mg INHALATION Q2H PRN PRN PRN Reason: SOB/Wheezing Aspirin (Aspirin E.C. 81 Mg Tablet) 81 mg PO DAILYCM [facility] Last Admin: 09/07/20 08:49 Dose: 81 mg Documented by: Calamine/Phenol (Menthol/Lanolin/Calamine/Znox 113 Gm Tube) 1 applic TOPICAL BID [facility]; Protocol Last Admin: 09/07/20 09:18 Dose: 1 applic Documented by: Citalopram Hydrobromide (Citalopram 10 Mg Tablet) 10 mg PO DAILY [facility] Last Admin: 09/07/20 08:48 Dose: 10 mg Documented by: Guaifenesin (Guaifenesin 10 Ml Udc (200mg/10ml)) 10 ml PO Q4H PRN PRN PRN Reason: COUGH Sodium Chloride () 1,000 mls @ 75 mls/hr IV .[id number] [facility] Last Admin: 09/07/20 04:37 Dose: 75 mls/hr Documented by: Ceftriaxone Sodium (Rocephin) 1 gm in 50 mls @ 100 mls/hr IV Q24@2200 [facility] Last Infusion: 09/06/20 22:40 Dose: Infused Documented by: Sodium Chloride () 250 mls @ 15 mls/hr IV .[id number] PRN PRN Reason: Saline Flush Sodium Chloride () 250 mls @ 15 mls/hr IV .[id number] PRN PRN Reason: Additional IVPB Infusion Insulin Glargine (Insulin Glargine 100 Units/Ml Pen) 10 units SC DAILY [facility] Last Admin: 09/07/20 09:19 Dose: 10 u Documented by: Insulin Human Lispro (Insulin Lispro 100 Unit/Ml Insuln.Pen) 0 unit SC ACHS [facility]; Protocol Last Admin: 09/07/20 07:03 Dose: 1 units Documented by: L-Arginine/L-Glutamine/Calcium HMB (Ubaldo (Unflavored) Packet) 1 packet PO BIDCM [facility] Last Admin: 09/07/20 09:16 Dose: Not Given Documented by: Lactic Acid (Ammonium Lactate 225 Gm Bottle) 1 applic TOPICAL DAILY [facility] Last Admin: 09/07/20 09:18 Dose: 1 applic Documented by: Nutritional Formula (Lactose Free) (Glucerna Shake 120 Ml Liquid) 120 ml PO TIDCM [facility] Last Admin: 09/07/20 09:16 Dose: Not Given Documented by: Nystatin (Nystatin Powder 15gm Bottle) 1 applic TOPICAL DAILY [facility]; Protocol Last Admin: 09/07/20 09:19 Dose: 1 applic Documented by: Ondansetron HCl (Ondansetron 4 Mg/2 Ml Vial) 4 mg IV Q8H PRN PRN PRN Reason: NAUSEA/VOMITING Last Admin: 09/07/20 08:49 Dose: 4 mg Documented by: Pantoprazole Sodium (Pantoprazole Sodium 20 Mg Tablet) 20 mg PO DAILY [facility] Last Admin: 09/07/20 08:49 Dose: 20 mg Documented by: Senna/Docusate Sodium (Senna/Docusate Sodium 1 Tablet) 2 tablet PO BID [facility] Last Admin: 09/07/20 08:49 Dose: 2 tablet Documented by: Sodium Chloride (0.9% Saline Lock 10 Ml Syringe) 10 - 40 ml IV UD PRN PRN Reason: SALINE FLUSH STROKE Vital Signs/Narrative: Vital Signs Pulse Pulse Ox 09/07/20 08:24 62 09/07/20 07:38 95 09/07/20 07:04 100 Medical Necessity - Tobacco Use Smoking Status: Never smoker Assessment/Plan All Active Problems (Last Reviewed 09/06/20 @ 18:[address] Jelena Calvert MD) Urinary retention (Acute) Extrarenal azotemia (Acute) Cystitis (Acute) Malfunction of Rayo catheter (Acute) Sepsis (Acute) Urinary tract infection (Acute) Hydronephrosis (Acute) #Sepsis due to UTI has an indwelling Rayo catheter. CT of the abdomen and pelvis showed a dilated bladder lumen, moderate urethral dilatation and bilateral hydronephrosis repeat renal USG done yesterday showed resolution of hydronephrosis bilaterally on IV ceftriaxone urine cultures growing gream negative sal and GNR lactose medical observer; speciation is pending blood cultures growing gram negative rods; speciation is pending #Cellulitis of the LUE xrays of the left hand, wrist and forearm show diffuse soft tissue swelling, with no evidence of any fracture on iV ceftriaxone, this should cover cellulitis. tylenol prn for pain #VERA on CKD 3 CT findings as above. CR is down to 1.01. CR was 2.1 on admission. continue gentle hydration with IVF. baseline Cr is <1 likely post renal due to hydronephrosis and urethral dilatation Rayo catheter changed in ED urology on board; ordered renal USG which showed resolution of bilateral hydronephrosis continue gentle hydration with IVF #Hypokalemia: K is 3.2. Will replace and monitor #Hypernatremia: Na is 146. Will dc IVF. #Diabetes mellitus; on lantus 10 units daily. ISS. Accuchecks ACHS #Stage 2 decubitus ulcer of coccyx and RLE: present on admission. Consult wound care #DVT prophylaxis: lovenox Inpatient E&M: [id number] Subs Hosp L2
--- NOTE | 2020-09-07 10:55 | NURSING ---
in to assess buttocks. patient had small amount of stool noted. bilateral buttocks are reddened. no open areas noted. shirley care provided. applied calmoseptine as a moisture barrier. pt tolerated well. see skin/wound photo.
--- NOTE | 2020-09-07 11:19 | NURSING ---
skin photo: buttocks
--- NOTE | 2020-09-07 11:21 | NURSING ---
wound photo: right lateral lower leg
--- NOTE | 2020-09-07 11:22 | NURSING ---
wound photo: right lateral foot
[2020-09-07 12:10] LABS: Bedside Glucose 219 mg/dL (70-110)
[2020-09-07] MEDS: Enoxaparin 40 MG/0.4 ML Syringe SC (13:20)
--- NOTE | 2020-09-07 14:31 | NURSING ---
Student nurse documentation reviewed.
--- NOTE | 2020-09-07 14:57 | CASEMGMT ---
GENNA received a call from [facility] with [facility] and patient was approved to go back to [facility] skilled. GENNA told her she will likely go tomorrow. GENNA will notify [facility]. Yumiko PETIT
[2020-09-07 16:06] LABS: Bedside Glucose 196 mg/dL (70-110)
[2020-09-07] MEDS: Ceftriaxone 1 GM/50 ML BAG IV (21:51)
[2020-09-07 22:05] LABS: Bedside Glucose 196 mg/dL (70-110)
[2020-09-08] VITALS (12 sets, daily range): BP systolic 139–159; BP diastolic 55–68; PULSE 60–165; RESP 16–18; TEMP 36.2–36.6; O2SAT 98–99
[2020-09-08] MEDS: Ondansetron 4 MG/2 ML Vial IV (04:49)
[2020-09-08] MEDS: 0.9% Saline Lock 10 ML Syringe IV ×3 (04:49→20:38)
[2020-09-08] MEDS: Enoxaparin 40 MG/0.4 ML Syringe SC (05:07)
[2020-09-08 06:40] LABS: Absolute Neutrophil Count 15.3 X10^3/uL (2.0-7.7); Basophil# 0.06 X10^3/uL; Basophil% 0.4 % (0-1); Eosinophil# 0.08 X10^3/uL; Eosinophils% 0.5 % (0-5); Hematocrit 36.4 % (37-47); Hemoglobin 11.4 g/dL (12.0-15.0); Lymphocyte % 2.3 % (19-41); Mean Corp Hgb Conc 31.3 g/dL (32-36); Mean Corpuscular Hgb 29.1 pg (27.0-32.0); Mean Corpuscular Volume 92.9 fL (81-99); Monocyte# 0.91 X10^3/uL; Monocyte% 5.3 % (0-10); NRBC Flagged by Analyzer 0 % (0-5); Neutrophil # 15.27 X10^3/uL (2.7-7.7); Neutrophil % 89.7 % (47-70); POSITIVE DIFFERENTIAL YES; Platelet Count 277 K/mm3 (150-450); RBC Distribution Width CV 15.7 % (11.6-14.6); RBC Distribution Width SD 53.2 fl (35.1-43.9); Red Blood Count 3.92 M/mm3 (4.2-5.4)
[2020-09-08 06:41] LABS: Differential Indicated SCAN CRITERIA MET
[2020-09-08] MEDS: Insulin Lispro 100 UNIT/ML INSULN.PEN SC ×4 (06:58→20:42)
[2020-09-08 07:01] LABS: Anion Gap 7 (5-15); BUN 34 mg/dL (7-18); BUN/Creat Ratio 47.3 RATIO (10-20); Calcium,Total 9.3 mg/dL (8.5-10.1); Chloride 117 mmol/L (98-107); Creatinine, Serum 0.72 mg/dL (0.55-1.02); EST Glomerular Filtration Rate 85 mL/min (>60); Est Glom Filt Rate - Afr Amer 103 mL/min (>60); Estimated Creatinine Clearance 40.22 ml/min; Glucose 209 mg/dL (74-106); Potassium 2.8 mmol/L (3.5-5.1); Sodium Level 148 mmol/L (136-145)
[2020-09-08 07:05] LABS: Bedside Glucose 203 mg/dL (70-110)
[2020-09-08] MEDS: Potassium Chloride Oral Tablet 20 MEQ 40 MEQ PO (08:20)
[2020-09-08] MEDS: Pantoprazole Sodium 20 MG Tablet PO (08:22)
[2020-09-08] MEDS: Aspirin E.C. 81 MG Tablet PO (08:22)
[2020-09-08] MEDS: Citalopram 10 MG Tablet PO (08:22)
[2020-09-08] MEDS: Nystatin Powder 15gm Bottle 1 APPLIC TOPICAL (08:23)
[2020-09-08] MEDS: Ammonium Lactate 225 gm Bottle 1 APPLIC TOPICAL (08:24)
[2020-09-08] MEDS: Menthol/Lanolin/Calamine/Znox 113 GM Tube 1 APPLIC TOPICAL ×2 (08:24→20:35)
[2020-09-08] MEDS: Potassium Chloride 10mEq/100mL 10 MEQ/100 ML IV.SOLN. 100 MEQ IV BOLUS ×4 (08:28→12:04)
--- NOTE | 2020-09-08 10:35 | CASEMGMT ---
Addendum entered by Yumiko Petty 09/08/20 10:41: GENNA also sent updated clinicals to [facility]. Yumiko PETIT Original Note: GENNA called Aishwarya at [facility] and left her a voice mail letting her know patient may be discharged tomorrow. Plan: d/c back to [facility] under skilled level of care. Yumiko PETIT
[2020-09-08 11:15] LABS: Bedside Glucose 242 mg/dL (70-110)
--- NOTE | 2020-09-08 12:05 | PN_ITS ---
<Brock Harding - Last Filed: 09/08/20 12:05> Patient Problems: Active and Suspected Problems (Last Reviewed 09/06/20 @ 18:[address] Jelena Calvert MD) Urinary retention (Acute) Extrarenal azotemia (Acute) Cystitis (Acute) Malfunction of Rayo catheter (Acute) Sepsis (Acute) Urinary tract infection (Acute) Hydronephrosis (Acute) Subjective: Patient is a 70-year-old female who is resting in bed, alert and oriented x3. Patient still appears lethargic and while oriented does seem a little groggy. Denies chest pain, shortness of breath, palpitations, fever, chills, N/V/D. Objective: Clinical Impression(s) from Imaging Studies Abdomen/Pelvis CT 09/05/20 23:13 IMPRESSION: 1. Dilated bladder lumen with question of peripheral bladder wall inflammatory stranding and layering debris concerning for underlying cystitis with secondary mild to moderate ureteral dilatation and hydronephrosis, clinically correlate. Electronically Signed: Kwame Mcadams DO at 0:16 EDT , Service support , Forearm X-Ray 09/06/20 09:18 IMPRESSION: Nonspecific soft tissue swelling without destructive/erosive process. Electronically Signed: Mello Mendes MD ([place]) at 10:23 EDT , Service support , Hand X-Ray 09/06/20 09:18 IMPRESSION: No destructive bony process. Diffuse soft tissue swelling. Electronically Signed: Mello Mendes MD (Brooks) at 10:24 EDT , Service support , Wrist X-Ray 09/06/20 09:18 IMPRESSION: Nonspecific soft tissue swelling without destructive bony process. Electronically Signed: Mello Mendes MD (Brooks) at 10:24 EDT , Service support , Renal Ultrasound 09/06/20 18:20 IMPRESSION: No hydronephrosis. Electronically Signed: Mello Mendes MD (Brooks) at 6:30 EDT , Service support , Microbiology 09/06/20 01:35 Urine, Catheterized Urine Culture - Preliminary Proteus mirabilis GNR lactose cardiographer 09/06/20 00:49 Blood Culture (Wb) - Left Hand Blood Culture - Final Klebsiella pneumoniae sp pneum Proteus mirabilis Vitals/I&O's: Vital Signs Temp Pulse Resp BP Pulse Ox 97.6 F L 82 16 159/55 H 99 09/08/20 08:40 09/08/20 08:40 09/08/20 08:40 09/08/20 08:40 09/08/20 08:40 Oxygen Flow Rate (L/min) 1 Oxygen Delivery Method Nasal Cannula Weight: 171 lb 8.314 oz Body Mass Index (BMI) 31.4 Intake and Output for Last 24 Hours 09/06/20 09/07/20 09/08/20 23:59 23:59 23:59 Intake Total 3986.25 / 3986.25 1228.75 / 1428.75 852.75 / 852.75 Output Total 1050 / 1050 800 / 1125 1025 / 1025 Balance 2936.25 / 2936.25 428.75 / 303.75 -172.25 / -172.25 General: Alert, Oriented x3, Cooperative HEENT: Atraumatic, PERRLA, EOMI, Normocephalic Neck: Supple, No JVD, Negative Carotid Bruits Lungs: Clear to auscultation, Normal air movement Cardiovascular: Regular rate, No murmurs Abdomen: Bowel Sounds Present, Soft, Non Tender Extremities: No clubbing Skin: No rashes, No breakdown Musculoskeletal: No Tenderness to Palpation of Joints or Extremities Neurological: Cranial nerves II-XII grossly intact Psych/Mental Status: - - Lethargic Microbiology Past 72 Hours 09/06/20 01:35 Urine, Catheterized Urine Culture - Preliminary Proteus mirabilis GNR lactose cardiographer 09/06/20 00:49 Blood Culture (Wb) - Left Hand Blood Culture - Final Klebsiella pneumoniae sp pneum Proteus mirabilis Laboratory Results 09/07/20 12:00: POC Glucose 219 H 09/07/20 15:59: POC Glucose 196 H 09/07/20 21:49: POC Glucose 196 H 09/08/20 06:20: WBC 17.0 H, RBC 3.92 L, Hgb 11.4 L, Hct 36.4 L, MCV 92.9, MCH 29.1, MCHC 31.3 L, RDW Std Deviation 53.2 H, RDW Coeff of Venancio 15.7 H, Plt Count 277, MPV 10.0, Immature Gran % (Auto) 1.800 H, Neut % (Auto) 89.7 H, Lymph % (Auto) 2.3 L, Arthur % (Auto) 5.3, Eos % (Auto) 0.5, Baso % (Auto) 0.4, Absolute Neuts (auto) 15.3 H, Absolute Lymphs (auto) 0.40 L, Nucleated RBC % 0 09/08/20 06:20: Sodium 148 H, Potassium 2.8 L, Chloride 117 H, Carbon Dioxide 24.0, Anion Gap 7, BUN 34 H, Creatinine 0.72, Estim Creat Clear Calc 40.22, Est GFR (MDRD) Af Amer 103, Est GFR (MDRD) Non-Af 85, BUN/Creatinine Ratio 47.3 H, Glucose 209 H, Calcium 9.3 09/08/20 06:54: POC Glucose 203 H 09/08/20 10:59: POC Glucose 242 H Current Medications Acetaminophen (Acetaminophen 325 Mg Tablet) 650 mg PO Q6H PRN PRN PRN Reason: Pain Score 1-10/Temp > 100.7 F Last Admin: 09/07/20 19:29 Dose: 650 mg Documented by: Albuterol Sulfate (Albuterol 2.5 Mg/3 Ml Vial.Neb.) 2.5 mg INHALATION Q2H PRN PRN PRN Reason: SOB/Wheezing Aspirin (Aspirin E.C. 81 Mg Tablet) 81 mg PO DAILYCM [facility] Last Admin: 09/08/20 08:22 Dose: 81 mg Documented by: Calamine/Phenol (Menthol/Lanolin/Calamine/Znox 113 Gm Tube) 1 applic TOPICAL BID [facility]; Protocol Last Admin: 09/08/20 08:24 Dose: 1 applic Documented by: Citalopram Hydrobromide (Citalopram 10 Mg Tablet) 10 mg PO DAILY [facility] Last Admin: 09/08/20 08:22 Dose: 10 mg Documented by: Enoxaparin Sodium (Enoxaparin 40 Mg/0.4 Ml Syringe) 40 mg SC DAILY@0600 [facility] Last Admin: 09/08/20 05:07 Dose: 40 mg Documented by: Guaifenesin (Guaifenesin 10 Ml Udc (200mg/10ml)) 10 ml PO Q4H PRN PRN PRN Reason: COUGH Ceftriaxone Sodium (Rocephin) 1 gm in 50 mls @ 100 mls/hr IV Q24@2200 [facility] Last Infusion: 09/08/20 00:26 Dose: Infused Documented by: Sodium Chloride () 250 mls @ 15 mls/hr IV .[id number] PRN PRN Reason: Saline Flush Last Infusion: 09/08/20 08:39 Dose: 0 mls/hr Documented by: Sodium Chloride () 250 mls @ 15 mls/hr IV .[id number] PRN PRN Reason: Additional IVPB Infusion Potassium Chloride () 10 meq in 100 mls @ 100 mls/hr IV BOLUS Q1H [facility] Stop: 09/08/20 12:59 Last Admin: 09/08/20 12:04 Dose: 100 mls/hr Documented by: Dextrose () 1,000 mls @ 60 mls/hr IV .[id number] [facility] Stop: 09/09/20 00:39 Last Admin: 09/08/20 08:21 Dose: 60 mls/hr Documented by: Insulin Glargine (Insulin Glargine 100 Units/Ml Pen) 10 units SC DAILY [facility] Last Admin: 09/08/20 08:25 Dose: 10 u Documented by: Insulin Human Lispro (Insulin Lispro 100 Unit/Ml Insuln.Pen) 0 unit SC [facility]; Protocol Last Admin: 09/08/20 10:59 Dose: 3 units Documented by: L-Arginine/L-Glutamine/Calcium HMB (Ubaldo (Unflavored) Packet) 1 packet PO BIDCM [facility] Last Admin: 09/08/20 08:21 Dose: Not Given Documented by: Lactic Acid (Ammonium Lactate 225 Gm Bottle) 1 applic TOPICAL DAILY [facility] Last Admin: 09/08/20 08:24 Dose: 1 applic Documented by: Nutritional Formula (Lactose Free) (Glucerna Shake 120 Ml Liquid) 120 ml PO TIDCM [facility] Last Admin: 09/08/20 10:56 Dose: Not Given Documented by: Nystatin (Nystatin Powder 15gm Bottle) 1 applic TOPICAL DAILY [facility]; Protocol Last Admin: 09/08/20 08:23 Dose: 1 applic Documented by: Ondansetron HCl (Ondansetron 4 Mg/2 Ml Vial) 4 mg IV Q8H PRN PRN PRN Reason: NAUSEA/VOMITING Last Admin: 09/08/20 04:49 Dose: 4 mg Documented by: Pantoprazole Sodium (Pantoprazole Sodium 20 Mg Tablet) 20 mg PO DAILY [facility] Last Admin: 09/08/20 08:22 Dose: 20 mg Documented by: Senna/Docusate Sodium (Senna/Docusate Sodium 1 Tablet) 2 tablet PO BID [facility] Last Admin: 09/08/20 08:23 Dose: Not Given Documented by: Sodium Chloride (0.9% Saline Lock 10 Ml Syringe) 10 - 40 ml IV UD PRN PRN Reason: SALINE FLUSH Last Admin: 09/08/20 08:20 Dose: 10 ml Documented by: STROKE Vital Signs/Narrative: Vital Signs Temp Pulse Resp BP Pulse Ox 09/08/20 08:40 97.6 F L 82 16 159/55 H 99 Medical Necessity - Tobacco Use Smoking Status: Never smoker Assessment/Plan All Active Problems (Last Reviewed 09/06/20 @ 18:[address] Jelena Calvert MD) Urinary retention (Acute) Extrarenal azotemia (Acute) Cystitis (Acute) Malfunction of Rayo catheter (Acute) Sepsis (Acute) Urinary tract infection (Acute) Hydronephrosis (Acute) Patient is a 70-year-old female who was admitted for confusion, abdominal pain and having a clogged catheter at the correction. On my physical exam today patient was alert and oriented, however does appear groggy and lethargic. Patient has been followed by urology for hydronephrosis on admission, renal ultrasound has shown resolution of hydronephrosis. Anticipate possible discharge tomorrow. 1) Sepsis secondary to Acute UTI Assessment - Mild leukocytosis at 17 on 09/08/2020 - BMP demonstrates hypernatremia and hypokalemia - Patient empirically treated with Rocephin since 09/06/2020 - Urine culture grew Proteus Mirabilis and GNR lactose cardiographer - Blood culture grew Klebsiella and Proteus Mirabilis - Indwelling Rayo catheter replaced Plan -Continue on IV Rocephin 2) Cellulitis of the LUE Assessment - Patient should be covered on empiric management for UTI - X-rays of the left hand, wrist and forearm show diffuse tissue swelling, no evidence of fracture Plan -Continue Tylenol as needed for pain 3) VERA on CKD 3 Assessment - Creatinine currently 0.72, down from admission - Renal ultrasound demonstrates resolution of hydronephrosis - Urology following Plan - Resolved - Continue with supportive care per urology Hypokalemia Assessment - 2.8 on 09/08/2020 Plan - Continue current potassium chloride infusion - Monitor in the a.m. 5) Hypernatremia Assessment -148 on 09/08/2020 Plan - Continue to hold IV fluids - Monitor in a.m. DVT prophylaxis -Lovenox SC Patient seen by Brock Harding PA-C, under the supervision of Dr. Nevarez. <Jo-Ann Nevarez - Last Filed: 09/08/20 15:57> Vitals/I&O's: Vital Signs Temp Pulse Resp BP Pulse Ox 97.6 F L 60 16 159/55 H 99 09/08/20 08:40 09/08/20 12:00 09/08/20 08:40 09/08/20 08:40 09/08/20 08:40 Oxygen Flow Rate (L/min) 1 Oxygen Delivery Method Nasal Cannula Weight: 171 lb 8.314 oz Body Mass Index (BMI) 31.4 Intake and Output for Last 24 Hours 09/06/20 09/07/20 09/08/20 23:59 23:59 23:59 Intake Total 3986.25 / 3986.25 1228.75 / 1428.75 952.75 / 952.75 Output Total 1050 / 1050 800 / 1125 1025 / 1025 Balance 2936.25 / 2936.25 428.75 / 303.75 -72.25 / -72.25 Microbiology Past 72 Hours 09/06/20 01:35 Urine, Catheterized Urine Culture - Preliminary Proteus mirabilis GNR lactose cardiographer 09/06/20 00:49 Blood Culture (Wb) - Left Hand Blood Culture - Final Klebsiella pneumoniae sp pneum Proteus mirabilis Laboratory Results 09/07/20 15:59: POC Glucose 196 H 09/07/20 21:49: POC Glucose 196 H 09/08/20 06:20: WBC 17.0 H, RBC 3.92 L, Hgb 11.4 L, Hct 36.4 L, MCV 92.9, MCH 29.1, MCHC 31.3 L, RDW Std Deviation 53.2 H, RDW Coeff of Venancio 15.7 H, Plt Count 277, MPV 10.0, Immature Gran % (Auto) 1.800 H, Neut % (Auto) 89.7 H, Lymph % (Auto) 2.3 L, Arthur % (Auto) 5.3, Eos % (Auto) 0.5, Baso % (Auto) 0.4, Absolute Neuts (auto) 15.3 H, Absolute Lymphs (auto) 0.40 L, Nucleated RBC % 0 09/08/20 06:20: Sodium 148 H, Potassium 2.8 L, Chloride 117 H, Carbon Dioxide 24 .0, Anion Gap 7, BUN 34 H, Creatinine 0.72, Estim Creat Clear Calc 40.22, Est GFR (MDRD) Af Amer 103, Est GFR (MDRD) Non-Af 85, BUN/Creatinine Ratio 47.3 H, Glucose 209 H, Calcium 9.3 09/08/20 06:54: POC Glucose 203 H 09/08/20 10:59: POC Glucose 242 H Current Medications Acetaminophen (Acetaminophen 325 Mg Tablet) 650 mg PO Q6H PRN PRN PRN Reason: Pain Score 1-10/Temp > 100.7 F Last Admin: 09/07/20 19:29 Dose: 650 mg Documented by: Albuterol Sulfate (Albuterol 2.5 Mg/3 Ml Vial.Neb.) 2.5 mg INHALATION Q2H PRN PRN PRN Reason: SOB/Wheezing Aspirin (Aspirin E.C. 81 Mg Tablet) 81 mg PO DAILYCM [facility] Last Admin: 09/08/20 08:22 Dose: 81 mg Documented by: Calamine/Phenol (Menthol/Lanolin/Calamine/Znox 113 Gm Tube) 1 applic TOPICAL BID [facility]; Protocol Last Admin: 09/08/20 08:24 Dose: 1 applic Documented by: Citalopram Hydrobromide (Citalopram 10 Mg Tablet) 10 mg PO DAILY [facility] Last Admin: 09/08/20 08:22 Dose: 10 mg Documented by: Enoxaparin Sodium (Enoxaparin 40 Mg/0.4 Ml Syringe) 40 mg SC DAILY@0600 [facility] Last Admin: 09/08/20 05:07 Dose: 40 mg Documented by: Guaifenesin (Guaifenesin 10 Ml Udc (200mg/10ml)) 10 ml PO Q4H PRN PRN PRN Reason: COUGH Ceftriaxone Sodium (Rocephin) 1 gm in 50 mls @ 100 mls/hr IV Q24@2200 [facility] Last Infusion: 09/08/20 00:26 Dose: Infused Documented by: Sodium Chloride () 250 mls @ 15 mls/hr IV .[id number] PRN PRN Reason: Saline Flush Last Infusion: 09/08/20 14:13 Dose: Infused Documented by: Sodium Chloride () 250 mls @ 15 mls/hr IV .[id number] PRN PRN Reason: Additional IVPB Infusion Dextrose () 1,000 mls @ 60 mls/hr IV .[id number] [facility] Stop: 09/09/20 00:39 Last Admin: 09/08/20 08:21 Dose: 60 mls/hr Documented by: Insulin Glargine (Insulin Glargine 100 Units/Ml Pen) 10 units SC DAILY [facility] Last Admin: 09/08/20 08:25 Dose: 10 u Documented by: Insulin Human Lispro (Insulin Lispro 100 Unit/Ml Insuln.Pen) 0 unit SC [facility]; Protocol Last Admin: 09/08/20 10:59 Dose: 3 units Documented by: L-Arginine/L-Glutamine/Calcium HMB (Ubaldo (Unflavored) Packet) 1 packet PO BIDCM [facility] Last Admin: 09/08/20 08:21 Dose: Not Given Documented by: Lactic Acid (Ammonium Lactate 225 Gm Bottle) 1 applic TOPICAL DAILY [facility] Last Admin: 09/08/20 08:24 Dose: 1 applic Documented by: Nutritional Formula (Lactose Free) (Glucerna Shake 120 Ml Liquid) 120 ml PO TIDCM [facility] Last Admin: 04/07/21 10:56 Dose: Not Given Documented by: Nystatin (Nystatin Powder 15gm Bottle) 1 applic TOPICAL DAILY [facility]; Protocol Last Admin: 09/08/20 08:23 Dose: 1 applic Documented by: Ondansetron HCl (Ondansetron 4 Mg/2 Ml Vial) 4 mg IV Q8H PRN PRN PRN Reason: NAUSEA/VOMITING Last Admin: 09/08/20 04:49 Dose: 4 mg Documented by: Pantoprazole Sodium (Pantoprazole Sodium 20 Mg Tablet) 20 mg PO DAILY [facility] Last Admin: 09/08/20 08:22 Dose: 20 mg Documented by: Senna/Docusate Sodium (Senna/Docusate Sodium 1 Tablet) 2 tablet PO BID [facility] Last Admin: 09/08/20 08:23 Dose: Not Given Documented by: Sodium Chloride (0.9% Saline Lock 10 Ml Syringe) 10 - 40 ml IV UD PRN PRN Reason: SALINE FLUSH Last Admin: 09/08/20 08:20 Dose: 10 ml Documented by: STROKE Vital Signs/Narrative: Vital Signs Pulse 09/08/20 12:00 60 Assessment/Plan Patient seen by Brock Harding PA-C under my supervision Patient seen and examined. She had no complaints. Pain in her left hand has improved markedly. Review of systems is otherwise negative. She has remained hemodynamically stable. Sodium has trended up to 148 today, and potassium is 2.8. O/E: Vital Signs Temp Pulse Resp BP Pulse Ox 97.6 F L 79 16 159/55 H 99 09/08/20 08:40 09/08/20 15:25 09/08/20 08:40 09/08/20 08:40 09/08/20 08:40 General: Alert, Cooperative, Lethargic HEENT: Atraumatic, PERRLA, EOMI, Normocephalic Oral: Dry Mucosa Neck: Supple, No JVD, Negative Carotid Bruits Lungs: Clear to auscultation, Normal air movement, No rhonchi, No wheeze Cardiovascular: Regular rate, Regular Rhythm, Normal S1, Normal S2, No murmurs Abdomen: Bowel Sounds Present, Soft, Non Tender, Non-Distended, No Hepato- splenomegaly Extremities: - - =swelling of dorsum of left hand has improved markedly. Skin: No rashes, No breakdown Musculoskeletal: No Tenderness to Palpation of Joints or Extremities Lymphatic: No Cervical, Supraclavicular, or Inguinal Adenopathy Neurological: Cranial nerves II-XII grossly intact, Motor Exam 5/5 strength throughout Psych/Mental Status: - - lethargic Plan is to start D5W to bring down sodium levels. Will replace potassium. Continue IV ceftriaxone. URine culture grew Proteus mirabilis and Blood culture grew Klebsiella pneumoniae and proteus mirabilis, both of which are sensitive to ceftriaxone. PT OT on board. Fall precautions. Rest as per Brock Harding PA-C's note, which I have reviewed and endorsed. Inpatient E&M: [id number] Subs Hosp L2
--- NOTE | 2020-09-08 14:20 | CASEMGMT ---
Palliative screening tool completed and pt does not qualify for palliative c/s at this time. SStkvng MEADOWS CM
[2020-09-08 17:01] LABS: Bedside Glucose 246 mg/dL (70-110)
[2020-09-08] MEDS: Ceftriaxone 1 GM/50 ML BAG IV (20:36)
[2020-09-08] MEDS: Acetaminophen 325 MG Tablet 650 MG PO (20:36)
[2020-09-08 22:21] LABS: Bedside Glucose 169 mg/dL (70-110)
[2020-09-09 03:08] VITALS: PULSE 61
[2020-09-09 03:20] VITALS: BP 152/40; PULSE 74; RESP 16; TEMP 36.2; O2SAT 99
[2020-09-09] MEDS: Ondansetron 4 MG/2 ML Vial IV (05:00)
[2020-09-09] MEDS: Enoxaparin 40 MG/0.4 ML Syringe SC (05:00)
[2020-09-09] MEDS: 0.9% Saline Lock 10 ML Syringe IV (05:01)
[2020-09-09 06:41] LABS: Bedside Glucose 159 mg/dL (70-110)
[2020-09-09 07:03] LABS: Absolute Lymphocyte Count 0.65 X10^3/uL (0.83-4.51); Absolute Neutrophil Count 12.6 X10^3/uL (2.0-7.7); Basophil# 0.06 X10^3/uL; Basophil% 0.4 % (0-1); Eosinophil# 0.46 X10^3/uL; Eosinophils% 2.9 % (0-5); Hematocrit 35.8 % (37-47); Hemoglobin 11.3 g/dL (12.0-15.0); Lymphocyte # 0.65 X10^3/ul (4.0); Lymphocyte % 4.2 % (19-41); Mean Corp Hgb Conc 31.6 g/dL (32-36); Mean Corpuscular Hgb 29.4 pg (27.0-32.0); Mean Corpuscular Volume 93.2 fL (81-99); Mean Platelet Vol. 10.5 fl (6.2-12.0); Monocyte# 1.21 X10^3/uL; Monocyte% 7.7 % (0-10); NRBC Flagged by Analyzer 0 % (0-5); Neutrophil # 12.56 X10^3/uL (2.7-7.7); Neutrophil % 80.4 % (47-70); Platelet Count 242 K/mm3 (150-450); RBC Distribution Width CV 15.9 % (11.6-14.6); Red Blood Count 3.84 M/mm3 (4.2-5.4); White Blood Count 15.6 K/mm3 (4.4-11.0)
[2020-09-09 07:16] VITALS: PULSE 59
[2020-09-09 07:35] LABS: Anion Gap 7 (5-15); BUN 28 mg/dL (7-18); Calcium,Total 9.3 mg/dL (8.5-10.1); Chloride 113 mmol/L (98-107); Creatinine, Serum 0.68 mg/dL (0.55-1.02); EST Glomerular Filtration Rate 90 mL/min (>60); Est Glom Filt Rate - Afr Amer 109 mL/min (>60); Estimated Creatinine Clearance 40.22 ml/min; Glucose 186 mg/dL (74-106); Potassium 3.3 mmol/L (3.5-5.1); Sodium Level 144 mmol/L (136-145)
[2020-09-09 08:00] VITALS: O2SAT 100
[2020-09-09] MEDS: Senna/Docusate Sodium 1 Tablet 2 TABLET PO (08:39)
[2020-09-09] MEDS: Juven (unflavored) Packet 1 PACKET PO (08:39)
[2020-09-09] MEDS: Aspirin E.C. 81 MG Tablet PO (08:40)
[2020-09-09] MEDS: Pantoprazole Sodium 20 MG Tablet PO (08:40)
[2020-09-09] MEDS: Citalopram 10 MG Tablet PO (08:40)
[2020-09-09] MEDS: Glucerna Shake 120 ML LIQUID PO (08:47)
[2020-09-09] MEDS: Potassium Chloride Oral Tablet 20 MEQ 60 MEQ PO (08:47)
[2020-09-09] MEDS: Ammonium Lactate 225 gm Bottle 1 APPLIC TOPICAL (08:51)
[2020-09-09] MEDS: Nystatin Powder 15gm Bottle 1 APPLIC TOPICAL (08:55)
[2020-09-09] MEDS: Menthol/Lanolin/Calamine/Znox 113 GM Tube 1 APPLIC TOPICAL (08:56)
[2020-09-09 09:43] VITALS: BP 132/57; PULSE 83; RESP 15; TEMP 36.6; O2SAT 96
[2020-09-09] MEDS: Acetaminophen 325 MG Tablet 650 MG PO (09:50)
--- NOTE | 2020-09-09 11:28 | PCM.TXEXTCAR ---
- Diet 09/06/20 15:14 Diet: Carbohydrate Controlled Food consistency:: Pureed Liquid Consistency:: [place]/Mildly Thick Type of Dietary Supplement:: Ensure Pudding Is pt able to select menu?: No Diet Comments: Ensure pudding BID w/ lunch and dinner - Routine Orders/Code Status Enema Type: Fleetz Enema Frequency: Daily PRN Suppository Type: Dulcolax 10mg Suppository Frequency: Daily PRN Keep PO Greater than or Equal to (%): 90 - Wound(s) right lateral foot Wound Type: Pressure Injury right lateral lower leg Wound Type: Pressure Injury - Therapies Weight Bearing: Weight bearing as tolerated Physical Therapy: Eval and Treat Occupational Therapy: Eval and Treat - Allergies/Procedures Done in Hospital Allergies/Adverse Reactions: Allergies No Known Allergies Allergy (Verified 07/13/20 10:31) Procedures: None - Type of Care/Length of Stay Estimated LOS: More Than 30 Days Type of Care Needed: Skilled Rehab Potential: Fair Prognosis: Fair - Additional Orders/Day of Discharge Day of Discharge: 09/09/20 - Dietary and Speech Recommendations Dietitian Recommendations/Changes: Will liberalize therapeuric diet to Carbohydrate-Controlled with texture/consistency as per [employer]WHIDE TRIMMER. Will add ensure pudding BID w/ lunch and dinner. Will continue 120ml glucerna shake TID w/ medpass. Will add Ubaldo BID for wound healing. May need to consider TF support if wt continues to decline and PO remains suboptimal to meet estimated nutrition needs. - Follow Up Care Primary Care Physician: Giovanny Porras MD [Primary Care Provider] - Please follow up with your Primary Care Physician in: 1-2 weeks
[2020-09-09 11:41] LABS: Bedside Glucose 256 mg/dL (70-110)
[2020-09-09 11:52] VITALS: PULSE 77
--- NOTE | 2020-09-09 13:37 | CASEMGMT ---
Social Work Pt is ready for discharge today. Transportation arranged with [facility] for 2:00 picker tender via [place]. SW notified pt about discharge and picker tender time. Pt is understanding. Orders faxed to [facility] and admission coordinator notified of d/c time. SW informed nursing of d/c plan and nursing states she has called pt Next of Kin Tosin and left info about d/c today. BULMARO Martinez
--- NOTE | 2020-09-09 14:07 | PHA.DC.MR ---
Pharmacy Service has performed discharge medication reconciliation for this patient upon transfer to [facility]. Home Medications acetaminophen 500 mg capsule 1,000 mg PO TID PRN cap 07/05/20 ammonium lactate 10 %-emu oil topical cream 1 applic TOPICAL DAILY ml 07/05/20 bisacodyl 10 mg rectal suppository 10 mg RC DAILY PRN 07/05/20 citalopram 10 mg tablet 10 mg PO DAILY 07/05/20 dextrose 40 % oral gel 10 g PO Q15M PRN 07/05/20 guaifenesin 100 mg/5 mL oral liquid 10 ml PO Q4H PRN 07/05/20 insulin lispro 100 unit/mL subcutaneous solution 1 sliding scale dose SC [facility] 07/05/20 magnesium hydroxide 400 mg/5 mL oral suspension 30 ml PO DAILY PRN 07/05/20 methyl salicylate 15 %-menthol 10 % topical cream 1 applic TOPICAL Q4H PRN 07/05/20 multivitamin,tx-minerals 1 tab PO DAILY 07/05/20 nystatin 100,000 unit/gram topical powder 1 applic TOPICAL DAILY 07/05/20 sodium chloride 0.65 % nasal spray aerosol 2 spray INTRANASAL BID 07/05/20 Aspirin [Aspirin EC] 81 mg PO DAILY 07/09/20 Omeprazole 20 mg PO DAILY #60 tablet. 07/13/20 Insulin Glargine,Hum.rec.anlog [Lantus Solostar] 10 unit SC DAILY 09/06/20 Ondansetron HCl [Zofran] 4 mg PO Q4H PRN 09/06/20 Cefdinir [Omnicef [equiv]] 300 mg PO Q12H #10 capsule 09/09/20 The patient's discharge medication list was reviewed for discrepancies and discrepancies were resolved.
--- NOTE | 2020-09-09 14:26 | NURSING ---
report called to mayi christopher at [facility]
--- NOTE | 2020-09-09 15:54 | PCM.DC.SUM ---
Discharge Date and Diagnosis - Problem List Patient Problems: Active and Suspected Problems (Last Reviewed 09/06/20 @ 18:[address] Jelena Calvert MD) Urinary retention (Acute) Extrarenal azotemia (Acute) Cystitis (Acute) Malfunction of Rayo catheter (Acute) Sepsis (Acute) Urinary tract infection (Acute) Hydronephrosis (Acute) Date of Admission: 09/06/20 Date of Discharge: 09/09/20 - Primary Discharge Diagnosis Acute Problems: Active Problems (Last Reviewed 09/06/20 @ 18:[address] Jelena aClvert MD) Urinary retention (Acute) Extrarenal azotemia (Acute) Cystitis (Acute) Malfunction of Rayo catheter (Acute) Sepsis (Acute) Urinary tract infection (Acute) Hydronephrosis (Acute) - Secondary Discharge Diagnosis Chronic Problems: Chronic Problems (Last Reviewed 09/06/20 @ 18:[address] Jelena Calvert MD) Hx of foot surgery (Chronic) Anxiety (Chronic) Depression (Chronic) Muscle weakness (generalized) (Chronic) Hemiplegia and hemiparesis following cerebral infarction affecting left non-dominant side (Chronic) Cerebral infarction, unspecified (Chronic) Hyperlipidemia, unspecified (Chronic) Need for assistance with personal care (Chronic) Other abnormalities of gait and mobility (Chronic) Hypertension (Chronic) Diabetes mellitus type 2 in obese (Chronic) Hospital Course and Treatment Imaging Results: Diagnostic Data Abdomen/Pelvis CT 09/05/20 23:13 IMPRESSION: 1. Dilated bladder lumen with question of peripheral bladder wall inflammatory stranding and layering debris concerning for underlying cystitis with secondary mild to moderate ureteral dilatation and hydronephrosis, clinically correlate. Electronically Signed: Kwame Mcadams DO at 0:16 EDT , Service support , Forearm X-Ray 09/06/20 09:18 IMPRESSION: Nonspecific soft tissue swelling without destructive/erosive process. Electronically Signed: Mello Mendes MD ([place]) at 10:23 EDT , Service support , Hand X-Ray 09/06/20 09:18 IMPRESSION: No destructive bony process. Diffuse soft tissue swelling. Electronically Signed: Mello Mendes MD ([place]) at 10:24 EDT , Service support , Wrist X-Ray 09/06/20 09:18 IMPRESSION: Nonspecific soft tissue swelling without destructive bony process. Electronically Signed: Mello Mendes MD ([place]) at 10:24 EDT , Service support , Renal Ultrasound 09/06/20 18:20 IMPRESSION: No hydronephrosis. Electronically Signed: Mello Mendes MD ([place]) at 6:30 EDT , Service support , Consultations 09/06/20 19:42 Consult: Onc/Wound/chief of pediatric urology Routine Comment: Operations: None Procedures: None Summary of Care Provided: The patient is a 70 year old F with a past medical history as outlined was admitted through the ED on 09/06/2020 from her long term with a complaint of abdominal pain. She had also had poor oral intake with nausea and vomiting as well as constipation. Review of symptoms otherwise negative. On admission, her indwelling Rayo catheter was noted to have dirty cloudy urine. Labs done showed evidence of UTI and CT of the abdomen and pelvis done showed dilated bladder lumen with moderate urethral dilation and bilateral hydronephrosis. She was admitted and managed for sepsis due to acute UTI. She was started on IV ceftriaxone. She was also managed for VERA on CKD stage IIIb. VERA was thought to be post renal due to clogged Rayo catheter. Rayo catheter was changed in the ED and she was hydrated with IV fluids. Urology was consulted. Urine culture grew Proteus mirabilis and Klebsiella pneumonia and blood culture also grew the same. Patient symptoms gradually improved and she felt better. Urology started a renal ultrasound which showed resolution of the hydronephrosis and ureteral dilatation after Rayo catheter was changed. Patient remained stable hospital course was complicated by swelling of the left upper extremity for which x-rays were negative and we show soft tissue swelling. She was therefore managed for cellulitis of the left upper extremity. She was discharged back to her long term on 09/09/2020 with a prescription for p.o. cefdinir 300 mg twice daily for 5 days. She is to follow-up with her primary care doctor in 1 to 2 weeks. Patient seen and examined prior to discharge. She had no complaints and review systems otherwise negative. Labs and vitals reviewed. Medication reviewed and reconciled. O/E: Vital Signs Temp Pulse Resp BP Pulse Ox 98 F 77 15 132/57 H 96 09/09/20 09:43 09/09/20 11:52 09/09/20 09:43 09/09/20 09:43 09/09/20 09:43 General: Alert, Cooperative, HEENT: Atraumatic, PERRLA, EOMI, Normocephalic Oral: Dry Mucosa Neck: Supple, No JVD, Negative Carotid Bruits Lungs: Clear to auscultation, Normal air movement, No rhonchi, No wheeze Cardiovascular: Regular rate, Regular Rhythm, Normal S1, Normal S2, No murmurs Abdomen: Bowel Sounds Present, Soft, Non Tender, Non-Distended, No Hepato-splenomegaly Extremities: - - erythema of left hand has resolved. Still mildly swollen and tender to touch. l Skin: No rashes, No breakdown Musculoskeletal: No Tenderness to Palpation of Joints or Extremities Lymphatic: No Cervical, Supraclavicular, or Inguinal Adenopathy Neurological: Cranial nerves II-XII grossly intact, Motor Exam 5/5 strength throughout Psych/Mental Status: - - flat affect Plan is for discharge to SNF today Patient Problems: Active and Suspected Problems (Last Reviewed 09/06/20 @ 18:[address] Jelena Calvert MD) Urinary retention (Acute) Extrarenal azotemia (Acute) Cystitis (Acute) Malfunction of Rayo catheter (Acute) Sepsis (Acute) Urinary tract infection (Acute) Hydronephrosis (Acute) - Physical Exam Vitals/I&O's: Vital Signs Temp Pulse Resp BP Pulse Ox 98 F 77 15 132/57 H 96 09/09/20 09:43 09/09/20 11:52 09/09/20 09:43 09/09/20 09:43 09/09/20 09:43 Oxygen Flow Rate (L/min) 1 Oxygen Delivery Method Room Air Weight: 171 lb 8.314 oz Body Mass Index (BMI) 31.4 Intake and Output for Last 24 Hours 09/07/20 09/08/20 09/09/20 23:59 23:59 23:59 Intake Total 1228.75 / 1428.75 2162.00 / 2162.00 589 / 589 Output Total 800 / 1125 1550 / 1550 675 / 675 Balance 428.75 / 303.75 612.00 / 612.00 -86 / -86 Microbiology Past 72 Hours 09/06/20 01:35 Urine, Catheterized Urine Culture - Final Proteus mirabilis Klebsiella pneumoniae sp pneum 09/06/20 00:49 Blood Culture (Wb) - Left Hand Blood Culture - Final Klebsiella pneumoniae sp pneum Proteus mirabilis Laboratory Results 09/08/20 16:52: POC Glucose 246 H 09/08/20 20:35: POC Glucose 169 H 09/09/20 05:55: WBC 15.6 H, RBC 3.84 L, Hgb 11.3 L, Hct 35.8 L, MCV 93.2, MCH 29.4, MCHC 31.6 L, RDW Std Deviation 54.0 H, RDW Coeff of Venancio 15.9 H, Plt Count 242, MPV 10.5, Immature Gran % (Auto) 4.400 H, Neut % (Auto) 80.4 H, Lymph % (Auto) 4.2 L, [place] % (Auto) 7.7, Eos % (Auto) 2.9, Baso % (Auto) 0.4, Absolute Neuts (auto) 12.6 H, Absolute Lymphs (auto) 0.65 L, Nucleated RBC % 0 09/09/20 05:55: Sodium 144, Potassium 3.3 L, Chloride 113 H, Carbon Dioxide 24.0, Anion Gap 7, BUN 28 H, Creatinine 0.68, Estim Creat Clear Calc 40.22, Est GFR (MDRD) Af Amer 109, Est GFR (MDRD) Non-Af 90, BUN/Creatinine Ratio 41.0 H, Glucose 186 H, Calcium 9.3 09/09/20 06:35: POC Glucose 159 H 09/09/20 11:30: POC Glucose 256 H Discharge Diet: Low fat/ Low Cholesterol Discharge Activity: Return to Normal Activity Home Medications: Medications to take at Discharge acetaminophen 500 mg capsule 1,000 mg PO TID PRN cap 07/05/20 ammonium lactate 10 %-emu oil topical cream 1 applic TOPICAL DAILY ml 07/05/20 bisacodyl 10 mg rectal suppository 10 mg RC DAILY PRN 07/05/20 citalopram 10 mg tablet 10 mg PO DAILY 07/05/20 dextrose 40 % oral gel 10 g PO Q15M PRN 07/05/20 guaifenesin 100 mg/5 mL oral liquid 10 ml PO Q4H PRN 07/05/20 insulin lispro 100 unit/mL subcutaneous solution 1 sliding scale dose SC USEASDIRECTD 07/05/20 magnesium hydroxide 400 mg/5 mL oral suspension 30 ml PO DAILY PRN 07/05/20 methyl salicylate 15 %-menthol 10 % topical cream 1 applic TOPICAL Q4H PRN 07/05/20 multivitamin,tx-minerals 1 tab PO DAILY 07/05/20 nystatin 100,000 unit/gram topical powder 1 applic TOPICAL DAILY 07/05/20 sodium chloride 0.65 % nasal spray aerosol 2 spray INTRANASAL BID 07/05/20 Aspirin [Aspirin EC] 81 mg PO DAILY 07/09/20 Omeprazole 20 mg PO DAILY #60 tablet. 07/13/20 Insulin Glargine,Hum.rec.anlog [Lantus Solostar] 10 unit SC DAILY 09/06/20 Ondansetron HCl [Zofran] 4 mg PO Q4H PRN 09/06/20 Cefdinir [Omnicef [equiv]] 300 mg PO Q12H #10 capsule 09/09/20 Following Prescriptions Were Given to Patient: Cefdinir [Omnicef [equiv]] 300 mg PO Q12H #10 capsule Transmission Status: Received by [facility] Primary Care Physician: Giovanny Porras MD [Primary Care Provider] - Please follow up with your Primary Care Physician in: 1-2 weeks Disposition: [facility] facility Minutes spent on discharge:: 40 Patient Condition:: Fair Medical Necessity - Tobacco Use Smoking Status: Never smoker Meaningful Use Info Meaningful Use Diagnoses (Choose all that apply): None applicable Inpatient E&M: 81814 Disch Hosp
== END 2020-09-09 14:15 | disposition skilled nursing facility (03) | DRG 698 ==
LOC: ED 09-06 00:50 → PCU 09-06 01:18
PROVIDERS: Admitting Provider Hospitalist; Emergency Provider Emergency Medicine; PCP Family Medicine; Visit Provider Student in an Organized Health Care Education/Training Program
DX: T83.511A Infection and inflammatory reaction due to indwelling urethral catheter, initial encounter (principal); E43 Unspecified severe protein-calorie malnutrition; A41.9 Sepsis, unspecified organism; N17.9 Acute kidney failure, unspecified; L03.114 Cellulitis of left upper limb; I69.354 Hemiplegia and hemiparesis following cerebral infarction affecting left non-dominant side; N13.6 Pyonephrosis; E87.0 Hyperosmolality and hypernatremia; B96.4 Proteus (mirabilis) (morganii) as the cause of diseases classified elsewhere; E11.22 Type 2 diabetes mellitus with diabetic chronic kidney disease; N18.32 Chronic kidney disease, stage 3b; I12.9 Hypertensive chronic kidney disease with stage 1 through stage 4 chronic kidney disease, or unspecified chronic kidney disease; N39.0 Urinary tract infection, site not specified; T83.091A Other mechanical complication of indwelling urethral catheter, initial encounter; Y73.8 Miscellaneous gastroenterology and urology devices associated with adverse incidents, not elsewhere classified; E87.6 Hypokalemia; B96.1 Klebsiella pneumoniae [K. pneumoniae] as the cause of diseases classified elsewhere; Z79.4 Long term (current) use of insulin; Z79.82 Long term (current) use of aspirin; F32.9 Major depressive disorder, single episode, unspecified; F41.9 Anxiety disorder, unspecified; L89.152 Pressure ulcer of sacral region, stage 2; E66.9 Obesity, unspecified; E78.5 Hyperlipidemia, unspecified; Z68.31 Body mass index [BMI] 31.0-31.9, adult; K59.00 Constipation, unspecified; L89.899 Pressure ulcer of other site, unspecified stage; Z82.3 Family history of stroke; Z86.61 Personal history of infections of the central nervous system
CPT/HCPCS: 36415; 73090; 73110; 73130; 74176; 76770; 80048; 80053; 82803; 82962; 83605; 83690; 85025; 87040; 87077; 87086; 87088; 87186; 97110; 97162; 97166; 97530; 97535; 97802; 99283; J7030; J7050; A4216; J2405

== ENCOUNTER → 2020-11-25 05:00 | Outpatient (REF) | payer MEDICARE, SELFPAY ==
[2020-09-06 15:19] VITALS: BMI 31.4
[2020-11-25 08:52] LABS: Hematocrit 42.1 % (37-47); Hemoglobin 13.4 g/dL (12.0-15.0); Mean Corp Hgb Conc 31.8 g/dL (32-36); Mean Corpuscular Hgb 28.8 pg (27.0-32.0); Mean Corpuscular Volume 90.3 fL (81-99); Mean Platelet Vol. 10.1 fl (6.2-12.0); Platelet Count 414 K/mm3 (150-450); RBC Distribution Width CV 16.3 % (11.6-14.6); RBC Distribution Width SD 53.5 fl (35.1-43.9); Red Blood Count 4.66 M/mm3 (4.2-5.4); White Blood Count 10.5 K/mm3 (4.4-11.0)
[2020-11-25 09:08] LABS: Anion Gap 7 (5-15); BUN 15 mg/dL (7-18); BUN/Creat Ratio 30.4 RATIO (10-20); Calcium,Total 9.3 mg/dL (8.5-10.1); Chloride 105 mmol/L (98-107); Creatinine, Serum 0.49 mg/dL (0.55-1.02); EST Glomerular Filtration Rate 131 mL/min (>60); Est Glom Filt Rate - Afr Amer 158 mL/min (>60); Glucose 90 mg/dL (74-106); Potassium 3.4 mmol/L (3.5-5.1); Sodium Level 141 mmol/L (136-145)
== END ==
LOC: OLS.SW300 05:00
PROVIDERS: PCP Family Medicine; Visit Provider Family Medicine
DX: E11.9 Type 2 diabetes mellitus without complications (principal); I10 Essential (primary) hypertension; E78.5 Hyperlipidemia, unspecified; R53.81 Other malaise
CPT/HCPCS: 36415; 80048; 85027

== ENCOUNTER → 2020-12-01 | Outpatient (REF) | payer MEDICARE, SELFPAY ==
[2020-09-06 15:19] VITALS: BMI 31.4
[2020-12-01 08:38] LABS: Hemoglobin A1c 5.6 % (3.8-5.6)
[2020-12-02 08:11] LABS: AST(SGOT) 16 U/L (15-37); Alanine Aminotransfer ALT/SGPT 15 U/L (13-56); Albumin, Serum 2.6 g/dL (3.2-5.0); Alkaline Phosphatase 70 U/L (45-117); Bilirubin, Direct 0.08 mg/dL (0.00-0.30); Cholesterol 138 mg/dL (200); Globulin 3.4 g/dL (2.2-4.2); High Density Lipoprotein 48 mg/dL; Triglycerides 161 mg/dL; Very Low Density Lipoprotein 32 mg/dL (5-40)
== END | disposition home or self-care (01) ==
LOC: OLS.SW300 05:00
PROVIDERS: PCP Family Medicine; Visit Provider Family Medicine
DX: E11.9 Type 2 diabetes mellitus without complications (principal)
CPT/HCPCS: 36415; 80061; 80076; 83036

== ENCOUNTER → 2020-12-16 02:00 | Outpatient (REF) | payer MEDICARE, SELFPAY ==
[2020-09-06 15:19] VITALS: BMI 31.4
[2020-12-16 07:22] LABS: Color, Urine Yellow (Yellow); Glucose, Dipstick Normal (Normal); Ketone-Dipstick Negative (Negative); Leukocyte Esterase-Dipstick 500 /ul (Negative); Nitrite-Dipstick Positive (Negative); Occult Blood-Urine 50 /ul (Negative); Protein-Dipstick 100 mg/dl (Negative); Specific Gravity, Urine 1.015 (1.002-1.030); Urine Bilirubin Dipstick Negative (Negative); Urine Clarity Turbid (Clear); Urine Urobilinogen Normal (Normal)
== END ==
LOC: OLS.SW300 02:00
PROVIDERS: PCP Family Medicine; Visit Provider Family Medicine
DX: R82.998 Other abnormal findings in urine (principal)
CPT/HCPCS: 81002; 87077; 87086; 87088; 87186

== ENCOUNTER → 2020-12-23 05:00 | Outpatient (REF) | payer MEDICARE, SELFPAY ==
[2020-09-06 15:19] VITALS: BMI 31.4
[2020-12-23 08:12] LABS: Hematocrit 42.3 % (37-47); Hemoglobin 13.3 g/dL (12.0-15.0); Mean Corp Hgb Conc 31.4 g/dL (32-36); Mean Corpuscular Hgb 29.6 pg (27.0-32.0); Platelet Count 399 K/mm3 (150-450); RBC Distribution Width CV 14.6 % (11.6-14.6); RBC Distribution Width SD 51.3 fl (35.1-43.9); White Blood Count 12.9 K/mm3 (4.4-11.0)
[2020-12-23 08:26] LABS: Anion Gap 5 (5-15); BUN 23 mg/dL (7-18); BUN/Creat Ratio 32.4 RATIO (10-20); Calcium,Total 9.5 mg/dL (8.5-10.1); Chloride 104 mmol/L (98-107); Creatinine, Serum 0.71 mg/dL (0.55-1.02); EST Glomerular Filtration Rate 86 mL/min (>60); Est Glom Filt Rate - Afr Amer 104 mL/min (>60); Glucose 83 mg/dL (74-106); Potassium 4.2 mmol/L (3.5-5.1); Sodium Level 140 mmol/L (136-145)
== END ==
LOC: OLS.SW300 05:00
PROVIDERS: PCP Family Medicine; Visit Provider Family Medicine
DX: E11.9 Type 2 diabetes mellitus without complications (principal); R53.81 Other malaise
CPT/HCPCS: 36415; 80048; 85027

== ENCOUNTER → 2021-01-07 22:00 | Outpatient (REF) | payer MEDICARE, SELFPAY ==
[2020-09-06 15:19] VITALS: BMI 31.4
[2021-01-08 10:09] LABS: Color, Urine Amber (Yellow); Glucose, Dipstick Normal (Normal); Ketone-Dipstick 5 mg/dl (Negative); Leukocyte Esterase-Dipstick 500 /ul (Negative); Nitrite-Dipstick Positive (Negative); Occult Blood-Urine 250 /ul (Negative); Protein-Dipstick 100 mg/dl (Negative); Specific Gravity, Urine 1.015 (1.002-1.030); Urine Bilirubin Dipstick Negative (Negative); Urine Clarity Turbid (Clear); Urine Urobilinogen Normal (Normal)
== END ==
LOC: OLS.SW300 22:00
PROVIDERS: PCP Family Medicine; Visit Provider Family Medicine
DX: R31.9 Hematuria, unspecified (principal); R41.82 Altered mental status, unspecified
CPT/HCPCS: 81002; 87077; 87086; 87088

== ENCOUNTER 2021-01-16 17:54 | Emergency (ER) | payer MEDICARE, SELFPAY ==
[2020-09-06 15:19] VITALS: BMI 31.4
[2021-01-16 17:55] VITALS: BP 107/76; PULSE 107; RESP 18; TEMP 37.1; O2SAT 94; BMI 23.3
[2021-01-16 18:07] VITALS: BP 107/76; PULSE 107; RESP 18; TEMP 37.1; O2SAT 94; O2SAT 96
--- NOTE | 2021-01-16 18:38 | RAD_ITS ---
HISTORY: cough EXAMINATION/TECHNIQUE: XR Chest 1 View: Portable upright AP chest x-ray COMPARISON: 04/28/20 FINDINGS: LINES/DEVICES: None. LUNGS: No consolidation, edema or effusion. No pneumothorax. MEDIASTINUM AND CARDIOVASCULAR STRUCTURES: Cardiac silhouette not enlarged. Central airways and mediastinal contour are unremarkable. BONES AND SOFT TISSUES: No acute bony abnormalities. RAD/Chest 1 View (Portable) IMPRESSION: No radiographic evidence of acute cardiopulmonary disease. at 1917 Reported and signed by: Prasad Jansen MD Electronically Signed: Prasad Jansen MD at 19:16 EDT Tel , Service support ,
--- NOTE | 2021-01-16 19:34 | EDS_ITS ---
HPI History of Present Illness Chief Complaint: General Illness Narrative Narrative: Patient is a 70-year-old female from the snf with history of dementia. She is a DNR comfort care only with no power of insurance defense attorney or family to override this. [facility] states that she has had a few bouts of vomiting recently and they concerned about possible aspiration and therefore sent the patient in for evaluation. Upon arrival to the ER the patient is at her baseline mental status which is mildly confused. She denies any chest pain or shortness of breath. She does admit to mild abdominal pain. Please note history of present was may be unreliable secondary to her history of dementia [facility] Medical History (Updated 01/16/21 @ 19:[address] Jeremy Osorio, DO) Anxiety Cerebral infarction, unspecified Depression Diabetes mellitus type 2 in obese Diarrhea Elevated troponin Fall Fatigue Hemiplegia and hemiparesis following cerebral infarction affecting left non- dominant side Hyperlipidemia, unspecified Hypertension Muscle weakness (generalized) Need for assistance with personal care Nonpyogenic meningitis Occult blood positive stool Other abnormalities of gait and mobility Pain in right knee Rhabdomyolysis Rhabdomyolysis Home Medications acetaminophen 500 mg capsule 1,000 mg PO TID PRN cap 07/05/20 [History Last Taken Unknown] ammonium lactate 10 %-emu oil topical cream 1 applic TOPICAL DAILY ml 07/05/20 [History Last Taken Unknown] bisacodyl 10 mg rectal suppository 10 mg RC DAILY PRN 07/05/20 [History Last Taken Unknown] citalopram 10 mg tablet 10 mg PO DAILY 07/05/20 [History Last Taken Unknown] dextrose 40 % oral gel 10 g PO Q15M PRN 07/05/20 [History Last Taken Unknown] guaifenesin 100 mg/5 mL oral liquid 10 ml PO Q4H PRN 07/05/20 [History Last Taken Unknown] insulin lispro 100 unit/mL subcutaneous solution 1 sliding scale dose SC USEASDIRECTD 07/05/20 [History Last Taken Unknown] magnesium hydroxide 400 mg/5 mL oral suspension 30 ml PO DAILY PRN 07/05/20 [History Last Taken Unknown] methyl salicylate 15 %-menthol 10 % topical cream 1 applic TOPICAL Q4H PRN 07/05/20 [History Last Taken Unknown] multivitamin,tx-minerals 1 tab PO DAILY 07/05/20 [History Last Taken Unknown] nystatin 100,000 unit/gram topical powder 1 applic TOPICAL DAILY 07/05/20 [History Last Taken Unknown] sodium chloride 0.65 % nasal spray aerosol 2 spray INTRANASAL BID 07/05/20 [History Last Taken Unknown] aspirin 81 mg PO DAILY 07/09/20 [History Last Taken Unknown] omeprazole 20 mg PO DAILY #60 tablet. 07/13/20 [Rx Last Taken Unknown] insulin glargine 10 unit SC DAILY 09/06/20 [History Last Taken Unknown] ondansetron HCl 4 mg PO Q4H PRN 09/06/20 [History Last Taken Unknown] cefdinir 300 mg PO Q12H #10 capsule 09/09/20 [Rx Last Taken Unknown] Allergy/AdvReac Type Severity Reaction Status Date / Time No Known Allergies Allergy Verified 01/16/21 18:02 Surgical History Hx of foot surgery Social History (Updated 07/06/20 @ 13:[address] Min Joseph MD) Smoking Status: Never smoker second hand exposure: No alcohol intake: never substance use type: does not use caffeine: Yes ROS ROS ED Constitutional Constitutional ED: Denies chills or fever(s) ENT ENT ED: Denies sore throat Cardiovascular Cardiovascular: Denies chest pain Respiratory/Chest Respiratory/Chest: Reports cough Gastrointestinal Gastrointestinal: Reports abdominal pain; Denies nausea or vomiting Musculoskeletal Musculoskeletal: Denies myalgias Integumentary Denies rash Neurologic Neurologic: Denies headache(s) EXAM Physical Exam Const Vital Signs: 01/16/21 17:55 01/16/21 18:03 01/16/21 18:07 Temperature 98.7 F 98.7 F Temperature Source Temporal Temporal Pulse Rate 107 H 107 H Respiratory Rate 18 18 Respiratory Effort Short of Breath Blood Pressure 107/76 107/76 Blood Pressure Mean 86 86 Pulse Ox 94 96 Oxygen Delivery Method Non-Rebreather Nasal Cannula Oxygen Flow Rate (L/min) 15 6 Positive obese Nutritional Appearance: obese HEENT HEENT Narrative: No tongue or lip swelling no oral lesions no airway edema or compromise Eyes PERRL Neck supple Chest Wall inspection of chest normal Resp Resp Narrative: Breath sounds are diminished throughout with faint rhonchi present in the bilateral bases. However there are no overt signs to suggest acute respiratory distress Cardio regular rate and regular rhythm GI GI Narrative: Abdomen is obese soft and nondistended with mild pain with palpation in the midepigastric region without voluntary guarding or rigidity or pulsatile mass Extremity Extremity Narrative: No obvious bony deformity or joint effusion or signs of tr auma there is nonpitting edema that is equal bilaterally Neuro Neuro Narrative: Patient is awake and alert at her baseline mental status which is oriented to person she is unsure of the place and time Psych Mood & Affect: depressed Skin no rashes or lesions noted MDM MDM MDM Narrative Medical decision making narrative: Patient was sent in from the snf with concern for aspiration. She is a DNR comfort care only and there is no power of insurance defense attorney or family that can be contacted to reverse this. As the patient has made clear and her previous wishes that she does not want any type of excessive medical treatment I do not feel there is need for work-up other than a chest x-ray at this time. Chest x-ray did not show any signs of infiltrate and therefore patient will be discharged back to the snf Radiography Diagnostic Testing: Radiology Impression Chest X-Ray 01/16/21 18:38 IMPRESSION: No radiographic evidence of acute cardiopulmonary disease. at 1917 Reported and signed by: Prasad Jansen MD Electronically Signed: Prasad Jansen MD at 19:16 EDT Tel , Service support , Discharge Plan Triage Chief Complaint: General Illness ED Provider: Jeremy Osorio Dx/Rx/DC Orders Clinical Impression: Nausea & vomiting, Cough Instructions: Nausea Vomit Control, ED Cough Chronic Uncertain Cause Adult Prescriptions: No Action acetaminophen 500 mg capsule 1,000 mg PO TID PRN (Reason: Pain/Inflammation) RF: 0 ammonium lactate 10 %-emu oil topical cream 10 % cream 1 applic TOPICAL DAILY RF: 0 bisacodyl [Dulcolax (bisacodyl)] 10 mg suppository 10 mg RC DAILY PRN (Reason: Constipation) RF: 0 citalopram [Celexa] 10 mg tablet 10 mg PO DAILY RF: 0 dextrose [Glucose Gel] 40 % gel 10 g PO Q15M PRN (Reason: low bld glucose) RF: 0 guaifenesin 100 mg/5 mL liquid 10 ml PO Q4H PRN (Reason: Cough) RF: 0 insulin lispro [Humalog U-100 Insulin] 100 unit/mL solution 1 sliding scale dose SC USEASDIRECTD RF: 0 magnesium hydroxide [Milk of Magnesia] 400 mg/5 mL suspension 30 ml PO DAILY PRN (Reason: GI Distress ) RF: 0 methyl salicylate-menthol 15-10 % cream 1 applic TOPICAL Q4H PRN (Reason: muscle pain) RF: 0 nystatin [Nystop] 100,000 unit/gram powder 1 applic TOPICAL DAILY RF: 0 sodium chloride [Saline Nasal Mist] 0.65 % aerosol,spray 2 spray INTRANASAL BID RF: 0 multivitamin,tx-minerals Tablet 1 tab PO DAILY RF: 0 aspirin 81 MG tablet,delayed release (DR/EC) 81 mg PO DAILY RF: 0 omeprazole 20 MG tablet,delayed release (DR/EC) 20 mg PO DAILY Qty: 60 RF: 2 ondansetron HCl 4 MG tablet 4 mg PO Q4H PRN (Reason: Nausea) RF: 0 insulin glargine 100 UNIT/ML insulin pen 10 unit SC DAILY RF: 0 cefdinir 300 MG capsule 300 mg PO Q12H Qty: 10 RF: 0 Primary Care Provider: Giovanny Porras Referrals: Giovanny Porras MD [Primary Care Provider] - 3-5 Days if not improving Disposition Disposition: Home, Self Care
== END 2021-01-16 20:41 | disposition home or self-care (01) ==
PROVIDERS: Emergency Provider Emergency Medicine; PCP Family Medicine
DX: R11.2 Nausea with vomiting, unspecified (principal); R10.9 Unspecified abdominal pain; R05 Cough; Z66 Do not resuscitate; F32.9 Major depressive disorder, single episode, unspecified; E66.9 Obesity, unspecified; E11.9 Type 2 diabetes mellitus without complications; E78.5 Hyperlipidemia, unspecified; F03.90 Unspecified dementia, unspecified severity, without behavioral disturbance, psychotic disturbance, mood disturbance, and anxiety; F41.9 Anxiety disorder, unspecified; I10 Essential (primary) hypertension; M62.82 Rhabdomyolysis; Z79.4 Long term (current) use of insulin; Z79.82 Long term (current) use of aspirin
CPT/HCPCS: 71045; 87426; 99284

== ENCOUNTER → 2021-01-19 05:00 | Outpatient (REF) | payer MEDICARE, SELFPAY ==
[2021-01-16 17:55] VITALS: BMI 23.3
[2021-01-19 10:16] LABS: Albumin, Serum 2.2 g/dL (3.2-5.0); Prealbumin 11.7 mg/dL (20.0-40.0)
[2021-01-20 09:02] LABS: ALB/GLOB Ratio 0.5 RATIO (0.9-2.4); AST(SGOT) 49 U/L (15-37); Alanine Aminotransfer ALT/SGPT 22 U/L (13-56); Alkaline Phosphatase 130 U/L (45-117); Anion Gap 7 (5-15); BUN 46 mg/dL (7-18); BUN/Creat Ratio 62.3 RATIO (10-20); Calcium,Total 9.9 mg/dL (8.5-10.1); Chloride 103 mmol/L (98-107); Creatinine, Serum 0.74 mg/dL (0.55-1.02); EST Glomerular Filtration Rate 82 mL/min (>60); Est Glom Filt Rate - Afr Amer 99 mL/min (>60); Globulin 4.6 g/dL (2.2-4.2); Glucose 72 mg/dL (74-106); Potassium 4.2 mmol/L (3.5-5.1); Protein, Total 6.8 g/dL (6.4-8.2); Sodium Level 139 mmol/L (136-145)
== END ==
LOC: OLS.SW300 05:00
PROVIDERS: PCP Family Medicine; Referring Provider Family Medicine; Visit Provider Family Medicine
DX: E78.5 Hyperlipidemia, unspecified (principal); E44.1 Mild protein-calorie malnutrition; M62.82 Rhabdomyolysis; E11.65 Type 2 diabetes mellitus with hyperglycemia
CPT/HCPCS: 36415; 80053; 84134

== ENCOUNTER → 2021-01-20 05:00 | Outpatient (REF) | payer MEDICARE, SELFPAY ==
[2021-01-20 08:43] LABS: Hematocrit 49.1 % (37-47); Hemoglobin 15.6 g/dL (12.0-15.0); Mean Corp Hgb Conc 31.8 g/dL (32-36); Mean Corpuscular Hgb 29.8 pg (27.0-32.0); Mean Corpuscular Volume 93.7 fL (81-99); Mean Platelet Vol. 10.7 fl (6.2-12.0); Platelet Count 348 K/mm3 (150-450); RBC Distribution Width CV 14.6 % (11.6-14.6); RBC Distribution Width SD 49.9 fl (35.1-43.9); Red Blood Count 5.24 M/mm3 (4.2-5.4); White Blood Count 15.6 K/mm3 (4.4-11.0)
== END ==
LOC: OLS.SW300 05:00
PROVIDERS: PCP Family Medicine; Visit Provider Family Medicine
DX: E11.9 Type 2 diabetes mellitus without complications (principal); R53.81 Other malaise
CPT/HCPCS: 36415; 85027

== ENCOUNTER → 2021-01-24 05:00 | Outpatient (REF) | payer MEDICARE, SELFPAY ==
[2021-01-24 09:12] LABS: Hematocrit 46.9 % (37-47); Hemoglobin 14.6 g/dL (12.0-15.0); Mean Corp Hgb Conc 31.1 g/dL (32-36); Mean Corpuscular Hgb 29.7 pg (27.0-32.0); Mean Corpuscular Volume 95.3 fL (81-99); Mean Platelet Vol. 10.1 fl (6.2-12.0); Platelet Count 408 K/mm3 (150-450); RBC Distribution Width CV 14.2 % (11.6-14.6); RBC Distribution Width SD 49.6 fl (35.1-43.9); Red Blood Count 4.92 M/mm3 (4.2-5.4); White Blood Count 12.2 K/mm3 (4.4-11.0)
== END ==
LOC: OLS.SW300 05:00
PROVIDERS: PCP Family Medicine; Visit Provider Family Medicine
DX: E11.9 Type 2 diabetes mellitus without complications (principal); R53.83 Other fatigue
CPT/HCPCS: 36415; 85027

== ENCOUNTER → 2021-02-17 05:00 | Outpatient (REF) | payer MEDICARE, MEDICAID, SELFPAY ==
[2021-02-17 09:22] LABS: Hematocrit 40.6 % (37-47); Hemoglobin 13.3 g/dL (12.0-15.0); Mean Corp Hgb Conc 32.8 g/dL (32-36); Mean Corpuscular Hgb 30.2 pg (27.0-32.0); Mean Corpuscular Volume 92.3 fL (81-99); Mean Platelet Vol. 10.7 fl (6.2-12.0); POSITIVE COUNT YES; Platelet Count 334 K/mm3 (150-450); RBC Distribution Width CV 15.8 % (11.6-14.6); RBC Distribution Width SD 53.1 fl (35.1-43.9)
[2021-02-17 09:46] LABS: Scan Indicated on CBC? Y/N YES- FLAGS NOTED; White Blood Count 31.4 K/mm3 (4.4-11.0)
[2021-02-17 09:50] LABS: Anion Gap 8 (5-15); BUN 30 mg/dL (7-18); BUN/Creat Ratio 44.1 RATIO (10-20); Calcium,Total 9.6 mg/dL (8.5-10.1); Chloride 105 mmol/L (98-107); Creatinine, Serum 0.68 mg/dL (0.55-1.02); EST Glomerular Filtration Rate 90 mL/min (>60); Est Glom Filt Rate - Afr Amer 109 mL/min (>60); Glucose 146 mg/dL (74-106); Potassium 3.3 mmol/L (3.5-5.1); Sodium Level 141 mmol/L (136-145)
[2021-02-17 10:15] LABS: Differential Comment SCANNED
[2021-02-18 14:38] LABS: Pathologist Review Reviewed
== END ==
LOC: OLS.SW300 05:00
PROVIDERS: PCP Family Medicine; Visit Provider Family Medicine
DX: R53.81 Other malaise (principal)
CPT/HCPCS: 36415; 80048; 85027